=== PATIENT | male | born 1955 | race Caucasian/White ===

== ENCOUNTER → 2017-09-16 11:34 | Outpatient (CLI) | payer OTHER, SELFPAY | PROVIDERS: Family Provider Family Medicine; PCP Family Medicine; Visit Provider Family Medicine | DX: Z53.8 Procedure and treatment not carried out for other reasons (principal) | CPT/HCPCS: 80053; 84443 ==

== ENCOUNTER → 2017-09-17 12:32 | Outpatient (CLI) | payer OTHER, SELFPAY ==
[2017-09-17 13:36] LABS: ALB/GLOB Ratio 1.2 RATIO (0.9-2.4); AST(SGOT) 35 U/L (15-37); Alanine Aminotransfer ALT/SGPT 55 U/L (16-61); Albumin, Serum 4.4 g/dL (3.2-5.0); Alkaline Phosphatase 85 U/L (45-117); Anion Gap 10 (5-15); BUN 19 mg/dL (7-18); BUN/Creat Ratio 24.1 RATIO (10-20); Calcium,Total 9.1 mg/dL (8.5-10.1); Chloride 106 mmol/L (98-107); Creatinine, Serum 0.79 mg/dL (0.70-1.30); EST Glomerular Filtration Rate 105 mL/min (>60); Est Glom Filt Rate - Afr Amer 127 mL/min (>60); Globulin 3.6 g/dL (2.2-4.2); Glucose 165 mg/dL (74-106); Potassium 5.1 mmol/L (3.5-5.1); Sodium Level 137 mmol/L (136-145); Thyroid Stim Hormone (TSH) 0.53 uIU/mL (0.358-3.74)
== END ==
PROVIDERS: Family Provider Family Medicine; PCP Family Medicine; Visit Provider Family Medicine
DX: E11.9 Type 2 diabetes mellitus without complications (principal)
CPT/HCPCS: 36415; 80053; 84443

== ENCOUNTER → 2017-12-05 06:56 | Outpatient (CLI) | payer OTHER, SELFPAY ==
--- NOTE | 2017-12-05 13:02 | STRESSREP ---
Stress Test Report Date: 12/05/2017 Procedure: Exercise tolerance test/imaging study Indications: Chest pain; CAD; PCI Consent: Per the patient Procedure: The patient exercised on a Villa protocol for 4 minutes completing Stage I and 1 minute of Stage II achieving a peak heart rate of 153 bpm (98 % predicted maximal heart rate) with a peak blood pressure 152/70 mmHg and a peak MET capacity of 5 METs. The baseline ECG demonstrated normal sinus rhythm; possible anterior ND of indeterminate age; nonspecific ST and T-wave abnormality. The peak exercise ECG demonstrated continued nonspecific ST and T-wave abnormality. There were occasional PVCs pretest and in recovery. The functional capacity was considered decreased. There was [no complaint of chest discomfort during exercise or recovery]. The examination was discontinued secondary to fatigue and dyspnea. Impression: 1. Technically adequate (percent predicted maximal heart rate greater than 85%) exercise tolerance test 2. Peak exercise ECG with continued nonspecific ST and T-wave abnormality 3. There were occasional PVCs pretest and in recovery. 4. Nuclear images pending Myocardial perfusion imaging study: Technique: The patient was injected with 14.8 mCi of technetium 99m Cardiolite and subsequently rest SPECT Cardiolite nuclear imaging was obtained in the horizontal long, vertical long, and short axis views. The patient exercised on a Villa protocol for 4 minutes completing Stage I and 1 minute of Stage II achieving a peak heart rate of 153 bpm (98 % predicted maximal heart rate) with a peak blood pressure 152/70 mmHg and a peak MET capacity of 5 METs. The patient was injected with 44.3 mCi of technetium 99m Cardiolite and subsequently stress SPECT Cardiolite nuclear imaging was obtained in the horizontal long, vertical long, and short axis views. A gated Cardiolite study at peak stress was obtained. Interpretation: Rest and stress SPECT Cardiolite nuclear imaging status post realignment, normalization, and attenuation correction, demonstrates the appearance of diminished absence of myocardial perfusion/tracer uptake in portions of the distal anterior, distal anteroseptal, distal anterolateral, distal inferior septal, distal inferior, and distal lateral segments, as well as, the apical segments without significant change between rest and stress. There is diminished end systolic thickening and brightening in the aforementioned areas. The gated Cardiolite study demonstrates diminished myocardial thickening and inward wall motion in the aforementioned areas. The reported LVEF is 33 %. Impression: 1. Rest and stress SPECT Cardiolite nuclear imaging demonstrate myocardial perfusion changes compatible with an area of previous myocardial injury/infarction involving portions of the distal anterior, distal anteroseptal, distal anterolateral, distal inferior septal, distal inferior, and distal lateral segments, as well as, the apical segments with no myocardial perfusion changes consider diagnostic for associated stress-induced myocardial ischemia. 2. The gated Cardiolite study reports an LVEF of 33 %. This note was generated with [employer] software. It may contain incorrect words, spelling, and punctuation that were not noted in checking the note before signing.
--- NOTE | 2017-12-05 13:07 | STRESSREP_ITS ---
Stress Test Report Date: 12/05/2017 Procedure: Exercise tolerance test/imaging study Indications: Chest pain; CAD; PCI Consent: Per the patient Procedure: The patient exercised on a Villa protocol for 4 minutes completing Stage I and 1 minute of Stage II achieving a peak heart rate of 153 bpm (98 % predicted maximal heart rate) with a peak blood pressure 152/70 mmHg and a peak MET capacity of 5 METs. The baseline ECG demonstrated normal sinus rhythm; possible anterior MS of indeterminate age; nonspecific ST and T-wave abnormality. The peak exercise ECG demonstrated continued nonspecific ST and T-wave abnormality. There were occasional PVCs pretest and in recovery. The functional capacity was considered decreased. There was [no complaint of chest discomfort during exercise or recovery]. The examination was discontinued secondary to fatigue and dyspnea. Impression: 1. Technically adequate (percent predicted maximal heart rate greater than 85% ) exercise tolerance test 2. Peak exercise ECG with continued nonspecific ST and T-wave abnormality 3. There were occasional PVCs pretest and in recovery. 4. Nuclear images pending Myocardial perfusion imaging study: Technique: The patient was injected with 14.8 mCi of technetium 99m Cardiolite and subsequently rest SPECT Cardiolite nuclear imaging was obtained in the horizontal long, vertical long, and short axis views. The patient exercised on a Villa protocol for 4 minutes completing Stage I and 1 minute of Stage II achieving a peak heart rate of 153 bpm (98 % predicted maximal heart rate) with a peak blood pressure 152/70 mmHg and a peak MET capacity of 5 METs. The patient was injected with 44.3 mCi of technetium 99m Cardiolite and subsequently stress SPECT Cardiolite nuclear imaging was obtained in the horizontal long, vertical long, and short axis views. A gated Cardiolite study at peak stress was obtained. Interpretation: Rest and stress SPECT Cardiolite nuclear imaging status post realignment, normalization, and attenuation correction, demonstrates the appearance of diminished absence of myocardial perfusion/tracer uptake in portions of the distal anterior, distal anteroseptal, distal anterolateral, distal inferior septal, distal inferior, and distal lateral segments, as well as, the apical segments without significant change between rest and stress. There is diminished end systolic thickening and brightening in the aforementioned areas. The gated Cardiolite study demonstrates diminished myocardial thickening and inward wall motion in the aforementioned areas. The reported LVEF is 33 %. Impression: 1. Rest and stress SPECT Cardiolite nuclear imaging demonstrate myocardial perfusion changes compatible with an area of previous myocardial injury/ infarction involving portions of the distal anterior, distal anteroseptal, distal anterolateral, distal inferior septal, distal inferior, and distal lateral segments, as well as, the apical segments with no myocardial perfusion changes consider diagnostic for associated stress-induced myocardial ischemia. 2. The gated Cardiolite study reports an LVEF of 33 %. This note was generated with [employer] software. It may contain incorrect words, spelling, and punctuation that were not noted in checking the note before signing.
== END ==
PROVIDERS: Family Provider Family Medicine; PCP Family Medicine; Visit Provider Internal Medicine Cardiovascular Disease
DX: R07.9 Chest pain, unspecified (principal)
CPT/HCPCS: 78452; 93017; A9500; A4216

== ENCOUNTER → 2018-01-27 11:18 | Outpatient (CLI) | payer OTHER, SELFPAY ==
[2018-01-27 12:28] LABS: ALB/GLOB Ratio 1.2 RATIO (0.9-2.4); AST(SGOT) 36 U/L (15-37); Alanine Aminotransfer ALT/SGPT 48 U/L (16-61); Albumin, Serum 4.3 g/dL (3.2-5.0); Alkaline Phosphatase 83 U/L (45-117); Anion Gap 11 (5-15); BUN 14 mg/dL (7-18); BUN/Creat Ratio 16.7 RATIO (10-20); Calcium,Total 9.1 mg/dL (8.5-10.1); Chloride 105 mmol/L (98-107); Cholesterol 131 mg/dL (200); Creatinine, Serum 0.84 mg/dL (0.70-1.30); EST Glomerular Filtration Rate 98 mL/min (>60); Est Glom Filt Rate - Afr Amer 119 mL/min (>60); Globulin 3.6 g/dL (2.2-4.2); Glucose 122 mg/dL (74-106); High Density Lipoprotein 49 mg/dL; Potassium 4.8 mmol/L (3.5-5.1); Protein, Total 7.9 g/dL (6.4-8.2); Sodium Level 140 mmol/L (136-145); Triglycerides 151 mg/dL; Very Low Density Lipoprotein 30 mg/dL (5-40)
[2018-01-27 12:50] LABS: AST(SGOT) 37 U/L (15-37); Alanine Aminotransfer ALT/SGPT 48 U/L (16-61); Albumin, Serum 4.2 g/dL (3.2-5.0); Alkaline Phosphatase 84 U/L (45-117); Bilirubin, Direct 0.21 mg/dL (0.00-0.30); Globulin 3.8 g/dL (2.2-4.2)
== END ==
PROVIDERS: Physician Assistant Medical; Family Provider Family Medicine; PCP Family Medicine; Visit Provider Internal Medicine Cardiovascular Disease
DX: I25.10 Atherosclerotic heart disease of native coronary artery without angina pectoris (principal); E78.5 Hyperlipidemia, unspecified; R50.9 Fever, unspecified; Z79.899 Other long term (current) drug therapy
CPT/HCPCS: 36415; 80053; 80061; 80076

== ENCOUNTER → 2018-01-30 15:42 | Outpatient (CLI) | payer OTHER, SELFPAY ==
--- NOTE | 2018-01-30 15:51 | RAD_ITS ---
STUDY: X-RAY - ABDOMEN/PELVIS REASON FOR EXAM: Male, 62 years old. Hematuria, history of kidney stones TECHNIQUE: Two AP supine views of the abdomen and pelvis. COMPARISON: None. FINDINGS: Normal visualized lung bases. There is an unremarkable bowel gas pattern. There is no demonstrated free abdominal air. There are numerous calcific densities of the left upper quadrant of the abdomen consistent with calcified splenic granulomas. There is a 2 x 6 mm calcification overlying the upper pole of the right kidney. There is a 7 x 3 mm calcification of the lower right pelvis. Normal visualized osseous structures. RAD/Abdomen Single View IMPRESSION: 1. 2 x 6 mm calcification overlying the upper pole of the left kidney which may represent nephrolithiasis. 2. 7 x 3 mm calcification of the lower right pelvis which may be intraureteral. 3. Calcified splenic granulomas. 4. There is no evidence of ileus or obstruction. 5. CT of the abdomen and pelvis without contrast would be helpful for further evaluation. Electronically Signed: Noé Hahn MD at 16:21 EDT , Service support ,
[2018-01-30 17:49] LABS: Anion Gap 8 (5-15); BUN 18 mg/dL (7-18); Calcium,Total 10.1 mg/dL (8.5-10.1); Chloride 100 mmol/L (98-107); Creatinine, Serum 0.95 mg/dL (0.70-1.30); EST Glomerular Filtration Rate 85 mL/min (>60); Est Glom Filt Rate - Afr Amer 103 mL/min (>60); Glucose 218 mg/dL (74-106); Potassium 5.3 mmol/L (3.5-5.1); Sodium Level 134 mmol/L (136-145)
== END ==
PROVIDERS: Family Provider Family Medicine; PCP Family Medicine; Visit Provider Family Medicine
DX: R31.9 Hematuria, unspecified (principal); R30.0 Dysuria
CPT/HCPCS: 36415; 74018; 80048; 87086

== ENCOUNTER → 2018-01-31 10:45 | Outpatient (CLI) | payer OTHER, SELFPAY ==
--- NOTE | 2018-01-31 11:04 | CT_ITS ---
STUDY: CT ABDOMEN AND PELVIS WITHOUT CONTRAST REASON FOR EXAM: Male, 62 years old. Hematuria. RADIATION DOSAGE (If Supplied By Facility): CTDIvol = ( 18.56 ) mGy, DLP = ( 1029.26 ) mGycm TECHNIQUE: Transaxial images were obtained from the dome of the diaphragm to the symphysis pubis without oral contrast, and without intravenous contrast. Sagittal and coronal images were reconstructed. Individualized dose optimization techniques were used for this CT. COMPARISON: Comparison is made with prior study dated April 23, 2016. FINDINGS: Calcified granuloma in the posterior medial aspect of the left lower lobe. Stable small pulmonary bulla. Coronary artery calcifications. Normal liver. There are multiple small gallstones. There are multiple benign calcified granulomata of the spleen. Normal pancreas. Normal bilateral adrenal glands. There is a 2.5 mm nonobstructive calculus in the midportion of the right kidney. Normal left kidney. Nonspecific bilateral perinephric stranding. Normal visualized stomach. Normal small intestine. There are multiple colonic diverticula consistent with diverticulosis. The patient is status post appendectomy. There is diffuse atherosclerotic calcification of the abdominal aorta and its major visceral branches., without a demonstrated aneurysm. Normal inferior vena cava. There is borderline retroperitoneal lymphadenopathy with enlarged nodes no greater than 10mm in the short axis diameter. Normal urinary bladder. Calcification of the vas deferens. Normal abdominal wall. Normal osseous structures. CT/Abdomen/Pelvis without Cont IMPRESSION: Nonobstructive right intrarenal calculus. No evidence of a obstructive uropathy. Electronically Signed: Jose Cruz Peterson MD at 12:28 EDT Tel [phone], Service support ,
== END ==
PROVIDERS: Family Provider Family Medicine; PCP Family Medicine; Visit Provider Family Medicine
DX: R31.9 Hematuria, unspecified (principal)
CPT/HCPCS: 74176

== ENCOUNTER → 2018-07-31 07:57 | Outpatient (CLI) | payer OTHER, SELFPAY ==
[2018-07-31 10:44] LABS: Anion Gap 7 (5-15); BUN 15 mg/dL (7-18); BUN/Creat Ratio 20.3 RATIO (10-20); Chloride 106 mmol/L (98-107); Cholesterol 129 mg/dL (200); Creatinine, Serum 0.74 mg/dL (0.70-1.30); EST Glomerular Filtration Rate 113 mL/min (>60); Est Glom Filt Rate - Afr Amer 137 mL/min (>60); Glucose 109 mg/dL (74-106); High Density Lipoprotein 50 mg/dL; Sodium Level 141 mmol/L (136-145); Triglycerides 135 mg/dL; Very Low Density Lipoprotein 27 mg/dL (5-40)
== END ==
PROVIDERS: Family Provider Family Medicine; PCP Family Medicine; Referring Provider Family Medicine; Visit Provider Family Medicine
DX: E11.9 Type 2 diabetes mellitus without complications (principal)
CPT/HCPCS: 36415; 80048; 80061

== ENCOUNTER → 2018-11-13 07:47 | Outpatient (CLI) | payer MEDICARE, OTHER, SELFPAY ==
[2018-08-29 09:40] VITALS: BMI 31.1
--- NOTE | 2018-11-13 07:51 | AAAS_ITS ---
Reason For Study: screening for AAA Aorta Measurements Aorta Doppler Measurements Proximal aorta measures1.11 x 1.22cm. in cross- Peak systolic flow velocities within the proximal sectional axis. aorta measure 114.5 cm/sec. Proximal aorta measures1.19cm. in longitudinal Peak systolic flow velocities within the mid aorta axis. measure 106.7 cm/sec. Mid aorta measures1.03 x 1.24cm. in cross- Peak systolic flow velocities within the distal sectional axis. aorta measure 119.7 cm/sec. Mid aorta measures1.04cm. in longitudinal axis. Distal aorta measures1.2 x 1.24cm. in cross- sectional axis. Distal aorta measures1.07cm. in longitudinal axis. Left Iliac Artery Left iliac artery measures .94 x .91 cm. in the cross-sectional axis. Left iliac artery measures .91 cm. in the longitudinal axis. Peak systolic velocity in the left iliac artery measures 67.9 cm/sec. Right Iliac Artery Right iliac artery measures .95 x 1.0 cm. in the cross-sectional axis. Right iliac artery measures .94 cm. in the longitudinal axis. Peak systolic velocity in the right iliac artery measures 93.8 cm/sec. Interpretation Summary The dimensions of the intra-abdominal aorta are normal, without evidence of aneurysmal dilatation. The iliac arteries are also normal in size bilaterally. The intra-abdominal aorta and iliac arteries appear patent, demonstrating normal, pulsatile arterial flow and normal peak systolic velocities. Ordering Physician: Yonathan Escalante Performed By: Johan Thompson RVT
== END ==
PROVIDERS: Family Provider Family Medicine; PCP Family Medicine; Referring Provider Family Medicine; Visit Provider Family Medicine
DX: I10 Essential (primary) hypertension (principal); Z13.6 Encounter for screening for cardiovascular disorders
CPT/HCPCS: 76706

== ENCOUNTER → 2019-02-26 | Outpatient (CLI) | payer MEDICARE, OTHER, SELFPAY ==
[2019-02-25 11:03] VITALS: BMI 30.7
[2019-02-26 11:22] LABS: AST(SGOT) 48 U/L (15-37); Alanine Aminotransfer ALT/SGPT 57 U/L (16-61); Albumin, Serum 4.1 g/dL (3.2-5.0); Alkaline Phosphatase 71 U/L (45-117); Bilirubin, Direct 0.24 mg/dL (0.00-0.30); Globulin 3.4 g/dL (2.2-4.2); Protein, Total 7.5 g/dL (6.4-8.2)
[2019-02-26 11:26] LABS: ALB/GLOB Ratio 1.2 RATIO (0.9-2.4); AST(SGOT) 47 U/L (15-37); Alanine Aminotransfer ALT/SGPT 56 U/L (16-61); Albumin, Serum 4.1 g/dL (3.2-5.0); Alkaline Phosphatase 74 U/L (45-117); Anion Gap 6 (5-15); BUN 19 mg/dL (7-18); BUN/Creat Ratio 25.8 RATIO (10-20); Calcium,Total 9.8 mg/dL (8.5-10.1); Chloride 103 mmol/L (98-107); Cholesterol 141 mg/dL (200); Creatinine, Serum 0.74 mg/dL (0.70-1.30); EST Glomerular Filtration Rate 113 mL/min (>60); Est Glom Filt Rate - Afr Amer 137 mL/min (>60); Globulin 3.3 g/dL (2.2-4.2); Glucose 137 mg/dL (74-106); High Density Lipoprotein 55 mg/dL; PSA,Total - Annual Screen 0.58 ng/mL (0.00-4.00); Potassium 4.1 mmol/L (3.5-5.1); Protein, Total 7.4 g/dL (6.4-8.2); Sodium Level 135 mmol/L (136-145); Thyroid Stim Hormone (TSH) 0.62 uIU/mL (0.358-3.74); Triglycerides 164 mg/dL; Very Low Density Lipoprotein 33 mg/dL (5-40)
== END | disposition home or self-care (01) ==
LOC: LAB 10:02
PROVIDERS: Family Provider Family Medicine; PCP Family Medicine; Referring Provider Internal Medicine Cardiovascular Disease; Visit Provider Internal Medicine Cardiovascular Disease
DX: E78.5 Hyperlipidemia, unspecified (principal); E11.9 Type 2 diabetes mellitus without complications; Z12.5 Encounter for screening for malignant neoplasm of prostate
CPT/HCPCS: 36415; 80053; 80061; 80076; 84153; 84443; G0103

== ENCOUNTER → 2019-08-26 11:28 | Outpatient (CLI) | payer MEDICARE, OTHER, SELFPAY ==
[2019-02-25 11:03] VITALS: BMI 30.7
[2019-08-26 14:59] LABS: ALB/GLOB Ratio 1.3 RATIO (0.9-2.4); AST(SGOT) 40 U/L (15-37); Alanine Aminotransfer ALT/SGPT 60 U/L (16-61); Albumin, Serum 4.4 g/dL (3.2-5.0); Alkaline Phosphatase 76 U/L (45-117); Anion Gap 7 (5-15); BUN 16 mg/dL (7-18); BUN/Creat Ratio 17.3 RATIO (10-20); Calcium,Total 9.8 mg/dL (8.5-10.1); Chloride 104 mmol/L (98-107); Cholesterol 133 mg/dL (200); Creatinine, Serum 0.93 mg/dL (0.70-1.30); EST Glomerular Filtration Rate 87 mL/min (>60); Est Glom Filt Rate - Afr Amer 105 mL/min (>60); Globulin 3.5 g/dL (2.2-4.2); Glucose 165 mg/dL (74-106); High Density Lipoprotein 51 mg/dL; Protein, Total 7.9 g/dL (6.4-8.2); Sodium Level 136 mmol/L (136-145); Triglycerides 136 mg/dL; Very Low Density Lipoprotein 27 mg/dL (5-40)
== END ==
PROVIDERS: Family Provider Family Medicine; PCP Family Medicine; Referring Provider Family Medicine; Visit Provider Family Medicine
DX: E11.9 Type 2 diabetes mellitus without complications (principal)
CPT/HCPCS: 36415; 80053; 80061

== ENCOUNTER → 2020-03-09 | Outpatient (CLI) | payer MEDICARE, OTHER, SELFPAY ==
[2019-09-04 10:23] VITALS: BMI 30.9
[2020-03-09 12:49] LABS: AST(SGOT) 29 U/L (15-37); Alanine Aminotransfer ALT/SGPT 41 U/L (16-61); Albumin, Serum 4.3 g/dL (3.2-5.0); Alkaline Phosphatase 61 U/L (45-117); Bilirubin, Direct 0.25 mg/dL (0.00-0.30); Cholesterol 131 mg/dL (200); Globulin 2.6 g/dL (2.2-4.2); High Density Lipoprotein 52 mg/dL; Protein, Total 6.9 g/dL (6.4-8.2); Triglycerides 149 mg/dL; Very Low Density Lipoprotein 30 mg/dL (5-40)
[2020-03-09 12:53] LABS: ALB/GLOB Ratio 1.3 RATIO (0.9-2.4); AST(SGOT) 31 U/L (15-37); Alanine Aminotransfer ALT/SGPT 41 U/L (16-61); Albumin, Serum 4.2 g/dL (3.2-5.0); Alkaline Phosphatase 60 U/L (45-117); Anion Gap 4 (5-15); BUN 11 mg/dL (7-18); BUN/Creat Ratio 17.5 RATIO (10-20); Calcium,Total 9.1 mg/dL (8.5-10.1); Chloride 106 mmol/L (98-107); Creatinine, Serum 0.63 mg/dL (0.70-1.30); EST Glomerular Filtration Rate 136 mL/min (>60); Est Glom Filt Rate - Afr Amer 165 mL/min (>60); Globulin 3.2 g/dL (2.2-4.2); Glucose 129 mg/dL (74-106); PSA,Total - Annual Screen 0.51 ng/mL (0.00-4.00); Potassium 4.1 mmol/L (3.5-5.1); Protein, Total 7.4 g/dL (6.4-8.2); Sodium Level 139 mmol/L (136-145); Thyroid Stim Hormone (TSH) 0.73 uIU/mL (0.358-3.74)
== END | disposition home or self-care (01) ==
LOC: MTLAB 09:40
PROVIDERS: PCP Family Medicine; Referring Provider Internal Medicine Cardiovascular Disease; Visit Provider Internal Medicine Cardiovascular Disease
DX: E11.9 Type 2 diabetes mellitus without complications (principal); E78.5 Hyperlipidemia, unspecified; I25.118 Atherosclerotic heart disease of native coronary artery with other forms of angina pectoris; Z12.5 Encounter for screening for malignant neoplasm of prostate
CPT/HCPCS: 36415; 80053; 80061; 80076; 84153; 84443; G0103

== ENCOUNTER → 2020-12-16 11:02 | Outpatient (CLI) | payer MEDICARE, OTHER, SELFPAY ==
[2020-03-14 13:51] VITALS: BMI 30.7
[2020-12-16 14:58] LABS: Hematocrit 41.6 % (40-54); Hemoglobin 13.8 g/dL (13.0-16.5); Mean Corp Hgb Conc 33.2 g/dL (32-36); Mean Corpuscular Hgb 31.6 pg (27.0-32.0); Mean Corpuscular Volume 95.2 fL (80-94); Mean Platelet Vol. 10.4 fl (6.2-12.0); Platelet Count 179 K/mm3 (150-450); RBC Distribution Width CV 11.8 % (11.6-14.6); RBC Distribution Width SD 40.8 fl (35.1-43.9); Red Blood Count 4.37 M/mm3 (4.6-6.2); White Blood Count 5.1 K/mm3 (4.4-11.0)
[2020-12-16 15:21] LABS: AST(SGOT) 22 U/L (15-37); Alanine Aminotransfer ALT/SGPT 35 U/L (16-61); Albumin, Serum 4.2 g/dL (3.2-5.0); Alkaline Phosphatase 59 U/L (45-117); Bilirubin, Direct 0.27 mg/dL (0.00-0.30); Cholesterol 121 mg/dL (200); Globulin 2.9 g/dL (2.2-4.2); High Density Lipoprotein 54 mg/dL; Protein, Total 7.1 g/dL (6.4-8.2); Triglycerides 93 mg/dL; Very Low Density Lipoprotein 19 mg/dL (5-40); Vitamin B12 294 pg/mL (211-911)
[2020-12-16 15:35] LABS: ALB/GLOB Ratio 1.4 RATIO (0.9-2.4); AST(SGOT) 19 U/L (15-37); Alanine Aminotransfer ALT/SGPT 34 U/L (16-61); Albumin, Serum 4.2 g/dL (3.2-5.0); Alkaline Phosphatase 57 U/L (45-117); Anion Gap 5 (5-15); BUN 14 mg/dL (7-18); BUN/Creat Ratio 17.8 RATIO (10-20); Calcium,Total 9.2 mg/dL (8.5-10.1); Chloride 101 mmol/L (98-107); Creatinine, Serum 0.79 mg/dL (0.70-1.30); EST Glomerular Filtration Rate 104 mL/min (>60); Est Glom Filt Rate - Afr Amer 126 mL/min (>60); Glucose 145 mg/dL (74-106); Potassium 4.9 mmol/L (3.5-5.1); Protein, Total 7.2 g/dL (6.4-8.2); Sodium Level 134 mmol/L (136-145); Thyroid Stim Hormone (TSH) 0.82 uIU/mL (0.358-3.74)
== END ==
PROVIDERS: PCP Family Medicine; Referring Provider Internal Medicine Cardiovascular Disease; Visit Provider Internal Medicine Cardiovascular Disease
DX: E78.00 Pure hypercholesterolemia, unspecified (principal); E11.9 Type 2 diabetes mellitus without complications; I25.10 Atherosclerotic heart disease of native coronary artery without angina pectoris
CPT/HCPCS: 36415; 80053; 80061; 80076; 82607; 84443; 85027

== ENCOUNTER 2021-06-17 22:43 | Emergency (ER) | payer MEDICARE, OTHER, SELFPAY ==
[2021-06-17 22:43] VITALS: PULSE 99; RESP 16; TEMP 36.4; O2SAT 100; BMI 30.8
--- NOTE | 2021-06-17 23:12 | EKG12_ITS ---
Test Reason : DYSRHYTHMIA Blood Pressure : / mmHG Vent. Rate : 094 BPM Atrial Rate : 094 BPM P-R Int : 210 ms QRS Dur : 116 ms QT Int : 362 ms P-R-T Axes : 030 -42 033 degrees QTc Int : 452 ms Sinus rhythm with 1st degree A-V block Left axis deviation Inferior infarct , age undetermined Anterolateral infarct , age undetermined Abnormal ECG Confirmed by PETE LUIS, SENAIT ([id number]), fan mail editor KERLINE ZELAYA ([id number]) on 06/19/2021 10:35:26 AM Referred By: ABBY Confirmed By:SENAIT FREEMAN MD
--- NOTE | 2021-06-17 23:12 | EX.ED.DYSGE1 ---
HPI History of Present Illness Chief Complaint: Other, Pain/Inj Informant: patient and spouse/S.O. Onset/Context/Timing Onset: Today Context: - (Awoke with symptoms this morning) Timing: Continuous Quality: Sore/pain Location: Left upper posterior neck Current Severity: Mild Maximum Severity: Severe Worsened by: Certain movement, mostly tilting his head to the left Relieved by: Remaining still Associated Symptoms Associated Symptoms: None at this time Narrative Narrative: Patient presents with focal neck discomfort that he woke up with this morning. He states his main concern is that this could be possible heart related because he has a history of stents that were around 10 years ago. He denied of any chest pain, shortness of breath, or any other systemic symptoms, but for the last week or so he has had discomfort in his left upper back and upper left arm that was unexplained according to him, but that is all gone now and feels better. He did not have any interim injuries or heavy lifting or repetitive motions he can think of, but later he does think of the fact that about 1 or 2 weeks ago they started lifting weights likely at a nearby gymnasium. He is right-hand dominant. 3 weeks ago he had his Covid booster shot in his left shoulder, that is feeling better now although it was a little sore. He states he has had pain in his left neck for like this when he has slept on it wrong, but usually after taking ibuprofen it goes away but it did not do that today. 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 Premature ventricular contractions Type 2 diabetes mellitus without complications Home Medications aspirin 81 mg PO BID 04/23/16 [History Last Taken 04/23/16] furosemide 40 mg PO DAILY PRN 04/23/16 [History Last Taken Unknown] [id number] fum-folic ac 1 tab PO DINNER 04/23/16 [History Last Taken 04/23/16] spironolactone 12.5 mg PO DAILY 04/23/16 [History Last Taken 04/23/16] diphenhydramine HCl 25 mg PO QHS PRN PRN 04/26/16 [History Last Taken Unknown] atorvastatin 80 mg tablet 80 mg PO QHS #90 tab 09/30/17 [Rx Last Taken Unknown] magnesium oxide 400 mg (241.3 mg magnesium) tablet 400 mg PO QDAY tab 03/10/18 [History Last Taken Unknown] carvedilol 12.5 mg tablet 12.5 mg PO BID #180 tab 05/26/18 [Rx Last Taken Unknown] nitroglycerin 0.4 mg sublingual tablet 0.4 mg SUBLINGUAL Q5-15M 02/25/19 [History Last Taken Unknown] lisinopril 20 mg tablet 20 mg PO DAILY 09/04/19 [History Last Taken Unknown] isosorbide mononitrate 10 mg tablet 5 mg PO BID #90 tab 08/29/20 [Rx Last Taken Unknown] metformin 500 mg tablet 1,000 mg PO BID tab 12/19/20 [History Last Taken Unknown] Allergy/AdvReac Type Severity Reaction Status Date / Time rosuvastatin [From Crestor] AdvReac Severe didnt feel Verified 06/17/21 22:46 well Family History Mother Diabetes Sister Diabetes Brother Diabetes Hypertension Surgical History H/O right knee surgery History of appendectomy History of tonsillectomy and adenoidectomy Stented coronary artery (~12/14/11) Social History Smoking Status: Former smoker ROS ROS ED Constitutional Constitutional ED: Denies chills or fever(s) Eyes Eyes: Denies change in vision or diplopia ENT ENT ED: Reports as per HPI and neck pain; Denies rhinorrhea or sore throat Cardiovascular Cardiovascular: Denies chest pain or palpitations Respiratory/Chest Respiratory/Chest: Denies cough or dyspnea Gastrointestinal Gastrointestinal: Denies abdominal pain, diarrhea, nausea or vomiting Genitourinary Genitourinary ED: Denies dysuria or hematuria Musculoskeletal Musculoskeletal: Denies back pain or neck pain Integumentary Denies abscess or rash Neurologic Neurologic: Denies headache(s), paresthesias or weakness Psychiatric Psychiatric: Denies anxiety or suicidal thoughts EXAM Physical Exam Const Vital Signs: 06/17/21 22:43 06/17/21 23:36 Temperature 97.6 F L Temperature Source Temporal Pulse Rate 99 92 Respiratory Rate 16 17 Respiratory Effort Normal Non-Labored Respiratory Pattern Normal Pulse Ox 100 95 Oxygen Delivery Method Room Air Room Air Positive well nourished and well developed General Appearance ED: well developed and NAD HEENT Reports moist mucous membranes normocephalic and atraumatic Eyes PERRL and EOMs intact bilaterally Neck full ROM and supple Neck Narrative: Patient has focal neck tenderness in the left paraspinal musculature, behind the mastoid process but not including it, he is able to stretch it out, and is able to tilt his head using the paraspinal musculature and make the pain worse. There is no lymphadenopathy palpable anywhere in the neck or submandibular area. Chest Wall inspection of chest normal and palpation of chest normal Chest Narrative: Nontender. No axillary lymphadenopathy. Resp normal respiratory effort and clear to auscultation bilaterally Cardio regular rate, regular rhythm and no murmurs Rate: Negative for tachycardic GI non-tender and non-distended Auscultation: normoactive bowel sounds Palpation: soft Back/Spine no CVA tenderness General Back: other FROM Extremity normal to inspection and no calf tenderness Extremity Narrative: Normal left shoulder, no erythema or tenderness. General Extremety ED: Negative for edema, pulses abnormal or tenderness General Extremity: Negative for edema or pulses abnormal Neuro oriented x3, CN's II-XII intact bilaterally and no sensory deficits noted Sensorium / Orientation: awake and alert Motor Exam: strength 5/5 throughout Skin no rashes or lesions noted and no wounds MDM MDM MDM Narrative Medical decision making narrative: I think this is musculoskeletal. In order to reassure the patient obtained an EKG and a troponin, his EKG shows chronic abnormalities including's first-degree AV block and left axis deviation and Q waves from previous MIs in inferior and anteroseptal distributions. This is unchanged compared with prior EKG from 2019. His troponin is negative. Patient was reassured, he was given a compounded cream of diclofenac, lidocaine, and baclofen to use for this area topically which I think will be of benefit to him. Advised to follow-up as needed if pain does not improve within the next 3 to 5 days. Lab Data Attestation: I reviewed the patient's lab results. Labs: Laboratory Results - last 24 hr 06/17/21 23:48 Troponin I High Sens 6 EKG Initial EKG: Attestation: I personally reviewed and interpreted this EKG as follows: Interpretation: Sinus Rhythm and AV Block (First-degree block) Comments: Left anterior fascicular block. Old inferior and anteroseptal MIs. Prior EKG tracings: available for review Prior: Unchanged Discharge Plan Triage Chief Complaint: Other, Pain/Inj ED Provider: Reece Duarte Dx/Rx/DC Orders Clinical Impression: Musculoskeletal neck pain, Atherosclerotic heart disease of [place] coronary artery without angina pectoris Instructions: ED Neck Pain Prescriptions: No Action magnesium oxide 400 mg tablet 400 mg PO QDAY RF: 0 nitroglycerin 0.4 mg tablet, sublingual 0.4 mg SUBLINGUAL Q5-15M RF: 0 lisinopril 20 mg tablet 20 mg PO DAILY RF: 0 furosemide 40 MG tablet 40 mg PO DAILY PRN (Reason: Swelling) RF: 0 aspirin 81 MG tablet 81 mg PO BID RF: 0 spironolactone 25 MG tablet 12.5 mg PO DAILY RF: 0 vtxqbzax-gmc-raha fum-folic ac 1 EACH tablet 1 tab PO DINNER RF: 0 metformin 500 mg tablet 1,000 mg PO BID RF: 0 diphenhydramine HCl 25 MG capsule 25 mg PO QHS PRN PRN (Reason: Sleep) RF: 0 atorvastatin 80 MG tablet 80 mg PO QHS Qty: 90 RF: 3 carvedilol 12.5 mg tablet 12.5 mg PO BID Qty: 180 RF: 3 isosorbide mononitrate 10 mg tablet 10 mg tablet 5 mg PO BID Qty: 90 RF: 3 Primary Care Provider: Jacek Escalante Referrals: Jacek Escalante MD [Primary Care Provider] - 1 Week if not improving Activity Restrictions/Additional Instructions: Use small amount of cream to affected area 1-2 times daily as needed for discomfort/pain. Disposition Disposition: Home, Self Care
[2021-06-17] MEDS: Arthritis Pain Compound 60 CLICK TUBE TOPICAL (23:34)
[2021-06-17 23:36] VITALS: PULSE 92; RESP 17; O2SAT 95
[2021-06-18 00:13] LABS: Troponin-I HS 6 pg/mL (3.0-78.0)
[2021-06-18 00:29] VITALS: BP 168/100; PULSE 89; RESP 17; O2SAT 93
== END 2021-06-18 00:31 | disposition home or self-care (01) ==
PROVIDERS: Emergency Provider Emergency Medicine; PCP Family Medicine
DX: M54.2 Cervicalgia (principal); I25.10 Atherosclerotic heart disease of native coronary artery without angina pectoris; I11.0 Hypertensive heart disease with heart failure; I50.22 Chronic systolic (congestive) heart failure; E78.5 Hyperlipidemia, unspecified; E11.9 Type 2 diabetes mellitus without complications; Z79.84 Long term (current) use of oral hypoglycemic drugs; Z79.899 Other long term (current) drug therapy; Z87.891 Personal history of nicotine dependence
CPT/HCPCS: 84484; 93005; 99282

== ENCOUNTER → 2021-06-22 09:10 | Outpatient (CLI) | payer MEDICARE, OTHER, SELFPAY ==
[2021-06-22 11:11] LABS: AST(SGOT) 20 U/L (15-37); Alanine Aminotransfer ALT/SGPT 29 U/L (16-61); Albumin, Serum 3.8 g/dL (3.2-5.0); Alkaline Phosphatase 66 U/L (45-117); Bilirubin, Direct 0.16 mg/dL (0.00-0.30); Cholesterol 115 mg/dL (200); Globulin 3.6 g/dL (2.2-4.2); High Density Lipoprotein 44 mg/dL; Protein, Total 7.4 g/dL (6.4-8.2); Triglycerides 117 mg/dL; Very Low Density Lipoprotein 23 mg/dL (5-40)
== END ==
PROVIDERS: PCP Family Medicine; Referring Provider Internal Medicine Cardiovascular Disease; Visit Provider Internal Medicine Cardiovascular Disease
DX: E78.5 Hyperlipidemia, unspecified (principal); E78.00 Pure hypercholesterolemia, unspecified
CPT/HCPCS: 36415; 80061; 80076

== ENCOUNTER → 2022-04-10 | Outpatient (CLI) | payer MEDICARE, OTHER, SELFPAY ==
[2022-04-10 10:24] LABS: AST(SGOT) 19 U/L (15-37); Alanine Aminotransfer ALT/SGPT 30 U/L (16-61); Alkaline Phosphatase 60 U/L (45-117); Bilirubin, Direct 0.15 mg/dL (0.00-0.30); Cholesterol 121 mg/dL (200); Globulin 2.9 g/dL (2.2-4.2); High Density Lipoprotein 52 mg/dL; Protein, Total 6.9 g/dL (6.4-8.2); Triglycerides 138 mg/dL; Very Low Density Lipoprotein 28 mg/dL (5-40)
[2022-04-10 11:09] LABS: Hepatitis C Antibody Non-Reactive (Nonreactive)
[2022-04-11 08:28] LABS: V-Zoster IgG (Immunity) 2229 index (Immune >165)
== END | disposition home or self-care (01) ==
LOC: MTLAB 07:40
PROVIDERS: Internal Medicine Cardiovascular Disease; PCP Family Medicine; Referring Provider Family Medicine; Visit Provider Family Medicine
DX: E78.5 Hyperlipidemia, unspecified (principal)
CPT/HCPCS: 36415; 80061; 80076; 86787; 86803

== ENCOUNTER → 2022-11-16 | Outpatient (CLI) | payer MEDICARE, OTHER, SELFPAY ==
[2022-11-16 10:24] LABS: Hematocrit 43.7 % (40-54); Hemoglobin 14.7 g/dL (13.0-16.5); Mean Corp Hgb Conc 33.6 g/dL (32-36); Mean Corpuscular Hgb 32.7 pg (27.0-32.0); Mean Corpuscular Volume 97.1 fL (80-94); Mean Platelet Vol. 10.7 fl (6.2-12.0); Platelet Count 187 K/mm3 (150-450); RBC Distribution Width CV 11.9 % (11.6-14.6); RBC Distribution Width SD 42.5 fl (35.1-43.9); White Blood Count 5.6 K/mm3 (4.4-11.0)
[2022-11-16 10:39] LABS: Vitamin B12 382 pg/mL (211-911)
[2022-11-16 10:58] LABS: ALB/GLOB Ratio 1.4 RATIO (0.9-2.4); AST(SGOT) 20 U/L (15-37); Alanine Aminotransfer ALT/SGPT 34 U/L (16-61); Albumin, Serum 4.3 g/dL (3.2-5.0); Alkaline Phosphatase 75 U/L (45-117); Anion Gap 8 (5-15); BUN 13 mg/dL (7-18); BUN/Creat Ratio 16.4 RATIO (10-20); Bilirubin, Direct 0.22 mg/dL (0.00-0.30); Calcium,Total 9.4 mg/dL (8.5-10.1); Chloride 102 mmol/L (98-107); Cholesterol 143 mg/dL (200); EST Glomerular Filtration Rate 103 mL/min (>60); Est Glom Filt Rate - Afr Amer 124 mL/min (>60); Globulin 3.1 g/dL (2.2-4.2); Glucose 154 mg/dL (74-106); High Density Lipoprotein 50 mg/dL; PSA,Total - Annual Screen 0.47 ng/mL (0.00-4.00); Potassium 4.3 mmol/L (3.5-5.1); Protein, Total 7.4 g/dL (6.4-8.2); Sodium Level 138 mmol/L (136-145); Thyroid Stim Hormone (TSH) 1.24 uIU/mL (0.358-3.74); Triglycerides 197 mg/dL; Very Low Density Lipoprotein 39 mg/dL (5-40)
== END | disposition home or self-care (01) ==
LOC: MTLAB 07:46
PROVIDERS: PCP Family Medicine; Referring Provider Family Medicine; Visit Provider Family Medicine
DX: E11.9 Type 2 diabetes mellitus without complications (principal); Z12.5 Encounter for screening for malignant neoplasm of prostate
CPT/HCPCS: 36415; 80053; 80061; 82248; 82607; 84153; 84443; 85027; G0103

== ENCOUNTER → 2023-01-10 | Outpatient (CLI) | payer MEDICARE, OTHER, SELFPAY ==
[2023-01-13 20:07] LABS: Almond <0.10 kU/L (Class 0); Apple <0.10 kU/L (Class 0); Banana <0.10 kU/L (Class 0); Beef <0.10 kU/L (Class 0); Brazil Nut <0.10 kU/L (Class 0); Carrot 0.11 kU/L (Class 0/I); Cashew <0.10 kU/L (Class 0); Chicken <0.10 kU/L (Class 0); Codfish <0.10 kU/L (Class 0); Egg, White <0.10 kU/L (Class 0); Egg, Whole <0.10 kU/L (Class 0); Egg, Yolk <0.10 kU/L (Class 0); Garlic <0.10 kU/L (Class 0); Gluten <0.10 kU/L (Class 0); Hazelnut/Filbert <0.10 kU/L (Class 0); Milk (Cow) <0.10 kU/L (Class 0); Oat <0.10 kU/L (Class 0); Onion <0.10 kU/L (Class 0); Orange <0.10 kU/L (Class 0); Pea <0.10 kU/L (Class 0); Peach <0.10 kU/L (Class 0); Peanut 0.12 kU/L (Class 0/I); Pecan <0.10 kU/L (Class 0); Pork <0.10 kU/L (Class 0); Potato, White <0.10 kU/L (Class 0); Rice <0.10 kU/L (Class 0); Salmon <0.10 kU/L (Class 0); Strawberry <0.10 kU/L (Class 0); Tomato <0.10 kU/L (Class 0); Tuna <0.10 kU/L (Class 0); Walnut, (Food) <0.10 kU/L (Class 0); Wheat <0.10 kU/L (Class 0); Yeast <0.10 kU/L (Class 0)
== END | disposition home or self-care (01) ==
PROVIDERS: PCP Family Medicine; Referring Provider Otolaryngology Otolaryngology/Facial Plastic Surgery; Visit Provider Otolaryngology Otolaryngology/Facial Plastic Surgery
DX: T78.40XA Allergy, unspecified, initial encounter (principal); X58.XXXA Exposure to other specified factors, initial encounter
CPT/HCPCS: 36415; 86003

== ENCOUNTER → 2023-04-24 | Outpatient (CLI) | payer MEDICARE, OTHER, SELFPAY ==
--- NOTE | 2023-04-24 14:00 | ECHOCS_ITS ---
Reason For Study: CHF Procedure This was a 2D Doppler, Color Flow transthoracic echocardiogram. Contrast injection was performed. Exam performed in department. Left Ventricle Moderately dilated left ventricle. Mild concentric left ventricular hypertrophy. The left ventricular ejection fraction is 10 %. Stage 3 diastolic dysfunction. Anterior and apical akinesis. Global hypokinesis. Right Ventricle Normal right ventricle. Atria The left atrium is severely enlarged. The right atrium is mildly enlarged. Mitral Valve Trivial mitral valve insufficiency. Tricuspid Valve Trivial tricuspid valve insufficiency. Right ventricular systolic pressure estimated to be 49 mmHg. Aortic Valve Aortic sclerosis, no stenosis. Pulmonic Valve The pulmonic valve is not well visualized. Great Vessels Normal sized aortic root. Pericardium/Pleural No pericardial effusion. Medication Diluted definity 4ml given slow IV push to enhance endocardial definition. MMode/2D Measurements & Calculations LVIDd: 5.3 cm IVSd: 1.3 cm Ao root diam: 3.4 cm LVIDs: 4.9 cm LVPWd: 1.1 cm RVDd: 5.3 cm FS: 6.8 % LAV(MOD-bp): 100.9 ml LVAd ap4: 47.7 cm2 SV(MOD-sp4): 47.5 ml LAV(MOD-bp) Indexed: 48.3 ml/m2 LVLd ap4: 9.7 cm LAV(MOD-sp2): 110.1 ml EDV(MOD-sp4): 189.0 ml LAV(MOD-sp4): 81.8 ml EDV(sp4-el): 198.3 ml LVAs ap4: 41.2 cm2 LVLs ap4: 9.5 cm ESV(MOD-sp4): 141.6 ml ESV(sp4-el): 151.0 ml EF(MOD-sp4): 25.1 % EF(sp4-el): 23.8 % SV(sp4-el): 47.3 ml LA A4 area: 25.7 cm2 LA dimension(2D): 4.8 cm RA A4 area: 16.3 cm2 TAPSE: 2.3 cm Time Measurements MV dec time: 0.16 sec Doppler Measurements & Calculations MV E max stevie: 97.0 cm/sec Lat Peak E' Stevie: 10.7 cm/sec Med Peak E' Stevie: 5.9 cm/sec MV A max stevie: 37.3 cm/sec E/E' lat: 9.1 E/E' med: 16.5 MV E/A: 2.6 MV dec slope: 499.9 cm/sec2 Ao V2 max: 99.1 cm/sec LV V1 max: 71.4 cm/sec Ao max P.9 mmHg LV V1 max P.0 mmHg Ao V2 mean: 75.3 cm/sec Ao mean P.4 mmHg Ao V2 VTI: 19.5 cm PA V2 max: 67.0 cm/sec TR max stevie: 312.5 cm/sec TR max P.1 mmHg ECHO/Echo Complete W/ Contrast Interpretation Summary Moderately dilated left ventricle. Mild concentric left ventricular hypertrophy. The left ventricular ejection fraction is 10-15 %. Stage 3 diastolic dysfunction. Anterior and apical akinesis. Global hypokinesis. The left atrium is severely enlarged. The right atrium is mildly enlarged. Right ventricular systolic pressure estimated to be 49 mmHg. Aortic sclerosis, no stenosis. Ordering Physician: Rebel More Referring Physician: Yonathan Escalante Performed By: Clau More, RDCS, RVT
== END | disposition home or self-care (01) ==
LOC: CVS 13:59
PROVIDERS: PCP Family Medicine; Referring Provider Nurse Practitioner Family; Visit Provider Nurse Practitioner Family
DX: I25.118 Atherosclerotic heart disease of native coronary artery with other forms of angina pectoris (principal); I25.5 Ischemic cardiomyopathy
CPT/HCPCS: 93306; Q9957; A4216; C8929

== ENCOUNTER → 2023-05-30 | Outpatient (CLI) | payer MEDICARE, OTHER, SELFPAY ==
--- NOTE | 2023-06-03 11:36 | STRESSREP_ITS ---
Stress Test Report Date: 05/30/2023 Procedure: Exercise tolerance test/imaging study Indications: Coronary artery disease Consent: Per the patient Procedure: The patient exercised on a Villa protocol for 4 minutes and 39 seconds achieving a peak heart rate of 151 bpm (100% predicted maximal heart rate) with a peak blood pressure 180/96 mmHg and a peak MET capacity of 7.0 METs. The baseline ECG demonstrated sinus rhythm with nonspecific ST changes. The peak exercise ECG demonstrated no diagnostic changes secondary to baseline abnormalities. Occasional PVCs noted during exercise and in recovery. The functional capacity was considered below average. There was no complaint of chest discomfort during exercise or recovery. The examination was discontinued secondary to target heart rate being achieved. The patient was injected with 14.1 mCi of technetium 99m Cardiolite and subsequently rest SPECT Cardiolite nuclear imaging was obtained in the horizontal long, vertical long, and short axis views. Post-exercise, the patient was injected with 46.0 mCi of technetium 99m Cardiolite and subsequently stress SPECT Cardiolite nuclear imaging was obtained in the horizontal long, vertical long, and short axis views. A gated Cardiolite study at peak stress was obtained. Rest and stress SPECT Cardiolite nuclear imaging status post realignment, normalization, and attenuation correction, demonstrates an apical perfusion defect consistent with prior infarct. The gated Cardiolite study demonstrates apical akinesis. The reported LVEF is 38%. Impression: 1. Technically adequate (percent predicted maximal heart rate greater than 85%) exercise tolerance test 2. Peak exercise ECG nondiagnostic secondary to baseline abnormalities 3. PVCs noted during exercise and in recovery 4. Rest and stress SPECT Cardiolite nuclear imaging demonstrate prior apical infarct with no significant kay-infarct ischemia. 5. The gated Cardiolite study reports an LVEF of 38%. This note was generated with Modern Messageation software. It may contain incorrect words, spelling, and punctuation that were not noted in checking the note before signing.
== END | disposition home or self-care (01) ==
LOC: CVS 06:58
PROVIDERS: PCP Family Medicine; Referring Provider Nurse Practitioner Family; Visit Provider Nurse Practitioner Family
DX: I25.5 Ischemic cardiomyopathy (principal); I25.118 Atherosclerotic heart disease of native coronary artery with other forms of angina pectoris; I10 Essential (primary) hypertension; I25.2 Old myocardial infarction; Z95.5 Presence of coronary angioplasty implant and graft; I49.3 Ventricular premature depolarization
CPT/HCPCS: 78452; 93017; A9500; A4216

== ENCOUNTER → 2023-07-23 | Outpatient (CLI) | payer MEDICARE, OTHER, SELFPAY ==
--- NOTE | 2023-07-23 11:27 | RAD_ITS ---
STUDY: X-RAY - RIGHT KNEE REASON FOR EXAM: Male, 67 years old. pain TECHNIQUE: 4 view(s) of the knee. COMPARISON: 03/21/2015. FINDINGS: Normal visualized distal femur. Normal visualized proximal tibia and fibula. Normal proximal tibiofibular articulation. There is no demonstrated fracture. Normal medial femorotibial compartment. 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 Normal patellofemoral articulation. There is no demonstrated joint effusion. There are atherosclerotic calcifications. RAD/Knee 4 or More Views IMPRESSION: Severe lateral compartment narrowing, much worse than prior exam. No acute abnormalities. Electronically Signed: Stevie Daniels MD at 22:54 EST ,
== END | disposition home or self-care (01) ==
LOC: MTRAD 11:25
PROVIDERS: PCP Family Medicine; Referring Provider Family Medicine; Visit Provider Family Medicine
DX: M25.561 Pain in right knee (principal)
CPT/HCPCS: 73564

== ENCOUNTER 2023-09-17 19:44 | Emergency (ER) | payer MEDICARE, OTHER, SELFPAY ==
[2023-09-17] VITALS (9 sets, daily range): BP systolic 125–158; BP diastolic 71–93; PULSE 86–100; RESP 14–46; TEMP 36–38.3; O2SAT 89–97; BMI 30.3
--- NOTE | 2023-09-17 20:32 | EDS_ITS ---
HPI History of Present Illness Chief Complaint: Shortness of Breath Informant: patient Onset/Context/Timing Onset: Days (3) Context: gradual Timing: Continuous Quality: Positive for Dyspnea on exertion Worsened by: Exertion Relieved by: Oxygen Associated Symptoms cough and fever; Negative for rhinorrhea, post nasal drip, ear pain, sore throat, chills, sweats, clear sputum, white sputum, yellow sputum or green sputum Narrative Narrative: Patient presents with shortness of breath that has been getting progressively worse over the past 3 days. Patient states it came on gradually. Patient states it is constant. Patient states he is having difficulty breathing with exertion. Patient states that he has a pulse oximeter monitor at home and noted that it dropped to 89% tonight. Patient states he did a home COVID test which was negative. Patient admits to a cough but denies any sputum production. Patient admits to a low-grade fever up to 100.9. Patient does not wear oxygen at home. Patient denies any chest pain. Patient states he feels like he has a scratchy throat. 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 Premature ventricular contractions Type 2 diabetes mellitus without complications Home Medications aspirin 81 mg tablet,delayed release 81 mg PO BID 04/23/16 [History Last Taken 04/23/16] furosemide 40 mg tablet 40 mg PO DAILY PRN Swelling 04/23/16 [History Last Taken Unknown] spironolactone 25 mg tablet 12.5 mg PO DAILY 04/23/16 [History Last Taken 04/23/16] diphenhydramine HCl 25 mg capsule 25 mg PO QHS PRN PRN Sleep 04/26/16 [History Last Taken Unknown] atorvastatin 80 mg tablet 80 mg PO QHS #90 tabs 09/30/17 [Rx Last Taken Unknown] magnesium oxide 400 mg (241.3 mg magnesium) tablet 400 mg PO QDAY 03/10/18 [History Last Taken Unknown] carvedilol 12.5 mg tablet 12.5 mg PO BID #180 tabs 05/26/18 [Rx Last Taken Unknown] nitroglycerin 0.4 mg sublingual tablet 0.4 mg sublingual Q5-15M 02/25/19 [History Last Taken Unknown] metformin 500 mg tablet,extended release 24 hr 500 mg PO TID 11/19/22 [History Last Taken Unknown] biblstkubwcm-rkaaimus-xjnd fumarate 7.5 mg-folic acid 400 mcg tablet 1 tab PO DAILY 11/19/22 [History Last Taken Unknown] isosorbide mononitrate 10 mg tablet See Rx Instructions .Route .COMPLEX #90 tabs 08/15/23 [Rx Last Taken Unknown] albuterol sulfate 90 mcg/actuation aerosol inhaler (Ventolin HFA) 2 puff inhalation Q4H PRN PRN Wheezing ##1 09/17/23 [Rx Last Taken Unknown] Allergy/AdvReac Type Severity Reaction Status Date / Time rosuvastatin [From Crestor] AdvReac Severe didnt feel Verified 09/17/23 19:46 well Family History (Reviewed 04/18/23 @ 16:01 by Rebel More MEDICAID BILLING SPECIALIST, MEDICAID BILLING SPECIALIST-C) Mother Diabetes Sister Diabetes Brother Diabetes Hypertension Surgical History H/O right knee surgery History of appendectomy History of tonsillectomy and adenoidectomy Stented coronary artery (~12/14/11) Social History Smoking Status: Former smoker how long ago did patient quit smokin years ago alcohol intake: current alcohol intake frequency: 0-2 drinks per day Alcohol type: wine substance use type: does not use caffeine: Yes Type: coffee Number of servings: 2 ROS ROS ED Constitutional Constitutional ED: Reports fever(s); Denies chills Eyes Eyes: Denies blurry vision or change in vision ENT ENT ED: Denies rhinorrhea or sore throat Cardiovascular Cardiovascular: Denies chest pain or palpitations Respiratory/Chest Respiratory/Chest: Reports cough and dyspnea Gastrointestinal Gastrointestinal: Reports nausea; Denies vomiting Genitourinary Genitourinary ED: Reports dysuria; Denies hematuria Musculoskeletal Musculoskeletal: Denies back pain or neck pain Integumentary Denies abscess or rash Neurologic Neurologic: Denies headache(s) or weakness Allergic/Immunologic Allergic/Immunologic ED: Denies mouth swelling or urticaria EXAM Physical Exam Const Vital Signs: 09/17/23 19:46 09/17/23 20:09 09/17/23 19:47 Temperature 96.9 F L 96.8 F L Temperature Source Temporal Temporal Pulse Rate 96 95 95 Respiratory Rate 14 46 H 44 H Respiratory Effort Respiratory Pattern Blood Pressure 158/93 H 144/88 H 144/88 H Blood Pressure Mean 114 106 106 Pulse Ox 92 93 89 Oxygen Delivery Method Room Air Nasal Cannula Room Air Oxygen Flow Rate (L/min) 2 09/17/23 20:09 09/17/23 20:13 09/17/23 20:55 Temperature Temperature Source Pulse Rate 92 Respiratory Rate 26 H Respiratory Effort Short of Breath Respiratory Pattern Tachypnea Tachypnea Blood Pressure Blood Pressure Mean Pulse Ox 93 Oxygen Delivery Method Nasal Cannula Nasal Cannula Oxygen Flow Rate (L/min) 2 2 09/17/23 21:26 09/17/23 22:01 Temperature 101 F H 101 F H Temperature Source Oral Oral Pulse Rate 93 100 Respiratory Rate 32 H 20 H Respiratory Effort Respiratory Pattern Blood Pressure 133/71 H 133/72 H Blood Pressure Mean 91 92 Pulse Ox 96 97 Oxygen Delivery Method Nasal Cannula Nasal Cannula Oxygen Flow Rate (L/min) 2 2 Positive well nourished and well developed General Appearance ED: well developed and NAD HEENT Reports moist mucous membranes Neck supple and no JVD Resp Auscultation: diminished lung sounds diffuse Cardio regular rate and regular rhythm GI non-tender and non-distended Palpation: soft Neuro oriented x3, CN's II-XII intact bilaterally and no sensory deficits noted Nina Coma Scale: document GCS findings Spontaneous Obeys Commands Oriented 15 Sensorium / Orientation: alert Speech: speech normal Motor Exam: strength 5/5 throughout Psych mental status grossly normal MDM MDM MDM Narrative Medical decision making narrative: Differential diagnosis includes pneumonia, viral infection, bronchitis, congestive heart failure, cardiac dysrhythmia, cardiac ischemia, and urinary tract infection. EKG will be obtained to assess for cardiac dysrhythmia and cardiac ischemia. Chest x-ray will be obtained to assess for pneumonia and pneumothorax. CBC will be obtained to assess for leukocytosis and anemia. Basic metabolic profile will be obtained to assess for electrolyte abnormality and renal function. High-sensitivity troponin will be obtained to assess for cardiac ischemia. Urinalysis will be obtained to assess for urinary tract infection and hematuria. COVID-19, influenza, and RSV PCR will be obtained to assess for viral infection. Lab Data Attestation: I reviewed the patient's lab results. Lab results narrative: CBC was reviewed and was essentially within normal limits. Basic metabolic profile was reviewed. Sodium was slightly low at 126. Glucose was slightly elevated at 291. High-sensitivity troponin was reviewed and was normal at 14. COVID-19 PCR was reviewed and was negative. Influenza PCR was reviewed and was positive for influenza A but negative for influenza B. RSV PCR was reviewed and was negative. Labs: Laboratory Results - last 24 hr 09/17/23 20:05 WBC 7.9 RBC 4.15 L Hgb 13.6 Hct 39.6 L MCV 95.4 H MCH 32.8 H MCHC 34.3 RDW Std Deviation 41.5 RDW Coeff of Concetta 12.0 Plt Count 147 L MPV 10.4 Immature Gran % (Auto) 0.400 Neut % (Auto) 78.6 H Lymph % (Auto) 6.9 L [place]upe % (Auto) 13.5 H Eos % (Auto) 0.1 Baso % (Auto) 0.5 Absolute Neuts (auto) 6.2 Absolute Lymphs (auto) 0.54 L Nucleated RBC % 0 Differential Comment SEE COMMENT Platelet Estimate SLT DEC RBC Morphology N CHROM Anisocytosis 1+ Macrocytosis 1+ Sodium 126 L Potassium 4.2 Chloride 95 L Carbon Dioxide 21.0 Anion Gap 10 BUN 13 Creatinine 0.87 Est GFR (MDRD) Af Amer 111 Est GFR (MDRD) Non-Af 92 BUN/Creatinine Ratio 14.9 Glucose 291 H Calcium 9.0 Troponin I High Sens 14 Radiography Chest X-Ray - ED: 2 View, Read by ED Physician and Read by Radiologist Diagnostic Testing: Clinical Impression(s) from Imaging Studies Chest X-Ray 09/17/23 21:38 IMPRESSION: Findings concerning for early interstitial pulmonary edema, differential diagnosis including interstitial lung disease or pneumonitis. Clinical correlation recommended. Electronically Signed: Shayla Rizzo MD at 21:55 EST , PA and lateral chest x-ray was obtained. There are 2 views. On my independent interpretation, lung bishop show questionable early interstitial edema versus viral pneumonitis. There is normal cardiac silhouette. Bony thorax is normal. There is no acute process noted. Radiologist also interpreted the x-ray and agrees. EKG Initial EKG: Attestation: I personally reviewed and interpreted this EKG as follows: Interpretation: Sinus Rhythm (With first-degree AV block with a rate of 94) and Non-Specific ST Changes Comments: EKG was obtained. On my independent interpretation, it shows a sinus rhythm with a first-degree AV block with a rate of 94. LA interval was prolonged at 222 ms. QRS interval was slightly prolonged at 126 ms. QTc interval was slightly prolonged at 470 ms. There is left axis deviation at -37. There are nonspecific ST-T wave changes noted. This was unchanged compared to previous EKG dated 06/17/2021. Prior EKG tracings: available for review Prior: Unchanged (06/17/2021) Treatment and Re-Evaluation :: Patient was given a DuoNeb aerosol here. Patient was given Tylenol. Patient was advised of his findings. Patient is feeling better on reevaluation. Patient was able to ambulate here in the emergency department and maintain oxygen saturation of 90% or better. Patient was advised that he is out of the window for Tamiflu. Patient was instructed to continue Tylenol at home. Patient was given a prescription for an albuterol inhaler. Patient was instructed to follow-up with his primary care physician in 3 to 5 days. Patient was instructed return if worse in any way. Patient understood and was agreeable with the plan. All questions were answered. Discharge Plan Triage Chief Complaint: Shortness of Breath Other Complaint: Cough ED Provider: Cristopher Dominguez Dx/Rx/DC Orders Clinical Impression: Influenza A, Essential hypertension Instructions: ED Influenza (Adult) Prescriptions: New albuterol sulfate [Ventolin HFA] 90 mcg/actuation HFA aerosol inhaler 2 puff inhalation Q4H PRN PRN (Reason: Wheezing) Qty: 1 0RF No Action magnesium oxide 400 mg tablet 400 mg PO QDAY nitroglycerin 0.4 mg tablet, sublingual 0.4 mg SUBLINGUAL Q5-15M metformin 500 mg tablet extended release 24 hr 500 mg PO TID furosemide 40 MG tablet 40 mg PO DAILY PRN (Reason: Swelling) aspirin 81 MG tablet 81 mg PO BID spironolactone 25 MG tablet 12.5 mg PO DAILY Patient Comments: uhyyepac-rmq-rggi fum-folic ac 7.5 mg iron-400 mcg tablet 1 tab PO DAILY diphenhydramine HCl 25 MG capsule 25 mg PO QHS PRN PRN (Reason: Sleep) atorvastatin 80 MG tablet 80 mg PO QHS Qty: 90 3RF carvedilol 12.5 mg tablet 12.5 mg PO BID Qty: 180 3RF isosorbide mononitrate 10 mg tablet See Rx Instructions .ROUTE .COMPLEX Qty: 90 3RF Dose Instruction: TAKE 1/2 TABLET TWICE A DAYTAKE DOSES 7 HOURS APART Rx Instructions: TAKE 1/2 TABLET TWICE A DAYTAKE DOSES 7 HOURS APART Primary Care Provider: Jacek Escalante Referrals: Jacek Escalante MD [Primary Care Provider] - 3-5 Days
[2023-09-17] MEDS: Ipratropium/Albuterol Sulfate 3 ML AMPUL.NEB INHALATION (20:55)
[2023-09-17 21:08] LABS: Absolute Lymphocyte Count 0.54 X10^3/uL (0.83-4.51); Absolute Neutrophil Count 6.2 X10^3/uL (2.0-7.7); Basophil# 0.04 X10^3/uL; Basophil% 0.5 % (0-1); Eosinophil# 0.01 X10^3/uL; Eosinophils% 0.1 % (0-5); Hematocrit 39.6 % (40-54); Hemoglobin 13.6 g/dL (13.0-16.5); Lymphocyte # 0.54 X10^3/ul (0.83-4.51); Lymphocyte % 6.9 % (19-41); Mean Corp Hgb Conc 34.3 g/dL (32-36); Mean Corpuscular Hgb 32.8 pg (27.0-32.0); Mean Corpuscular Volume 95.4 fL (80-94); Mean Platelet Vol. 10.4 fl (6.2-12.0); Monocyte# 1.06 X10^3/uL; Monocyte% 13.5 % (0-10); NRBC Flagged by Analyzer 0 % (0-5); Neutrophil % 78.6 % (47-70); POSITIVE DIFFERENTIAL YES; Platelet Count 147 K/mm3 (150-450); RBC Distribution Width SD 41.5 fl (35.1-43.9); Red Blood Count 4.15 M/mm3 (4.6-6.2); White Blood Count 7.9 K/mm3 (4.4-11.0)
[2023-09-17 21:15] LABS: Differential Indicated SCAN CRITERIA MET
[2023-09-17 21:21] LABS: Anion Gap 10 (5-15); BUN 13 mg/dL (7-18); BUN/Creat Ratio 14.9 RATIO (10-20); Chloride 95 mmol/L (98-107); Creatinine, Serum 0.87 mg/dL (0.70-1.30); EST Glomerular Filtration Rate 92 mL/min (>60); Est Glom Filt Rate - Afr Amer 111 mL/min (>60); Glucose 291 mg/dL (74-106); Potassium 4.2 mmol/L (3.5-5.1); Sodium Level 126 mmol/L (136-145); Troponin-I HS 14 pg/mL (3.0-78.0)
[2023-09-17 21:31] LABS: Platelet Estimate SLT DEC (ADEQ)
[2023-09-17 21:32] LABS: Anisocytosis 1+; Macrocytosis 1+; Red Cell Morphology N CHROM NORMAL (NORM C&C)
--- NOTE | 2023-09-17 21:38 | RAD_ITS ---
STUDY: X-RAY CHEST REASON FOR EXAM: Male, 68 years old. Dyspnea TECHNIQUE: PA and lateral views of the chest. COMPARISON: None. FINDINGS: The lungs are underexpanded with interstitial opacities and Edilma B-lines concerning for early interstitial pulmonary edema. There is no demonstrated pleural abnormality. There is borderline cardiomegaly. Normal mediastinum and deepa. Normal visualized pulmonary arteries. There is atherosclerotic calcification of the aortic arch with tortuosity. Normal visualized thoracic spine. Normal visualized ribs, clavicles, and shoulders. There is no demonstrated abnormality of the visualized soft tissue structures of the upper abdomen. RAD/Chest PA and Lateral IMPRESSION: Findings concerning for early interstitial pulmonary edema, differential diagnosis including interstitial lung disease or pneumonitis. Clinical correlation recommended. Electronically Signed: Shayla Rizzo MD at 21:55 EST ,
[2023-09-17] MEDS: Acetaminophen 500 MG Tablet 1000 MG PO (21:59)
[2023-09-17 22:20] LABS: Bacteria 0 SEEN /hpf (None Seen); Mucous, Urine 0 SEEN /hpf (<or=2+); Squamous Epithelial Cells - UA 0 SEEN /hpf (0-5)
[2023-09-17 22:21] LABS: Color, Urine Yellow (Yellow); Glucose, Dipstick 1000 mg/dl (Normal); Leukocyte Esterase-Dipstick Negative /ul (Negative); Nitrite-Dipstick Negative (Negative); Occult Blood-Urine 150 /ul (Negative); Protein-Dipstick 500 mg/dl (Negative); Specific Gravity, Urine 1.025 (1.002-1.030); Urine Bilirubin Dipstick Negative (Negative); Urine Clarity Clear (Clear); Urine Urobilinogen Normal (Normal)
[2023-09-17 22:52] LABS: Ketone-Dipstick 150 mg/dl (Negative)
[2023-09-17 22:57] LABS: Red Blood Cells-Urine 0-5 SEEN /hpf (0-5); White Blood Cells 0-5 SEEN /hpf (0-5)
== END 2023-09-17 22:57 | disposition home or self-care (01) ==
LOC: ED 20:49
PROVIDERS: Emergency Provider Emergency Medicine; PCP Family Medicine; Visit Provider Emergency Medicine
DX: J10.1 Influenza due to other identified influenza virus with other respiratory manifestations (principal); I11.0 Hypertensive heart disease with heart failure; I50.22 Chronic systolic (congestive) heart failure; E11.9 Type 2 diabetes mellitus without complications; Z87.891 Personal history of nicotine dependence; I25.10 Atherosclerotic heart disease of native coronary artery without angina pectoris; E78.5 Hyperlipidemia, unspecified; R30.0 Dysuria
CPT/HCPCS: 71046; 80048; 81001; 84484; 85025; 87631; 93005; 94640; 99283; A4216

== ENCOUNTER → 2023-10-21 | Outpatient (CLI) | payer MEDICARE, OTHER, SELFPAY ==
[2023-10-21 12:38] LABS: AST(SGOT) 20 U/L (15-37); Alanine Aminotransfer ALT/SGPT 31 U/L (16-61); Albumin, Serum 4.4 g/dL (3.2-5.0); Alkaline Phosphatase 70 U/L (45-117); Bilirubin, Direct 0.25 mg/dL (0.00-0.30); Cholesterol 153 mg/dL (200); Globulin 3.4 g/dL (2.2-4.2); High Density Lipoprotein 65 mg/dL; Protein, Total 7.8 g/dL (6.4-8.2); Triglycerides 152 mg/dL; Very Low Density Lipoprotein 30 mg/dL (5-40)
== END | disposition home or self-care (01) ==
LOC: LAB 10:30
PROVIDERS: PCP Family Medicine; Referring Provider Internal Medicine Cardiovascular Disease; Visit Provider Internal Medicine Cardiovascular Disease
DX: I25.118 Atherosclerotic heart disease of native coronary artery with other forms of angina pectoris (principal); E78.5 Hyperlipidemia, unspecified
CPT/HCPCS: 36415; 80061; 80076

== ENCOUNTER → 2023-10-29 | Outpatient (CLI) | payer MEDICARE, OTHER, SELFPAY ==
[2023-10-29 16:33] LABS: Anion Gap 9 (5-15); BUN 19 mg/dL (7-18); BUN/Creat Ratio 23.8 RATIO (10-20); Calcium,Total 10.7 mg/dL (8.5-10.1); Chloride 103 mmol/L (98-107); EST Glomerular Filtration Rate 102 mL/min (>60); Est Glom Filt Rate - Afr Amer 123 mL/min (>60); Glucose 167 mg/dL (74-106); Potassium 5.2 mmol/L (3.5-5.1); Sodium Level 139 mmol/L (136-145)
== END | disposition home or self-care (01) ==
LOC: MTLAB 13:44
PROVIDERS: PCP Family Medicine; Referring Provider Family Medicine; Visit Provider Family Medicine
DX: E87.1 Hypo-osmolality and hyponatremia (principal)
CPT/HCPCS: 36415; 80048

== ENCOUNTER → 2023-11-20 | Outpatient (CLI) | payer MEDICARE, OTHER, SELFPAY ==
[2023-11-20 12:28] LABS: Anion Gap 6 (5-15); BUN 16 mg/dL (7-18); BUN/Creat Ratio 20.5 RATIO (10-20); Calcium,Total 9.8 mg/dL (8.5-10.1); Chloride 103 mmol/L (98-107); Creatinine, Serum 0.78 mg/dL (0.70-1.30); EST Glomerular Filtration Rate 105 mL/min (>60); Est Glom Filt Rate - Afr Amer 127 mL/min (>60); Glucose 148 mg/dL (74-106); Potassium 4.7 mmol/L (3.5-5.1); Sodium Level 135 mmol/L (136-145)
== END | disposition home or self-care (01) ==
LOC: MTLAB 10:06
PROVIDERS: PCP Family Medicine; Referring Provider Family Medicine; Visit Provider Family Medicine
DX: E87.1 Hypo-osmolality and hyponatremia (principal)
CPT/HCPCS: 36415; 80048

== ENCOUNTER → 2023-11-22 | Outpatient (CLI) | payer MEDICARE, OTHER, SELFPAY ==
--- NOTE | 2023-11-22 10:02 | ADUUE_ITS ---
Reason For Study: HX Rt Traumatic AVF / Swelling RIGHT Right Subclavian velocity = 94.2/26.7 cm/sec. Right Axillary velocity = 116.1/37.6 cm/sec. Right Brachial velocity = 132.3/46.6 cm/sec. Right Radial velocity = 173.3/98.9 cm/sec. Right Ulnar velocity = 84.2/20.4 cm/sec. . 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 Anastamosis appears to measure approximately 0.14cm in long axis. Cephalic Vein at anastomosis appears to measure approximately 1.4cm x 0.73cm Velocities at Anastomosis = 493.2 / 291.6cm/s Elevated EDV throughout Radial A is noted Pulsatile Cephalic V is noted. Cephalic V is compressible. /US Art Duplex Unilat UP Extrem Interpretation Summary Patent right upper extremity vessels with no stenosis or thrombosis identified. 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 Ordering Physician: Lisha Miranda Referring Physician: Yonathan Escalante MD Performed By: Rm Castro RVT
--- NOTE | 2023-11-22 10:02 | ECHOD_ITS ---
Reason For Study: Palpitations Procedure This was a 2D Doppler, Color Flow transthoracic echocardiogram. Did not use Definity. Previous DEFINITY REACTION per patient. Exam performed in department. Left Ventricle Mild concentric left ventricular hypertrophy. Mildly dilated left ventricle. Severe global left ventricular systolic dysfunction. The left ventricular ejection fraction is 15 %. Stage 3 diastolic dysfunction. Right Ventricle Normal right ventricle. Atria The left atrium is severely enlarged. Normal right atrium. Mitral Valve Mild (1+) mitral valve insufficiency. Tricuspid Valve Mild tricuspid valve insufficiency. Right ventricular systolic pressure estimated to be 67 mmHg. Aortic Valve Aortic sclerosis, no stenosis. Pulmonic Valve The pulmonic valve is not well visualized. Great Vessels Normal sized aortic root. Pericardium/Pleural No pericardial effusion. MMode/2D Measurements & Calculations LVIDd: 5.1 cm IVSd: 1.3 cm Ao root diam: 3.6 cm LVIDs: 4.5 cm LVPWd: 0.87 cm RVDd: 3.9 cm FS: 11.2 % LAV(MOD-bp): 81.8 ml LVAd ap4: 43.9 cm2 LVAd ap2: 43.0 cm2 LAV(MOD-bp) Indexed: 39.2 ml/m2 LVLd ap4: 10.0 cm LVLd ap2: 9.5 cm LAV(MOD-sp2): 79.6 ml EDV(MOD-sp4): 154.1 ml EDV(MOD-sp2): 159.8 ml LAV(MOD-sp4): 81.7 ml EDV(sp4-el): 163.6 ml EDV(sp2-el): 165.7 ml LVAs ap4: 35.3 cm2 LVAs ap2: 35.4 cm2 LVLs ap4: 9.3 cm LVLs ap2: 8.9 cm ESV(MOD-sp4): 107.5 ml ESV(MOD-sp2): 115.9 ml ESV(sp4-el): 113.8 ml ESV(sp2-el): 120.2 ml EF(MOD-sp4): 30.3 % EF(MOD-sp2): 27.5 % EF(sp4-el): 30.4 % SV(MOD-sp4): 46.7 ml SV(MOD-sp2): 43.9 ml SV(sp4-el): 49.8 ml LA dimension(2D): 5.3 cm LA A4 area: 25.4 cm2 RA A4 area: 19.7 cm2 TAPSE: 2.0 cm Doppler Measurements & Calculations MV E max stevie: 97.8 cm/sec Lat Peak E' Stevie: 9.1 cm/sec Med Peak E' Stevie: 6.0 cm/sec MV A max stevie: 28.0 cm/sec E/E' lat: 10.7 E/E' med: 16.4 MV E/A: 3.5 Ao V2 max: 101.4 cm/sec LV V1 max: 71.4 cm/sec PA V2 max: 71.1 cm/sec Ao max P.1 mmHg LV V1 max P.1 mmHg Ao V2 mean: 71.9 cm/sec Ao mean P.4 mmHg Ao V2 VTI: 20.3 cm TR max stevie: 361.0 cm/sec TR max P.1 mmHg ECHO/Echo Complete Interpretation Summary Mild concentric left ventricular hypertrophy. Mildly dilated left ventricle. The left ventricular ejection fraction is 15 %. Stage 3 diastolic dysfunction. The left atrium is severely enlarged. Mild tricuspid valve insufficiency. Right ventricular systolic pressure estimated to be 67 mmHg. Mild (1+) mitral valve insufficiency. Ordering Physician: Lisha Miranda Referring Physician: Yonathan Escalante Performed By: Clau More, IAN, RVT
== END | disposition home or self-care (01) ==
LOC: CVS 09:57
PROVIDERS: PCP Family Medicine; Referring Provider Internal Medicine Cardiovascular Disease; Visit Provider Internal Medicine Cardiovascular Disease
DX: I49.3 Ventricular premature depolarization (principal); I50.22 Chronic systolic (congestive) heart failure; R00.2 Palpitations; I77.0 Arteriovenous fistula, acquired; T82.848A Pain due to vascular prosthetic devices, implants and grafts, initial encounter; I25.118 Atherosclerotic heart disease of native coronary artery with other forms of angina pectoris; I25.5 Ischemic cardiomyopathy
CPT/HCPCS: 93225; 93226; 93306; 93931

== ENCOUNTER 2024-03-04 13:46 | Outpatient (CLI) | payer MEDICARE, OTHER, SELFPAY ==
[2024-03-04 15:16] LABS: Hematocrit 41.1 % (40-54); Hemoglobin 13.8 g/dL (13.0-16.5); Mean Corp Hgb Conc 33.6 g/dL (32-36); Mean Corpuscular Hgb 33.2 pg (27.0-32.0); Mean Corpuscular Volume 98.8 fL (80-94); Mean Platelet Vol. 10.7 fl (6.2-12.0); Platelet Count 148 K/mm3 (150-450); RBC Distribution Width CV 12.3 % (11.6-14.6); RBC Distribution Width SD 43.9 fl (35.1-43.9); Red Blood Count 4.16 M/mm3 (4.6-6.2); White Blood Count 6.1 K/mm3 (4.4-11.0)
[2024-03-04 15:27] LABS: Anion Gap 5 (5-15); BUN 16 mg/dL (7-18); BUN/Creat Ratio 18.8 RATIO (10-20); Calcium,Total 9.4 mg/dL (8.5-10.1); Chloride 105 mmol/L (98-107); Creatinine, Serum 0.85 mg/dL (0.70-1.30); EST Glomerular Filtration Rate 94 mL/min (>60); Est Glom Filt Rate - Afr Amer 114 mL/min (>60); Glucose 203 mg/dL (74-106); Potassium 4.9 mmol/L (3.5-5.1); Sodium Level 138 mmol/L (136-145)
[2024-03-04 15:31] LABS: Hemoglobin A1c 6.5 % (3.8-5.6)
== END 2024-03-04 23:59 | disposition home or self-care (01) ==
LOC: MTLAB 13:47
PROVIDERS: Anesthesiology; PCP Family Medicine; Referring Provider Surgery Trauma Surgery; Visit Provider Surgery Trauma Surgery
DX: Z01.818 Encounter for other preprocedural examination (principal)
CPT/HCPCS: 36415; 80048; 83036; 85027

== ENCOUNTER 2024-03-10 07:49 | Day surgery (SDC) | payer MEDICARE, OTHER, SELFPAY ==
[2024-03-10] MEDS: 0.9% Normal Saline (500mL Bag) 500 ML 15 ML IV (08:30)
[2024-03-10 08:32] VITALS: BP 140/93; PULSE 90; RESP 18; TEMP 36.3; O2SAT 100; BMI 29.2
--- NOTE | 2024-03-10 08:36 | PRE.ANES_ITS ---
ASA Classification* ASA Classification ASA Classification: 4 Assessment & Plan Anesthesia* Anesthesia Assessment Anesthesia Assessment: Discussed sedation and/or anesthesia options, risks, benefits, and alternatives with patient/parents/legal guardian/POA. Questions invited. The patient/parents/legal guardian/POA seems to understand and agrees to proceed with anesthesia plan. Reviewed the physical assessment, medical history, allergy history and patient home medications list prior to surgery/procedure/anesthetic and documented any changes. Performed airway and anesthesia risk assessments. Anesthesia Type Anesthesia Type: MAC (see written pre anesthesia record for full assessment) Anesthesia Focused Assessment* Airway Assessment Mouth opens: >3 cm Mallampati Score: II Focused Labs Anesthesia Preop lab: CBC WBC 6.1 K/mm3 (4.4-11.0) 03/04/24 13:49 RBC 4.16 M/mm3 (4.6-6.2) L 03/04/24 13:49 Hgb 13.8 g/dL (13.0-16.5) 03/04/24 13:49 Hct 41.1 % (40-54) 03/04/24 13:49 Plt Count 148 K/mm3 (150-450) L 03/04/24 13:49 CHEMISTRY Potassium 4.9 mmol/L (3.5-5.1) 03/04/24 13:49 Sodium 138 mmol/L (136-145) 03/04/24 13:49 Magnesium 1.5 mg/dL (1.8-2.4) L 07/16/16 11:28 BUN 16 mg/dL (7-18) 03/04/24 13:49 Creatinine 0.85 mg/dL (0.70-1.30) 03/04/24 13:49 Glucose 203 mg/dL (74-106) H 03/04/24 13:49 POC Glucose 185 mg/dL (70-110) H 04/27/16 15:12 TSH 1.24 uIU/mL (0.358-3.74) 11/16/22 07:52 COAG Pre-Assessment Diagnosis/Proposed Procedure Planned Operative Procedure(s): Ligation right arm introgenic arteriovenous Fistula Anesthesia History 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 When Was Last Pacemaker Check QUESTION #4 FULL TEXT: You/Your Family Experience fever (hyperthermia) with Anesthesia Last Oral Intake Last Oral intake: Last Oral Intake NPO since Meds taken in AM with sips of water? 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 Female No 03/02/24 10:06 HX of Motion Sickness No 03/02/24 10:06 HX of N/V After Surgery No 03/02/24 10:06 Non-Smoker Yes 03/02/24 10:06 Duration of Surgery greater Yes 03/02/24 10:06 than 60 minutes Number of Risk Factors 2 03/02/24 10:06 PONV Score Moderate Risk 03/02/24 10:06 Height & Weight Height & Weight: Anesthesia: Height & Weight Height 5 ft 10 in 10/23/23 14:41 Respiratory Assessment Respiratory Assessment - maintenance and operations supervisor: Respiratory Tract Infection Hx - maintenance and operations supervisor Hx Respiratory Tract Infection No 03/02/24 10:06 STOP Sleep Apnea STOP Sleep Apnea - maintenance and operations supervisor: STOP Sleep Apnea - maintenance and operations supervisor Hx Hypertension Yes: controlled with meds 03/02/24 10:06 Hx Sleep Apnea No 03/02/24 10:06 CPAP BIPAP Do you snore loudly (louder No 03/02/24 10:06 than talking or can be heard Do you often feel tired/ No 03/02/24 10:06 fatigued/ sleepy during daytime? Has anyone observed you stop No 03/02/24 10:06 breathing during sleep? STOP Results Negative 03/02/24 10:06 QUESTION #5 FULL TEXT : Do you snore loudly (louder than talking or can be heard through closed doors)? 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 Specify any problems Hx of Preganancy in last 3 N/A 03/02/24 10:06 Months Nurse Filling Out Transfusion MGRIFFITH 03/02/24 10:06 & Questions: Date: 03/02/24 03/02/24 10:06 Time: 10:08 03/02/24 10:06 Patient unable to answer at this time (ie. confused, unrespo /Reproduction History /Reproductive History - maintenance and operations supervisor: /Reproductive Hx- maintenance and operations supervisor Hx Now Gestational Age (in weeks): EDC: Hx Hx Para Hx Section SAB Active Medications Active Medications: Current Medications Generic Name Dose Route Start Last Admin Trade Name Freq PRN Reason Stop Dose Admin Cefazolin Sodium 2 gm/ Sodium 110 mls @ 150 mls/hr 03/10/24 09:30 Chloride IV 03/10/24 10:13 PREOP ONE Sodium Chloride 500 mls @ 0 mls/hr 03/10/24 08:00 03/10/24 08:30 IV 15 mls/hr .Q0M NITHIN Administration KVO PFSH Medical History Wears glasses Alcohol use Rheumatoid arthritis High cholesterol Dietary restriction Heartburn Former smoker Leg cramps History of CHF (congestive heart failure) History of heart attack History of irregular heartbeat History of stress test History of Holter monitoring History of echocardiogram Cardiology follow-up encounter Kidney stones Essential hypertension Type 2 diabetes mellitus without complications Hypertension Chronic systolic (congestive) heart failure Ischemic cardiomyopathy Hyperlipidemia 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 Premature ventricular contractions Atherosclerotic heart disease of [place] coronary artery with other forms of angina pectoris Home Medications ?Medication ?Instructions ?Recorded ?Last Taken ?Type aspirin 81 mg tablet,delayed 81 mg PO BID 04/23/16 03/10/24 History release furosemide 40 mg tablet 40 mg PO DAILY PRN Swelling 04/23/16 Unknown History spironolactone 25 mg tablet 12.5 mg PO DAILY 04/23/16 04/23/16 History atorvastatin 80 mg tablet 80 mg PO QHS #90 tabs 09/30/17 03/09/24 Rx magnesium oxide 400 mg (241.3 mg 400 mg PO QDAY 03/10/18 03/09/24 History magnesium) tablet czrsnmswtreq-trohtole-tqtz 1 tab PO DAILY 11/19/22 03/10/24 History fumarate 7.5 mg-folic acid 400 mcg tablet isosorbide mononitrate 10 mg tablet 5 mg PO BID 10/23/23 03/10/24 History metformin 500 mg tablet,extended 1,000 mg PO BID 10/23/23 03/10/24 History release 24 hr melatonin 10 mg tablet 15 mg PO HS 01/29/24 03/09/24 History carvedilol 25 mg tablet 25 mg PO BID 02/19/24 03/10/24 History nitroglycerin 0.4 mg sublingual 0.4 mg sublingual Q5-15M PRN chest 02/19/24 Unknown History tablet pain Allergy/AdvReac Type Severity Reaction Status Date / Time lisinopril Allergy Intermediate Angioedema Verified 03/10/24 08:26 rosuvastatin (From Crestor) AdvReac Severe didnt feel Verified 03/10/24 08:26 well Family History Mother Diabetes Sister Diabetes Brother Diabetes Hypertension Surgical History History of lithotripsy History of tonsillectomy and adenoidectomy History of appendectomy H/O right knee surgery Stented coronary artery (~12/14/11) Social History Smoking Status: Former smoker how long ago did patient quit smokin years ago alcohol intake: current alcohol intake frequency: 0-2 drinks per day Alcohol type: wine substance use type: does not use caffeine: Yes Type: coffee Number of servings: 2 Review of Systems (Anesthesia) ROS Narrative System reviewed and no additional complaints, except as documented.
[2024-03-10 08:39] LABS: Bedside Glucose 138 mg/dL (74-106)
--- NOTE | 2024-03-10 10:06 | HP.PCM_ITS ---
History and Physical Allergies lisinopril Allergy (Intermediate, Verified 02/19/24 14:09) Angioedemarosuvastatin (From Crestor) Adverse Reaction (Severe, Verified 02/19/24 14:09) didnt feel well Medications ?Medication ?Instructions ?Recorded ?Confirmed ?Type aspirin 81 mg tablet,delayed 81 mg PO BID 04/23/16 01/29/24 History release furosemide 40 mg tablet 40 mg PO DAILY PRN Swelling 04/23/16 01/29/24 History spironolactone 25 mg tablet 12.5 mg PO DAILY 04/23/16 01/29/24 History atorvastatin 80 mg tablet 80 mg PO QHS #90 tabs 09/30/17 01/29/24 Rx magnesium oxide 400 mg (241.3 mg 400 mg PO QDAY 03/10/18 01/29/24 History magnesium) tablet qtzzrjlejwsv-rweliyox-nkxj 1 tab PO DAILY 11/19/22 01/29/24 History fumarate 7.5 mg-folic acid 400 mcg tablet albuterol sulfate 90 mcg/actuation 2 puff inhalation Q4H PRN PRN 09/17/23 01/29/24 Rx aerosol inhaler (Ventolin HFA) Wheezing ##1 isosorbide mononitrate 10 mg tablet 5 mg PO BID 10/23/23 01/29/24 History metformin 500 mg tablet,extended 500 mg PO BID 10/23/23 01/29/24 History release 24 hr melatonin 10 mg tablet 10 mg PO HS PRN 01/29/24 01/29/24 History carvedilol 25 mg tablet 25 mg PO BID 02/19/24 History nitroglycerin 0.4 mg sublingual 0.4 mg sublingual Q5-15M PRN 02/19/24 01/29/24 History tablet Have you fallen in the past year?: No PFSH Medical History Kidney stones Essential hypertension Type 2 diabetes mellitus without complications Hypertension Chronic systolic (congestive) heart failure Ischemic cardiomyopathy Hyperlipidemia 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 Premature ventricular contractions Atherosclerotic heart disease of [place] coronary artery with other forms of angina pectoris Surgical History History of tonsillectomy and adenoidectomy History of appendectomy H/O right knee surgery Stented coronary artery (~12/14/11) Family History Mother DiabetesSister DiabetesBrother Diabetes Hypertension Social History Smoking Status: Former smoker how long ago did patient quit smokin years ago alcohol intake: current alcohol intake frequency: 0-2 drinks per day Alcohol type: wine substance use type: does not use caffeine: Yes Type: coffee Number of servings: 2 HPI HPI HPI: MIO WALKER, is a 68 M who presents to the office today for evaluation of 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 It was initially discovered shortly after the procedure but he elected not to pursue repair at that time. It has increased in size over recent years. He does have significantly reduced LV function. ROS General General: No weight change, appetite, fatigue, colon cancer, breast cancer or weakness HEENT HEENT: No difficulty swallowing, eye injury, eye surgery, swollen glands or hoarseness Endo Endocrine: Yes diabetes mellitus; No thyroid disease, thyroid cancer, Hair loss, heat intolerance or cold intolerance Skin Skin: No rash or changing moles Musc Musculoskeletal: Yes rheumatoid arthritis; No back problems, arthritis, gout or joint pain Cardio Cardiovascular: Yes heart disease, high blood pressure, heart attack and heart stent; No murmur, pacemaker, atrial fibrillation, palpitations, shortness of breat with exertion or chest pain Psych Psychiatric: No depression, anxiety or hearing voices Resp Respiratory: No shortness of breath, No sleep apnea, No cough, No COPD, No asthma, No emphysema and No wheezing Gastro Gastrointestinal: No abdominal pain, No nausea or vomiting, Yes diarrhea, No constipation, No blood in stool, No acid reflux, No hemorrhoids, No ulcers, No gallbladder problem and No black,tarry stools Conner Hematologic: Yes blood thinners, No blood disorders, No bleeding, No anemia and No blood clots Additional Details: ASA Neuro Neurologic: No system reviewed and no additional complaints, except as documented, No as per HPI, No abnormal gait, No abnormal hearing, No abnormal movements, No abnormal speech, No behavioral changes, No burning sensations, No confusion, No convulsions, No disequilibrium, No dizziness, No localized weakness, No frequent falls, No headache(s), No lack of coordination, No loss of vision, No memory loss, Yes numbness, No other visual disturbances, No radicular pain, No restless legs, No sensory deficit, No syncope, Yes tingling, Yes tremor(s), No weakness and No other Exam Const General: cooperative, healthy appearing, comfortable, no acute distress and well developed Nutritional Appearance: well nourished Orientation: alert, awake and oriented x3 HENMT Head: normocephalic and atraumatic Ears: hearing grossly normal bilaterally Nose: external nose normal Eyes General: appearance normal, both eyes and all related structures EOM: EOM intact bilaterally Neck Neck: normal visual inspection, full ROM, no lymphadenopathy and trachea midline Thyroid: thyroid normal Lymphatic: no lymphadenopathy noted Resp Effort & Inspection: normal respiratory effort, able to speak in complete sentences, symmetric chest movement, no audible wheezes, not labored, no stridor and no use of accessory muscles Cardio Rate: regular rate Rhythm: regular rhythm Pulses: brachial pulses present and radial pulses present Other: +thrill, right cephalic vein Skin General: no rashes or lesions noted and no erythema Wounds: no wounds Neuro Cranial Nerves: CN's II-XI intact bilaterally and EOM intact bilaterally Speech: speech normal Gait: normal gait Motor: strength 5/5 throughout Sensory Exam: no sensory deficits noted Psych Appearance: grossly normal and well kempt Mental Status: mental status grossly normal Mood: congruent mood Speech and Movement: speech and movement normal Thought Content: normal Judgment: judgment good Coding Level of Care Code Off vis,new,level 4 Diagnoses 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
[2024-03-10] MEDS: Cefazolin 2 GM in 0.9% Normal Saline (100mL Bag) 100 ML IV (10:20)
[2024-03-10] MEDS: Lidocaine 1% (20 ml mdv) 20 ML Vial (10:47)
[2024-03-10] MEDS: Heparin Injection (Vial) 5,000 UNIT/ML VIAL 5000 UNIT (10:47)
[2024-03-10] MEDS: Bupivacaine 0.25% 30 ML Vial (10:47)
--- NOTE | 2024-03-10 11:52 | OP.PCM_ITS ---
Problems Associated Problem List Diagnoses (1) Iatrogenic arteriovenous fistula: Report of Operation Date of Procedure: 03/10/24 Pre-Operative Diagnosis: iatrogenic right radio-cephalic fistula Post-Operative Diagnosis: same Surgery/Procedure Performed:: repair right radial artery/ligation of fistula Surgeon: Cristopher Austin Type of Anesthesia: Local and MAC Estimated Blood Loss (mL): 5 Description of Procedure: HPI: The patient is a 68 yo male with history of prior cardiac cath via right radial access in 2011. He has developed an increasing enlarged prominent pulsatile mass at the site slowly over the past decade. A duplex was performed that revealed an AV fistula and significantly aneurysmal outflow vein emptying into the cephalic vein as outflow. He is taken for open repair. Description of procedure: Upon obtaining informed consent and verification of correct patient, procedure, and site he was taken to the operating room where he was position, prepped, and draped in the usual fashion. A time out was performed and moderate sedation administered by anesthesia. Longitudinal incision was made along the lateral edge of the fistula and bovie used to dissect through the subcutaneous tissue. Once the vein was visualized sharp dissection was used to dissect the vessel back to the connection with the radial artery. The proximal and distal radial artery where then dissected circumferentially and right angle used to place vessel loops. The patient was heparinized and allowed circulate for 3 minutes. The radial artery was then occluded with vessel loops and the vein clamped at the junction with the cephalic vein. The vein was divided leaving a small cuff at the arteriotomy. The vein cuff was then oversewn with 6- 0 proline in running fashion. After completing the suture line vessel loops were removed and satisfactory hemostasis noted. There was a palpable pulse proximal to and distal to the repair. The distal vein was then ligated with a silk tie and the aneurysmal segment divided and removed. The incision was closed with 3-0 vicryl, 4-0 monocryl and dermabond. The patient was awakened from anesthesia and taken to the recovery room with anticipated discharge to home.
--- NOTE | 2024-03-10 11:53 | EX.PCM.DISCH ---
Discharge Instructions Diet Discharge Diet: No restrictions Activity May shower in (days): 2 Lifting Restrictions: do not lift > 20 lbs for 14 days Additional Activity Instructions:: do not submerge incision for 14 days Dressing / Incision Call your doctor if your incision/area has: Sudden Increased Bleeding, Increased Pain/ Swelling, Increased Redness and Foul Smelling Discharge Call your doctor if you observe: Fever of 101 or Higher Remove Dressing in: 2 days Cleanse incision/area with: Soap & Water Follow Up Care Test Results: Test results from this visit will be discussed in further detail at your follow-up appointment, if applicable. Discharge Plan Admission Attending Provider: Cristopher Austin Primary Care Provider: Yonathan Escalante Instructions Print Language: [place] Discharge Orders/Prescriptions Prescriptions: New oxycodone 5 mg tablet 5 mg PO Q8H PRN (Reason: pain) 2 Days Qty: 5 0RF Continued magnesium oxide 400 mg tablet 400 mg PO QDAY nitroglycerin 0.4 mg tablet, sublingual 0.4 mg SUBLINGUAL Q5-15M PRN (Reason: chest pain) metformin 500 mg tablet extended release 24 hr 1,000 mg PO BID isosorbide mononitrate 10 mg tablet 5 mg PO BID melatonin 10 mg tablet 15 mg PO HS carvedilol 25 mg tablet 25 mg PO BID Rx Instructions: must administer with a meal/food takes one tab in am and a half tab at dinner furosemide 40 MG tablet 40 mg PO DAILY PRN (Reason: Swelling) aspirin 81 MG tablet 81 mg PO BID spironolactone 25 MG tablet 12.5 mg PO DAILY Patient Comments: ttyqxnio-arv-wrog fum-folic ac 7.5 mg iron-400 mcg tablet 1 tab PO DAILY atorvastatin 80 MG tablet 80 mg PO QHS Qty: 90 3RF Disposition Disposition (needs filled in before D/C Order can be placed): Home, Self Care
[2024-03-10 12:20] VITALS: BP 128/75; BP 140/93; PULSE 68; RESP 16; TEMP 36.8; O2SAT 94
[2024-03-10 12:25] VITALS: BP 126/85; BP 140/93; PULSE 68; RESP 16; O2SAT 94
[2024-03-10 12:30] VITALS: BP 114/79; BP 140/93; PULSE 67; RESP 16; O2SAT 94
[2024-03-10 12:35] VITALS: BP 123/70; BP 140/93; PULSE 66; RESP 16; TEMP 36.2; O2SAT 94
[2024-03-10 12:42] LABS: Bedside Glucose 123 mg/dL (74-106)
[2024-03-10 12:50] VITALS: BP 140/93
--- NOTE | 2024-03-11 09:24 | PCM.POST.ANE ---
Anesthesia: Postop Eval I Current Vital Signs Temperature: 97.5 F Pulse Rate: 69 Blood Pressure: 118/70 Respiratory Rate: 16 Pulse Ox: 93 Oxygen Delivery Method: Room Air Assessment Airway patent: Yes Spontaneous unlabored respirations: Yes Mental status: Awake nausea: No Vomiting: No Anesthesia Complication: No Fluid Hydration Crystalloid volume administer (ml): 600 Total IV fluid infused: 600 Progress Note Anesthesia document: Postop Eval 1 completed: Yes
[2024-03-11 09:25] VITALS: BP 118/70; PULSE 69; RESP 16; TEMP 36.4; O2SAT 93
== END 2024-03-10 13:10 | disposition home or self-care (01) ==
LOC: SDC 07:50 → AC 07:51
PROVIDERS: PCP Family Medicine; Referring Provider Surgery Trauma Surgery; Visit Provider Surgery Trauma Surgery
PROC: (CPT 37607; principal; 2024-03-10 09:15)
DX: I77.0 Arteriovenous fistula, acquired (principal); I11.0 Hypertensive heart disease with heart failure; I50.22 Chronic systolic (congestive) heart failure; E11.9 Type 2 diabetes mellitus without complications; I25.10 Atherosclerotic heart disease of native coronary artery without angina pectoris; E78.00 Pure hypercholesterolemia, unspecified; I25.5 Ischemic cardiomyopathy; Z79.84 Long term (current) use of oral hypoglycemic drugs; Z79.82 Long term (current) use of aspirin; Z79.899 Other long term (current) drug therapy; Z87.891 Personal history of nicotine dependence; Z95.5 Presence of coronary angioplasty implant and graft
CPT/HCPCS: 37607; 00352; 82962; A4648; J7040; J2405

== ENCOUNTER → 2024-05-08 | Outpatient (CLI) | payer MEDICARE, OTHER, SELFPAY ==
[2024-05-08 11:28] LABS: Vitamin B12 331 pg/mL (211-911)
[2024-05-08 11:34] LABS: ALB/GLOB Ratio 1.3 RATIO (0.9-2.4); AST(SGOT) 23 U/L (15-37); Alanine Aminotransfer ALT/SGPT 30 U/L (16-61); Albumin, Serum 4.1 g/dL (3.2-5.0); Alkaline Phosphatase 70 U/L (45-117); Anion Gap 5 (5-15); BUN 12 mg/dL (7-18); Calcium,Total 9.2 mg/dL (8.5-10.1); Chloride 107 mmol/L (98-107); Cholesterol 146 mg/dL (200); EST Glomerular Filtration Rate 118 mL/min (>60); Est Glom Filt Rate - Afr Amer 142 mL/min (>60); Globulin 3.2 g/dL (2.2-4.2); Glucose 109 mg/dL (74-106); High Density Lipoprotein 61 mg/dL; Protein, Total 7.3 g/dL (6.4-8.2); Sodium Level 140 mmol/L (136-145); Triglycerides 204 mg/dL; Very Low Density Lipoprotein 41 mg/dL (5-40)
[2024-05-08 17:36] LABS: PSA,Total - Annual Screen 0.34 ng/mL (0.00-4.00); Thyroid Stim Hormone (TSH) 0.702 uIU/mL (0.358-3.740)
== END | disposition home or self-care (01) ==
LOC: MTLAB 08:02
PROVIDERS: PCP Family Medicine; Referring Provider Internal Medicine Cardiovascular Disease; Visit Provider Internal Medicine Cardiovascular Disease
DX: Z12.5 Encounter for screening for malignant neoplasm of prostate (principal); E11.65 Type 2 diabetes mellitus with hyperglycemia; I25.10 Atherosclerotic heart disease of native coronary artery without angina pectoris; I10 Essential (primary) hypertension; E78.5 Hyperlipidemia, unspecified; Z95.5 Presence of coronary angioplasty implant and graft
CPT/HCPCS: 80053; 80061; 82607; 84153; 84443; G0103

== ENCOUNTER → 2024-05-28 | Outpatient (CLI) | payer MEDICARE, OTHER, SELFPAY | END | disposition home or self-care (01) | PROVIDERS: PCP Family Medicine; Visit Provider Family Medicine | DX: R30.0 Dysuria (principal) | CPT/HCPCS: 87086 ==

== ENCOUNTER → 2024-10-20 | Outpatient (CLI) | payer MEDICARE, OTHER, SELFPAY ==
[2024-10-20 13:10] LABS: AST(SGOT) 21 U/L (<=37); Alanine Aminotransfer ALT/SGPT 17 U/L (<=46); Albumin, Serum 4.5 g/dL (3.4-4.8); Alkaline Phosphatase 54 U/L (40-129); Cholesterol 141 mg/dL (<=200); Globulin 2.6 g/dL (2.2-4.2); High Density Lipoprotein 60 mg/dL; Low Density Lipoprotein Calc. 51 mg/dL; Protein, Total 7.1 g/dL (5.9-8.4); Total Bilirubin 0.58 mg/dL (0.00-1.30); Triglycerides 148 mg/dL; Very Low Density Lipoprotein 30 mg/dL (5-40); cholesterol:hdl ratio screen 2.35
== END | disposition home or self-care (01) ==
LOC: MTLAB 09:21
PROVIDERS: PCP Family Medicine; Referring Provider Nurse Practitioner Family; Visit Provider Nurse Practitioner Family
DX: E78.00 Pure hypercholesterolemia, unspecified (principal)
CPT/HCPCS: 36415; 80061; 80076

== ENCOUNTER → 2025-01-27 | Outpatient (CLI) | payer MEDICARE, OTHER, SELFPAY ==
--- OUTSIDE RECORDS SUMMARY | 2025-01-27 07:25 | XMS RPT_ITS | CCD ---
Author Organization [facility] CliniSyfl Care Team Providers Care Momd Teacher Name Role Phone Dr. Jacek Escalante Primary Care Provider [phone] Dr. Jacek Escalante Referring Provider Roof SEMICONDUCTOR WAFERS ETCHER STRIPPER, SEMICONDUCTOR WAFERS ETCHER STRIPPER-C Rebel Ruggiero Attending Provider Dr. Jacek Escalante Primary Care Provider [phone] Dr. Jacek Escalante Referring Provider Roof SEMICONDUCTOR WAFERS ETCHER STRIPPER, SEMICONDUCTOR WAFERS ETCHER STRIPPER-C Rebel Ruggiero Attending Provider Dr. Lisha Miranda Attending Provider Roof SEMICONDUCTOR WAFERS ETCHER STRIPPER, SEMICONDUCTOR WAFERS ETCHER STRIPPER-C Rebel Ruggiero Referring Provider Roof SEMICONDUCTOR WAFERS ETCHER STRIPPER, SEMICONDUCTOR WAFERS ETCHER STRIPPER-C Rebel Ruggiero Other Provider Dr. Jacek Escalante Primary Care Provider [phone] Roof SEMICONDUCTOR WAFERS ETCHER STRIPPER, SEMICONDUCTOR WAFERS ETCHER STRIPPER-C Rebel Ruggiero Referring Provider Roof SEMICONDUCTOR WAFERS ETCHER STRIPPER, SEMICONDUCTOR WAFERS ETCHER STRIPPER-C Rebel Ruggiero Other Provider Dr. Lisha Miranda Attending Provider Roof SEMICONDUCTOR WAFERS ETCHER STRIPPER, SEMICONDUCTOR WAFERS ETCHER STRIPPER-C Rebel Ruggiero Attending Provider Dr. Jacek Escalante Primary Care Provider [phone] Dr. Jacek Escalante Referring Provider Dr. Lisha Miranda Attending Provider Dr. Jackie Escalante Primary Care Provider Dr. Jackie Escalante Referring Provider Dr. Cristopher Austin Attending Provider Stef SEMICONDUCTOR WAFERS ETCHER STRIPPER, SEMICONDUCTOR WAFERS ETCHER STRIPPER-C Kandy Attending Provider Jackie Escalante MD Primary Care Provider BRICE QUINONEZ Referring Unavailable JACKIE ESCALANTE Primary Care Unavailabl e BRICE QUINONEZ Attending Unavailable Dr. Jacek Escalante Primary Care Provider [phone] Dr. Jacek Escalante Referring Provider Roof SEMICONDUCTOR WAFERS ETCHER STRIPPER, SEMICONDUCTOR WAFERS ETCHER STRIPPER-C Rebel Ruggiero Attending Provider Ruben, Dr. Husain Attending Provider Ava LUIS, Dr. Mcmanus Primary Care Provider Ava LUIS, Dr. Mcmanus Referring Provider [phone] Ruben LUIS, Dr. Husain Attending Provider Roof SEMICONDUCTOR WAFERS ETCHER STRIPPER-C, Rebel Ruggiero Attending Provider Roof SEMICONDUCTOR WAFERS ETCHER STRIPPER-C, Rebel H Referring Provider Ava LUIS, Dr. Mcmanus Primary Care Provider Ava LUIS, Dr. Mcmanus Referring Provider [phone] Ruben LUIS, Dr. Husain Attending Provider Lisha Miranda Attending Unavailable RubenLisha Referring Unavailable Ranney, Christopher Primary Care Unavailable Ranney, Christopher Primary Care Unavailable Ranney, Jackie Attending Unavailable Ranney, Christopher Primary Care Unavailable Roof, Rebel H Attending Unavailable Roof, Rebel H Referring Unavailable Geovanna, Cristopher Attending Unavailable [place], Cristopher Referring Unavailable Ranney, Christopher Primary Care Unavailable Ranney, Christopher Primary Care Unavailable Roof, Rebel H Attending Unavailable Roof, Rebel H Referring Unavailable Geovanna, Cristopher Attending Unavailable Ranney, Christopher Referring Unavailable Sharri Bonilla Attending Unavailable Ranney, Christopher Primary Care Unavailable Ranney, Christopher Referring Unavailable Ruben, Lisha Attending Unavailable Ranney, Christopher Primary Care Unavailable Ranney, Christopher Referring Unavailable Ranney, Christopher Primary Care Unavailable Geovanna, Cristopher Attending Unavailable [place], Cristopher Referring Unavailable Geovanna, Cristopher Consulting Unavailable Ranney, Christopher Primary Care Unavailable Ruben, Lisha Attending Unavailable Ranney, Christopher Referring Unavailable Jackie Escalante Primary Care Unavailable Lisha Miranda Attending Unavailable Jackie Escalante Referring Unavailable Jackie Escalante Primary Care Unavailable Lisha Miranda Referring Unavailable Lisha Miranda Attending Unavailable Jackie Escalante Primary Care Unavailable Cristopher Austin Attending Unavailable Cristopher Austin Referring Unavailable Allergies Allergy Classification Reported Allergen(s) Allergy Type Date of Onset Reaction(s) Facility (20 sources) rosuvastatin; Translations: [ROSUVASTATIN] Drug Allergy 10-21-2013 Intolerance [facility] (7 sources) ezetimibe; Translations: [EZETIMIBE] Drug Allergy 10-21-2013 Intolerance [facility] (9 sources) Lisinopril; Translations: [LISINOPRIL] Drug Allergy 01-23-2024 Angioedema [facility] (1 source) Lisinopril Drug Allergy 01-25-2025 [facility] (1 source) rosuvastatin Drug Allergy 01-25-2025 [facility] Medications Current Medications Medication Drug Class(es) Dates Sig (Normalized) Sig (Original) aspirin 81 mg delayed release oral tablet (19 sources) Platelet Aggregation Inhibitor, Nonsteroidal Anti-inflammatory Drug Start: 04-23-2016 take 1 tablet by mouth twice daily Aspirin 81 MG tablet Active 81 mg PO TWICE A DAY April 23, 2016 12:00am take 81 mg by mouth twice daily ASPIRIN ORAL Take 81 mg by mouth two times a day. Active atorvastatin 40 mg oral tablet (20 sources) HMG-CoA Reductase Inhibitor Start: 07-14-2024 take 1 tablet by mouth once daily Atorvastatin 40 mg tablet Active 40 mg PO daily July 14, 2024 1:00am Start: 04-23-2016 End: 07-14-2024 take 1 tablet by mouth at bedtime Atorvastatin 80 MG tablet Discontinued 80 mg PO AT BEDTIME September 30, 2017 4:42pm July 14, 2024 5:20pm carvedilol 25 mg oral tablet (20 sources) alpha-Adrenergic Yolette, beta-Adrenergic Yolette Start: 11-26-2023 End: 11-05-2024 take 1 tablet by mouth twice daily Carvedilol 25 mg tablet Active 25 mg PO TWICE A DAY November 05, 2024 8:05am Start: 04-23-2016 End: 11-26-2023 take 1 tablet by mouth twice daily Carvedilol 12.5 mg tablet Discontinued 12.5 mg PO TWICE A DAY 180 May 26, 2018 2:15pm November 26, 2023 1:06pm carvedilol (CORE G) 12.5 mg tablet Take 18 mg by mouth two times a day with meals. Active furosemide 40 mg oral tablet (19 sources) Loop Diuretic Start: 04-23-2016 take 1 tablet by mouth once daily as needed Furosemide 40 MG tablet Active 40 mg PO DAILY as needed for Swelling April 23, 2016 12:00am magnesium oxide 400 mg oral tablet (16 sources) Start: 03-10-2018 take 1 tablet by mouth once daily Magnesium Oxide 400 mg tablet Active 400 mg PO daily March 10, 2018 12:00am magnesium oxide 400 mg magnesium cap Take by mouth. Active mecobalamin 1 mg chewable tablet (2 sources) Start: 07-14-2024 take 1 tablet by mouth once daily Mecobalamin (Vitamin B12) 1,000 mcg tablet,chewable Active 1000 ug PO daily July 14, 2024 1:00am melatonin 10 mg oral tablet (5 sources) Start: 01-29-2024 Melatonin 10 m g tablet Active 15 mg PO BEDTIME January 29, 2024 12:00am 24 hr metFORMIN hydrochloride 500 mg extended release oral tablet (20 sources) Biguanide Start: 10-23-2023 Metformin 500 mg tablet extended release 24 hr Active 1000 mg PO TWICE A DAY October 23, 2023 2:44pm Start: 10-23-2023 take 2 tablets by mo [facility] twice daily in the evening metFORMIN ER (GLUCOPHAGE XR) 500 mg 24 hr tablet Take 500 mg by mouth two times a day. 1 tablet in am and 2 tablets in evening 11/01/2023 Active Start: 04-19-2022 End: 11-19-2022 take 1 tablet by mouth every twenty-four hours in the morning, then take 2 tablets by mouth in the evening Metformin 500 mg tablet extended release 24 hr Discontinued 0 PO .COMPLEX April 19, 2022 12:00am November 19, 2022 11:13am Take 500 mg AM, 1000 mg PM orally; Start: 04-19-2022 End: 10-23-2023 take 1 tablet by mouth three times daily Metformin 500 mg tablet extended release 24 hr Discontinued 500 mg PO THREE TIMES A DAY November 19, 2022 11:11am October 23, 2023 2:46pm Start: 04-19-2022 End: 11-19-2022 take 500 mg by mouth in the morning, then take 1000 mg by mouth in the evening Metformin Discontinued 0 PO .COMPLEX April 19, 2022 12:00am November 19, 2022 11:13am Take 500 mg AM, 1000 mg PM orally; Start: 12-19-2020 End: 04-19-2022 take 2 tablets by mouth twice daily Metformin 500 mg tablet Discontinued 1000 mg PO TWICE A DAY December 19, 2020 1:56pm April 19, 2022 10:47am Start: 12-19-2020 End: 04-19-2022 take 1000 mg by mouth twice daily Metformin Discontinued 1000 MG PO TWICE A DAY December 19, 2020 1:56pm April 19, 2022 10:47am Start: 04-23-2016 End: 12-19-2020 take 1 tablet by mouth twice daily Metformin 500 mg tablet Discontinued 500 mg PO TWICE A DAY August 29, 2018 10:42am December 19, 2020 1:57pm Hgkirdlj-Akh-Clpd Fum-Folic Ac (20 sources) Start: 11-19-2022 take 1 tablet by mouth once daily before mealtime Egchqyfb-Csi-Mjzo Fum-Folic Ac Active 1 TABLET PO DAILY November 19, 2022 10:12am Start: 11-19-2022 take 1 tablet by ronny th once daily before mealtime Zcvhjwgt-Uzh-Zote Fum-Folic Ac Active 1 TABLET PO DAILY November 19, 2022 11:12am Start: 04-23-2016 End: 11-19-2022 take 1 tablet by mouth once at dinner Wobtzaeg-Qit-Saat Fum-Folic Ac Discontinued 1 TABLET PO WITH DINNER April 22, 2016 11:00pm November 19, 2022 10:13am Start: 04-23-2016 End: 11-19-2022 take 1 tablet by mouth once at dinner Gfitedfl-Mho-Qveq Fum-Folic Ac Discontinued 1 TABLET PO WITH DINNER April 23, 2016 12:00am November 19, 2022 11:13am Start: 04-23-2016 take 1 tablet by ronny th once at dinner Okpgnbri-Eqe-Dejs Fum-Folic Ac Active 1 TABLET PO WITH DINNER April 23, 2016 12:00am Redcvhyb-Eti-Sfli Fum-Folic Ac 7.5 mg iron-400 mcg tablet (2 sources) Start: 11-19-2022 take 7.5 tablets by mouth once daily before mealtime Ljcdgybp-Qbe-Qfry Fum-Folic Ac 7.5 mg iron-400 mcg tablet Active 1 {tbl} PO DAILY November 19, 2022 11:12am MULTIVITAMIN ORAL (3 sources) MULTIVITAMIN ORA L Take by mouth. Active nitroglycerin 0.4 mg sublingual tablet (20 sources) Nitrate Vasodilator Start: 02-25-2019 End: 02-19-2024 Nitroglycerin 0.4 mg tablet, sublingual Active 0.4 mg SL every 5 to 15 minutes as needed for chest pain February 19, 2024 2:13pm polyethylene glycol 3350 [id number] mg / potassium chloride 2970 mg / sodium bicarbonate 6740 mg / sodium chloride 5860 mg / sodium sulfate 97479 mg powder for oral solution (1 source) Osmotic Laxative Start: 01-31-2024 End: 01-31-2024 peg 3350-Electrolytes (GOLYTELY) 236-22.74-6.74 -5.86 gram suspension Indications: Encounter for colorectal cancer screening using Cologuard test , 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 Refer to printed prep instructions from your provider. 4000 mL 0 01/31/2024 01/31/2024 Active spironolactone 25 mg oral tablet (19 sources) Aldosterone Antagonist Start: 04-23-2016 Spironolactone 25 MG tablet Active 12.5 mg PO DAILY April 23, 2016 12:00am Start: 04-23-2016 take 12.5 mg by mout h once daily Spironolactone Active 12.5 MG PO DAILY April 23, 2016 12:00am Completed/Discontinued Medications Medication Drug Class(es) Dates Sig (Normalized) Sig (Original) acetaminophen 325 mg / HYDROcodone bitartrate 5 mg oral tablet (13 sources) Opioid Agonist Start: 04-27-2016 End: 03-10-2018 Hydrocodone-Acetami nophen 1 TABLET tablet Discontinued 1 - 2 {tbl} PO EVERY 4 HOURS NEEDED as needed for Pain April 27, 2016 12:00am March 10, 2018 1:42pm Start: 04-27-2016 End: 03-10-2018 take 1 tablet by mouth every four hours as needed Hydrocodone-Acetaminophen Discontinued 1 - 2 TABLET PO EVERY 4 HOURS NEEDED April 27, 2016 12:00am March 10, 2018 1:42pm acetaminophen 325 mg / oxyCODONE hydrochloride 5 mg oral tablet (13 sources) Opioid Agonist Start: 04-24-2016 End: 03-10-2018 Oxycodone-Acetaminophen 1 TABLET tablet Discontinued 1 - 2 {tbl} PO EVERY 4 HOURS NEEDED as needed for Pain April 24, 2016 12:00am March 10, 2018 1:42pm Start: 04-24-2016 End: 03-10-2018 take 1 tablet by mouth every four hours as needed Oxycodone-Acetaminophen Discontinued 1 - 2 TABLET PO EVERY 4 HOURS NEEDED April 24, 2016 12:00am March 10, 2018 1:42pm [id number] 200 actuat albuterol 0.09 mg/actuat metered dose inhaler (7 sources) beta2-Adrenergic Agonist Start: 09-17-2023 End: 03-02-2024 Albuterol Sulfate (Ventolin Hfa) 90 mcg/actuation HFA aerosol inhaler Discontinued 2 NMA INHALATION EVERY 4 HOURS NEEDED as needed for Wheezing September 17, 2023 1:00am March 02, 2024 9:55am Start: 09-17-2023 take 1 puff(s) by in halation every four hours as needed Albuterol Sulfate (Ventolin Hfa) 90 mcg/actuation HFA aerosol inhaler Active 2 PUFF INHALATION EVERY 4 HOURS NEEDED September 17, 2023 1:00am ciprofloxacin 250 mg oral tablet (13 sources) Quinolone Antimicrobial Start: 04-27-2016 End: 03-10-2018 take 1 tablet by mouth twice daily Ciprofloxacin Hcl 250 MG tablet Discontinued 250 mg PO TWICE A DAY April 27, 2016 12:00am March 10, 2018 1:42pm diphenhydrAMINE hydrochloride 25 mg oral capsule (13 sources) Histamine-1 Receptor Antagonist Start: 04-26-2016 End: 01-29-2024 take 1 capsule by mouth at bedtime as needed for sleep Diphenhydramine Hcl 25 MG capsule Discontinued 25 mg PO AT BEDTIME NEEDED as needed for Sleep April 26, 2016 12:00am January 29, 2024 9:57am empagliflozin 10 mg oral tablet (2 sources) Sodium-Glucose Cotransporter 2 Inhibitor Start: 05-07-2024 End: 07-14-2024 take 1 tablet by mouth once daily Empagliflozin (Jardiance) 10 mg tablet Discontinued 10 mg PO daily May 07, 2024 12:00am July 14, 2024 2:19pm folic acid 1 mg oral tablet (13 sources) Start: 04-23-2016 End: 03-10-2018 Folic Acid 1 MG tablet Discontinued 1 mg PO SUMOTUWETHFR April 23, 2016 12:00am March 10, 2018 1:40pm hydrALAZINE hydrochloride 50 mg oral tablet (8 sources) Arteriolar Vasodilator Start: 07-14-2024 End: 10-05-2024 take 1 tablet by mouth three times daily Hydralazine 50 mg tablet Discontinued 50 mg PO THREE TIMES A DAY 180 September 22, 2024 6:55pm October 05, 2024 5:27pm Start: 05-07-2024 End: 07-14-2024 take 1 tablet by mouth three times daily Hydralazine 25 mg tablet Discontinued 25 mg PO THREE TIMES A DAY May 07, 2024 12:00am July 14, 2024 5:20pm 24 hr isosorbide mononitrate 30 mg extended release oral tablet (20 sources) Nitrate Vasodilator Start: 06-05-2024 End: 07-14-2024 take 1 tablet by mouth once daily in the morning, then take 1 tablet by mouth every twenty-four hours Isosorbide Mononitrate 30 mg tablet extended release 24 hr Discontinued 30 mg PO EVERY MORNING June 05, 2024 12:00am July 14, 2024 2:20pm Start: 10-23-2023 Isosorbide Mon onitrate 10 mg tablet Active 5 mg PO TWICE A DAY October 23, 2023 2:45pm Start: 07-25-2023 End: 10-23-2023 Isosorbide Mononitrate 10 mg tablet Discontinued 0 .ROUTE .COMPLEX August 15, 2023 8:53am October 23, 2023 2:46pm TAKE 1/2 TABLET TWICE A DAYTAKE DOSES 7 HOURS APART Start: 07-25-2023 End: 10-23-2023 Isosorbide Mononitrate Disco ntinued 0 .ROUTE .COMPLEX August 15, 2023 8:53am October 23, 2023 2:46pm TAKE 1/2 TABLET TWICE A DAYTAKE DOSES 7 HOURS APART Start: 04-03-2018 End: 08-15-2023 take 1 tablet by mouth every seven hours Isosorbide Mononitrate 10 mg tablet Discontinued 5 mg PO TWICE A DAY July 31, 2022 11:13am July 25, 2023 8:59am give doses 7 hrs apart; Start: 04-23-2016 End: 04-03-2018 Isosorbide Mononitrate 20 MG tablet Discontinued 5 mg PO TWICE A DAY April 23, 2016 12:00am April 03, 2018 6:22pm Start: 04-23-2016 End: 04-03-2018 take 5 mg by mouth twice daily Isosorbide Mononitrate Discontinued 5 MG PO TWICE A DAY April 23, 2016 12:00am April 03, 2018 6:22pm lisinopril 20 mg oral tablet (20 sources) Angiotensin Converting Enzyme Inhibitor Start: 09-04-2019 End: 11-19-2022 take 1 tablet by mouth once daily Lisinopril 20 mg tablet Discontinued 20 mg PO DAILY September 04, 2019 1:00am November 19, 2022 11:11am Start: 04-23-2016 End: 09-04-2019 take 1 tablet by mouth at bedtime Lisinopril 10 mg tablet Discontinued 10 mg PO AT BEDTIME April 03, 2018 6:24pm February 25, 2019 11:07am methotrexate 2.5 mg oral tablet (13 sources) Folate Analog Metabolic Inhibitor Start: 04-23-2016 End: 03-10-2018 Methotrexate Sodium 2.5 MG tablet Discontinued 20 mg PO Q7D April 23, 2016 12:00am March 10, 2018 1:40pm Start: 04-23-2016 End: 03-10-2018 take 20 mg by mouth every week Methotrexate Sodium Dis continued 20 MG PO Q7D April 23, 2016 12:00am March 10, 2018 1:40pm Qcxxsqmv-Atv-Fesp Fum-Folic Ac 1 EACH tablet (2 sources) Start: 04-23-2016 End: 11-19-2022 take 1 tablet by mouth once at dinner Thctauzs-Ldn-Pzlm Fum-Folic Ac 1 EACH tablet Discontinued 1 {tbl} PO WITH DINNER April 23, 2016 12:00am November 19, 2022 11:13am naproxen 500 mg oral tablet (20 sources) Nonsteroidal Anti-inflammatory Drug Start: 04-24-2016 End: 03-10-2018 take 1 tablet by mouth twice daily as needed for pain Naproxen 500 MG tablet Discontinued 500 mg PO TWICE A DAY as needed for Pain April 26, 2016 8:25am March 10, 2018 1:42pm oxyCODONE hydrochloride 5 mg oral tablet (2 sources) Opioid Agonist Start: 03-10-2024 End: 05-07-2024 take 1 tablet by mouth every eight hours as needed for pain Oxycodone 5 mg tablet Discontinued 5 mg PO Q8H as needed for pain 5 2 March 10, 2024 May 07, 2024 9:17am tamsulosin hydrochloride 0.4 mg oral capsule (20 sources) alpha-Adrenergic Yolette Start: 04-24-2016 End: 03-10-2018 take 1 capsule by mouth at dinner Tamsulosin 0.4 MG capsule Discontinued 0.4 mg PO WITH DINNER April 26, 2016 8:25am March 10, 2018 1:42pm Problems Active Problems Problem Classification Problem Date Documented Da te Episodic/Chronic Cardiac dysrhythmias (20 sources) Ventricular premature beats; Translations: [Ventricular premature depolarization] 11-25-2017 Chronic Complication of device; implant or graft (6 sources) Pain; Translations: [Pain due to vascular prosthetic devices, implants and grafts, initial encounter] 10-24-2023 Chronic Congestive heart failure; nonhypertensive (17 sources) Chronic systolic heart failure; Translations: [Chronic systolic (congestive) heart failure] 11-25-2017 Chronic Coronary atherosclerosis and other heart disease (20 sources) Old myocardial infarction; Translations: [Old myocardial infarction] Onset: 07-14-2024 11-25-2017 Chronic Comment on above: PTCA and LINDA to firs t OM 12/14/2011 @ [facility] per Dr. Garth Bernard Diabetes mellitus without complication (9 sources) Type 2 diabetes mellitus; Translations: [Type 2 diabetes mellitus without complications] Onset: 07-14-2024 04-14-2024 Chronic Disorders of lipid metabolism (20 sources) Hyperlipidemia; Translations: [Hyperlipidemia, unspecified] Onset: 07-14-2024 03-10-2018 Chronic Essential hypertension (20 sources) Essential hypertension; Translations: [Essential (primary) hypertension] Onset: 07-14-2024 08-26-2018 Chronic Influenza (7 sources) Influenza due to Influenza A virus; Translations: [Influenza due to other identified influenza virus with other respiratory manifestations] 09-17-2023 Episodic Other circulatory disease (8 sources) Arteriovenous fistula; Translations: [Arteriovenous fistula, acquired] 10-23-2023 Chronic Comment on above: Right radial AV fist yomi. Repaired. Other circulatory disease (5 sources) Arteriovenous fistula, acquired; Translations: [Arteriovenous fistula, acquired] Onset: 07-14-2024 10-23-2023 Chronic Other circulatory disease (2 sources) Iatrogenic arteriovenous fistula; Translations: [Arteriovenous fistula, acquired] 04-02-2024 Chronic Comment on above: Status post open rep air on 03/10/2024 Aide-; endo-; and myocarditis; cardiomyopathy (except that caused by tuberculosis or sexually transmitted disease) (1 source) Cardiomyopathy; Translations: [Cardiomyopathy, unspecified] 01-24-2024 Chronic Residual codes; unclassified (2 sources) History of cardiovascular surgery; Translations: [Other specified postprocedural states] 05-07-2024 Episodic Spondylosis; intervertebral disc disorders; other back problems (13 sources) Neck pain; Translations: [Cervicalgia] 06-26-2021 Episodic Unclassified (1 source) Other ventricular tachycardia; Translations: [Other ventricular tachycardia] Onset: 07-14-2024 Past or Other Problems Problem Classification Problem Date Documented Da te Episodic/Chronic Coronary atherosclerosis and other heart disease (13 sources) Stented coronary artery; Translations: [Presence of coronary angioplasty implant and graft] Onset: 12-11-2011 08-26-2018 Episodic Comment on above: PTCA and LINDA to firs t OM 12/14/2011 @ [facility] per Dr. Garth Bernard Genitourinary symptoms and ill-defined conditions (1 source) Dysuria; Translations: [Dysuria] Onset: 06-19-2024 Episodic Other screening for suspected conditions (not mental disorders or infectious disease) (2 sources) Patient encounter status; Translations: [Encounter for screening for malignant neoplasm of colon] Onset: 06-05-2024 01-24-2024 Episodic Results Test Name Value Interpretation Reference Range Facility Cardiology Visit Reporton Cardiology Visit Report [facility] [address] [place], [place] [address] OFFICE VISIT Date of Service: 01/25/25 MR#: [id number] Acct: [id number] Name: MIO HART Rep #: [id number] : 1955 Provider: Dr. Lisha Miranda MD Age/Sex: 69/M Location: [facility] Status: Signed HPI HPI History of Present Illness Details: This patient with history of anterior NE, chronic LV systolic dysfunction secondary to ischemic cardiomyopathy hypertension and dyslipidemia is here for follow-up visit. Overall he is doing well. According to him, he has been walking 1 to 2 miles every day without any problems. No chest pains. No shortness of breath. No orthopnea or PND. No ankle edema. Intake Vital Signs 07/14/24 08:47 01/25/25 08:33 Height 5 ft 10 in 5 ft 10 in Weight: 202 lb 206 lb BMI 29.0 29.5 BP 154/85 H 134/84 H Blood Pressure Location Lt brachial Lt brachial Position Sitting Sitting Respiration 16 18 Pulse 69 74 Pulse Source NIBP NIBP Intake Visit Reasons: 6 M FU Infant Caregiver Required: No Accompanied by: Self Is patient in pain?: No Allergies lisinopril Allergy (Intermediate, Verified 01/25/25 13:16) Angioedema rosuvastatin (From Crestor) Adverse Reaction (Severe, Verified 01/25/25 13:16) didnt feel well Medications ???Medication ???Instructions ???Recorded ???Confirmed ???Type aspirin 81 mg tablet,delayed 81 mg PO BID 04/23/16 01/25/25 His tory release furosemide 40 mg tablet 40 mg PO DAILY PRN Swelling 01/25/25 History spironolactone 25 mg tablet 12.5 mg PO DAILY 04/23/16 01/25/25 History magnesium oxide 400 mg (241.3 mg 400 mg PO QDAY 03/10/18 01/25/25 H istory magnesium) tablet multivitamin-mineral s-iron 1 tab PO DAILY 11/19/22 01/25/25 H istory fumarate 7.5 mg-folic acid 400 mcg tablet isosorbide mononitrate 10 mg tablet 5 mg PO BID 10/23/23 01/25/25 H istory metformin 500 mg tablet,extended 1,000 mg PO BID 10/23/23 01/25/25 History release 24 hr melatonin 10 mg tablet 15 mg PO HS 01/29/24 01/25/25 Hist ory nitroglycerin 0.4 mg sublingual 0.4 mg sublingual Q5-15M PRN chest 02/19/24 01/25/25 History tablet pain atorvastatin 40 mg tablet 40 mg PO QDAY #90 tabs 07/14/24 Rx mecobalamin (vitamin B12) 1,000 1,000 mcg PO QDAY 07/14/24 5 History mcg chewable tablet hydralazine 50 mg tablet 50 mg PO TID #270 tabs 10/05/24 Rx carvedilol 25 mg tablet 25 mg PO BID #180 TABLETS 11/05/24 01/25/25 Rx Ejection fraction %: 15 Have you fallen in the past year?: No PFSH Medical History Alcohol use 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 Cardiology follow-up encounter Chronic systolic (congestive) heart failure Dietary restriction Essential hypertension Former smoker Heartburn High cholesterol History of CHF (congestive heart failure) History of echocardiogram History of heart attack History of Holter monitoring History of irregular heartbeat History of stress test Hyperlipidemia Hypertension Ischemic cardiomyopathy Kidney stones Leg cramps 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 Premature ventricular contractions Rheumatoid arthritis Type 2 diabetes mellitus without complications Wears glasses Surgical History H/O right knee surgery History of appendectomy History of lithotripsy History of tonsillectomy and adenoidectomy Stented coronary artery ( 12/14/11) Family History Mother Diabetes Sister Diabetes Brother Diabetes Hypertension Social History Smoking Status: Former smoker how long ago did patient quit smokin years ago alcohol intake: current alcohol intake frequency: 0-2 drinks per day Alcohol type: wine substance use type: does not use caffeine: Yes Type: coffee Number of servings: 2 ROS Const Const: Negative for fatigue, weakness, headache(s) or weight gain ENT ENT: Negative for headache(s), dizziness, Nosebleed/epistaxis or balance problems Cardio Chest Pain: No Palpitations: No Edema: None Muscle aches with walking: None Resp Respiratory: Negative for SOB with activity, SOB at rest or SOB orthopnea SOB lying down GI GI: Negative nausea, vomiting or heartburn Musc Musc: Negative for muscle aches/ myalgia, muscle weakness, joint pain or balance problems Neuro Neuro: Positive for lightheadedness (seldom, episodic, resolves quickly); Negative for dizziness, near syncope, syncope, headache(s) or weakness Endo Endo: Negative for fatigue Cardiology Exam Const Appearan (more content not included)... Normal [facility] Bilirubin directOrdered By: Rebel More on 10-20-2024 Bilirubin.direct [Mass/Vol] 0.30 mg/dL 0.00-0.30 [facility] Bilirubin, totalOrdered By: Rebel More on 10-20-2024 Bilirubin [Mass/Vol] 0.58 mg/dL 0.00-1.30 [facility] Calculated very low density lipoprotein (VLDL) cholesterol measurementOrdered By: Rebel More on 10-20-2024 Calculated very low density lipoprotein (VLDL) cholesterol measurement 30 mg/dL 5-40 [facility] VLDL Cholesterol 30 mg/dL 5-40 [facility] LDL calc ser/plasOrdered By: Rebel More on 10-20-2024 Cholesterol in LDL [Mass/Vol] 51 mg/dL [facility] Comment on above: Yavucenwmc=805-485 m g/dL & Higher Wjvk=460 mg/dL or greater LDL Cholesterol, Calculated 51 mg/dL [facility] Comment on above: Yodqaongnh=355-735 m g/dL & Higher Loxz=676 mg/dL or greater Laboratory - Chemistry and C hemistry - challengeOrdered By: Rebel More on 10-20-2024 AST [Catalytic activity/Vol] 21 U/L <38 [facility] Lipid Profileon 10-20-2024 CHOL:HDL 2.35 Normal [facility] Comment on above: Performed By: #### L 500.4100, L500.3400 ####[facility] [address] [place], [address] Cholesterol [Mass/Vol] 141 mg/dL Normal <=200 [facility] Comment on above: Result Comment: Chol esterol level, Desirable <200 mg/dL Borderline high cholesterol 200-239 mg/dL High cholesterol >=240 mg/dL Recommendations of the NCEP Adult Treatment Panel for the following risk-cutoff thresholds for the [place] population. Performed By: #### L 500.4100, L500.3400 ####[facility] [address] [place], [address] Cholesterol in HDL [Mass/Vol] 60 mg/dL Normal [facility] Comment on above: Result Comment: [place] onal Cholesterol Education Program (NCEP) guidelines: <40 mg/dL: Low HDL-cholesterol (major risk factor for CHD) >= 60 mg/dL: High HDL-cholesterol (negative risk factor for CHD) HDL-cholesterol is affected by a number of factors, e.g. smoking, exercise, hormones, sex and age. Performed By: #### L 500.4100, L500.3400 ####[facility] [address] [place], [address] Cholesterol in LDL [Mass/Vol] 51 mg/dL Normal [facility] Comment on above: Result Comment: Bord ceqlsr=722-232 mg/dL Higher Vwxm=405 mg/dL or greater Performed By: #### L 500.4100, L500.3400 ####[facility] [address] [place], [address] Cholesterol in VLDL [Mass/Vol] 30 mg/dL Normal 5-40 [facility] Comment on above: Performed By: #### L 500.4100, L500.3400 ####[facility] [address] [place], [address] Triglyceride [Mass/Vol] 148 mg/dL Normal [facility] Comment on above: Result Comment: The drugs N-Acetylcysteine and Metamizole may falsely depress this assay. Normal range: <150 mg/dL Borderline High: 150-199 mg/dL High: 200-499 mg/dL Very High: >500 mg/dL Performed By: #### L 500.4100, L500.3400 ####[facility] [address] [place], [address] Liver Profileon 10-20-2024 Albumin [Mass/Vol] 4.5 g/dL Normal 3.4-4.8 [facility] Comment on above: Performed By: #### L 500.4100, L500.3400 ####[facility] [address] [place], [address] ALK PHOS 54 U/L Normal 40-129 [facility] Comment on above: Performed By: #### L 500.4100, L500.3400 ####[facility] [address] [place], [address] ALT [Catalytic activity/Vol] 17 U/L Normal <=46 [facility] Comment on above: Performed By: #### L 500.4100, L500.3400 ####[facility] [address] [place], [address] AST [Catalytic activity/Vol] 21 U/L Normal <=37 [facility] Comment on above: Performed By: #### L 500.4100, L500.3400 ####[facility] [address] [place], [address] Bilirubin [Mass/Vol] 0.58 mg/dL Normal 0.00-1.30 [facility] Comment on above: Performed By: #### L 500.4100, L500.3400 ####[facility] [address] [place], [address] Bilirubin.direct [Mass/Vol] 0.30 mg/dL Normal 0.00-0.30 [facility] Comment on above: Performed By: #### L 500.4100, L500.3400 ####[facility] [address] [place], [place], [id number] Globulin (S) [Mass/Vol] 2.6 g/dL Normal 2.2-4.2 [facility] Comment on above: Performed By: #### L 500.4100, L500.3400 ####[facility] [address] [place], [address] T PROT 7.1 g/dL Normal 5.9-8.4 [facility] Comment on above: Performed By: #### L 500.4100, L500.3400 ####[facility] [address] [place], [place], [address] Screening total cholesterol/ high density lipoprotein (HDL) cholesterol ratioOrdered By: Rebel More on 10-20-2024 Cholesterol.total/Choles terol in HDL [Mass ratio] 2.35 {ratio} [facility] Serum globulin measurementOr dered By: Rebel More on 10-20-2024 Globulin (S) [Mass/Vol] 2.6 g/dL 2.2-4.2 [facility] Serum or plasma alanine morris otransferase (ALT) measurementOrdered By: Rebel More on 10-20-2024 ALT [Catalytic activity/Vol] 17 U/L <47 [facility] Serum or plasma albumin rinku urement (mass/volume)Ordered By: Rebel More on 10-20-2024 Albumin [Mass/Vol] 4.5 g/dL 3.4-4.8 [facility] Serum or plasma alkaline yuan sphatase measurementOrdered By: Rebel More on 10-20-2024 ALP [Catalytic activity/Vol] 54 U/L 40-129 [facility] Serum or plasma cholesterol in HDL measurement (mass/volume)Ordered By: Rebel More on 10-20-2024 Cholesterol in HDL [Mass/Vol] 60 mg/dL >40 [facility] Comment on above: National Cholesterol Education Program (NCEP) guidelines:<40 mg/dL: Low HDL-cholesterol (major risk factor for CHD)>= 60 mg/dL: High HDL-cholesterol (negative risk factor for CHD)HDL-cholesterol is affected by a number of factors, e.g. smoking, exercise, hormones, sex and age. Serum or plasma cholesterol measurement (mass/volume)Ordered By: Rebel More on 10-20-2024 Cholesterol [Mass/Vol] 141 mg/dL <201 [facility] Comment on above: Cholesterol level, D esirable <200 mg/dLBorderline high cholesterol 200-239 mg/dLHigh cholesterol >=240 mg/dLRecommendations of the NCEP Adult Treatment Panel for the following risk-cutoff thresholds for the [place] population. Total proteinOrdered By: Christiano More on 10-20-2024 Protein [Mass/Vol] 7.1 g/dL 5.9-8.4 [facility] Triglycerides measurementOrd ered By: Rebel More on 10-20-2024 Triglyceride [Mass/Vol] 148 mg/dL <199 [facility] Comment on above: The drugs N-Acetylcy steine and Metamizole may falsely depress this assay. Normal range: <150 mg/dLBorderline High: 150-199 mg/dLHigh: 200-499 mg/dLVery High: >500 mg/dL Cardiology Visit Reporton Cardiology Visit Report [facility] [address] [place] [address] OFFICE VISIT Date of Service: 07/14/24 MR#: [id number] Acct: [id number] Name: MIO HART Rep #: [id number] : 1955 Provider: Dr. Lisha Miranda MD Age/Sex: 68/M [place] [facility] [place] Status: Signed HPI HPI History of Present Illness Details: This gentleman with history of coronary artery disease, ischemic cardiomyopathy, hypertension and dyslipidemia is here for follow-up visit. Denies any complaints. Denies any chest pains or shortness of breath. No orthopnea or PND. No ankle edema. According to him, he walks about 2 to 3 miles a day without any problems. Intake Vital Signs 05/07/24 08:22 07/14/24 08:47 Height 5 ft 10 in 5 ft 10 in Weight: 201 lb 202 lb BMI 28.8 29.0 BP 144/94 H 154/85 H Blood Pressure Location Lt brachial Lt brachial Position Sitting Sitting Respiration 16 16 Pulse 79 69 Pulse Source NIBP NIBP Intake Visit Reasons: 3 M FU Infant Caregiver Required: No Accompanied by: Self Is patient in pain?: Yes Allergies lisinopril Allergy (Intermediate, Verified 07/14/24 13:16) Angioedema rosuvastatin (From Crestor) Adverse Reaction (Severe, Verified 07/14/24 13:16) didnt feel well Medications ???Medication ???Instructions ???Recorded ???Confirmed ???Type aspirin 81 mg tablet,delayed 81 mg PO BID 04/23/16 07/14/24 History release furosemide 40 mg tablet 40 mg PO DAILY PRN Swelling 04/23/16 07/14/24 History spironolactone 25 mg tablet 12.5 mg PO DAILY 04/23/16 07/14/24 History atorvastatin 80 mg tablet 80 mg PO QHS #90 tabs 09/30/17 07/14/24 Rx magnesium oxide 400 mg (241.3 mg 400 mg PO QDAY 03/10/18 07/14/24 History magnesium) tablet multivitamin-mineral s-iron 1 tab PO DAILY 11/19/22 07/14/24 History fumarate 7.5 mg-folic acid 400 mcg tablet isosorbide mononitrate 10 mg tablet 5 mg PO BID 10/23/23 07/14/24 History metformin 500 mg tablet,extended 1,000 mg PO BID 10/23/23 07/14/24 History release 24 hr melatonin 10 mg tablet 15 mg PO HS 01/29/24 07/14/24 History carvedilol 25 mg tablet 25 mg PO BID 02/19/24 07/14/24 History nitroglycerin 0.4 mg sublingual 0.4 mg sublingual Q5-15M PRN chest 02/19/24 07/14/24 History tablet pain hydralazine 25 mg tablet 25 mg PO TID #90 tabs 05/07/24 07/14/24 Rx mecobalamin (vitamin B12) 1,000 1,000 mcg PO QDAY 07/14/24 07/14/24 History mcg chewable tablet Ejection fraction %: 15 Have you fallen in the past year?: No PFSH Medical History Alcohol use 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 Cardiology follow-up encounter Chronic systolic (congestive) heart failure Dietary restriction Essential hypertension Former smoker Heartburn High cholesterol History of CHF (congestive heart failure) History of echocardiogram History of heart attack History of Holter monitoring History of irregular heartbeat History of stress test Hyperlipidemia Hypertension Ischemic cardiomyopathy Kidney stones Leg cramps 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 Premature ventricular contractions Rheumatoid arthritis Type 2 diabetes mellitus without complications Wears glasses Surgical History H/O right knee surgery History of appendectomy History of lithotripsy History of tonsillectomy and adenoidectomy Stented coronary artery ( 12/14/11) Family History Mother Diabetes Sister Diabetes Brother Diabetes Hypertension Social History Smoking Status: Former smoker how long ago did patient quit smokin years ago alcohol intake: current alcohol intake frequency: 0-2 drinks per day Alcohol type: wine substance use type: does not use caffeine: Yes Type: coffee Number of servings: 2 ROS Const Const: Negative for fatigue, weakness, headache(s) or weight gain ENT ENT: Negative for headache(s), dizziness, Nosebleed/epistaxis or balance problems Cardio Chest Pain: No Palpitations: No Edema: None Muscle aches with walking: None Resp Respiratory: Negative for SOB with activity, SOB at rest or SOB orthopnea SOB lying down GI GI: Negative nausea, vomiting or heartburn Musc Musc: Negative for muscle aches/ myalgia, muscle weakness, joint pain or balance problems Neuro Neuro: Negative for dizziness, lightheadedness, near syncope, syncope, headache(s) or weakness Endo Endo: Negative for fatigue Cardiology Exam Const Appearance: comfortable and no acute distress Nutritional Appearance: well nourished Neck Neck: no JVD Carotids: Negative bruit C (more content not included)... Normal [facility] Urine Cultureon 05-29-2024 URC Culture exhibits no growth. Normal [facility] Comment on above: Performed By: #### M 100.2200 ####[facility] [address] [place], [address] Comprehensive Metabolic Prof ilon 05-08-2024 Albumin [Mass/Vol] 4.1 g/dL Normal 3.2-5.0 [facility] Comment on above: Performed By: #### L 500.4100, L500.4050 #### [facility] [address] [place], [address] Albumin/Globulin [Mass ratio] 1.3 {ratio} Normal 0.9-2.4 [facility] Comment on above: Performed By: #### L 500.4100, L500.4050 #### [facility] [address] [place], [address] ALK P 70 U/L Normal 45-117 [facility] Comment on above: Performed By: #### L 500.4100, L500.4050 #### [facility] [address] [place], [address] ALT [Catalytic activity/Vol] 30 U/L Normal 16-61 [facility] Comment on above: Performed By: #### L 500.4100, L500.4050 #### [facility] [address] [place], [address] AST [Catalytic activity/Vol] 23 U/L Normal 15-37 [facility] Comment on above: Performed By: #### L 500.4100, L500.4050 #### [facility] [address] [place], [address] Bilirubin [Mass/Vol] 0.60 mg/dL Normal 0.20-1.00 [facility] Comment on above: Result Comment: For patients on eltrombopag therapy, use of Dimension [place] TBIL is not recommended. Performed By: #### L 500.4100, L500.4050 #### [facility] [address] [place], [address] BUN/CRE 17.0 RATIO Normal 10-20 [facility] Comment on above: Performed By: #### L 500.4100, L500.4050 #### [facility] [address] [place], [address] CA,Total 9.2 mg/dL Normal 8.5-10.1 [facility] Comment on above: Performed By: #### L 500.4100, L500.4050 #### [facility] [address] [place], [address] Chloride [Moles/Vol] 107 mmol/L Normal 98-107 [facility] Comment on above: Performed By: #### L 500.4100, L500.4050 #### [facility] [address] [place], [address] CO2 [Moles/Vol] 29.0 mmol/L Normal 21.0-32.0 [facility] Comment on above: Performed By: #### L 500.4100, L500.4050 #### [facility] [address] [place], [address] Creatinine [Mass/Vol] 0.70 mg/dL Normal 0.70-1.30 [facility] Comment on above: Result Comment: The validity of the calculated GFR GFRAA in patients over 70 years has not been determined. Clinical correlation is essential. Performed By: #### L 500.4100, L500.4050 #### [facility] [address] [place], [address] EST GFR - AA 142 mL/min Normal >60 [facility] Comment on above: Result Comment: Afri can Thai GFR Calc Performed By: #### L 500.4100, L500.4050 #### [facility] [address] [place], [address] GAP 5 Normal 5-15 [facility] Comment on above: Performed By: #### L 500.4100, [id number] #### [facility] [address] [place], [address] GFR/1.73 sq M.predicted among non-blacks MDRD (S/P/Bld) [Vol rate/Area] 118 mL/min/{1.73_m2} Normal >60 [facility] Comment on above: Result Comment: Non- GFR Calc Performed By: #### L 500.4100, L500.4050 #### [facility] [address] [place], [address] Globulin (S) [Mass/Vol] 3.2 g/dL Normal 2.2-4.2 [facility] Comment on above: Performed By: #### L 500.4100, L500.4050 #### [facility] [address] [place], [address] Glucose [Mass/Vol] 109 mg/dL High 74-106 [facility] Comment on above: Result Comment: Fast ing Glucose result from 100 to 125 mg/dL suggests IMPAIRED HOMEOSTASIS per A.D.A. criteria. Performed By: #### L 500.4100, L500.4050 #### [facility] [address] [place], [address] Potassium [Moles/Vol] 4.0 mmol/L Normal 3.5-5.1 [facility] Comment on above: Performed By: #### L 500.4100, L500.4050 #### [facility] [address] [place], [address] Sodium [Moles/Vol] 140 mmol/L Normal 136-145 [facility] Comment on above: Performed By: #### L 500.4100, L500.4050 #### [facility] [address] [place], [address] T PROT 7.3 g/dL Normal 6.4-8.2 [facility] Comment on above: Performed By: #### L 500.4100, L500.4050 #### [facility] [address] [place], [address] Urea nitrogen [Mass/Vol] 12 mg/dL Normal 7-18 [facility] Comment on above: Performed By: #### L 500.4100, L500.4050 #### [facility] [address] [place], [address] Lipid Profileon 05-08-2024 Cholesterol [Mass/Vol] 146 mg/dL Normal 200 [facility] Comment on above: Result Comment: <200 mg/dL Desirable 200-240 mg/dL Borderline >240 mg/dL High Risk Performed By: #### L 500.4100, L500.4050 #### [facility] [address] [place], [address] Cholesterol in HDL [Mass/Vol] 61 mg/dL Normal [facility] Comment on above: Result Comment: The drugs N-Acetylcysteine and Metamizole may falsely depress this assay. Reference Range HDL <40 mg/dL Low HDL Cholesterol HDL >or= 60 mg/dL High HDL Cholesterol Performed By: #### L 500.4100, L500.4050 #### [facility] [address] [place], [address] Cholesterol in LDL [Mass/Vol] 44 mg/dL Normal 0-130 [facility] Comment on above: Performed By: #### L 500.4100, L500.4050 #### [facility] [address] [place], [address] Cholesterol in VLDL [Mass/Vol] 41 mg/dL High 5-40 [facility] Comment on above: Performed By: #### L 500.4100, L500.4050 #### [facility] [address] [place], [address] Triglyceride [Mass/Vol] 204 mg/dL High [facility] Comment on above: Result Comment: The drugs N-Acetylcysteine and Metamizole may falsely depress this assay. Serum Triglycerides Reference Interval Normal <150 mg/dL Borderline high 150 - 199 mg/dL High 200 - 499 mg/dL Very High > or = 500 mg/dL Performed By: #### L 500.4100, L500.4050 #### [facility] [address] [place], [address] PSA,Total - Annual Screenon 05-08-2024 PSA,TOT SCREEN 0.34 ng/mL Normal 0.00-4.00 [facility] Comment on above: Order Comment: Order Date: 04/28/24Order Info: 3016-3 - TSHOrder Info: [id number] - PSA Result Comment: This test was performed using the TPSA assay method for the [employer] chemistry system. Values obtained with different assay methods cannot be used interchangably. When changing PSA assays in the course of monitoring a patient, additional sequential testing should be carried out to confirm baseline values. Performed By: #### L 501.9910, L501.9520, L503.0105 ####[facility] [address] [place], [address] Thyroid Stim Hormone (TSH)on 05-08-2024 TSH 0.702 uIU/mL Normal 0.358-3.740 [facility] Comment on above: Order Comment: Order Date: 04/28/24Order Info: [id number] - TSHOrder Info: [id number] - PSA Performed By: #### L 501.9910, L501.9520, L503.0105 ####[facility] [address] [place], [address] Vitamin B12on 05-08-2024 Cobalamin (Vitamin B12) [Mass/Vol] 331 pg/mL Normal 211-911 [facility] Comment on above: Order Comment: Order Date: 04/28/24Order Info: [id number] - B12 Performed By: #### L 501.9910, L501.9520, L503.0105 ####[facility] [address] [place], [address] Cardiology Visit Reporton Cardiology Visit Report [facility] [address] [place] [address] OFFICE VISIT Date of Service: 05/07/24 MR#: [id number] Acct: [id number] Name: MIO HART Rep #: [id number] : 1955 Provider: Dr. Lisha Miranda MD Age/Sex: 68/M Location[place] [facility] [place] Status: Signed HPI HPI History of Present Illness Details: This gentleman with history of coronary artery disease and ischemic cardiomyopathy is here for follow-up visit. Denies any complaints. No chest pains. No shortness of breath. No orthopnea or PND. No ankle edema. Denies any palpitations. Patient is being contemplated for colonoscopy by GI. Intake Vital Signs 03/10/24 08:32 05/07/24 08:22 Height 5 ft 10 in 5 ft 10 in Weight: 201 lb BMI 28.8 BP 144/94 H Blood Pressure Location Lt brachial Position Sitting Respiration 16 Pulse 79 Pulse Source NIBP Intake Visit Reasons: 6 M FU Infant Caregiver Required: No Accompanied by: Self Is patient in pain?: No Allergies lisinopril Allergy (Intermediate, Verified 05/07/24 09:15) Angioedema rosuvastatin (From Crestor) Adverse Reaction (Severe, Verified 05/07/24 09:15) didnt feel well Medications ???Medication ???Instructions ???Recorded ???Confirmed ???Type aspirin 81 mg tablet,delayed 81 mg PO BID 04/23/16 05/07/24 History release furosemide 40 mg tablet 40 mg PO DAILY PRN Swelling 04/23/16 05/07/24 History spironolactone 25 mg tablet 12.5 mg PO DAILY 04/23/16 05/07/24 History atorvastatin 80 mg tablet 80 mg PO QHS #90 tabs 09/30/17 05/07/24 Rx magnesium oxide 400 mg (241.3 mg 400 mg PO QDAY 03/10/18 05/07/24 History magnesium) tablet multivitamin-mineral s-iron 1 tab PO DAILY 11/19/22 05/07/24 History fumarate 7.5 mg-folic acid 400 mcg tablet isosorbide mononitrate 10 mg tablet 5 mg PO BID 10/23/23 05/07/24 History metformin 500 mg tablet,extended 1,000 mg PO BID 10/23/23 05/07/24 History release 24 hr melatonin 10 mg tablet 15 mg PO HS 01/29/24 05/07/24 History carvedilol 25 mg tablet 25 mg PO BID 02/19/24 05/07/24 History nitroglycerin 0.4 mg sublingual 0.4 mg sublingual Q5-15M PRN chest 02/19/24 05/07/24 History tablet pain Ejection fraction %: 15 Have you fallen in the past year?: No PFSH Medical History Alcohol use 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 Cardiology follow-up encounter Chronic systolic (congestive) heart failure Dietary restriction Essential hypertension Former smoker Heartburn High cholesterol History of CHF (congestive heart failure) History of echocardiogram History of heart attack History of Holter monitoring History of irregular heartbeat History of stress test Hyperlipidemia Hypertension Ischemic cardiomyopathy Kidney stones Leg cramps 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 Premature ventricular contractions Rheumatoid arthritis Type 2 diabetes mellitus without complications Wears glasses Surgical History H/O right knee surgery History of appendectomy History of lithotripsy History of tonsillectomy and adenoidectomy Stented coronary artery ( 12/14/11) Family History Mother Diabetes Sister Diabetes Brother Diabetes Hypertension Social History Smoking Status: Former smoker how long ago did patient quit smokin years ago alcohol intake: current alcohol intake frequency: 0-2 drinks per day Alcohol type: wine substance use type: does not use caffeine: Yes Type: coffee Number of servings: 2 ROS Const Const: Negative for fatigue, weakness or headache(s) ENT ENT: Negative for headache(s), dizziness, Nosebleed/epistaxis or balance problems Cardio Chest Pain: No Palpitations: No Edema: None Muscle aches with walking: None Resp Respiratory: Negative for SOB with activity, SOB at rest or SOB orthopnea SOB lying down GI GI: Negative nausea, vomiting or heartburn Musc Musc: Positive for joint pain (right knee; chronic); Negative for muscle aches/ myalgia, muscle weakness or balance problems Neuro Neuro: Negative for dizziness, lightheadedness, near syncope, syncope, headache(s) or weakness Endo Endo: Negative for fatigue Cardiology Exam Const Appearance: comfortable and no acute distress Nutritional Appearance: well nourished Neck Neck: no JVD Carotids: Negative bruit Chest Auscultation: Bilateral: Clear to Auscultation Cardio Rate: regular rate Rhythm: regular rhythm Heart sounds: S1 normal and S2 normal 2/6 systolic murmur at base. Neuro General: patient alert, patient awake and miguel (more content not included)... Normal [facility] 04-17-2024 [facility] Telephone ([employer]) MIO HART ([id number]) 1955 M Date Time Provider Department 04/17/24 BRICE QUINONEZ During your visit today, we recorded the following information about you: Dipak Isidro 04/17/2024 3:14 PM Signed Email from Dr. High anesthesiologist - patient will be cancelled for his scopes Saturday with [facility] in [place] as he has not been cleared through anesthesia nor cardiology. Patient is to follow back up with cardiology regarding AICD. [facility] on this Patient aware he is needing to see his cardiologists and complete all follow up appointments required by anesthesia and surgeon. No new date as of now until patient has been cleared to proceed. 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 - magnesium oxide 400 mg magnesium cap Take by mouth. - melatonin 10 mg tab Take 15 mg by mouth. - ASPIRIN ORAL Take 81 mg by mouth two times a day. - atorvastatin (LIPITOR) 80 mg tablet Take 80 mg by mouth once daily. - carvedilol (COREG) 12.5 mg tablet Take 18 mg by mouth two times a day with meals. - Isosorbide Mononitrate 10 mg tablet Take 5 mg by mouth two times a day. - furosemide (LASIX) 40 mg tablet Take 40 mg by mouth as needed (swelling). - metFORMIN ER (GLUCOPHAGE XR) 500 mg 24 hr tablet Take 500 mg by mouth two times a day. 1 tablet in am and 2 tablets in evening - nitroglycerin sublingual (NITROQUICK) 0.4 mg SL tablet Dissolve 0.4 mg under the tongue every 5 minutes as needed for chest pain. - spironolactone (ALDACTONE) 25 mg tablet Take 12.5 mg by mouth once daily. Problem List As Of Date 04/17/2024 Noted Resolved Atherosclerotic heart disease of mentasta coronar* CHF (congestive heart failure) (HCC) [I50.9] Essential hypertension [I10] Mixed hyperlipidemia [E78.2] Premature ventricular contractions [I49.3] Type 2 diabetes (HCC) [E11.9] Ischemic cardiomyopathy [I25.5] Encounter Status:Closed by SHAWN BINGHAM on 06/16/24 [facility] [place] 04-14-2024 [place] Telephone ([employer]) MIO HART ([id number]) 1955 M Date Time Provider Department 04/14/24 NICKY PICKENS During your visit today, we recorded the following information about you: Nicky Pickens APRN.PRINCIPLE SOFTWARE ENGINEER 04/14/2024 10:11 AM Signed Can we request most recent A1c from PCP's office? Mandy Lew LPN 04/15/2024 11:12 AM Signed Fax request sent to Dr. Escalante's office requesting most recent A1c be faxed for upcoming surgery 04/20/24. CHRISTOPHER Acevedo Jessica, LPN 04/20/2024 9:01 AM Signed Received A1c results. Sent to [employer] through Onbase [employer]. Mandy Lew LPN Allergies As of Date: 04/14/2024 Noted Allergy Reaction EZETIMIBE 10/21/2013 5 - Intolerance LISINOPRIL 01/23/2024 18 - Angioedema ROSUVASTATIN 10/21/2013 5 - Intolerance Date Reviewed: 04/14/2024 Reviewed by: Nicky Pickens APRN.PRINCIPLE SOFTWARE ENGINEER - Fully Assessed Reason for Visit: Request Outside Medical Records [[id number]] Prescriptions as of 04/20/2024 - MULTIVITAMIN ORAL Take by mouth. - magnesium oxide 400 mg magnesium cap Take by mouth. - melatonin 10 mg tab Take 15 mg by mouth. - ASPIRIN ORAL Take 81 mg by mouth two times a day. - atorvastatin (LIPITOR) 80 mg tablet Take 80 mg by mouth once daily. - carvedilol (COREG) 12.5 mg tablet Take 18 mg by mouth two times a day with meals. - Isosorbide Mononitrate 10 mg tablet Take 5 mg by mouth two times a day. - furosemide (LASIX) 40 mg tablet Take 40 mg by mouth as needed (swelling). - metFORMIN ER (GLUCOPHAGE XR) 500 mg 24 hr tablet Take 500 mg by mouth two times a day. 1 tablet in am and 2 tablets in evening - nitroglycerin sublingual (NITROQUICK) 0.4 mg SL tablet Dissolve 0.4 mg under the tongue every 5 minutes as needed for chest pain. - spironolactone (ALDACTONE) 25 mg tablet Take 12.5 mg by mouth once daily. Problem List As Of Date 04/14/2024 Noted Resolved Atherosclerotic heart disease of mentasta coronar* CHF (congestive heart failure) (HCC) [I50.9] Essential hypertension [I10] Mixed hyperlipidemia [E78.2] Premature ventricular contractions [I49.3] Type 2 diabetes (HCC) [E11.9] Ischemic cardiomyopathy [I25.5] Encounter Status:Closed by MANDY LEW on 04/20/24 Normal [facility] HISTORY PHYSICALon HISTORY PHYSICAL HNO ID: [id number] Author: NICKY PICKENS APRN.PRINCIPLE SOFTWARE ENGINEER Service: ? Author Type: Nurse Practitioner Type: H&P Filed: 04/17/2024 13:48 Note Text: [facility] HISTORY AND PHYSICAL EXAMINATION SERVICE DATE: 04/10/2024 SERVICE TIME: 1:47 PM PRIMARY CARE PHYSICIAN: Jackie Escalante MD Assessment Patient has the following medical conditions which may affect aide-operative course: Ischemic cardiomyopathy Assessment: following [facility], most updated echo scanned into [facility] 11/2023, EF 15%, medical clearance letter faxed to [facility] and last OV if later than the one scanned into [facility] 10/2023, asymptomatic, no defibrillator/pacema ker at this time Premature ventricular contractions Assessment: controlled on rx, recent holter monitor, following cardio Mixed hyperlipidemia Assessment: c/w statin Essential hypertension Assessment: controlled on rx Last 14 BP Last 14 Encounter BP Readings: Date: BP: 04/10/2024 138/90 01/23/2024 132/82 CHF (congestive heart failure) (HCC) Assessment: controlled on rx and as needed 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 Denies CP, palpitations, sob, new or worsening cardiac symptoms. Clearance letter sent to [facility] Type 2 diabetes (HCC) Assessment: controlled on oral agent, most recent requested from PCP [place] Activity Status Index: METS: Climb a flight of stairs or walk up a hill (5.50 METs) DASI Score: 5.5 Patient denies any chest pain or undue shortness of breath with the above physical activity. Clinical Frailty Scale: 3. Well, with treated comorbid disease STOP-Bang Score: Has or is being treated for high blood pressure Patient over 50 years old Male patient Denies snoring loudly Denies feeling tired, fatigued, or sleepy during the daytime Has not been observed to stop breathing or choking/gasping during sleep BMI less than or equal to 35 kg/m2 Does not have a large neck STOP-Bang Score: 3 Malnutrition Screening Tool: Recent weight loss without trying: No Eating poorly due to decreased appetite: No Weight Loss Score: 0 Appetite Score: 0 MST Score: 0 [id number] Score: Age: 65-74 Sex: male CHF history: Yes Hypertension history: Yes Stroke/TIA/thromboem bolism history: No Vascular disease history: Yes Diabetes history: Yes [id number] Score: 5 ARISCAT Score: Age: 51-80 Preoperative SpO2: >=96% Respiratory infection in the last month: No Preoperative anemia: Yes Surgical incision: peripheral Duration of surgery: <2 hrs Emergency procedure: No ARISCAT Score: 14 ANESTHESIA FINDINGS: Intubation History: No history of difficult intubation Significant Anesthesia Considerations: none Airway History: No history of difficult airway I - PHYSICAL EVALUATION AIRWAY Patient intubated: No. Tracheostomy tube not present Mallampati: III. TM distance: >3 FB. Neck ROM: full ROM without neurological symptoms. Mouth opening: adequate. Short neck: no. Thick neck: no Arevalo present: no Lip Bite Test: I Microretrognathia/Mi cronagthia/Recessed Chin: No DENTAL Dental findings: teeth intact. II - ANESTHESIA PLAN Anesthetic Plan: other Beta Yolette Monitoring Plan Post Procedure Analgesic Plan Informed Consent Anesthetic risks, benefits, alternatives, personnel and consent discussed: yes. Patient / Responsible Alliance Party agrees to proceed: yes Prepared for Surgery: optimally prepared for surgery, pending [see comment]. Cardiac optimization letter faxed to cardiology CONSULTS: Patient does not require consults for optimization at this time Planned Anesthetic: other anesthesia choice The Following Tests/Procedures Have Been Initiated: Orders Placed This Encounter MULTIVITAMIN ORAL Sig: Take by mouth. magnesium oxide 400 mg magnesium cap Sig: Take by mouth. melatonin 10 mg tab Sig: Take 15 mg by mouth. REASON FOR VISIT: Mio Hart is a 68 year old male who is scheduled for colonoscopy at the request of Dr. Brice Quinonez for consultation. My final recommendation will be communicated back to the requesting physician by way of shared medical record or letter. Subjective The patient has the following: COVID-19 Immunization Status Overdue - Covid-19 Vaccine () Overdue since 04/12/2024 05/08/2022 Imm Admin: COVID-19 vaccine, age 12+ yr, bivalent (PFIZER-BIONTECH) 05/26/2021 Imm Admin: COVID-19 original vaccine, age 12+ yr, monovalent (PFIZER-BIONTECH - PURPLE TOP) 11/07/2020 Imm Admin: COVID-19 original vaccine, age 12+ yr, monovalent (PFIZER-BIONTECH - PURPLE TOP) Only the first 3 history entries have been loaded, but more history exists. CHIEF COMPLAINT: Pre-op exam HPI: Mio Hart is a 68 year old seen for PAC due to scheduled above procedure due to +colorgard . 01/23/24, D (more content not included)... Normal [facility] Surgery Visit Reporton 04-02 Surgery Visit Report [facility] [address] [place] [address] OFFICE VISIT Date of Service: 04/02/24 MR#: [id number] Acct: [id number] Name: MIO HART Rep #: [id number] : 1955 Provider: THIEN Henry Age/Sex: 68/M [place] [facility] Status: Signed Intake Vital Signs 10/23/23 14:41 03/10/24 08:32 04/02/24 10:55 Height 5 ft 10 in 5 ft 10 in Weight: 203 lb BP 145/92 H Blood Pressure Location Lt brachial Position Sitting Respiration 16 Pulse 78 Pulse Source Monitor Temp 98.2 F Temp Source Temporal Pulse Oximetry (%) 99 Oxygen Delivery Method room air Intake Visit Reasons: 2-3 W POST OP Chief Complaint: Post Op Is patient in pain?: No Allergies lisinopril Allergy (Intermediate, Verified 04/02/24 10:56) Angioedema rosuvastatin (From Crestor) Adverse Reaction (Severe, Verified 04/02/24 10:56) didnt feel well Medications ???Medication ???Instructions ???Recorded ???Confirmed ???Type aspirin 81 mg tablet,delayed 81 mg PO BID 04/23/16 04/02/24 History release furosemide 40 mg tablet 40 mg PO DAILY PRN Swelling 04/23/16 04/02/24 History spironolactone 25 mg tablet 12.5 mg PO DAILY 04/23/16 04/02/24 History atorvastatin 80 mg tablet 80 mg PO QHS #90 tabs 09/30/17 04/02/24 Rx magnesium oxide 400 mg (241.3 mg 400 mg PO QDAY 03/10/18 04/02/24 History magnesium) tablet multivitamin-mineral s-iron 1 tab PO DAILY 11/19/22 04/02/24 History fumarate 7.5 mg-folic acid 400 mcg tablet isosorbide mononitrate 10 mg tablet 5 mg PO BID 10/23/23 04/02/24 History metformin 500 mg tablet,extended 1,000 mg PO BID 10/23/23 04/02/24 History release 24 hr melatonin 10 mg tablet 15 mg PO HS 01/29/24 04/02/24 History carvedilol 25 mg tablet 25 mg PO BID 02/19/24 04/02/24 History nitroglycerin 0.4 mg sublingual 0.4 mg sublingual Q5-15M PRN chest 02/19/24 04/02/24 History tablet pain oxycodone 5 mg tablet 5 mg PO Q8H PRN pain 2 days #5 tabs 03/10/24 04/02/24 Rx Have you fallen in the past year?: No Subjective Details: MIO HART, is a 68 M who presents to the office today for follow-up status post repair right radial artery/ligation of iatrogenic radiocephalic fistula on 03/10/2024. He has done very well since the procedure. The denies any pain at the incision site or into his right hand. He has noticed resolution of the whooshing noise and buzzing that he was previously able to feel in that area. He feels the incision has healed well. Objective Details: A O x 3, no apparent distress Nonlabored respirations, able to speak in complete sentences Regular rate and rhythm Right wrist incision site is well-healed. Palpable right radial pulse. No thrill and no bruit. Right hand is warm and pink with sensory and motor function intact. 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 [facility] Medical History Wears glasses Alcohol use Rheumatoid arthritis High cholesterol Dietary restriction Heartburn Former smoker Leg cramps History of CHF (congestive heart failure) History of heart attack History of irregular heartbeat History of stress test History of Holter monitoring History of echocardiogram Cardiology follow-up encounter Kidney stones Essential hypertension Type 2 diabetes mellitus without complications Hypertension Chronic systolic (congestive) heart failure Ischemic cardiomyopathy Hyperlipidemia 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 Premature ventricular contractions 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 Surgical History History of lithotripsy History of tonsillectomy and adenoidectomy History of appendectomy H/O right knee surgery Stented coronary artery ( 12/14/11) Family History Mother Diabetes Sister Diabetes Brother Diabetes Hypertension Social History Smoking Status: Former smoker how long ago did patient quit smokin years ago alcohol intake: current alcohol intake frequency: 0-2 drinks per day Alcohol type: wine substance use type: does not use caffeine: Yes Type: coffee Number of servings: 2 Assessment and Plan (No Qualifiers) Assessment and Plan (1) Iatrogenic arteriovenous fistula: Status: Chronic Comment: Status post open repair on 03/10/2024 Plan: Patient has had successful repair of his iatrogenic right radiocephalic fistula. The incision site is well-healed. He will return as needed. 04/02/24 1108 Date ___ (more content not included)... Normal [facility] MR/POSTOP.ANEon 03-11-2024 MR/POSTOP.[facility] Medical Records Department [address] [place] [address] Anesthesia Postop Eval I 03/11/24923 MR#: [id number] Acct: [id number] Name: MIO HART Rep #: [id number] : 1955 68 From: Cyrus Macario MD PCP: Dr. Jackie Escalante MD Status:[facility] Y Race: C [place] [facility] [place]esthesia: Postop Eval I Current Vital Signs Temperature: 97.5 F Pulse Rate: 69 Blood Pressure: 118/70 Respiratory Rate: 16 Pulse Ox: 93 Oxygen Delivery Method: Room Air Assessment Airway patent: Yes Spontaneous unlabored respirations: Yes Mental status: Awake nausea: No Vomiting: No Anesthesia Complication: No Fluid Hydration Crystalloid volume administer (ml): 600 Total IV fluid infused: 600 Progress Note Anesthesia document: Postop Eval 1 completed: Yes 03/11/2425 Cyrus Lr Signature: Date CC: Signed Normal [facility] Bedside Glucoseon 03-10-2024 FINGERSTICK GLU 123 mg/dL High [facility]106 [facility] Comment on above: Result Comment: DEONNA GEMENT OF PATIENT CARE PER NURSING PROTOCOL Performed By: #### L [id number] #### [facility] Laboratory [address] [facility] [address] FINGERSTICK GLU 138 mg/dL High [facility]106 [facility] Comment on above: Result Comment: DEONNA GEMENT OF PATIENT CARE PER NURSING PROTOCOL Performed By: #### L [id number] ####[facility] [id number] [facility] [address] Discharge Instructionon 02-11 Discharge Instruction [facility] Medical Records Department [address] [place] [address] Instructions for Home/Discharge Instructions 03/10/24 1153 MR#: [id number] Acct: [id number] Name: MIO HART Rep #: [id number] : 1955 68 From: Cristopher Austin MD PCP: Dr. Jackie Escalante MD [place] [place]charge Instructions Diet Discharge Diet: No restrictions Activity May shower in (days): 2 Lifting Restrictions: do not lift > 20 lbs for 14 days Additional Activity Instructions:: do not submerge incision for 14 days Dressing / Incision Call your doctor if your incision/area has: Sudden Increased Bleeding, Increased Pain/ Swelling, Increased Redness and Foul Smelling Discharge Call your doctor if you observe: Fever of 101 or Higher Remove Dressing in: 2 days Cleanse incision/area with: Soap Water Follow Up Care Test Results: Test results from this visit will be discussed in further detail at your follow-up appointment, if applicable. Discharge Plan Admission Attending Provider: Cristopher Austin Primary Care Provider: Jackie Escalante Instructions Print Language: [place] Islander Discharge Orders/Prescriptions Prescriptions: New oxycodone 5 mg tablet 5 mg PO Q8H PRN (Reason: pain) 2 Days Qty: 5 0RF Continued magnesium oxide 400 mg tablet 400 mg PO QDAY nitroglycerin 0.4 mg tablet, sublingual 0.4 mg SUBLINGUAL Q5-15M PRN (Reason: chest pain) metformin 500 mg tablet extended release 24 hr 1,000 mg PO BID isosorbide mononitrate 10 mg tablet 5 mg PO BID melatonin 10 mg tablet 15 mg PO HS carvedilol 25 mg tablet 25 mg PO BID Rx Instructions: must administer with a meal/food takes one tab in am and a half tab at dinner furosemide 40 MG tablet 40 mg PO DAILY PRN (Reason: Swelling) aspirin 81 MG tablet 81 mg PO BID spironolactone 25 MG tablet 12.5 mg PO DAILY Patient Comments: [id number]-[id number] fum-folic ac 7.5 mg iron-400 mcg tablet 1 tab PO DAILY atorvastatin 80 MG tablet 80 mg PO QHS Qty: 90 3RF Disposition Disposition (needs filled in before D/C Order can be placed): Home, Self Care 03/10/24 1157 Cristopher Austin MD CC: Dr. Jackie Escalante MD Signed Normal [facility] MR/[id number] 03-10-2024 [facility] Medical Records Department [address] [place] [address] Anesthesia Postop Eval II 03/10/24 1251 MR#: [id number] Acct: [id number] Name: MIO HART Rep #: [id number] : 1955 68 From: Cristopher Lloyd MD PCP: Dr. Jackie Escalante MD [place] [place] Race: C Location: [place] [address] Anesthesia Postop Eval I Sum Anesthesia Postop Eval I Summary Anesthesia Postop Eval I Summary: Anesthesia Postop Eval I: Assessment Summary Airway patent Spontaneous unlabored respirations Mental status nausea Vomiting Anesthesia Postop Eval I: Fluid Summary Crystalloid volume administer (ml) Colloids volume administered ( ml) Blood Product volume administered (ml) Total IV fluid infused Anesthesia Postop Eval I: Summary Notes Anesthesia Complication Anesthesia Complication Comment: Post-operative progress note Anesthesia: Postop Eval II Evaluation Mental status: Awake Pain Level: 0 nausea: No Vomiting: No 03/10/24 1251 Date Cristopher Lloyd MD Cosigner Signature: Date CC: Signed Normal [facility] Operative Reporton 4 Operative Report [facility] Medical Records Department [address] [place] [address] Operative Report 03/10/24 1152 MR#: [id number] Acct: [id number] Name: MIO HART Rep #: [id number] : 1955 From: Cristopher Austin MD PCP: Dr. Jackie Escalante MD Status:[facility] Location[place] [facility] Problems Associated Problem List Diagnoses (1) Iatrogenic arteriovenous fistula: Report of Operation Date of Procedure: 03/10/24 Pre-Operative Diagnosis: iatrogenic right radio-cephalic fistula Post-Operative Diagnosis: same Surgery/Procedure Performed:: repair right radial artery/ligation of fistula Surgeon: Cristopher Austin Type of Anesthesia: Local and MAC Estimated Blood Loss (mL): 5 Description of Procedure: HPI: The patient is a 68 yo male with history of prior cardiac cath via right radial access in 2011. He has developed an increasing enlarged prominent pulsatile mass at the site slowly over the past decade. A duplex was performed that revealed an AV fistula and significantly aneurysmal outflow vein emptying into the cephalic vein as outflow. He is taken for open repair. Description of procedure: Upon obtaining informed consent and verification of correct patient, procedure, and site he was taken to the operating room where he was position, prepped, and draped in the usual fashion. A time out was performed and moderate sedation administered by anesthesia. Longitudinal incision was made along the lateral edge of the fistula and bovie used to dissect through the subcutaneous tissue. Once the vein was visualized sharp dissection was used to dissect the vessel back to the connection with the radial artery. The proximal and distal radial artery where then dissected circumferentially and right angle used to place vessel loops. The patient was heparinized and allowed circulate for 3 minutes. The radial artery was then occluded with vessel loops and the vein clamped at the junction with the cephalic vein. The vein was divided leaving a small cuff at the arteriotomy. The vein cuff was then oversewn with 6-0 proline in running fashion. After completing the suture line vessel loops were removed and satisfactory hemostasis noted. There was a palpable pulse proximal to and distal to the repair. The distal vein was then ligated with a silk tie and the aneurysmal segment divided and removed. The incision was closed with 3-0 vicryl, 4- 0 monocryl and dermabond. The patient was awakened from anesthesia and taken to the recovery room with anticipated discharge to home. 03/10/241624 Cosigner Signature (if applicable): CC: Dr. Jackie Escalante MD; Dr. Cristopher Austin MD Signed Normal [facility] Basic Metabolic Profile (BMP )on 03-04-2024 BUN/CRE 18.8 RATIO Normal 10-20 [facility] [facility] Comment on above: Performed By: #### L 500.2500, L100.0500 #### [facility] [address] [place], [address] CA,Total 9.4 mg/dL Normal 8.5-10.1 [facility] Comment on above: Performed By: #### L 500.2500, L100.0500 #### [facility] [address] [place], [address] Chloride [Moles/Vol] 105 mmol/L Normal 98-107 [facility] Comment on above: Performed By: #### L 500.2500, L100.0500 #### [facility] [address] [place], [address] CO2 [Moles/Vol] 28.0 mmol/L Normal 21.0-32.0 [facility] Comment on above: Performed By: #### L 500.2500, L100.0500 #### [facility] [address] [place], [address] Creatinine [Mass/Vol] 0.85 mg/dL Normal 0.70-1.30 [facility] Comment on above: Result Comment: The validity of the calculated GFR GFRAA in patients over 70 years has not been determined. Clinical correlation is essential. Performed By: #### L 500.2500, L100.0500 #### [facility] [address] [place], [address] EST GFR - AA 114 mL/min Normal >60 [facility] Comment on above: Result Comment: Afri can Thai GFR Calc Performed By: #### L 500.2500, L100.0500 #### [facility] [address] [place], [address] GAP 5 Normal 5-15 [facility] Comment on above: Performed By: #### L 500.2500, L100.0500 #### [facility] [address] [place], [address] GFR/1.73 sq M.predicted among non-blacks MDRD (S/P/Bld) [Vol rate/Area] 94 mL/min/{1.73_m2} Normal >60 [facility] Comment on above: Result Comment: Non- GFR Calc Performed By: #### L 500.2500, L100.0500 #### [facility] [address] [place], [address] Glucose [Mass/Vol] 203 mg/dL High 74-106 [facility] Comment on above: Result Comment: Gluc ose result greater than or equal to 200 mg/dL suggests DIABETES MELLITUS per A.D.A. criteria. Performed By: #### L 500.2500, L100.0500 #### [facility] [address] [place], [address] Potassium [Moles/Vol] 4.9 mmol/L Normal 3.5-5.1 [facility] Comment on above: Performed By: #### L 500.2500, L100.0500 #### [facility] [address] [place], [address] Sodium [Moles/Vol] 138 mmol/L Normal 136-145 [facility] Comment on above: Performed By: #### L 500.2500, L100.0500 #### [facility] [address] [place], [address] Urea nitrogen [Mass/Vol] 16 mg/dL Normal 7-18 [facility] Comment on above: Performed By: #### L 500.2500, L100.0500 #### [facility] [address] [place], [address] CBC-Complete Blood Cnt No Di ffon 03-04-2024 Erythrocyte distribution width (RBC) [Ratio] 12.3 % Normal 11.6-14.6 [facility] Comment on above: Performed By: #### L 500.2500, L100.0500 #### [facility] [address] [place], [address] Hematocrit (Bld) [Volume fraction] 41.1 % Normal 40-54 [facility] Comment on above: Performed By: #### L 500.2500, L100.0500 #### [facility] [address] [place], [address] Hemoglobin (Bld) [Mass/Vol] 13.8 g/dL Normal 13.0-16.5 [facility] Comment on above: Performed By: #### L 500.2500, L100.0500 #### [facility] [address] [place], [address] MCH (RBC) [Entitic mass] 33.2 pg High 27.0-32.0 [facility] Comment on above: Performed By: #### L 500.2500, L100.0500 #### [facility] [address] [place], [address] MCHC (RBC) [Mass/Vol] 33.6 g/dL Normal 32-36 [facility] Comment on above: Performed By: #### L 500.2500, L100.0500 #### [facility] [address] [place], [address] MCV (RBC) [Entitic vol] 98.8 fL High 80-94 [facility] Comment on above: Performed By: #### L 500.2500, L100.0500 #### [facility] [address] [place], [address] Platelet mean volume (Bld) [Entitic vol] 10.7 fL Normal 6.2-12.0 [facility] Comment on above: Performed By: #### L 500.2500, L100.0500 #### [facility] [address] [place], [address] Platelets (Bld) [#/Vol] 148 10*3/uL Low 150-450 [facility] Comment on above: Performed By: #### L 500.2500, L100.0500 #### [facility] [address] [place], [address] RBC (Bld) [#/Vol] 4.16 10*6/uL Low 4.6-6.2 [facility] Comment on above: Performed By: #### L 500.2500, L100.0500 #### [facility] [address] [place], [address] RDW SD 43.9 fl Normal 35.1-43.9 [facility] Comment on above: Performed By: #### L 500.2500, L100.0500 #### [facility] [address] [place], [address] WBC (Bld) [#/Vol] 6.1 10*3/uL Normal 4.4-11.0 [facility] Comment on above: Performed By: #### L 500.2500, L100.0500 #### [facility] [address] [place], [address] Hemoglobin A1con 03-04-2024 HbA1c (Bld) [Mass fraction] 6.5 % High 3.8-5.6 [facility] Comment on above: Result Comment: Norm al < 5.7 % Prediabetic 5.7 - 6.4 % Diabetic >or= 6.5 % Please note range changes. Performed By: #### L 501.9985 ####[facility] [address] [place], [address] MR/BMSSabino 02-19-2024 MR/BMS.LUCIANO [facility] [address] [place], [place] [address] OFFICE VISIT Date of Service: 02/19/24 MR#: [id number] Acct: [id number] Name: MIO HART Rep #: [id number] : 1955 Provider: Dr. Cristopher Austin MD Age/Sex: 68/M Location: [facility] Status: Signed Intake Vital Signs 10/23/23 14:41 02/19/24 14:08 Height 5 ft 10 in Weight: 205 lb BP 135/87 H Blood Pressure Location Lt brachial Position Sitting Respiration 16 Pulse 83 Pulse Source Monitor Temp 97.8 F Temp Source Temporal Pulse Oximetry (%) 98 Oxygen Delivery Method room air Intake Visit Reasons: CONSULT-FISTULA Chief Complaint: establish care Is patient in pain?: No Allergies lisinopril Allergy (Intermediate, Verified 02/19/24 14:09) Angioedema rosuvastatin (From Crestor) Adverse Reaction (Severe, Verified 02/19/24 14:09) didnt feel well Medications ???Medication ???Instructions ???Recorded ???Confirmed ???Type aspirin 81 mg tablet,delayed 81 mg PO BID 04/23/16 01/29/24 History release furosemide 40 mg tablet 40 mg PO DAILY PRN Swelling 04/23/16 01/29/24 History spironolactone 25 mg tablet 12.5 mg PO DAILY 04/23/16 01/29/24 History atorvastatin 80 mg tablet 80 mg PO QHS #90 tabs 09/30/17 01/29/24 Rx magnesium oxide 400 mg (241.3 mg 400 mg PO QDAY 03/10/18 01/29/24 History magnesium) tablet multivitamin-mineral s-iron 1 tab PO DAILY 11/19/22 01/29/24 History fumarate 7.5 mg-folic acid 400 mcg tablet albuterol sulfate 90 mcg/actuation 2 puff inhalation Q4H PRN PRN 09/17/23 01/29/24 Rx aerosol inhaler (Ventolin HFA) Wheezing ##1 isosorbide mononitrate 10 mg tablet 5 mg PO BID 10/23/23 01/29/24 History metformin 500 mg tablet,extended 500 mg PO BID 10/23/23 01/29/24 History release 24 hr melatonin 10 mg tablet 10 mg PO HS PRN 01/29/24 01/29/24 History carvedilol 25 mg tablet 25 mg PO BID 02/19/24 History nitroglycerin 0.4 mg sublingual 0.4 mg sublingual Q5-15M PRN 02/19/24 01/29/24 History tablet Have you fallen in the past year?: No PFSH Medical History Kidney stones Essential hypertension Type 2 diabetes mellitus without complications Hypertension Chronic systolic (congestive) heart failure Ischemic cardiomyopathy Hyperlipidemia 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 Premature ventricular contractions 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 Surgical History History of tonsillectomy and adenoidectomy History of appendectomy H/O right knee surgery Stented coronary artery ( 12/14/11) Family History Mother Diabetes Sister Diabetes Brother Diabetes Hypertension Social History Smoking Status: Former smoker how long ago did patient quit smokin years ago alcohol intake: current alcohol intake frequency: 0-2 drinks per day Alcohol type: wine substance use type: does not use caffeine: Yes Type: coffee Number of servings: 2 HPI HPI HPI: MIO HART, is a 68 M who presents to the office today for evaluation of 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 It was initially discovered shortly after the procedure but he elected not to pursue repair at that time. It has increased in size over recent years. He does have significantly reduced LV function. ROS General General: No weight change, appetite, fatigue, colon cancer, breast cancer or weakness HEENT HEENT: No difficulty swallowing, eye injury, eye surgery, swollen glands or hoarseness Endo Endocrine: Yes diabetes mellitus; No thyroid disease, thyroid cancer, Hair loss, heat intolerance or cold intolerance Skin Skin: No rash or changing moles Musc Musculoskeletal: Yes rheumatoid arthritis; No back problems, arthritis, gout or joint pain Cardio Cardiovascular: Yes heart disease, high blood pressure, heart attack and heart stent; No murmur, pacemaker, atrial fibrillation, palpitations, shortness of breat with exertion or chest pain Psych Psychiatric: No depression, anxiety or hearing voices Resp Respiratory: No shortness of breath, No sleep apnea, No cough, No COPD, No asthma, No emphysema and No wheezing Gastro Gastrointestinal: No abdominal pain, No nausea or vomiting, Yes diarrhea, No constipation, No blood in stool, No acid reflux, No hemorrhoids, No ulcers, No gallbladder problem and No black,tarry stools Conner Hematologic: Yes blood thinners, No blood disorders, No bleeding, No anemia and No blood clots Additional Details: ASA Neuro Neurologic: No syst (more content not included)... [facility] Tele[facility] ([employer]) MIO HART ([id number]) 1955 M Date Time Provider Department 02/07/24 BRICE QUINONEZ During your visit today, we recorded the following information about you: Dipak Isidro 02/07/2024 11:27 AM Signed Patient denied sooner date with kian in [place] Scheduled 06/08/2024 asking to be on waitlist Dipak Isidro 03/10/2024 11:05 AM Signed Left voicemail for patient in regards to [facility] Dipak Isidro 03/10/2024 2:22 PM Signed Patient denied sooner date 03/13/2024 Dipak Isidro [employer] Allergies As of Date: 02/07/2024 Noted Allergy Reaction EZETIMIBE 10/21/2013 5 - Intolerance LISINOPRIL 01/23/2024 18 - Angioedema ROSUVASTATIN 10/21/2013 5 - Intolerance Date Reviewed: 01/24/2024 Reviewed by: Brice Quinonez MD - Fully Assessed Reason for Visit: Appointment [[id number]] Prescriptions as of 03/10/2024 - ASPIRIN ORAL Take 81 mg by mouth two times a day. - atorvastatin (LIPITOR) 80 mg tablet Take 80 mg by mouth once daily. - carvedilol (COREG) 12.5 mg tablet Take 18 mg by mouth two times a day with meals. - Isosorbide Mononitrate 10 mg tablet Take 5 mg by mouth two times a day. - furosemide (LASIX) 40 mg tablet Take 40 mg by mouth as needed (swelling). - metFORMIN ER (GLUCOPHAGE XR) 500 mg 24 hr tablet Take 500 mg by mouth two times a day. 1 tablet in am and 2 tablets in evening - nitroglycerin sublingual (NITROQUICK) 0.4 mg SL tablet Dissolve 0.4 mg under the tongue every 5 minutes as needed for chest pain. - spironolactone (ALDACTONE) 25 mg tablet Take 12.5 mg by mouth once daily. Problem List As Of Date: 02/07/2024 (None) Encounter Status:Closed by DIPAK ISIDRO on 03/10/24 [facility] 01-27-2024 [facility]NP[facility] Telephone ([facility]ENS[facility]) MIO HART ([id number]) 1955 M Date Time Provider Department 01/27/24 BRICE QUINONEZ GENS During your visit today, we recorded the following information about you: Loki Sullivan RN 01/27/2024 4:56 PM Signed Medical records requested from [facility]), [facility], and [facility]. Loki Sullivan RN Allergies As of Date: 01/27/2024 Noted Allergy Reaction EZETIMIBE 10/21/2013 5 - Intolerance LISINOPRIL 01/23/2024 18 - Angioedema ROSUVASTATIN 10/21/2013 5 - Intolerance Date Reviewed: 01/24/2024 Reviewed by: Brice Quinonez MD - Fully Assessed Reason for Visit: Request Outside Medical Records [[id number]] Prescriptions as of 01/30/2024 - ASPIRIN ORAL Take 81 mg by mouth two times a day. - atorvastatin (LIPITOR) 80 mg tablet Take 80 mg by mouth once daily. - carvedilol (COREG) 12.5 mg tablet Take 18 mg by mouth two times a day with meals. - Isosorbide Mononitrate 10 mg tablet Take 5 mg by mouth two times a day. - furosemide (LASIX) 40 mg tablet Take 40 mg by mouth as needed (swelling). - metFORMIN ER (GLUCOPHAGE XR) 500 mg 24 hr tablet Take 500 mg by mouth two times a day. 1 tablet in am and 2 tablets in evening - nitroglycerin sublingual (NITROQUICK) 0.4 mg SL tablet Dissolve 0.4 mg under the tongue every 5 minutes as needed for chest pain. - spironolactone (ALDACTONE) 25 mg tablet Take 12.5 mg by mouth once daily. Problem List As Of Date: 01/27/2024 (None) Encounter Status:Closed by LOKI SULLIVAN on 01/30/24 [facility] CNOVon 01-23-2024 CNOV Office Visit (GNSWAD) MIO HART ([id number]) 1955 Date Time Provider Department 01/23/24 11:00 AM BRICE QUINONEZ IRENE During your visit today, we recorded the following information about you: Pulse Blood pressure Weight 74/minute 132/82 93 kg Brice Quinonez MD 01/31/2024 11:17 AM Signed HISTORY AND PHYSICAL Mio Tanner 1955 REFERRING PHYSICIAN: Dr. Escalante CHIEF COMPLAINT: Consult (Positive cologuard report) HPI: The patient is a 68 year old male referred for endoscopy. Mio notes no history of colon complaints. The patient notes no history of upper GI complaints. Mio has not undergone prior endoscopy. He has been receiving screening via Cologuard test. Most recently he was found of a positive Cologuard test. The patient notes a history of coronary artery disease. He had myocardial infarction in December 2011 he had stents placed in his anterior descending artery and a posterior descending artery. Later that year had an episode of flash pulmonary edema. Echocardiogram at that time demonstrated 30 to 35% ejection fraction. The patient presents with a tight record of his cardiac history. He states he had an nuclear stress test on May 30, 2023 which demonstrated an ejection fraction of 38%. However he states he had an echocardiogram in November 22, 2023 which suggested an ejection fraction of 15%. We now have records from the cardiology/[facility] [place] [facility]. From their note his last echocardiogram was April 24, 2023 which demonstrated a moderately dilated left ventricle concentric left ventricle hypertrophy ejection fraction was listed as 10 to 15% there was anterior and apical akinesis and global hypokinesis left atrium was severely enlarged. May 30, 2023 demonstrated a stress test which demonstrated a gated ejection fraction of 38% demonstrated no significant aide-infarct ischemia but the prior apical infarct. The patient is states he walks 1-1/2 miles a day and does not have issues with shortness of breath. The patient is being seen by me today at the request of Dr. Jackie Escalante MD for my opinion and advice regarding positive Cologuard test. I have the copies of his most recent echocardiogram from November 22, 2023 which still demonstrates a cardiac ejection fraction of 15%. His post doctoral researcher is Dr. Lisha Miranda at the [facility]. 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 fistula ([facility]) Acute myocardial infarction of lateral wall ([facility]) NE Atherosclerotic heart disease of mentasta coronary artery with angina pectoris ([facility]) CHF (congestive heart failure) ([facility]) Essential hypertension Ischemic cardiomyopathy Kidney stones Mixed hyperlipidemia Premature ventricular contractions SOB (shortness of breath) Type 2 diabetes ([facility]) PAST SURGICAL HISTORY Procedure Laterality Date APPENDECTOMY KNEE SURGERY HX Right PT [facility] coronary artery stent TONSILLECTOMY AND ADENOIDECTOMY T AND A Current Outpatient Medications Medication Sig ASPIRIN ORAL Take 81 mg by mouth two times a day. atorvastatin (LIPITOR) 80 mg tablet Take 80 mg by mouth once daily. carvedilol (COREG) 12.5 mg tablet Take 18 mg by mouth two times a day with meals. Isosorbide Mononitrate 10 mg tablet Take 5 mg by mouth two times a day. furosemide (LASIX) 40 mg tablet Take 40 mg by mouth as needed (swelling). metFORMIN ER (GLUCOPHAGE XR) 500 mg 24 hr tablet Take 500 mg by mouth two times a day. 1 tablet in am and 2 tablets in evening nitroglycerin sublingual (NITROQUICK) 0.4 mg SL tablet Dissolve 0.4 mg under the tongue every 5 minutes as needed for chest pain. spironolactone (ALDACTONE) 25 mg tablet Take 12.5 mg by mouth once daily. No current facility-administere d medications for this visit. ALLERGIES: Ezetimibe, Lisinopril, and Rosuvastatin PERSONAL HISTORY: Social History Tobacco Use Smoking status: Former Types: Cigarettes Smokeless tobacco: Never FAMILY HISTORY: History reviewed. No pertinent family history. REVIEW OF SYMPTOMS: The review of systems data was entered by the nurse and reviewed by me There are no exam notes on file for this visit. PHYSICAL EXAMINATION: General: The patient is 68 year old male, well nourished, well hydrated in no acute distress. The patient is oriented to time, place, and person. VITALS: Blood pressure 132/82, pulse 74, weight 93 kg (205 lb 0.4 oz). There is no height or weight on file to calculate BMI. HEENT: Normal cephalic, ataumatic, pupils are equally round, sclera are anicteric, mucous membranes are moist, oropharynx is clear. Neck has no masses, asymmetry or lymphadenopathy. Thyroid is unremarkable. Respiratory: Clear to auscultation and percussion. Normal respiratory excursion and pattern. Cardiac: Examination is regular rate and rhythm. Abdominal exam: Soft, nontender, with (more content not included)... Normal [facility] Basophil percentageOrdered B y: Jackie Escalante on 11-20-2023 Chloride [Moles/Vol] 103 mmol/L 98-107 [facility] Glucose [Mass/Vol] 148 mg/dL 74-106 [facility] Comment on above: Fasting Glucose resu lt greater than or equal to 126 mg/dL suggests DIABETES MELLITUS per A.D.A. criteria. Potassium [Moles/Vol] 4.7 mmol/L 3.5-5.1 [facility] Sodium [Moles/Vol] 135 mmol/L 136-145 [facility] Laboratory - Chemistry and C hemistry - challengeOrdered By: Jackie Escalante on 11-20-2023 CO2 [Moles/Vol] 26.0 mmol/L 21.0-32.0 [facility] Urea nitrogen/Creatinine [Mass ratio] 20.5 mg/mg - [facility] No Panel InformationOrdered By: Jackie Escalante on 11-20-2023 Estimated GFR (MDRD) Amer 127 mL/min >60 [facility] Comment on above: GFR Calc Estimated GFR (MDRD) Non-Af Amer 105 mL/min >60 [facility] Comment on above: Non- GFR Calc Serum or plasma calcium rinku urement (mass/volume)Ordered By: Jackie Escalante on 11-20-2023 Calcium [Mass/Vol] 9.8 mg/dL 8.5-10.1 [facility] Serum or plasma creatinine m easurement (mass/volume)Ordered By: Jackie Escalante on 11-20-2023 Creatinine [Mass/Vol] 0.78 mg/dL 0.70-1.30 [facility] Comment on above: The validity of the calculated GFR & GFRAA in patients over 70 years has not been determined. Clinical correlation is essential. Serum or plasma urea nitroge n measurement (mass/volume)Ordered By: Jackie Escalante on 11-20-2023 Urea nitrogen [Mass/Vol] 16 mg/dL 7-18 [facility] Thin prep Papanicolaou smear with manual screeningOrdered By: Jackie Escalante on 11-20-2023 Thin prep Papanicolaou smear with manual screening 6 5-15 [facility] Basophil percentageOrdered B y: Jacek Escalante on 10-29-2023 Chloride [Moles/Vol] 103 mmol/L 98-107 [facility] Glucose [Mass/Vol] 167 mg/dL 74-106 [facility] Comment on above: Fasting Glucose resu lt greater than or equal to 126 mg/dL suggests DIABETES MELLITUS per A.D.A. criteria. Potassium [Moles/Vol] 5.2 mmol/L 3.5-5.1 [facility] Sodium [Moles/Vol] 139 mmol/L 136-145 [facility] - Chemistry and C hemistry - challengeOrdered By: Jacek Escalante on 10-29-2023 CO2 [Moles/Vol] 27.0 mmol/L 21.0-32.0 [facility] Urea nitrogen/Creatinine [Mass ratio] 23.8 mg/mg 10- [facility] No Panel InformationOrdered By: Jacek Escalante on 10-29-2023 Estimated GFR (MDRD) Amer 123 mL/min >60 [facility] Comment on above: GFR Calc Estimated GFR (MDRD) Non-Af Amer 102 mL/min >60 [facility] Comment on above: Non- GFR Calc Serum or plasma calcium rinku urement (mass/volume)Ordered By: Jacek Escalante on 10-29-2023 Calcium [Mass/Vol] 10.7 mg/dL 8.5-10.1 [facility] Serum or plasma creatinine m easurement (mass/volume)Ordered By: Jacek Escalante on 10-29-2023 Creatinine [Mass/Vol] 0.80 mg/dL 0.70-1.30 [facility] Comment on above: The validity of the calculated GFR & GFRAA in patients over 70 years has not been determined. Clinical correlation is essential. Serum or plasma urea nitroge n measurement (mass/volume)Ordered By: Jacek Escalante on 10-29-2023 Urea nitrogen [Mass/Vol] 19 mg/dL 7-18 [facility] Thin prep Papanicolaou smear with manual screeningOrdered By: Jacek Escalante on 10-29-2023 Thin prep Papanicolaou smear with manual screening 9 5-15 [facility] Basophil percentageOrdered B y: Lisha Miranda on 10-21-2023 Bilirubin [Mass/Vol] 0.90 mg/dL 0.20-1.00 [facility] Comment on above: For patients on eltr ombopag therapy, use of Dimension [place] TBIL is not recommended. Cholesterol [Mass/Vol] 153 mg/dL <200 [facility] Comment on above: <200 mg/dL Desirable 200-240 mg/dL Borderline >240 mg/dL High Risk Protein [Mass/Vol] 7.8 g/dL 6.4-8.2 [facility] Triglyceride [Mass/Vol] 152 mg/dL <199 [facility] Comment on above: The drugs N-Acetylcy steine and Metamizole may falsely depress this assay.Serum Triglycerides Reference Interval Normal <150 mg/dL Borderline high 150 - 199 mg/dL High 200 - 499 mg/dL Very High > or = 500 mg/dL Direct bilirubinOrdered By: Lisha Miranda on 10-21-2023 Bilirubin.direct [Mass/Vol] 0.25 mg/dL 0.00-0.30 [facility] - Chemistry and C hemistry - challengeOrdered By: Lisha Miranda on 10-21-2023 ALP [Catalytic activity/Vol] 70 U/L 45-117 [facility] ALT [Catalytic activity/Vol] 31 U/L 16-61 [facility] Cholesterol in HDL [Mass/Vol] 65 mg/dL >40 [facility] [facility] Comment on above: The drugs N-Acetylcy steine and Metamizole may falsely depress this assay. Reference Range HDL <40 mg/dL Low HDL Cholesterol HDL >or= 60 mg/dL High HDL Cholesterol Cholesterol in LDL [Mass/Vol] 58 mg/dL 0-130 [facility] Globulin (S) [Mass/Vol] 3.4 g/dL 2.2-4.2 [facility] No Panel InformationOrdered By: Lisha Miranda on 10-21-2023 VLDL Cholesterol 30 mg/dL 5-40 [facility] Thin prep Papanicolaou smear with manual screeningOrdered By: L[place] Miranda on 10-21-2023 Thin prep Papanicolaou smear with manual screening 4.4 g/dL 3.2-5.0 [facility] Thin prep Papanicolaou smear with manual screening 20 U/L 15-37 [facility] Comment on above: Slight Hemolysis, Re sult may be falsely increased. Absolute lymphocyte countOrd ered By: Cristopher Dominguez on 09-17-2023 Lymphocytes Auto (Unsp spec) [#/Vol] 0.54 10*3/uL 0.83-4.51 [facility] Automated lymphocyte count a s percentage of total leukocytesOrdered By: Cristopher Dominguez on 09-17-2023 Lymphocytes/100 WBC Auto (Unsp spec) 6.9 % 19-41 [facility] Basophil percentageOrdered B y: Cristopher Dominguez on 09-17-2023 Basophil percentage 0-5 SEEN /hpf 0-5 [facility] Basophils/100 WBC (Bld) 0.5 % 0-1 [facility] Chloride [Moles/Vol] 95 mmol/L 98-107 [facility] Eosinophils/100 WBC (Bld) 0.1 % 0-5 [facility] Glucose [Mass/Vol] 291 mg/dL 74-106 [facility] Comment on above: Glucose result great er than or equal to 200 mg/dLsuggests DIABETES MELLITUS per A.D.A. criteria. Hemoglobin (Bld) [Mass/Vol] 13.6 g/dL 13.0-16.5 [facility] Monocytes/100 WBC (Bld) 13.5 % 0-10 [facility] Neutrophils (Bld) [#/Vol] 6.2 10*3/uL 2.0-7.7 [facility] Neutrophils/100 WBC (Bld) 78.6 % 47-70 [facility] Potassium [Moles/Vol] 4.2 mmol/L 3.5-5.1 [facility] Sodium [Moles/Vol] 126 mmol/L 136-145 [facility] WBC (Bld) [#/Vol] 7.9 10*3/uL 4.4-11.0 [facility] Bilirubin Test strip Ql (U)O rdered By: Cristopher Dominguez on 09-17-2023 Bilirubin Ql (U) Negative Negative [facility] Blood manual differential co mment interpretation (narrative result)Ordered By: Cristopher Dominguez on 09-17-2023 Manual differential comment Dillan (Bld) [Interp] SEE COMMENT [facility] Comment on above: LYMPHOPENIA NOTED Blood platelet adequacy dete ction by light microscopyOrdered By: Cristopher Dominguez on 09-17-2023 Platelets LM Ql (Bld) SLT DEC ADEQ [facility] Determination of erythrocyte mean corpuscular volume (MCV)Ordered By: Cristopher Dominguez on 09-17-2023 MCV (RBC) [Entitic vol] 95.4 fL 80-94 [facility] Erythrocyte distribution wid th ratioOrdered By: Cristopher Dominguez on 09-17-2023 Erythrocyte distribution width (RBC) [Ratio] 12.0 % 11.6-14.6 [facility] Erythrocyte distribution wid th standard deviationOrdered By: Cristopher Dominguez on 09-17-2023 Erythrocyte distribution width (RBC) [Entitic vol] 41.5 fL 35.1-43.9 [facility] Hematocrit Auto (Bld) [Volum e fraction]Ordered By: Cristopher Dominguze on 09-17-2023 Hematocrit (Bld) [Volume fraction] 39.6 % 40-54 [facility] Immature granulocytes/100 WB C Auto (Bld)Ordered By: Cristopher Dominguez on 09-17-2023 Immature granulocytes/100 WBC (Bld) 0.400 % 0.0-0.9 [facility] Comment on above: IG% - Immature Granu locytes (promyelocytes, myelocytes and metamyelocytes) > 1% indicates that a LEFT SHIFT is Present. Ketones Test strip Ql (U)Ord ered By: Cristopher Dominguez on 09-17-2023 Ketones Ql (U) 150 mg/dl Negative [facility] Comment on above: CRITICAL VALUE *HCRI TICAL VALUE VERIFIED. CALLED TO [id number] Viry Mancini.RESULTS READ BACK BY SAME . Laboratory - Chemistry and C hemistry - challengeOrdered By: Cristopher Dominguez on 09-17-2023 CO2 [Moles/Vol] 21.0 mmol/L 21.0-32.0 [facility] Urea nitrogen/Creatinine [Mass ratio] 14.9 mg/mg 10-20 [facility] Laboratory - Hematology and Cell countsOrdered By: Cristopher Dominguez on 09-17-2023 Anisocytosis Ql (Bld) 1+ [facility] MCH (RBC) [Entitic mass] 32.8 pg 27.0-32.0 [facility] MCHC (RBC) [Mass/Vol] 34.3 g/dL 32-36 [facility] Nucleated RBC/100 WBC (Bld) [Ratio] 0 % 0-5 [facility] Platelet mean volume (Bld) [Entitic vol] 10.4 fL 6.2-12.0 [facility] Platelets (Bld) [#/Vol] 147 10*3/uL 150-450 [facility] Laboratory - Microbiology an d Antimicrobial susceptibilityOrdered By: Cristopher Dominguez on 09-17-2023 SARS-CoV-2 (COVID-19) RNA ALEKSANDR+probe Ql (Unsp spec) Influenzae A [facility] SARS-CoV-2 (COVID-19) RNA ALEKSANDR+probe Ql (Unsp spec) Influenzae A [facility] Macrocytes detectionOrdered By: Cristopher Dominguez on 09-17-2023 Macrocytes Ql (Bld) 1+ [facility] Mucus LM Ql (Urine sed)Order ed By: Cristopher Dominguez on 09-17-2023 Mucus Ql (Urine sed) 0 SEEN /hpf [facility] Nitrite Test strip Ql (U)Ord ered By: Cristopher Dominguez on 09-17-2023 Nitrite Ql (U) Negative Negative [facility] No Panel InformationOrdered By: Cristopher Dominguez on 09-17-2023 Urine RBC 0-5 SEEN /hpf 0-5 [facility] Estimated GFR (MDRD) Amer 111 mL/min >60 [facility] Comment on above: GFR Calc Estimated GFR (MDRD) Non-Af Amer 92 mL/min >60 [facility] Comment on above: Non- GFR Calc Troponin I High Sensitivity 14 pg/mL 3.0-78.0 [facility] Comment on above: Please Note: New Citlali t Units and Gender Specific Reference Ranges. For more information see Policy Stat Procedure [place] High Sensitivity Troponin (TNIH) and attachments. Protein Test strip Ql (U)Ord ered By: Cristopher Dominguez on 09-17-2023 Protein Ql (U) 500 mg/dl Negative [facility] RBC Auto (Bld) [#/Vol]Ordere d By: Cristopher Dominguez on 09-17-2023 RBC (Bld) [#/Vol] 4.15 10*6/uL 4.6-6.2 [facility] RBC morphologyOrdered By: Andreas Dominguez on 09-17-2023 RBC morphology finding Nom (Bld) N CHROM NORMAL NORM C&C [facility] Serum or plasma calcium rinku urement (mass/volume)Ordered By: Cristopher Dominguez on 09-17-2023 Calcium [Mass/Vol] 9.0 mg/dL 8.5-10.1 [facility] Serum or plasma creatinine m easurement (mass/volume)Ordered By: Cristopher Dominguez on 09-17-2023 Creatinine [Mass/Vol] 0.87 mg/dL 0.70-1.30 [facility] Comment on above: The validity of the calculated GFR & GFRAA in patients over 70 years has not been determined. Clinical correlation is essential. Serum or plasma urea nitroge n measurement (mass/volume)Ordered By: Cristopher Dominguez on 09-17-2023 Urea nitrogen [Mass/Vol] 13 mg/dL 7-18 [facility] Squamous epithelial cells de tection in urine sediment by light microscopyOrdered By: Cristopher Dominguez on 09-17-2023 Epithelial cells.squamous LM Ql (Urine sed) 0 SEEN /hpf 0-5 [facility] Thin prep Papanicolaou smear with manual screeningOrdered By: Cristopher Dominguez on 09-17-2023 Thin prep Papanicolaou smear with manual screening 10 5-15 [facility] Urine blood detectionOrdered By: Cristopher Dominguez on 09-17-2023 RBC Ql (U) 150 /ul Negative [facility] Urine clarityOrdered By: Tayler Dominguez on 09-17-2023 Clarity (U) Clear Clear [facility] Urine color determinationOrd ered By: Cristopher Dominguez on 09-17-2023 Color (U) Yellow Yellow [facility] Urine glucose detectionOrder ed By: Cristopher Dominguez on 09-17-2023 Glucose Ql (U) 1000 mg/dl Normal [facility] Urine leukocyte esterase det ection by dipstickOrdered By: Cristopher Dominguez on 09-17-2023 Leukocyte esterase Test strip Ql (U) Negative Negative [facility] Urine pHOrdered By: Cristopher meyer on 09-17-2023 pH (U) 5.0 [pH] 5.0 - 8.0 [facility] Urine sediment bacteria coun t by microscopy (number/high power field)Ordered By: Cristopher Dominguez on 09-17-2023 Bacteria LM.HPF (Urine sed) [#/Area] 0 /[HPF] None Seen [facility] Urine specific gravity measu rementOrdered By: Cristopher Dominguez on 09-17-2023 Specific gravity (U) [Rel density] 1.025 1.002-1.030 [facility] Urine urobilinogen measureme ntOrdered By: Cristopher Dominguez on 09-17-2023 Urobilinogen Ql (U) Normal mg/dl Normal [facility] Thendara nut IgE serumOrdered By: Dr. Dacosta on 01-10-2023 Thendara Nut IgE Qn (S) <0.10 kU/L Class 0 [facility] Huynh's yeast IgE serumOrde red By: Dr. Dacosta on 01-10-2023 Huynh's yeast IgE Qn (S) <0.10 kU/L Class 0 [facility] No Panel InformationOrdered By: Dr. Dacosta on 01-10-2023 Hazelnut Allergen IgE Antibody <0.10 kU/L Class 0 [facility] No Panel InformationOrdered By: Richard Dacosta on 01-10-2023 Miscellaneous Test See comment [facility] Comment on above: TEST RESULTS LIMITS IgE Pistachio Nut < 0.10 kU/L Class 0 TESTING PERFORMED AT [facility]. ORIGINAL REPORT ON FILE IN LAB CONTAINS ADDITIONAL TEST SITE INFORMATION. Serum Ustilago avenae IgE an tibody assay (units/volume)Ordered By: Dr. Dacosta on 01-10-2023 Oat smut IgE Qn (S) <0.10 kU/L Class 0 [facility] Serum almond IgE antibody as say (units/volume)Ordered By: Dr. Dacosta on 01-10-2023 [place] IgE Qn (S) <0.10 kU/L Class 0 [facility] Serum apple IgE antibody ass ay (units/volume)Ordered By: Dr. Dacosta on 01-10-2023 Apple IgE Qn (S) <0.10 kU/L Class 0 [facility] Serum banana IgE antibody as say (units/volume)Ordered By: Dr. Dacosta on 01-10-2023 Banana IgE Qn (S) <0.10 kU/L Class 0 [facility] Serum beef IgE antibody assa y (units/volume)Ordered By: Dr. Dacosta on 01-10-2023 Beef IgE Qn (S) <0.10 kU/L Class 0 [facility] Serum black walnut IgE antib jesika assay (units/volume)Ordered By: Dr. Dacosta on 01-10-2023 Black [place] IgE Qn (S) <0.10 kU/L Class 0 [facility] Serum carrot IgE antibody as say (units/volume)Ordered By: Dr. Dacosta on 01-10-2023 Carrot IgE Qn (S) 0.11 kU/L Class 0/I [facility] Serum cashew nut IgE antibod y assay (units/volume)Ordered By: Dr. Dacosta on 01-10-2023 Cashew nut IgE Qn (S) <0.10 kU/L Class 0 [facility] Serum chicken IgE antibody a ssay (units/volume)Ordered By: Dr. Dacosta on 01-10-2023 Chicken IgE Qn (S) <0.10 kU/L Class 0 [facility] Serum codfish IgE antibody a ssay (units/volume)Ordered By: Dr. Dacosta on 01-10-2023 Codfish IgE Qn (S) <0.10 kU/L Class 0 [facility] Serum cow milk IgE antibody assay (units/volume)Ordered By: Dr. Dacosta on 01-10-2023 Cow milk IgE Qn (S) <0.10 kU/L Class 0 [facility] Serum egg white IgE antibody assay (units/volume)Ordered By: Dr. Dacosta on 01-10-2023 Egg white IgE Qn (S) <0.10 kU/L Class 0 [facility] Serum egg yolk IgE antibody assay (units/volume)Ordered By: Dr. Dacosta on 01-10-2023 Egg yolk IgE Qn (S) <0.10 kU/L Class 0 [facility] Serum garlic IgE antibody as say (units/volume)Ordered By: Dr. Dacosta on 01-10-2023 Garlic IgE Qn (S) <0.10 kU/L Class 0 [facility] Serum gluten IgE antibody as say (units/volume)Ordered By: Dr. Dacosta on 01-10-2023 Gluten IgE Qn (S) <0.10 kU/L Class 0 [facility] Serum onion IgE antibody ass ay (units/volume)Ordered By: Dr. Dacosta on 01-10-2023 Onion IgE Qn (S) <0.10 kU/L Class 0 [facility] Serum orange IgE antibody as say (units/volume)Ordered By: Dr. Dacosta on 01-10-2023 Cottle IgE Qn (S) <0.10 kU/L Class 0 [facility] Serum pea IgE antibody assay (units/volume)Ordered By: Dr. Dacosta on 01-10-2023 Pea IgE Qn (S) <0.10 kU/L Class 0 [facility] Serum peach IgE antibody ass ay (units/volume)Ordered By: Dr. Dacosta on 01-10-2023 Griggs IgE Qn (S) <0.10 kU/L Class 0 [facility] Comment on above: Performed at: [address] [id number] Director: Rajan Suarez MD, Phone: [phone] Serum peanut IgE antibody as say (units/volume)Ordered By: Dr. Dacosta on 01-10-2023 Peanut IgE Qn (S) 0.12 kU/L Class 0/I [facility] Comment on above: Levels of Specific I gE Class Description of Class ----- < 0.10 0 Negative 0.10 - 0.31 0/I Equivocal/Low 0.32 - 0.55 I Low 0.56 - 1.40 II Moderate 1.41 - 3.90 III High 3.91 - 19.00 IV Very High 19.01 - 100.00 V Very High >100.00 Very High Serum pecan or hickory nut I gE antibody assay (units/volume)Ordered By: Dr. Dacosta on 01-10-2023 Pecan or [place] Nut IgE Qn (S) <0.10 kU/L Class 0 [facility] Serum pork IgE antibody assa y (units/volume)Ordered By: Dr. Dacosta on 01-10-2023 Pork IgE Qn (S) <0.10 kU/L Class 0 [facility] Serum rice IgE antibody assa y (units/volume)Ordered By: Dr. Dacosta on 01-10-2023 Rice IgE Qn (S) <0.10 kU/L Class 0 [facility] Serum salmon IgE antibody as say (units/volume)Ordered By: Dr. Dacosta on 01-10-2023 Jackson IgE Qn (S) <0.10 kU/L Class 0 [facility] Serum strawberry IgE antibod y assay (units/volume)Ordered By: Dr. Dacosta on 01-10-2023 [place] IgE Qn (S) <0.10 kU/L Class 0 [facility] Serum tomato IgE antibody as say (units/volume)Ordered By: Dr. Dacosta on 01-10-2023 Tomato IgE Qn (S) <0.10 kU/L Class 0 [facility] Serum tuna IgE antibody assa y (units/volume)Ordered By: Dr. Dacosta on 01-10-2023 Tuna IgE Qn (S) <0.10 kU/L Class 0 [facility] Serum wheat IgE antibody ass ay (units/volume)Ordered By: Dr. Dacosta on 01-10-2023 Wheat IgE Qn (S) <0.10 kU/L Class 0 [facility] Serum white potato specific IgE antibody assayOrdered By: Dr. Dacosta on 01-10-2023 Potato IgE Qn (S) <0.10 kU/L Class 0 [facility] Thin prep Papanicolaou smear with manual screeningOrdered By: Dr. Dacosta on 01-10-2023 Thin prep Papanicolaou smear with manual screening <0.10 kU/L Class 0 [facility] Basophil percentageOrdered B y: Dr. Escalante on 11-16-2022 Bilirubin [Mass/Vol] 0.70 mg/dL 0.20-1.00 [facility] Comment on above: For patients on eltr ombopag therapy, use of Dimension [place] TBIL is not recommended. Chloride [Moles/Vol] 102 mmol/L 98-107 [facility] Cholesterol [Mass/Vol] 143 mg/dL <200 [facility] Comment on above: <200 mg/dL Desirable 200-240 mg/dL Borderline >240 mg/dL High Risk Glucose [Mass/Vol] 154 mg/dL 74-106 [facility] Comment on above: Fasting Glucose resu lt greater than or equal to 126 mg/dL suggests DIABETES MELLITUS per A.D.A. criteria. Potassium [Moles/Vol] 4.3 mmol/L 3.5-5.1 [facility] Protein [Mass/Vol] 7.4 g/dL 6.4-8.2 [facility] Sodium [Moles/Vol] 138 mmol/L 136-145 [facility] Triglyceride [Mass/Vol] 197 mg/dL <199 [facility] Comment on above: The drugs N-Acetylcy steine and Metamizole may falsely depress this assay.Serum Triglycerides Reference Interval Normal <150 mg/dL Borderline high 150 - 199 mg/dL High 200 - 499 mg/dL Very High > or = 500 mg/dL WBC (Bld) [#/Vol] 5.6 10*3/uL 4.4-11.0 [facility] Blood erythrocytes count (nu mber/volume)Ordered By: Dr. Escalante on 11-16-2022 RBC (Bld) [#/Vol] 4.50 10*6/uL 4.6-6.2 [facility] Blood hemoglobin measurement (mass/volume)Ordered By: Dr. Escalante on 11-16-2022 Hemoglobin (Bld) [Mass/Vol] 14.7 g/dL 13.0-16.5 [facility] Blood platelet mean volumeOr dered By: Dr. Escalante on 11-16-2022 Platelet mean volume (Bld) [Entitic vol] 10.7 fL 6.2-12.0 [facility] Determination of erythrocyte mean corpuscular volume (MCV)Ordered By: Dr. Escalante on 11-16-2022 MCV (RBC) [Entitic vol] 97.1 fL 80-94 [facility] Direct bilirubinOrdered By: Dr. Escalante on 11-16-2022 Bilirubin.direct [Mass/Vol] 0.22 mg/dL 0.00-0.30 [facility] Hematocrit Auto (Bld) [Volum e fraction]Ordered By: Dr. Escalante on 11-16-2022 Hematocrit (Bld) [Volume fraction] 43.7 % 40-54 [facility] Laboratory - Chemistry and C hemistry - challengeOrdered By: Dr. Escalante on 11-16-2022 ALP [Catalytic activity/Vol] 75 U/L 45-117 [facility] ALT [Catalytic activity/Vol] 34 U/L 16-61 [facility] CO2 [Moles/Vol] 28.0 mmol/L 21.0-32.0 [facility] Cobalamin (Vitamin B12) [Mass/Vol] 382 pg/mL 211-911 [facility] Globulin (S) [Mass/Vol] 3.1 g/dL 2.2-4.2 [facility] Urea nitrogen/Creatinine [Mass ratio] 16.4 mg/mg 10-20 [facility] Laboratory - Hematology and Cell countsOrdered By: Dr. Escalante on 11-16-2022 Erythrocyte distribution width (RBC) [Entitic vol] 42.5 fL 35.1-43.9 [facility] Erythrocyte distribution width (RBC) [Ratio] 11.9 % 11.6-14.6 [facility] MCH (RBC) [Entitic mass] 32.7 pg 27.0-32.0 [facility] MCHC Auto (RBC) [Mass/Vol]Or dered By: Dr. Escalante on 11-16-2022 MCHC (RBC) [Mass/Vol] 33.6 g/dL 32-36 [facility] No Panel InformationOrdered By: Dr. Escalante on 11-16-2022 Estimated GFR (MDRD) Amer 124 mL/min >60 [facility] Comment on above: GFR Calc Estimated GFR (MDRD) Non-Af Amer 103 mL/min >60 [facility] Comment on above: Non- GFR Calc Prostate Specific Antigen Screen 0.47 ng/mL 0.00-4.00 [facility] Comment on above: This test was perfor med using the TPSA assay method [facility]. Values obtained with differentassay methods cannot be used interchangably.When changing PSA assays in the course of monitoring apatient, additional sequential testing should be carriedout to confirm baseline values. Thyroid Stimulating Hormone (TSH) 1.24 uIU/mL 0.358-3.74 [facility] Platelets bldOrdered By: Dr. Escalante on 11-16-2022 Platelets (Bld) [#/Vol] 187 10*3/uL 150-450 [facility] Serum or plasma albumin rinku urement (mass/volume)Ordered By: Dr. Escalante on 11-16-2022 Albumin [Mass/Vol] 4.3 g/dL 3.2-5.0 [facility] Serum or plasma albumin/glob ulin mass ratioOrdered By: Dr. Escalante on 11-16-2022 Albumin/Globulin [Mass ratio] 1.4 {ratio} 0.9-2.4 [facility] Serum or plasma calcium rinku urement (mass/volume)Ordered By: Dr. Escalante on 11-16-2022 Calcium [Mass/Vol] 9.4 mg/dL 8.5-10.1 [facility] Serum or plasma cholesterol in HDL measurement (mass/volume)Ordered By: Dr. Escalante on 11-16-2022 Cholesterol in HDL [Mass/Vol] 50 mg/dL >40 [facility] Comment on above: The drugs N-Acetylcy steine and Metamizole may falsely depress this assay. Reference Range HDL <40 mg/dL Low HDL Cholesterol HDL >or= 60 mg/dL High HDL Cholesterol Serum or plasma cholesterol in VLDL measurement (mass/volume)Ordered By: Dr. Escalante on 11-16-2022 Cholesterol in VLDL [Mass/Vol] 39 mg/dL 5-40 [facility] Serum or plasma creatinine m easurement (mass/volume)Ordered By: Dr. Escalante on 11-16-2022 Creatinine [Mass/Vol] 0.80 mg/dL 0.70-1.30 [facility] Comment on above: The validity of the calculated GFR & GFRAA in patients over 70 years has not been determined. Clinical correlation is essential. Serum or plasma low density lipoprotein (LDL) cholesterol measurement (mass/volume)Ordered By: Dr. Escalante on 11-16-2022 Cholesterol in LDL [Mass/Vol] 54 mg/dL 0-130 [facility] Serum or plasma urea nitroge n measurement (mass/volume)Ordered By: Dr. Escalante on 11-16-2022 Urea nitrogen [Mass/Vol] 13 mg/dL 7-18 [facility] Thin prep Papanicolaou smear with manual screeningOrdered By: Dr. Escalante on 11-16-2022 Thin prep Papanicolaou smear with manual screening 20 U/L 15-37 [facility] Thin prep Papanicolaou smear with manual screening 8 5-15 [facility] Basophil percentageon 2021 Bilirubin [Mass/Vol] 0.40 mg/dL 0.20-1.00 [facility] Work Phone: [phone] Comment on above: For patients on eltr ombopag therapy, use of Dimension [place] TBIL is not recommended. Cholesterol [Mass/Vol] 121 mg/dL <200 [facility] Work Phone: [phone] Comment on above: <200 mg/dL Desirable 200-240 mg/dL Borderline >240 mg/dL High Risk Protein [Mass/Vol] 6.9 g/dL 6.4-8.2 [facility] Work Phone: [phone] Triglyceride [Mass/Vol] 138 mg/dL <199 [facility] Work Phone: [phone] Comment on above: The drugs N-Acetylcy steine and Metamizole may falsely depress this assay.Serum Triglycerides Reference Interval Normal <150 mg/dL Borderline high 150 - 199 mg/dL High 200 - 499 mg/dL Very High > or = 500 mg/dL Direct bilirubinon Bilirubin.direct [Mass/Vol] 0.15 mg/dL 0.00-0.30 [facility] Work Phone: [phone] Laboratory - Chemistry and C hemistry - challengeon 04-10-2022 ALP [Catalytic activity/Vol] 60 U/L 45-117 [facility] Work Phone: [phone] ALT [Catalytic activity/Vol] 30 U/L 16-61 [facility] Work Phone: [phone] Globulin (S) [Mass/Vol] 2.9 g/dL 2.2-4.2 [facility] Work Phone: [phone] No Panel Informationon 04-10 Hepatitis C Antibody Non-Reactive Nonreactive [facility] Work Phone: [phone] Comment on above: Non Reactive: < 0.8 Equivocal: >/= 0.8 to < 1.0 Reactive: >/= 1.0The [facility] recommends that a reactive/equivocal HCV antibody result be followed up by the HCV Nucleic Acid Amplificationtest (526186) Serum Varicella zoster virus IgG antibody assay by immunoassay (units/volume)on 04-10-2022 VZV IgG IA Qn (S) 2229 index Immune >165 [facility] Work Phone: Comment on above: Negative <135 Equivo rosaura 135 - 165 Positive >165A positive result generally indicates exposure to thepathogen or administration of specific immunoglobulins,but it is not indication of active infection or stageof disease.Performed at: [employer] [id number] Director: Fabien Thomas PhD, Phone: [phone] Serum or plasma albumin rinku urement (mass/volume)on 04-10-2022 Albumin [Mass/Vol] 4.0 g/dL 3.2-5.0 [facility] Work Phone: Serum or plasma cholesterol in HDL measurement (mass/volume)on 04-10-2022 Cholesterol in HDL [Mass/Vol] 52 mg/dL >40 [facility] Work Phone: Comment on above: The drugs N-Acetylcy steine and Metamizole may falsely depress this assay. Reference Range HDL <40 mg/dL Low HDL Cholesterol HDL >or= 60 mg/dL High HDL Cholesterol Serum or plasma cholesterol in VLDL measurement (mass/volume)on 04-10-2022 Cholesterol in VLDL [Mass/Vol] 28 mg/dL 5-40 [facility] Work Phone: Serum or plasma low density lipoprotein (LDL) cholesterol measurement (mass/volume)on 04-10-2022 Cholesterol in LDL [Mass/Vol] 41 mg/dL 0-130 [facility] Work Phone: Thin prep Papanicolaou smear with manual screeningon 04-10-2022 Thin prep Papanicolaou smear with manual screening 19 U/L 15-37 [facility] Work Phone: Vital Signs Date Time Vital Sign Value Performing Clinician Bessie mederos 01-25-2025 08:33-0400 Body height 177.[address] Jackie Escalante MD Work Phone: [facility] 01-25-2025 08:33-0400 Body mass index (BMI) [Ratio] 29.5 kg/m2 Dr. Jackie Escalante MD Work Phone: 8(928)695-094900 [place] [address] 01-25-2025 08:33-0400 Body weight 93.[address] Jackie Escalante MD Work Phone: 3(843)464-364414 [place] [address] 01-25-2025 08:33-0400 Diastolic blood pressure 84 mm[Hg] Dr. Jackie Escalante MD Work Phone: 9(861)340-924000 [place] [address] 01-25-2025 08:33-0400 Heart rate 74 /min Dr. Jackie Escalante MD Work Phone: 3(933)570-275314 [place] [address] 01-25-2025 08:33-0400 Respiratory rate 18 /min Dr. Jackie Escalante MD Work Phone: 0(425)408-103114 [place] [address] 01-25-2025 08:33-0400 Systolic blood pressure 134 mm[Hg] Dr. Jackie Escalante MD Work Phone: 0(978)670-649014 [place] [address] 07-14-2024 08:47-0500 Body height 177.[address] Jackie Escalante MD Work Phone: 3(373)661-203914 [place] [address] 07-14-2024 08:47-0500 Body mass index (BMI) [Ratio] 29 kg/m2 Dr. Jackie Escalante MD Work Phone: 2(521)480-656714 [place] [address] 07-14-2024 08:47-0500 Body weight 91.[address] Jackie Escalante MD Work Phone: 6(460)890-751700 [place] [address] 07-14-2024 08:47-0500 Diastolic blood pressure 85 mm[Hg] Dr. Jackie Escalante MD Work Phone: 7(273)185-048714 [place] [address] 07-14-2024 08:47-0500 Heart rate 69 /min Dr. Jackie Escalante MD Work Phone: 1(184)972-320200 [place] [address] 07-14-2024 08:47-0500 Respiratory rate 16 /min Dr. Jackie Escalante MD Work Phone: 5(829)828-437300 [place] [address] 07-14-2024 08:47-0500 Systolic blood pressure 154 mm[Hg] Dr. Jackie Escalante MD Work Phone: [facility] 04-10-2024 14:48-0400 Body height 177.8 cm Pacc 1 Work Phone: [facility] 04-10-2024 14:48-0400 Body mass index (BMI) [Ratio] 29.27 kg/m2 Pacc 1 Work Phone: [facility] 04-10-2024 14:48-0400 Body temperature 98.01 [degF] Pacc 1 Work Phone: [facility] 04-10-2024 14:48-0400 Body weight 92.53 kg Pacc 1 Work Phone: [facility] 04-10-2024 14:48-0400 Diastolic blood pressure 90 mm[Hg] Pacc 1 Work Phone: [facility] 04-10-2024 14:48-0400 Heart rate 71 /min Pacc 1 Work Phone: [facility] 04-10-2024 14:48-0400 Respiratory rate 14 /min Pacc 1 Work Phone: [facility] 04-10-2024 14:48-0400 SaO2% (BldA) [Mass fraction] 97 % Pacc 1 Work Phone: [facility] 04-10-2024 14:48-0400 Systolic blood pressure 138 mm[Hg] Pacc 1 Work Phone: [facility] 01-23-2024 11:18-0400 Body weight 93 kg Brice Quinonez MD Work Phone: [facility] 01-23-2024 11:18-0400 Diastolic blood pressure 82 mm[Hg] Brice Quinonez MD Work Phone: [facility] 01-23-2024 11:18-0400 Heart rate 74 /min Brice Quinonez MD Work Phone: [facility] 01-23-2024 11:18-0400 Systolic blood pressure 132 mm[Hg] Brice Quinonez MD Work Phone: [facility] 10-23-2023 14:41-0400 Body height 177.[address] Jacek Escalante Work Phone: [facility] 10-23-2023 14:41-0400 Body mass index (BMI) [Ratio] 29.4 kg/m2 Dr. Jacek Escalante Work Phone: [facility] 10-23-2023 14:41-0400 Body weight 92.[address] Jacek Escalante Work Phone: [facility] 10-23-2023 14:41-0400 Diastolic blood pressure 73 mm[Hg] Dr. Jacek Escalante Work Phone: [facility] 10-23-2023 14:41-0400 Heart rate 83 /min Dr. Jacek Escalante Work Phone: [facility] 10-23-2023 14:41-0400 Respiratory rate 18 /min Dr. Jacek Escalante Work Phone: [facility] 10-23-2023 14:41-0400 Systolic blood pressure 135 mm[Hg] Dr. Jacek Escalante Work Phone: [facility] 09-17-2023 22:47-0500 Body temperature 100.2 [degF] Dr. Jacek Escalante Work Phone: [facility] 09-17-2023 22:47-0500 Diastolic blood pressure 76 mm[Hg] Dr. Jacek Escalante Work Phone: [facility] 09-17-2023 22:47-0500 Heart rate 86 /min Dr. Jacek Escalante Work Phone: [facility] 09-17-2023 22:47-0500 Respiratory rate 17 /min Dr. Jacek Escalante Work Phone: [facility] 02-06-2024 22:47-0500 SaO2% (BldA) [Mass fraction] 95 % Dr. Jacek Escalante Work Phone: 1(826)293-553400 [place] [address] 09-17-2023 22:47-0500 Systolic blood pressure 125 mm[Hg] Dr. Jacek Escalante Work Phone: 8(746)285-147414 [place] [address] 09-17-2023 22:01-0500 Body mass index (BMI) [Ratio] 30.3 kg/m2 Dr. Jacek Escalante Work Phone: 9(207)434-692014 [place] [address] 09-17-2023 22:01-0500 Body weight [address] Jacek Escalante Work Phone: 7(676)673-449414 [place] [address] 09-17-2023 22:01-0500 Inhaled oxygen flow rate 2 L/min Dr. Jacek Escalante Work Phone: 0(747)457-841114 [place] [address] 09-17-2023 19:46-0500 Body height 177.[address] Jacek Escalante Work Phone: 8(209)907-704714 [place] [address] 04-18-2023 15:35-0400 Body height 177.[address] Jacek Escalante Work Phone: 6(806)094-411014 [place] [address] 04-18-2023 15:35-0400 Body mass index (BMI) [Ratio] 29.8 kg/m2 Dr. Jacek Escalante Work Phone: 8(497)286-498214 [place] [address] 04-18-2023 15:35-0400 Body weight 94.[address] Jacek Escalante Work Phone: 4(819)531-585700 [place] [address] 04-18-2023 15:35-0400 Diastolic blood pressure 95 mm[Hg] Dr. Jacek Escalante Work Phone: 5(835)081-017214 [place] [address] 04-18-2023 15:35-0400 Heart rate 82 /min Dr. Jacek Escalante Work Phone: 6(816)160-453814 [place] [address] 04-18-2023 15:35-0400 Respiratory rate 18 /min Dr. Jacek Escalante Work Phone: 7(613)349-391014 [place] [address] 04-18-2023 15:35-0400 SaO2% (BldA) [Mass fraction] 98 % Dr. Jacek Escalante Work Phone: [facility] 04-18-2023 15:35-0400 Systolic blood pressure 134 mm[Hg] Dr. Jacek Escalante Work Phone: [facility] 11-19-2022 11:15-0400 Body height 177.[address] Jacek Escalante Work Phone: [facility] 11-19-2022 11:15-0400 Body mass index (BMI) [Ratio] 29.8 kg/m2 Dr. Jacek Escalante Work Phone: [facility] 11-19-2022 11:15-0400 Body weight 94.[address] Jacek Escalante Work Phone: [facility] 11-19-2022 11:15-0400 Diastolic blood pressure 88 mm[Hg] Dr. Jacek Escalante Work Phone: [facility] 11-19-2022 11:15-0400 Heart rate 75 /min Dr. Jacek Escalante Work Phone: [facility] 11-19-2022 11:15-0400 Respiratory rate 16 /min Dr. Jacek Escalante Work Phone: [facility] 11-19-2022 11:15-0400 Systolic blood pressure 139 mm[Hg] Dr. Jacek Escalante Work Phone: [facility] Encounters Encounter Date Encounter Type Care Provider Facility Start: 04-22-2025 ambulatory Jackie La lity:[facility] Start: 02-15-2025 ambulatory Jackie La lity:[facility] Start: 01-25-2025 End: 01-25-[address] Lisha Miranda MD -[facility] Work Phone: Start: 01-25-2025 End: 01-25-[address] Jackie Escalante MD Work Phone: [facility] Work Phone: Start: 10-20-2024 End: 10-20-[address] Jackie Escalante MD Work Phone: [facility] Work Phone: Start: 10-20-2024 End: 10-20-2024 Patient encounter procedure Rebel More NP-C -[facility] Work Phone: Start: 10-20-2024 End: 10-20-2024 ambulatory Jackie Escalante Facility:[facility] Start: 07-14-2024 End: 07-14-[address] Lisha Miranda MD -[facility] Work Phone: Start: 07-14-2024 End: 07-14-2024 ambulatory Jackie Escalante [facility] Start: 05-28-2024 End: 05-28-2024 ambulatory Jackie Escalante Facility:[facility] Start: 05-07-2024 Encounter for preprocedural cardiovascular examination Lisha Ruben [facility] Start: 05-07-2024 End: 05-08-2024 ambulatory Lisha Miranda Facility:[facility] Start: 04-24-2024 Encounter for other preprocedural examination Cristopher Austin [facility] Start: 04-17-2024 End: 06-16-2024 Telephone encounter Brice Quinonez MD Work Phone: General Surgery Comment on above: Patient Update Start: 04-14-2024 End: 04-20-2024 Telephone encounter Nicky Pickens APRN.CNP Work Phone: Pre Anesthesia Comment on above: Request Outside [facility] Records Start: 04-10-2024 End: 04-10-2024 [facility] Work Phone: Pre An[facility] Start: 04-10-2024 End: 04-10-2024 ambulatory BRICE QUINONEZ Facility:[facility] Start: 04-10-2024 End: 04-10-2024 Anesthesia consultation [place] [address] Work Phone: Pre Anesthesia Comment on above: Pre-operative examin ation (Primary Dx); 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); Congestive heart failure, unspecified HF chronicity, unspecified heart failure type (HCC); Essential hypertension; Mixed hyperlipidemia; Premature ventricular contractions; Type 2 diabetes (HCC); Ischemic cardiomyopathy Start: 04-10-2024 End: 04-10-2024 Preprocedural examination done [place] [address] Work Phone: [facility] Start: 04-02-2024 End: 04-02-2024 ambulatory Sharri Bonilla [place] Start: 03-25-2024 Encounter for other preprocedural examination Cristopher [place] [facility] Start: 03-10-2024 ambulatory Jackie Lindai lity:[facility] Start: 03-10-2024 End: 03-10-2024 ambulatory Cristopher Geovanna Facility:[facility] Start: 03-04-2024 End: 03-04-2024 ambulatory Jackie Escalante Facility:[facility] Start: 02-19-2024 End: 02-19-2024 ambulatory Cristopher Geovanna Facility:[facility] Start: 02-07-2024 Telephone encounter Brice Quinonez MD Work Phone: General Surgery Comment on above: Appointment Start: 01-27-2024 Telephone encounter Brice Quinonez MD Work Phone: General Surgery Comment on above: Request Outside [facility] Records Start: 01-23-2024 End: 01-23-2024 ambulatory BRICE QUINONEZ Facility:[facility] Start: 01-23-2024 End: 01-23-2024 Patient encounter procedure Brice Quinonez MD Work Phone: General Surgery Comment on above: Encounter for colore ctal cancer screening using Cologuard test (Primary Dx); 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 Gaurav Escalante Work Phone: [facility] Work Phone: Start: 11-22-2023 Non-patient / Non-visit Dr. Gaurav Escalante Work Phone: [facility] Start: 11-22-2023 End: 11-22-[address] Jackie Escalante Work Phone: [facility] Work Phone: Start: 11-22-2023 End: 11-22-[address] Jackie Escalante Work Phone: [facility]-Cardiovascul ar Services Work Phone: Start: 11-20-2023 End: 11-20-[address] Jackie Escalante Work Phone: [facility] Work Phone: Start: 11-20-2023 End: 11-20-[address] Jackie Escalante Work Phone: [facility] Work Phone: Start: 10-29-2023 End: 10-29-[address] Jacek Escalante Work Phone: [facility] Work Phone: Start: 10-29-2023 End: 10-29-[address] Jacek Escalante Work Phone: [facility] Work Phone: Start: 10-23-2023 End: 10-23-[address] Jacek Escalante Work Phone: [facility] Work Phone: Start: 10-21-2023 End: 10-21-[address] Jacek Escalante Work Phone: [facility] Work Phone: Start: 10-21-2023 End: 10-21-[address] Jacek Escalante Work Phone: [facility]-Laboratory Work Phone: Start: 09-17-2023 End: 09-17-2023 Emergency department patient visit Dr. Jacek Escalante Work Phone: [facility]-Emergency Department Work Phone: Start: 07-23-2023 End: 07-23-[address] Jacek sEcalante Work Phone: [facility] Work Phone: Start: 07-23-2023 End: 07-23-[address] Jacek Escalante Work Phone: [facility]-Radiology, [place] Work Phone: Start: 06-04-2023 Non-patient / Non-visit Dr. Gaurav Escalante Work Phone: [facility] Work Phone: Start: 06-03-2023 Non-patient / Non-visit Dr. Gaurav Escalante Work Phone: [facility] Start: 05-30-2023 End: 05-30-[address] Jacek Escalante Work Phone: [facility] Work Phone: Start: 05-30-2023 End: 05-30-[address] Jacek Escalante Work Phone: [facility]Cardiovascul [facility] Services Work Phone: Start: 04-29-2023 Non-patient / Non-visit Dr. Gaurav Escalante Work Phone: [facility] Work Phone: Start: 04-25-2023 Non-patient / Non-visit [facility] Work Phone: Start: 04-24-2023 Non-patient / Non-visit Dr. Gaurav Escalante Work Phone: [facility] Start: 04-24-2023 End: 04-24-[address] Jacek Escalante Work Phone: [facility] Work Phone: Start: 04-24-2023 End: 04-24-[address] Jacek Escalante Work Phone: [facility]-Cardiovascul [facility] Services Work Phone: Start: 04-18-2023 End: 04-18-[address] Jacek Escalante Work Phone: [facility] Work Phone: Start: 01-10-2023 End: 01-10-[address] Jacek Escalante Work Phone: [facility] Work Phone: Start: 01-10-2023 End: 01-10-[address] Jacek Escalante Work Phone: [facility]-Laboratory Start: 11-19-2022 End: 11-19-[address] [facility] Start: 11-16-2022 End: 11-16-[address] Jacek Escalante Work Phone: [facility] Work Phone: Start: 11-16-2022 End: 11-16-[address] Jacek Escalante Work Phone: [facility] Start: 04-10-2022 End: 04-10-2022 ambulatory [facility] Work Phone: Start: 04-10-2022 End: 04-10-2022 Patient encounter procedure [facility]Laboratory, [place] Procedures Date Procedure Procedure Detail Performing Clinician Start: 09-17-2023 Plain chest X-ray Dr. Rodrigo Escalante Work Phone: Start: 09-17-2023 SARS-CoV-2, Influenz a & RSV (PCR) Dr. Jacek Escalante Work Phone: Start: 07-23-2023 Radiologic examinati on of knee Dr. Jacek Escalante Work Phone: Start: 05-30-2023 Radionuclide imaging of perfusion of myocardium under exercise stress Dr. Jacek Escalante Work Phone: Plan of Treatment Date Care Activity Detail Author Start: 12-09-2026 Screening for malign ant neoplasm of colon [facility] Start: 06-08-2024 End: 06-08-2024 Patient encounter procedure 06/08/2024 3:00 PM EDT Appointment [facility] [address] [place] [address] Brice Quinonez MD [address] [id number] COLON/EGD [facility] Comment on above: COLON/EGD Start: 04-20-2024 End: 04-20-2024 Patient encounter procedure 04/20/2024 2:30 PM EDT Appointment [facility] [address] [place] [address] Brice Quinonez MD [address] [address] COLON/EGD [facility] Comment on above: COLON/EGD Start: 04-12-2024 Covid-19 Vaccine ( season) Covid-19 Vaccine () [facility] Start: 04-12-2024 Covid-19 Vaccine ( season) Covid-19 Vaccine () [facility] Start: 04-12-2024 Influenza vaccination Influenza Vacc ine (#1) [facility] Start: 10-23-2023 Patient referral [facility] Work Phone: Start: 09-17-2023 [facility] Start: 08-12-2023 Advance Directive Discussion Advance Directive Discussion [facility] Start: 08-12-2023 Behavioral Health Screening Behavioral Health Screening [facility] Start: 04-12-2023 Covid-19 Vaccine ( season) Covid-19 Vaccine ( season) [facility] Start: 01-10-2023 Procedure [facility] Start: 2018 Pneumococcal Vaccine : 65+ (2 of 2 - PPSV23 or PCV20) Pneumococcal Vaccine: 65+ (2 of 2 - PPSV23 or PCV20) [facility] Start: 12-19-2015 Pneumococcal Vaccine : 65+ (2 of 2 - PPSV23 or PCV20) Pneumococcal Vaccine: 65+ (2 of 2 - PPSV23 or PCV20) [facility] Start: 2013 RSV Vaccine (1 - 1-d ose 60+ series) RSV Vaccine (1 - 1-dose 60+ series) [facility] Start: 2013 RSV Vaccine (1 - Ris k 60-74 years 1-dose series) RSV Vaccine (1 - Risk 60-74 years 1-dose series) [facility] Start: 2003 Shingrix Vaccine (1 of 2) Shingrix Vaccine (1 of 2) [facility] Start: 1998 Diabetes Screening Diabetes Screenin g [facility] Start: 1998 Screening for malign ant neoplasm of colon [facility] Start: 1988 Lipid panel Lipid Screening [facility] Start: 1972 Urine microalbumin profile DTaP,Tdap,Td Vaccine (1 - Tdap) [facility] Start: 1971 Annual PCP Team Clinical Dietician derick Disease Visit Annual PCP Team Chronic Disease Visit [facility] Start: 1971 Anxiety Screening Anxiety Screening [facility] Start: 1971 BP Controlled (<130/80) BP Controlle d (<130/80) [facility] Start: 1971 Depression Screening Depression Scre ening [facility] Start: 1971 Hepatitis B surface antibody level LDL Cholesterol [facility] Start: 1971 Hepatitis C screening Hepatitis C Sc edisguillermo [facility] Start: 1963 Diabetic foot examination Diabetic Foot Exam [facility] Start: 1963 Glaucoma screening Dilated Retinal E xam [facility] Start: 1963 Hepatitis B screening Urine Al bumin:Creatinine Ratio [facility] Start: 1958 Hemoglobin A1c measurement HbA1C [facility] Start: 1953 Abdominal aortic aneurysm screening Abdominal Aortic Aneurysm Screening [facility] Ambulatory ECG [facility] End: 01-30-2025 EGD DIAGNOSTIC EGD DIAGNOSTIC Endoscopy Routine Encounter for colorectal cancer screening using Cologuard test 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) Cardiomyopathy, unspecified type (HCC) 1 Occurrences starting 01/31/2024 until 01/30/2025 [facility] Work Phone: Comment on above: 1 Occurrences starti ng 01/31/2024 until 01/30/2025 End: 01-30-2025 Flexible sigmoidoscopy study COLONOSCOPY DIAGNOSTIC Endoscopy Routine Encounter for colorectal cancer screening using Cologuard test 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) Cardiomyopathy, unspecified type (HCC) 1 Occurrences starting 01/31/2024 until 01/30/2025 [facility] Comment on above: 1 Occurrences starti ng 01/31/2024 until 01/30/2025 Patient Education ED Influenza (Adult) [facility] Work Phone: Patient referral [facility] Work Phone: [facility] Immunizations Immunization Date Immunization Notes Care Provider Fa cili 05-10-2023 influenza, injectabl e, quadrivalent, preservative free Brice Quinonez MD Work Phone: [facility] 05-10-2023 influenza virus vacc ine, unspecified formulation Brice Quinonez MD Work Phone: [facility] 06-08-2022 influenza, injectabl e, quadrivalent, contains preservative Brice Quinonez MD Work Phone: [facility] 05-29-2019 influenza, seasonal, injectable Birce Quinonez MD Work Phone: [facility] 05-06-2018 influenza, injectabl e, quadrivalent, contains preservative Brice Quinonez MD Work Phone: [facility] 05-01-2017 influenza, seasonal, injectable Brice Quinonez MD Work Phone: [facility] 04-25-2016 influenza, seasonal, injectable Brice Quinonez MD Work Phone: [facility] 10-24-2015 pneumococcal conjuga te vaccine, 13 valent Brice Quinonez MD Work Phone: [facility] 06-10-2015 influenza, seasonal, injectable Brice Quinonez MD Work Phone: [facility] 05-21-2014 influenza, seasonal, injectable Brice Quinonez MD Work Phone: [facility] 04-20-2013 influenza, seasonal, injectable Brice Quinonez MD Work Phone: [facility] Payers Date Payer Category Payer Self-pay [id number] 2021 Unknown MMO MMO MEDICARE SUPPLEMENT [id number] 2021-Present [phone] [address] [place] [address] Indemnity [id number] 2021 Unknown [id number] 2018 Medicare MEDICARE MEDICAR E A AND B [id number] 2018-Present [phone] [address] [address] [place] [address] Medicare [id number] 2018 Medicare [id number] Unknown [id number] Unknown [id number] Unknown [id number] Unknown [id number] Unknown [id number] Unknown [id number] Unknown [id number] Unknown [id number] Unknown [id number] Unknown [id number] Unknown [id number] Social History Date Type Detail Facility Start: 06-26-2021 End: 04-18-2023 Tobacco smoking status CAIS Unknown if ever smoked [facility] Start: 1955 Sex Assigned At Male W [facility] Start: 01-23-2024 End: 03-02-2024 Tobacco smoking status NHIS Ex-smoker [facility] Start: 08-12-1995 End: 08-12-1969 History of tobacco use Current smoker [facility] Start: 08-12-1995 End: 08-12-1969 History of tobacco use Cigarette Smoker [facility] Start: 01-23-2024 End: 04-10-2024 Tobacco use and exposure Smokeless tobacco non-user [facility] Start: 01-23-2024 End: 01-24-2024 History of Social function [facility] Start: 01-23-2024 End: 01-24-2024 Tobacco use panel [facility] National Score (1-100), lower number is lower risk 50 [facility] Start: 1955 Sex Assigned At Not on file [facility] Start: 01-31-2024 End: 04-14-2024 Alcohol intake Current drinker of alcohol (finding) [facility] Start: 01-30-2024 Alcohol Comment 2 drinks per day [facility] Start: 10-30-2024 Sex Male (finding) [facility] Medical Equipment Procedure Code Equipment Code Equipment Origin al Text Equipment Identifier Dates Ligation of arteriovenous fistula Plant polysaccharide haemostatic agent, bioabsorbable [id number] FDA Start: 03-10-2024 Ligation of arteriovenous fistula Ligation clip, metallic [id number] FDA Start: 03-10-2024 Ligation of arteriovenous fistula Ligation clip, metallic [id number] FDA Start: 03-10-2024 Clinical Notes 01-24-2024 to 01-25-2025 Note Date & Type Note Facility 01-25-2025 Progress note [facility] 01-25-2025 Progress note Note Date/Time January 25, 2025 1:37pm [facility] [address] [place] [address] OFFICE VISIT Date of Service: 01/25/25 MR#: [id number] Acct: [id number] Name: MIO HART Rep #: [id number] : 1955 Provider: Dr. Lokesh Miranda MD Age/Sex: 69/M Location[place] [facility] Status: Signed HPI HPI History of Present Illness Details: This patient with history of anterior NE, chronic LV systolic dysfunction secondary to ischemic cardiomyopathy hypertension and dyslipidemia is here for follow-up visit. Overall he is doing well. According to him, he has been walking 1 to 2 miles every day without any problems. No chest pains. No shortness of breath. No orthopnea or PND. No ankle edema. Intake Vital Signs 07/14/24 08:47 01/25/25 08:33 Height 5 ft 10 in 5 ft 10 in Weight: 202 lb 206 lb BMI 29.0 29.5 BP 154/85 H 134/84 H Blood Pressure Location Lt brachial Lt brachial Position Sitting Sitting Respiration 16 18 Pulse 69 74 Pulse Source NIBP NIBP Intake Visit Reasons: 6 M FU Infant Caregiver Required: No Accompanied by: Self Is patient in pain?: No Allergies lisinopril Allergy (Intermediate, Verified 01/25/25 13:16) Angioedema rosuvastatin (From Crestor) Adverse Reaction (Severe, Verified 01/25/25 13:16) didnt feel well Medications ?Medication ?Instructions ?Recorded ?Confirmed ?Type aspirin 81 mg tablet,delayed 81 mg PO BID 04/23/16 History release furosemide 40 mg tablet 40 mg PO DAILY PRN Swelling 04/23/16 01/25/25 History spironolactone 25 mg tablet 12.5 mg PO DAILY 04/23/16 01/25/25 History magnesium oxide 400 mg (241.3 mg 400 mg PO QDAY 01/25/25 History magnesium) tablet [id number]-kvglkjbj-wwwi 1 tab PO DAILY 11/19/22 History fumarate 7.5 mg-folic acid 400 mcg tablet isosorbide mononitrate 10 mg tablet 5 mg PO BID 01/25/25 History metformin 500 mg tablet,extended 1,000 mg PO BID 10/2201/25/25 History release 24 hr melatonin 10 mg tablet 15 mg PO HS 01/29/24 5 History nitroglycerin 0.4 mg sublingual 0.4 mg sublingual Q5-1 5M PRN chest 02/19/24 01/25/25 History tablet pain atorvastatin 40 mg tablet 40 mg PO QDAY #90 tabs 07/1401/25/25 Rx mecobalamin (vitamin B12) 1,000 1,000 mcg PO QDAY 11/0201/25/25 History mcg chewable tablet hydralazine 50 mg tablet 50 mg PO TID #270 tabs 10/0501/25/25 Rx carvedilol 25 mg tablet 25 mg PO BID #180 TABLETS 01/25/25 Rx Ejection fraction %: 15 Have you fallen in the past year?: No PFSH Medical History Alcohol use 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 Cardiology follow-up encounter Chronic systolic (congestive) heart failure Dietary restriction Essential hypertension Former smoker Heartburn High cholesterol History of CHF (congestive heart failure) History of echocardiogram History of heart attack History of Holter monitoring History of irregular heartbeat History of stress test Hyperlipidemia Hypertension Ischemic cardiomyopathy Kidney stones Leg cramps 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 Premature ventricular contractions Rheumatoid arthritis Type 2 diabetes mellitus without complications Wears glasses Surgical History H/O right knee surgery History of appendectomy History of lithotripsy History of tonsillectomy and adenoidectomy Stented coronary artery (~12/14/11) Family History Mother Diabetes Sister Diabetes Brother Diabetes Hypertension Social History Smoking Status: Former smoker how long ago did patient quit smokin years ago alcohol intake: current alcohol intake frequency: 0-2 drinks per day Alcohol type: wine substance use type: does not use caffeine: Yes Type: coffee Number of servings: 2 ROS Const Const: Negative for fatigue, weakness, headache(s) or weight gain ENT ENT: Negative for headache(s), dizziness, Nosebleed/epistaxis or balance problems Cardio Chest Pain: No Palpitations: No Edema: None Muscle aches with walking: None Resp Respiratory: Negative for SOB with activity, SOB at rest or SOB orthopneaundefinedSOB lying down GI GI: Negative nausea, vomiting or heartburn Musc Musc: Negative for muscle aches/ myalgia, muscle weakness, joint pain or balanceproblems Neuro Neuro: Positive for lightheadedness (seldom, episodic, resolves quickly); Negative for dizziness, near syncope, syncope, headache(s) or weakness Endo Endo: Negative for fatigue Cardiology Exam Const Appearance: comfortable and no acute distress Nutritional Appearance: well nourished Neck Neck: no JVD Carotids: Negative bruit Chest Auscultation: Bilateral: Clear to Auscultation Cardio Rate: regular rate Rhythm: regular rhythm Heart sounds: S1 normal and S2 normal 2/6 systolic murmur at base. Neuro General: patient alert, patient awake and patient oriented x3 Extremities Lower Extremity Edema: None: Bilateral Supplemental Info Supplemental Information Echocardiogram 11/25/2023: Interpretation Summary Mild concentric left ventricular hypertrophy. Mildly dilated left ventricle. The left ventricular ejection fraction is 15 %. Stage 3 diastolic dysfunction. The left atrium is severely enlarged. Mild tricuspid valve insufficiency. Right ventricular systolic pressure estimated to be 67 mmHg. Mild (1+) mitral valve insufficiency. Echocardiogram 04/24/2023: Interpretation Summary Moderately dilated left ventricle. Mild concentric left ventricular hypertrophy. The left ventricular ejection fraction is 10-15 %. Stage 3 diastolic dysfunction. Anterior and apical akinesis. Global hypokinesis. The left atrium is severely enlarged. The right atrium is mildly enlarged. Right ventricular systolic pressure estimated to be 49 mmHg. Aortic sclerosis, no stenosis. 48hr Event Monitor Summary 11/22/2023: Interpretation: There were a total of 160318 beats recorded over the 48 hours. Average heart rate was 79 bpm in Normal Sinus Rhythm. The minimum heart rate was 67 bpm in Normal Sinus Rhythm recorded at 1:04:15 AM, D2. The maximum heart rate was 98 bpm in Normal Sinus Rhythm recorded at 9:07:26 AM,D1. There were a total of 73096 ventricular ectopic beats comprising 12% of the total QRS complexes. 2094 ventricular couplets. 367 ventricular triplets. 554 beats of ventricular bigeminy. 4835 beats of ventricular trigeminy. 40 wide complex ventricular runs totaling 165 beats. The longest run was 5 beats rate 114 BPM recorded at 3:38:06 PM, D1. The fastest run was 4 beats rate 146 BPM recorded at 3:35:33 PM, D2. There were a total of 15 supraventricular ectopic beats. No runs noted. The longest R-R interval was 1.3 seconds recorded at 6:14:25AM D1. There was no atrial fibrillation The patient kept a 48-hour diary. No symptoms recorded. Stress Test 05/30/2023: Impression: 1. Technically adequate (percent predicted maximal heart rate greater than 85%)exercise tolerance test 2. Peak exercise ECG nondiagnostic secondary to baseline abnormalities 3. PVCs noted during exercise and in recovery 4. Rest and stress SPECT Cardiolite nuclear imaging demonstrate prior apical infarct with no significant aide-infarct ischemia. 5. The gated Cardiolite study reports an LVEF of 38%. Cardiac Catheterization [facility] 12/11/2011: Impression: Severe three vessel coronary artery disease. Mild to moderate left main coronary artery disease. Successful angioplasty and successful stenting of the occluded mid LAD. 30% stenosis in the distal left main coronary artery. Proximal to mid LAD ectasia. 85% stenosis in the proximal first obtuse marginal artery. 90% stenosis in the mid circumflex artery. 75% stenosis in the proximal mid second obtuse marginal artery. 80% stenosis in the mid to distal LCx. 80% stenosis in the mid posterior descending artery. Moderate to severe hypokinesis of the anterior, anterolateral and distal inferior wall of the left ventricle. Apical left ventricular akinesis. The left ventricular ejection fraction was 25-30%. Recommendation: Optimal medical therapy of the patient?s disease, including aspirin, beta blockers, xochitl inhibitors, diuretics, nitrates and statin therapy. Aggressive risk factor modification of hyperlipidemia, hypertension, diabetes and obesity. Percutaneous coronary intervention of the left circumflex artery should be considered. Begin an exercise program. Prasugrel (Effient) 10 mg P0 daily. A cardiac catheterization procedure was performed at [facility] on 12/14/2011.? The results are as noted below. Impression: Successful angioplasty and successful stenting of the 85% stenosis in the proximal first obtuse marginal artery. Recommendation: Optimal medical therapy of the patient?s disease. Aggressive risk factor modification. Begin an exercise program. A Holter monitor was performed on 05/05/2012.? The results are as noted below. SINUS RHYTHM WITH BORDERLINE 1ST DEGREE AV BLOCK CO. 22-.24. MINIMUM HR 60 BPM AT 7:44:46 AM, NO ACTIVITY OR SYMPTOM RECORDED. AVERAGE HR 82 8PM MAXIMUM HR 119 8PM AT 10:05:16 PM, NO ACTIVITY OR SYMPTOM RECORDED. ONE ISOLATED PREMATURE ATRIAL COMPLEX. NO RUNS NOTED. OCCASIONAL ISOLATED PREMATURE VENTRICULAR COMPLEXES. RARE VENTRICULAR TRIGEMINY.8 VENTRICULAR COUPLETS. NO RUNS NOTED. ONE SYMPTOM OF ?RAPID HEART? DOCUMENTED IN 24 HOUR HOLTER DIARY WHILE IN BED. MONITOR SHOWED SINUS RHYTHM WITH 1ST DEGREE AV BLOCK CO .24 RATE 92 8PM WITHOUT ECTOPICS OR ST CHANGES. Assessment and Plan Assessment and Plan (1) Coronary artery disease: Status: Chronic Plan: History of anterior NE. Status post percutaneous intervention. Aspirin. Beta-blockers. Statins. Check Lexiscan stress Myoview for evaluation for silent ischemia. (2) Ischemic cardiomyopathy: Status: Chronic Plan: EF 15%. Continue beta-blockers. Furosemide. Aldactone. Hydralazine, nitrates. History of angioedema with using ACEI. Unable to afford SGLT2 inhibitors. Still refusing ICD. Repeat echocardiogram. (3) Hyperlipidemia: Status: Chronic Qualifiers: Hyperlipidemia type: unspecified Qualified Code(s): E78.5 - Hyperlipidemia, unspecified Plan: Atorvastatin. (4) Essential hypertension: Status: Chronic Plan: Carvedilol, furosemide, isosorbide mononitrate, Aldactone. (5) AV (arteriovenous fistula): Status: Resolved Comment: Right radial AV fistula. Repaired. Plan: Status postrepair by vascular surgery. (6) NSVT (nonsustained ventricular tachycardia): Status: Chronic Plan: History of NSVT. Continue beta-blockers. Refuses ICD. (7) Diabetes: Status: Chronic Plan: As per PCP Coding Level of Care Code Off vis,est,level 4 Diagnoses Coronary artery disease I25.10 Ischemic cardiomyopathy I25.5 Hyperlipidemia, unspecified hyperlipidemia type E78.5 Hyperlipidemia type: unspecified Essential hypertension I10 AV (arteriovenous fistula) I77.0 NSVT (nonsustained ventricular tachycardia) I47.29 Diabetes E11.9 Coding Level of Care Code Off vis,est,level 4 Diagnoses Coronary artery disease I25.10 Ischemic cardiomyopathy I25.5 Hyperlipidemia, unspecified hyperlipidemia type E78.5 Hyperlipidemia type: unspecified Essential hypertension I10 AV (arteriovenous fistula) I77.0 NSVT (nonsustained ventricular tachycardia) I47.29 Diabetes E11.9 Clinical Quality Measures Falls Risk Screening/Assistive Devices Have you fallen in the past year?: No Cardiac Ejection fraction %: 15 01/25/25 1337 <Electronically signed by Lisha Miranda MD> Date _ Lisha Miranda MD Cosigner Signature: Date (if applicable) CC: Dr. Jackie Escalante MD ~ [facility] Work Phone: 1(200) 508-253912-03-2024 Evaluation note* Diagnosis Onset Date Resolution Status Admit Date Coronary artery disease chronic D ecember 2023 1:10pm Diabetes chronic July 14, 2024 1:10pm Essential hypertension chronic De cember 2023 1:10pm Hyperlipidemia chronic July 142023 1:10pm Ischemic cardiomyopathy chronic D ec2023 1:10pm NSVT (nonsustained ventricul ar tachycardia) chronic July 14 1:10pm AV (arteriovenous fistula) resolved July 14, 2024 1:10pm [facility] Work Phone: 1(657) 185-828409-09-2024 Telephone encounter Note* Telephone Encounter - Mandy Lew LPN - 04/20/2024 9:00 AM EDT Received A1c results. Sent to [facility] through Onbase scanning. Mandy Lew LPN [facility]09-09-2024 Miscellaneous Notes* Telephone Encounter - Mandy Lew LPN - 04/20/2024 9:00 AM EDT Received A1c results. Sent to [facility] through Onbase scanning. Mandy Lew LPN * Telephone Encounter - Mandy Lew LPN - 04/15/2024 11:11 AM EDT Fax request sent to Dr. Escalante's office requesting most recent A1c be faxed for upcoming surgery 04/20/24. Mandy Lew LPN * Telephone Encounter - Nicky Pickens APRN.CNP - 04/14/2024 10:11 AM EDT Can we request most recent A1c from PCP's office? [facility] Telephone encounter Note * Telephone Encounter - Dipak Isidro - 04/17/2024 3:12 PM EDT Email from Dr. High anesthesiologist - patient will be cancelled for his scopes Saturday with [facility] in [place] as he has not been cleared through anesthesia nor cardiology. Patient is to follow back up with cardiology regarding AICD. [facility] to follow [facility] on this Patient aware he is needing to see his cardiologists and complete all follow up appointments required by anesthesia and surgeon. No new date as of now until patient has been cleared to proceed. Dipak Isidro Machine Grinder [facility]09-06-2024 Miscellaneous Notes* Telephone Encounter - Dipak Isidro - 04/17/2024 3:12 PM EDT Email from Dr. High anesthesiologist - patient will be cancelled for his scopes Saturday with [facility] in [place] as he has not been cleared through anesthesia nor cardiology. Patient is to follow back up with cardiology regarding AICD. [facility] not [facility] to follow [facility] on this Patient aware he is needing to see his cardiologists and complete all follow up appointments required by anesthesia and surgeon. No new date as of now until patient has been cleared to proceed. Dipak Isidro Machine Grinder documented in this [facility]-2024 Telephone encounter Note * Telephone Encounter - Mandy Lew LPN - 04/15/2024 11:11 AM EDT Fax request sent to Dr. Escalante's office requesting most recent A1c be faxed for upcoming surgery 04/20/24. Mandy Lew LPN [facility]09-03-2024 Telephone encounter Note* Telephone Encounter - Nicky Pickens APRN.CNP - 04/14/2024 10:11 AM EDT Can we request most recent A1c from PCP's office? [facility]08-30-2024 Instructions* Patient Instructions* Nicky Pickens APRN.SIN - 04/10/2024 3:17 PM EDT Images from the original note were not included. [facility] PATIENT PREOPERATIVE INSTRUCTIONS Brice Quinonez MD has scheduled you for your procedure at this surgery center: [facility]: [phone] -- [address] [address]. Please read below carefully for your personalized instructions. Dietary Restrictions: - Follow bowel prep instructions: clear liquids need to be stopped 2 hours prior to schedule arrival at facility Medications: Unless instructed differently below, stay on all of your medications until your surgery. If you start any new medications after today's visit, please contact your surgeon. Pre-Surgery Med Instructions Medication Instructions MULTIVITAMIN ORAL Stop 7 days before surgery magnesium oxide 400 mg magnesium cap Stop 7 days before surgery melatonin 10 mg tab Stop 7 days before surgery ASPIRIN ORAL Take the day of surgery with a small sip of water atorvastatin (LIPITOR) 80 mg tablet Take the day of surgery with a small sip of water carvedilol (COREG) 12.5 mg tablet Take the day of surgery with a small sip of water Isosorbide Mononitrate 10 mg tablet Take the day of surgery with a small sip of water furosemide (LASIX) 40 mg tablet Do not take the day of surgery metFORMIN ER (GLUCOPHAGE XR) 500 mg 24 hr tablet Do not take the day of surgery nitroglycerin sublingual (NITROQUICK) 0.4 mg SL tablet IF needed spironolactone (ALDACTONE) 25 mg tablet Do not take the day of surgery If you take any medications for erectile dysfunction-Cialis (Tadalafil), Levitra, Staxyn (Vardenafil) Viagra (Sildenenafil please do not take these for 48 hours before surgery. If you start any new medications after today's visit, please contact the surgeon's office. Blood Thinning Medications: - Stop NSAIDS (Ibuprofen, Advil, Aleve, Motrin, Celebrex, Mobic, etc.) 7 days before surgery, as directed by your surgeon. - Do NOT stop aspirin or other anticoagulants without consulting with your post doctoral researcher or prescribing physician. - Stop Vitamin E, ALL multi-vitamins, herbals and dietary supplements 7 days before surgery. - You may take Tylenol (Acetaminophen) or any of your pain medications that do not contain aspirin or NSAIDS as needed. Important Reminders: - Candy, mints, and tobacco products are NOT permitted the morning of surgery. - Hearing aids, dentures and glasses may be worn the morning of surgery. - NO jewelry, body piercings, makeup, hairpins or contacts are to be worn the day of surgery. If you develop symptoms such as a fever, cold, or flu, or have other changes to your health within TWO DAYS of scheduled surgery or the morning of surgery, please contact the surgery center above. Personal Belongings: -Please have photo ID and insurance cards. -If you do not have a copy of advance directives on file with us, please bring a copy with you on the day of surgery. - Leave ALL valuables and money at home or with family members. For Outpatient Procedures: - YOU MUST HAVE A RESPONSIBLE MULTIMEDIA PROGRAMMER TAKE YOU HOME. A BASEBALL UMPIRE FOR LITTLE LEAGUE OR STOCK PITCHER CANNOT BE MADE A RESPONSIBLE MULTIMEDIA PROGRAMMER. - We recommend that a responsible person stays with you overnight to take care of you. - You cannot stay in a hotel alone after outpatient surgery. You will not be permitted to have yoursurgery, if you do not have someone to take care of you. Arrival Time for Surgery: - The Surgery Center or hospital where you are having surgery will call the afternoon before surgery (or Saturday for Saturday surgery) with a scheduled arrival time. - If you have not heard by 4 pm, please contact the surgery center above. Please be aware that emergency situations arise, which may delay or change your surgical time. If this happens, we will notify you as soon as possible and regret any inconvenience. If you already have an Advance Directive, please fax a copy to [phone] or email to for it to be added to your chart. If you do not have an Advance Directive, you can find the appropriate form and more information at [email or web address]. We recommend that youcomplete the Advance Directive form found on the website and bring it with you the day of your surgery. It can be witnessed and scanned into your chart that day. Nicky Pickens APRN.CNP documented in this encounterK[facility] History and physical note * Nicky Pickens APRN.CNP - 04/10/2024 3:12 PM EDT Images from the original note were not included. [facility] HISTORY AND PHYSICAL EXAMINATION SERVICE DATE: 04/10/2024 SERVICE TIME: 10:11 AM PRIMARY CARE PHYSICIAN: Jackie Escalante MD Assessment Patient has the following medical conditions which may affect aide-operative course: Ischemic cardiomyopathy Assessment: following [facility], most updated echo scanned into [facility] 11/2023, EF 15%, medical clearance letter faxed to [facility] and last OV if later than the one scanned into [facility] 10/2023, asymptomatic, on defibrillator/pacemaker at this time Premature ventricular contractions Assessment: controlled on rx, recent holter monitor, following cardio Mixed hyperlipidemia Assessment: c/w statin Essential hypertension Assessment: controlled on rx Last 14 BP Last 14 Encounter BP Readings: Date: BP: 04/10/2024 138/90 01/23/2024 132/82 CHF (congestive heart failure) (HCC) Assessment: controlled on rx and as needed 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 Denies CP, palpitations, sob, new or worsening cardiac symptoms. Clearance letter sent to [facility] Type 2 diabetes (HCC) Assessment: controlled on oral agent, most recent requested from PCP [place] Activity Status Index: METS: Climb a flight of stairs or walk up a hill (5.50 METs) DASI Score: 5.5 Patient denies any chest pain or undue shortness of breath with the above physical activity. Clinical Frailty Scale: 3. Well, with treated comorbid disease STOP-Bang Score: Has or is being treated for high blood pressure Patient over 50 years old Male patient Denies snoring loudly Denies feeling tired, fatigued, or sleepy during the daytime Has not been observed to stop breathing or choking/gasping during sleep BMI less than or equal to 35 kg/m^2 Does not have a large neck STOP-Bang Score: 3 Malnutrition Screening Tool: Recent weight loss without trying: No Eating poorly due to decreased appetite: No Weight Loss Score: 0 Appetite Score: 0 MST Score: 0 [id number] Score: Age: 65-74 Sex: male CHF history: Yes Hypertension history: Yes Stroke/TIA/thromboembolism history: No Vascular disease history: Yes Diabetes history: Yes [id number] Score: 5 ARISCAT Score: Age: 51-80 Preoperative SpO2: >=96% Respiratory infection in the last month: No Preoperative anemia: Yes Surgical incision: peripheral Duration of surgery: <2 hrs Emergency procedure: No ARISCAT Score: 14 ANESTHESIA FINDINGS: Intubation History: No history of difficult intubation Significant Anesthesia Considerations: none Airway History: No history of difficult airway I - PHYSICAL EVALUATION AIRWAY Patient intubated: No. Tracheostomy tube not present Mallampati: III. TM distance: >3 FB. Neck ROM: full ROM without neurological symptoms. Mouth opening: adequate. Short neck: no. Thick neck: no Arevalo present: no Lip Bite Test: I Microretrognathia/Micronagthia/Recessed Chin: No DENTAL Dental findings: teeth intact. II - ANESTHESIA PLAN Anesthetic Plan: other Beta Yolette Monitoring Plan Post Procedure Analgesic Plan Informed Consent Anesthetic risks, benefits, alternatives, personnel and consent discussed: yes. Patient / Responsible Alliance Party agrees to proceed: yes Prepared for Surgery: optimally prepared for surgery, pending [see comment]. Cardiac optimization letter faxed to cardiology CONSULTS: Patient does not require consults for optimization at this time Planned Anesthetic: other anesthesia choice The Following Tests/Procedures Have Been Initiated: Orders Placed This Encounter MULTIVITAMIN ORAL Sig: Take by mouth. magnesium oxide 400 mg magnesium cap Sig: Take by mouth. melatonin 10 mg tab Sig: Take 15 mg by mouth. REASON FOR VISIT: Mio Hart is a 68 year old male who is scheduled for colonoscopy at the request of Dr. Brice Quinonez [email or web address] for consultation. My final recommendation will be communicated back to the requesting physician by way of shared medical record or letter. Subjective The patient has the following: COVID-19 Immunization Status Overdue - Covid-19 Vaccine () Overdue since 04/12/2024 05/08/2022 Imm Admin: COVID-19 vaccine, age 12+ yr, bivalent (PFIZER-BIONTECH) 05/26/2021 Imm Admin: COVID-19 original vaccine, age 12+ yr, monovalent (PFIZER- BIONTECH - PURPLE TOP) 11/07/2020 Imm Admin: COVID-19 original vaccine, age 12+ yr, monovalent (PFIZER- BIONTECH - PURPLE TOP) Only the first 3 history entries have been loaded, but more history exists. CHIEF COMPLAINT: Pre-op exam HPI: Mio Hart is a 68 year old seen for PAC due to scheduled above procedure due to +colorgard . 01/23/24, Dr. Brice Quinonez HPI: The patient is a 68 year old male referred for endoscopy. Mio notes no history of colon complaints. The patient notes no history of upper GI complaints. Mio has not undergone prior endoscopy. He has been receiving screening via Cologuard test. Mostrecently he was found of a positive Cologuard test. The patient notes a history of coronary artery disease. He had myocardial infarction in December 2011 hehad stents placed in his anterior descending artery and a posterior descending artery. Later that year had an episode of flash pulmonary edema. Echocardiogram at that time demonstrated 30 to 35% ejection fraction. The patient presents with a tight record of his cardiac history. He states he had an nuclear stress test on May 30, 2023 which demonstrated an ejection fraction of 38%. However he states he had an echocardiogram in November 22, 2023 which suggested an ejection fraction of 15%. We now have records from the cardiology/[facility]. From their note his last echocardiogram was April 24, 2023 which demonstrated a moderately dilated left ventricle concentric left ventricle hypertrophy ejection fraction was listed as 10 to 15% there was anterior and apical akinesis and global hypokinesis left atrium was severely enlarged. May 30, 2023 demonstrated a stress test which demonstrated a gated ejection fraction of 38% demonstrated no significant aide-infarct ischemia but the prior apical infarct. The patient is states he walks 1-1/2 miles a day and does not have issues with shortness of breath. The patient is being seen by me today at the request of Dr. Jackie Escalante MD for my opinionand advice regarding positive Cologuard test. I have the copies of his most recent echocardiogram from November 22, 2023 which still demonstrates a cardiac ejection fraction of 15%. His post doctoral researcher is Dr. Lisha Miranda at the [facility]. REVIEW OF SYSTEMS: General: No weight loss, malaise or fevers. Neurological: No history of TIA's, stroke, [employer]IST tumor, impaired sensorium, hemiplegia, paraplegia orquadraplegia. No neurological symptoms or problems. Respiratory: +former smoker 1.5ppd/30 years. No history of current cough or dyspnea, or pneumonia in the past 6 weeks. No history of respiratory/pulmonary symptoms or problems. Cardiovascular: Positive for: anticoagulation therapy (ASA), CAD (following [facility], follows yearly), CHF, hyperlipidemia and hypertension Patient's last office visit The following tests and/or procedures were performed: cardiac stents. Negative for: abdominal aortic aneurysm, AICD/PPM, angina, arrhythmia, atrial fibrillation, chest pain, congenital heart defect, DVT/PE, recent NE, murmur/valvular heart disease, PTCA, PVD, open heart surgery and valve surgery. GI: See HPI. Positive for: GERD (otc rx as needed) Negative for: abdominal pain, dysphagia, hepatitis, irritable bowel syndrome, inflammatory bowel disease, liver disease, nausea, pancreatitis, vomiting and ETOH >2 drinks/day. : Positive for: nephrolithiasis (remote hx). Negative for: BPH, urinary incontinence, renal failure and urinary tract infection. Endocrine: Positive for: diabetes mellitus. Patient's diabetes mellitus is controlled by oral agents. Negative for: hypothyroidism. Hematology: Positive for: bruises/bleeds easily and chronic anti-coagulation/platelet meds. Patient is on anti-coagulation/platelet medication(s): Aspirin. Negative for: anemia and transfusion of at least 4 units within 72 hours prior to surgery. Oncology: No history of CA metastasis, chemo within 30 days, or radiotherapy within 90 days. No history of oncological symptoms or problems. Psych: No history of psychiatric symptoms or problems. Musculoskeletal: Positive for: joint pain (right knee). Skin: Negative for lesions, rash and itching. 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) No date: CHF (congestive heart failure) (HCC) No date: Essential hypertension No date: Ischemic cardiomyopathy No date: Kidney stones No date: Mixed hyperlipidemia No date: Premature ventricular contractions No date: SOB (shortness of breath) No date: Type 2 diabetes (HCC) PAST SURGICAL HISTORY No date: APPENDECTOMY No date: KNEE SURGERY HX; Right No date: PT [facility] Comment: coronary artery stent No date: TONSILLECTOMY & ADENOIDECTOMY Comment: T & A 2023: WRIST SURGERY HX; Right FAMILY HISTORY Problem Relation Age of Onset Diabetes Mother Diabetes Sister Diabetes Brother Hypertension Brother Social History Tobacco Use Smoking status: Former Types: Cigarettes Start date: 1995 Quit date: 1970 Years since quittin.7 Smokeless tobacco: Never Vaping Use Vaping status: Never Used Substance Use Topics Alcohol use: Yes Comment: 2 drinks per day Drug use: Not Currently Prior to Admission medications as of 04/14/24 0820 Medication Sig Last Dose Taking MULTIVITAMIN ORAL Take by mouth. Taking Yes magnesium oxide 400 mg magnesium cap Take by mouth. Taking Yes melatonin 10 mg tab Take 15 mg by mouth. Taking Yes ASPIRIN ORAL Take 81 mg by mouth two times a day. Taking Yes atorvastatin (LIPITOR) 80 mg tablet Take 80 mg by mouth once daily. Taking Yes carvedilol (COREG) 12.5 mg tablet Take 18 mg by mouth two times a day with meals. Taking Yes Isosorbide Mononitrate 10 mg tablet Take 5 mg by mouth two times a day. Taking Yes furosemide (LASIX) 40 mg tablet Take 40 mg by mouth as needed (swelling). Taking Yes metFORMIN ER (GLUCOPHAGE XR) 500 mg 24 hr tablet Take 500 mg by mouth two times a day. 1 tablet in am and 2 tablets in evening Taking Yes nitroglycerin sublingual (NITROQUICK) 0.4 mg SL tablet Dissolve 0.4 mg under the tongue every 5 minutes as needed for chest pain. Taking Yes spironolactone (ALDACTONE) 25 mg tablet Take 12.5 mg by mouth once daily. Taking Yes No medication comments found. ALLERGIES Allergen Reactions Ezetimibe Intolerance Lisinopril Angioedema Rosuvastatin Intolerance Objective PHYSICAL EXAM: General: alert and oriented (x3) and healthy appearance. Pertinent negatives noted - not distressed. Skin: normal color, no rash or lesions. HEENT: EOM intact and pupils equal round. Pertinent negatives noted - no carotid bruit. Cardiovascular: regular rate and rhythm, normal S1 and S2, no rub, murmurs, or gallop. Respiratory: normal breath sounds, no wheezes or crackles. No chest wall deformity or tenderness. Abdomen: soft. Pertinent negatives noted - not tender. Extremities: no deformity, no edema or tenderness, no joint swelling or clubbing. Neurological: normal cognition and motor skills. Gait normal. No weakness or sensory deficit. PAIN ASSESSMENT: VITALS: BP 138/90 Pulse 71 Temp (Src) 98 (Temporal) Resp 14 Ht 5' 10 (1.78m) Wt 204 lb (92.5kg) SpO2 97% BMI 29.27 kg/(m^2). Diagnostic tests reviewed for today's visit: Lab Value Units Date High Low HB No results within date range. HCT No results within date range. WBC No results within date range. PLT No results within date range. NA No results within date range. K No results within date range. GLUC No results within date range. BUN No results within date range. CREAT No results within date range. PTSEC No results within date range. INR No results within date range. APTT No results within date range. ALT No results within date range. AST No results within date range. TBILI No results within date range. TSH No results within date range. Lab Value Units Date High Low HCGQT No results within date range. UHCG No results within date range. HCG, BODY* No results within date range. Lab Value Units Date High Low ABORHD No results within date range. ABSCREEN No results within date range. No results found for: HBA1C No results found for this or any previous visit (from the past 8760 hour(s)). No results found for this or any previous visit (from the past 34045 hour(s)). Instructions Given to Patient: Instructions located in the after visit summary. Patient given verbal and written preop instructions and voices comprehension and compliance. SIGNATURE: Nicky Pickens APRN.CNP PATIENT NAME: Mio Hart DATE: April 10, 2024 TIME: 3:12 PM PAGER/CONTACT #: [id number] History and physical note* Nicky Pickens APRN.CNP - 04/10/2024 3:12 PM EDT Images from the original note were not included. [facility] HISTORY AND PHYSICAL EXAMINATION SERVICE DATE: 04/10/2024 SERVICE TIME: 10:11 AM PRIMARY CARE PHYSICIAN: Jackie Escalante MD Assessment Patient has the following medical conditions which may affect aide-operative course: Ischemic cardiomyopathy Assessment: following [facility], most updated echo scanned into [facility] 11/2023, EF 15%, medical clearance letter faxed to [facility] and last OV if later than the one scanned into [facility] 10/2023, asymptomatic, on defibrillator/pacemaker at this time Premature ventricular contractions Assessment: controlled on rx, recent holter monitor, following cardio Mixed hyperlipidemia Assessment: c/w statin Essential hypertension Assessment: controlled on rx Last 14 BP Last 14 Encounter BP Readings: Date: BP: 04/10/2024 138/90 01/23/2024 132/82 CHF (congestive heart failure) (HCC) Assessment: controlled on rx and as needed 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 Denies CP, palpitations, sob, new or worsening cardiac symptoms. Clearance letter sent to [facility] Type 2 diabetes (HCC) Assessment: controlled on oral agent, most recent requested from [facility] Activity Status Index: METS: Climb a flight of stairs or walk up a hill (5.50 METs) DASI Score: 5.5 Patient denies any chest pain or undue shortness of breath with the above physical activity. Clinical Frailty Scale: 3. Well, with treated comorbid disease STOP-Bang Score: Has or is being treated for high blood pressure Patient over 50 years old Male patient Denies snoring loudly Denies feeling tired, fatigued, or sleepy during the daytime Has not been observed to stop breathing or choking/gasping during sleep BMI less than or equal to 35 kg/m^2 Does not have a large neck STOP-Bang Score: 3 Malnutrition Screening Tool: Recent weight loss without trying: No Eating poorly due to decreased appetite: No Weight Loss Score: 0 Appetite Score: 0 MST Score: 0 [id number] Score: Age: 65-74 Sex: male CHF history: Yes Hypertension history: Yes Stroke/TIA/thromboembolism history: No Vascular disease history: Yes Diabetes history: Yes [id number] Score: 5 ARISCAT Score: Age: 51-80 Preoperative SpO2: >=96% Respiratory infection in the last month: No Preoperative anemia: Yes Surgical incision: peripheral Duration of surgery: <2 hrs Emergency procedure: No ARISCAT Score: 14 ANESTHESIA FINDINGS: Intubation History: No history of difficult intubation Significant Anesthesia Considerations: none Airway History: No history of difficult airway I - PHYSICAL EVALUATION AIRWAY Patient intubated: No. Tracheostomy tube not present Mallampati: III. TM distance: >3 FB. Neck ROM: full ROM without neurological symptoms. Mouth opening: adequate. Short neck: no. Thick neck: no Arevalo present: no Lip Bite Test: I Microretrognathia/Micronagthia/Recessed Chin: No DENTAL Dental findings: teeth intact. II - ANESTHESIA PLAN Anesthetic Plan: other Beta Yolette Monitoring Plan Post Procedure Analgesic Plan Informed Consent Anesthetic risks, benefits, alternatives, personnel and consent discussed: yes. Patient / Responsible Alliance Party agrees to proceed: yes Prepared for Surgery: optimally prepared for surgery, pending [see comment]. Cardiac optimization letter faxed to cardiology CONSULTS: Patient does not require consults for optimization at this time Planned Anesthetic: other anesthesia choice The Following Tests/Procedures Have Been Initiated: Orders Placed This Encounter MULTIVITAMIN ORAL Sig: Take by mouth. magnesium oxide 400 mg magnesium cap Sig: Take by mouth. melatonin 10 mg tab Sig: Take 15 mg by mouth. REASON FOR VISIT: Mio Hart is a 68 year old male who is scheduled for colonoscopy at the request of Dr. Brice Quinonez [email or web address] for consultation. My final recommendation will be communicated back to the requesting physician by way of shared medical record or letter. Subjective The patient has the following: COVID-19 Immunization Status Overdue - Covid-19 Vaccine ( season) Overdue since 04/12/2024 05/08/2022 Imm Admin: COVID-19 vaccine, age 12+ yr, bivalent (PFIZER-BIONTECH) 05/26/2021 Imm Admin: COVID-19 original vaccine, age 12+ yr, monovalent (PFIZER- BIONTECH - PURPLE TOP) 11/07/2020 Imm Admin: COVID-19 original vaccine, age 12+ yr, monovalent (PFIZER- BIONTECH - PURPLE TOP) Only the first 3 history entries have been loaded, but more history exists. CHIEF COMPLAINT: Pre-op exam HPI: Mio Hart is a 68 year old seen for PAC due to scheduled above procedure due to +colorgard . 01/23/24, Dr. Brice Quinonez HPI: The patient is a 68 year old male referred for endoscopy. Mio notes no history of colon complaints. The patient notes no history of upper GI complaints. Mio has not undergone prior endoscopy. He has been receiving screening via Cologuard test. Mostrecently he was found of a positive Cologuard test. The patient notes a history of coronary artery disease. He had myocardial infarction in December 2011 hehad stents placed in his anterior descending artery and a posterior descending artery. Later that year had an episode of flash pulmonary edema. Echocardiogram at that time demonstrated 30 to 35% ejection fraction. The patient presents with a tight record of his cardiac history. He states he had an nuclear stress test on May 30, 2023 which demonstrated an ejection fraction of 38%. However he states he had an echocardiogram in November 22, 2023 which suggested an ejection fraction of 15%. We now have records from the cardiology/[facility]. From their note his last echocardiogram was April 24, 2023 which demonstrated a moderately dilated left ventricle concentric left ventricle hypertrophy ejection fraction was listed as 10 to 15% there was anterior and apical akinesis and global hypokinesis left atrium was severely enlarged. May 30, 2023 demonstrated a stress test which demonstrated a gated ejection fraction of 38% demonstrated no significant aide-infarct ischemia but the prior apical infarct. The patient is states he walks 1-1/2 miles a day and does not have issues with shortness of breath. The patient is being seen by me today at the request of Dr. Jackie Escalante MD for my opinionand advice regarding positive Cologuard test. I have the copies of his most recent echocardiogram from November 22, 2023 which still demonstrates a cardiac ejection fraction of 15%. His post doctoral researcher is Dr. Lisha Miranda at the [facility]. REVIEW OF SYSTEMS: General: No weight loss, malaise or fevers. Neurological: No history of TIA's, stroke, [employer]IST tumor, impaired sensorium, hemiplegia, paraplegia orquadraplegia. No neurological symptoms or problems. Respiratory: +former smoker 1.5ppd/30 years. No history of current cough or dyspnea, or pneumonia in the past 6 weeks. No history of respiratory/pulmonary symptoms or problems. Cardiovascular: Positive for: anticoagulation therapy (ASA), CAD (following [facility], follows yearly), CHF, hyperlipidemia and hypertension Patient's last office visit The following tests and/or procedures were performed: cardiac stents. Negative for: abdominal aortic aneurysm, AICD/PPM, angina, arrhythmia, atrial fibrillation, chest pain, congenital heart defect, DVT/PE, recent NE, murmur/valvular heart disease, PTCA, PVD, open heart surgery and valve surgery. GI: See HPI. Positive for: GERD (otc rx as needed) Negative for: abdominal pain, dysphagia, hepatitis, irritable bowel syndrome, inflammatory bowel disease, liver disease, nausea, pancreatitis, vomiting and ETOH >2 drinks/day. : Positive for: nephrolithiasis (remote hx). Negative for: BPH, urinary incontinence, renal failure and urinary tract infection. Endocrine: Positive for: diabetes mellitus. Patient's diabetes mellitus is controlled by oral agents. Negative for: hypothyroidism. Hematology: Positive for: bruises/bleeds easily and chronic anti-coagulation/platelet meds. Patient is on anti-coagulation/platelet medication(s): Aspirin. Negative for: anemia and transfusion of at least 4 units within 72 hours prior to surgery. Oncology: No history of CA metastasis, chemo within 30 days, or radiotherapy within 90 days. No history of oncological symptoms or problems. Psych: No history of psychiatric symptoms or problems. Musculoskeletal: Positive for: joint pain (right knee). Skin: Negative for lesions, rash and itching. 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) No date: CHF (congestive heart failure) ([facility]) No date: Essential hypertension No date: Ischemic cardiomyopathy No date: Kidney stones No date: Mixed hyperlipidemia No date: Premature ventricular contractions No date: SOB (shortness of breath) No date: Type 2 diabetes ([facility]) PAST SURGICAL HISTORY No date: APPENDECTOMY No date: KNEE SURGERY HX; Right No date: PT ED HEART [facility] VASCULAR Comment: coronary artery stent No date: TONSILLECTOMY & ADENOIDECTOMY <AGE 10 Comment: T & A 2023: WRIST SURGERY HX; Right FAMILY HISTORY Problem Relation Age of Onset Diabetes Mother Diabetes Sister Diabetes Brother Hypertension Brother Social History Tobacco Use Smoking status: Former Types: Cigarettes Start date: 1995 Quit date: 1970 Years since quittin.7 Smokeless tobacco: Never Vaping Use Vaping status: Never Used Substance Use Topics Alcohol use: Yes Comment: 2 drinks per day Drug use: Not Currently Prior to Admission medications as of 04/14/24 0820 Medication Sig Last Dose Taking MULTIVITAMIN ORAL Take by mouth. Taking Yes magnesium oxide 400 mg magnesium cap Take by mouth. Taking Yes melatonin 10 mg tab Take 15 mg by mouth. Taking Yes ASPIRIN ORAL Take 81 mg by mouth two times a day. Taking Yes atorvastatin (LIPITOR) 80 mg tablet Take 80 mg by mouth once daily. Taking Yes carvedilol (COREG) 12.5 mg tablet Take 18 mg by mouth two times a day with meals. Taking Yes Isosorbide Mononitrate 10 mg tablet Take 5 mg by mouth two times a day. Taking Yes furosemide (LASIX) 40 mg tablet Take 40 mg by mouth as needed (swelling). Taking Yes metFORMIN ER (GLUCOPHAGE XR) 500 mg 24 hr tablet Take 500 mg by mouth two times a day. 1 tablet in am and 2 tablets in evening Taking Yes nitroglycerin sublingual (NITROQUICK) 0.4 mg SL tablet Dissolve 0.4 mg under the tongue every 5 minutes as needed for chest pain. Taking Yes spironolactone (ALDACTONE) 25 mg tablet Take 12.5 mg by mouth once daily. Taking Yes No medication comments found. ALLERGIES Allergen Reactions Ezetimibe Intolerance Lisinopril Angioedema Rosuvastatin Intolerance Objective PHYSICAL EXAM: General: alert and oriented (x3) and healthy appearance. Pertinent negatives noted - not distressed. Skin: normal color, no rash or lesions. HEENT: EOM intact and pupils equal round. Pertinent negatives noted - no carotid bruit. Cardiovascular: regular rate and rhythm, normal S1 and S2, no rub, murmurs, or gallop. Respiratory: normal breath sounds, no wheezes or crackles. No chest wall deformity or tenderness. Abdomen: soft. Pertinent negatives noted - not tender. Extremities: no deformity, no edema or tenderness, no joint swelling or clubbing. Neurological: normal cognition and motor skills. Gait normal. No weakness or sensory deficit. PAIN ASSESSMENT: VITALS: BP 138/90 Pulse 71 Temp (Src) 98 (Temporal) Resp 14 Ht 5' 10 (1.78m) Wt 204 lb (92.5kg) SpO2 97% BMI 29.27 kg/(m^2). Diagnostic tests reviewed for today's visit: Lab Value Units Date High Low HB No results within date range. HCT No results within date range. WBC No results within date range. PLT No results within date range. NA No results within date range. K No results within date range. GLUC No results within date range. BUN No results within date range. CREAT No results within date range. PTSEC No results within date range. INR No results within date range. APTT No results within date range. ALT No results within date range. AST No results within date range. TBILI No results within date range. TSH No results within date range. Lab Value Units Date High Low HCGQT No results within date range. UHCG No results within date range. HCG, BODY* No results within date range. Lab Value Units Date High Low ABORHD No results within date range. ABSCREEN No results within date range. No results found for: HBA1C No results found for this or any previous visit (from the past 8760 hour(s)). No results found for this or any previous visit (from the past 55502 hour(s)). Instructions Given to Patient: Instructions located in the after visit summary. Patient given verbal and written preop instructions and voices comprehension and compliance. SIGNATURE: Nicky Pickens APRN.CNP PATIENT NAME: Mio Hart DATE: April 10, 2024 TIME: 3:12 PM [facility]AGER/CONTACT #[facility] encounter Note * Telephone Encounter - Dipak Isidro - 03/10/2024 2:22 PM EDT Patient denied sooner date 03/13/2024 Dipak Isidro [employer] [facility]07-30-2024 Miscellaneous Notes* Telephone Encounter - Dipak Isidro - 03/10/2024 2:22 PM EDT Patient denied sooner date 03/13/2024 Dipak Isidro Machine [employer] * Telephone Encounter - Dipak Isidro - 03/10/2024 11:05 AM EDT Left voicemail for patient in regards to sooner date with Dr. Wayne this Saturday in [place] Dipak Isidro Machine [employer]inder * Telephone Encounter - Dipak Isidro - 02/07/2024 11:26 AM EDT Patient denied sooner date with kian in [place] Scheduled 06/08/2024 asking to be on waitlist [facility] Telephone encounter Note * Telephone Encounter - Dipak Isidro - 03/10/2024 11:05 AM EDT Left voicemail for patient in regards to sooner date with Dr. Wayne this Saturday in [place] Dipak Isidro [employer] [facility]07-30[facility]2024 [facility] Medical Records Department [address] [place] [address] History Physical Exam 03/10/24 1006 MR#: [id number] Acct: [id number] Name: MIO HART Rep #: [id number] : 1955 68 From: Cristopher Austin MD PCP: Dr. Jackie Escalante MD Status:[facility] Location: [place] [address] History and Physical Allergies lisinopril Allergy (Intermediate, Verified 02/19/24 14:09) Angioedemarosuvastatin (From Crestor) Adverse Reaction (Severe, Verified 02/19/24 14:09) didnt feel well Medications ???Medication ???Instructions ???Recorded ???Confirmed ???Type aspirin 81 mg tablet,delayed 81 mg PO BID 04/23/16 01/29/24 History release furosemide 40 mg tablet 40 mg PO DAILY PRN Swelling 04/23/16 01/29/24 History spironolactone 25 mg tablet 12.5 mg PO DAILY 04/23/16 01/29/24 History atorvastatin 80 mg tablet 80 mg PO QHS #90 tabs 09/30/17 01/29/24 Rx magnesium oxide 400 mg (241.3 mg 400 mg PO QDAY 03/10/18 01/29/24 History magnesium) tablet keoztbhtowdg-smpcmlem-qkfn 1 tab PO DAILY 11/19/22 01/29/24 History fumarate 7.5 mg-folic acid 400 mcg tablet albuterol sulfate 90 mcg/actuation 2 puff inhalation Q4H PRN PRN 09/17/23 01/29/24 Rx aerosol inhaler (Ventolin HFA) Wheezing ##1 isosorbide mononitrate 10 mg tablet 5 mg PO BID 10/23/23 01/29/24 History metformin 500 mg tablet,extended 500 mg PO BID 10/23/23 01/29/24 History release 24 hr melatonin 10 mg tablet 10 mg PO HS PRN 01/29/24 01/29/24 History carvedilol 25 mg tablet 25 mg PO BID 02/19/24 History nitroglycerin 0.4 mg sublingual 0.4 mg sublingual Q5-15M PRN 02/19/24 01/29/24 History tablet Have you fallen in the past year?: No PFSH Medical History Kidney stones Essential hypertension Type 2 diabetes mellitus without complications Hypertension Chronic systolic (congestive) heart failure Ischemic cardiomyopathy Hyperlipidemia 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 Premature ventricular contractions 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 Surgical History History of tonsillectomy and adenoidectomy History of appendectomy H/O right knee surgery Stented coronary artery ( 12/14/11) Family History Mother DiabetesSister DiabetesBrother Diabetes Hypertension Social History Smoking Status: Former smoker how long ago did patient quit smokin years ago alcohol intake: current alcohol intake frequency: 0-2 drinks per day Alcohol type: wine substance use type: does not use caffeine: Yes Type: coffee Number of servings: 2 HPI HPI HPI: MIO HART, is a 68 M who presents to the office today for evaluation of 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 It was initially discovered shortly after the procedure but he elected not to pursue repair at that time. It has increased in size over recent years. He does have significantly reduced LV function. ROS General General: No weight change, appetite, fatigue, colon cancer, breast cancer or weakness HEENT HEENT: No difficulty swallowing, eye injury, eye surgery, swollen glands or hoarseness Endo Endocrine: Yes diabetes mellitus; No thyroid disease, thyroid cancer, Hair loss, heat intolerance or cold intolerance Skin Skin: No rash or changing moles Musc Musculoskeletal: Yes rheumatoid arthritis; No back problems, arthritis, gout or joint pain Cardio Cardiovascular: Yes heart disease, high blood pressure, heart attack and heart stent; No murmur, pacemaker, atrial fibrillation, palpitations, shortness of breat with exertion or chest pain Psych Psychiatric: No depression, anxiety or hearing voices Resp Respiratory: No shortness of breath, No sleep apnea, No cough, No COPD, No asthma, No emphysema and No wheezing Gastro Gastrointestinal: No abdominal pain, No nausea or vomiting, Yes diarrhea, No constipation, No blood in stool, No acid reflux, No hemorrhoids, No ulcers, No gallbladder problem and No black,tarry stools Conner Hematologic: Yes blood thinners, No blood disorders, No bleeding, No anemia and No blood clots Additional Details: ASA Neuro Neurologic: No system reviewed and no additional complaints, except as documented, No as per HPI, No abnormal gait, No abnormal hearing, No abnormal movements, No abnormal speech, No behavioral changes, No burning sensations, No confusion, No convulsions, No disequilibrium, No dizziness, No localized weakness, No frequent falls, No headache(s), No lack of coordination, No loss of vision, No memory loss, Yes numbness, No other visual disturbances, No radicul (more content not included)...[facility]06-28-2024 Telephone encounter Note* Telephone Encounter - Dipak Isidro - 02/07/2024 11:26 AM EDT Patient denied sooner date with kian in [place] Scheduled 06/08/2024 asking to be on waitlist [facility] Note* Addendum Note - Brice Quinonez MD - 01/31/2024 11:19 AM EDTAddended by: BRICE QUINONEZ on: 01/31/2024 11:19 AM Modules accepted: Orders [facility]06-21-2024 Miscellaneous Notes* Addendum Note - Brice Quinonez MD - 01/31/2024 11:19 AM EDTAddended by: BRICE QUINONEZ on: 01/31/2024 11:19 AM Modules accepted: Orders documented in this encounterK[facility]06-21-2024 Instructions* Patient Instructions* Brice Quinonez MD - 01/31/2024 11:18 AM EDT Images from the original note were not included. Bowel Preparation Instructions for: Golytely, Nulytely, Trilyte or Colyte (polyethylene glycol 3350and electrolytes) IF YOU DO NOT FOLLOW THESE DIRECTIONS, YOUR COLONOSCOPY WILL BE CANCELLED. [place]avaleta Instructions: Your bowel must be empty so that your doctor can clearly view your colon. Follow all of the instructions in this handout EXACTLY as they are written. Do NOT eat any solid food the ENTIRE day before your colonoscopy. Drink only clear liquids. Buy your bowel preparation at least 5 days before your colonoscopy. TRANSPORTATION on the Day of Your Exam A responsible person MUST be present with you at Check In prior to your colonoscopy and REMAIN in the endoscopy area until you are discharged. You are NOT ALLOWED to drive, take a taxi or bus, or leave the Endoscopy Center ALONE. If you do not have a responsible hi lo driver (family member or friend) with you to take you home, your exam cannot be done with sedation and will be cancelled. Please bring a list of all of your current medications, including any Over-the Counter medications with you. Medications If you take insulin, diabetic medications or blood thinners such as Coumadin (warfarin), Plavix (clopidogrel), Ticlid (ticlopidine hydrochloride), Agrylin (anagrelide), Xarelto (Rivaroxaban), Pradaxa(Dabigatran), Eliquis (Apixaban), and Effient (Prasugrel). You MUST call the doctors who orders those medicines for instructions on altering the dosage before your colonoscopy. All other medications should be taken the day of the exam with a sip of water including ASPIRIN. Five (5) Days Before Your Colonoscopy Do NOT take medicines that stop diarrhea - such as Imodium, Kaopectate, or Pepto Bismol. Do NOT take fiber supplements - such as Metamucil, Citrucel, or Perdiem. Do NOT take products that contain iron - such as multi-vitamins (the label lists what is in the products). Do NOT take Vitamin E. Buy the prescription bowel preparation solution at your local pharmacy or drugstore pharmacy. 07/2019 Bowel Preparation Instructions for: Golytely, Nulytely, Trilyte or Colyte (polyethylene glycol 3350and electrolytes) Three (3) Days Before Your Colonoscopy Do NOT eat high-fiber foods - such as popcorn, beans, seeds (flax, sunflower, quinoa), multigrain bread, nuts, salad/vegetables, or fresh and dried fruit. One (1) Day Before Your Colonoscopy Only drink clear liquids the ENTIRE DAY before your colonoscopy. Do NOT eat any solid foods. Drink at least 8 ounces of clear liquids every hour after waking up. The clear liquids you can drink include: Clear Liquid (NO RED LIQUIDS) DO NOT DRINK Gatorade, Pedialyte or Powerade Clear broth or bouillon Coffee or tea (no milk or non-dairy creamer) Carbonated and non-carbonated soft drinks Javid-Aid or other fruit flavored drinks Strained fruit juices (no pulp) Jell-O, popsicles, hard candy Water Alcohol Milk or non-dairy creamers Noodles or vegetables in soup Juice with pulp Liquid you cannot see through Do not use tobacco/vaping products The bowel preparation solution will be consumed in two parts. Mix the solution the evening before your colonoscopy and refrigerate before drinking. You may add the flavor pack that came with the bowel preparation. Do NOT add ice, sugar or any other flavorings to the solution. Part 1 At 6:00 PM - Evening before your colonoscopy Drink an 8-oz glass of bowel preparation every 10 minutes until clear You may continue to drink clear liquids until midnight. 2 07/2019 documented in this encounterK[facility]06-[facility] Telephone encounter Note * Telephone Encounter - Loki Sullivan RN - 01/27/2024 4:53 PM EDT Medical records requested from [facility]), [facility], and [facility]. Loki Sullivan RN [facility]06-17-2024 Miscellaneous Notes* Telephone Encounter - Loki Sullivan RN - 01/27/2024 4:53 PM EDT Medical records requested from [facility]), [facility], and [facility]. Loki Sullivan RN documented in this encounterK[facility]06-14-2024 NoteHNO ID: [id number] Author: BRICE QUINONEZ MD Service: ? Author Type: Physician Type: Progress Notes Filed: 01/31/2024 11:17 Note Text: HISTORY AND PHYSICAL Mio Hart 1955 REFERRING PHYSICIAN: Dr. Escalante CHIEF COMPLAINT: Consult (Positive cologuard report) HPI: The patient is a 68 year old male referred for endoscopy. Mio notes no history of colon complaints. The patient notes no history of upper GI complaints. Mio has not undergone prior endoscopy. He has been receiving screening via Cologuard test. Most recently he was found of a positive Cologuard test. The patient notes a history of coronary artery disease. He had myocardial infarction in December 2011 he had stents placed in his anterior descending artery and a posterior descending artery. Later that year had an episode of flash pulmonary edema. Echocardiogram at that time demonstrated 30 to 35% ejection fraction. The patient presents with a tight record of his cardiac history. He states he had an nuclear stress test on May 30, 2023 which demonstrated an ejection fraction of 38%. However he states he had an echocardiogram in November 22, 2023 which suggested an ejection fraction of 15%. We now have records from the cardiology/[facility]. From their note his last echocardiogram was April 24, 2023 which demonstrated a moderately dilated left ventricle concentric left ventricle hypertrophy ejection fraction was listed as 10 to 15% there was anterior and apical akinesis and global hypokinesis left atrium was severely enlarged. May 30, 2023 demonstrated a stress test which demonstrated a gated ejection fraction of 38% demonstrated no significant aide-infarct ischemia but the prior apical infarct. The patient is states he walks 1-1/2 miles a day and does not have issues with shortness of breath. The patient is being seen by me today at the request of Dr. Jackie Escalante MD for my opinion and advice regarding positive Cologuard test. I have the copies of his most recent echocardiogram from November 22, 2023 which still demonstrates a cardiac ejection fraction of 15%. His post doctoral researcher is Dr. Lisha Miranda at the [facility]. 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 atorvastatin (LIPITOR) 80 mg tablet Take 80 mg by mouth once daily. carvedilol (COREG) 12.5 mg tablet Take 18 mg by mouth two times a day with meals. Isosorbide Mononitrate 10 mg tablet Take 5 mg by mouth two times a day. furosemide (LASIX) 40 mg tablet Take 40 mg by mouth as needed (swelling). metFORMIN ER (GLUCOPHAGE XR) 500 mg 24 hr tablet Take 500 mg by mouth two times a day. 1 tablet in am and 2 tablets in evening nitroglycerin sublingual (NITROQUICK) 0.4 mg SL tablet Dissolve 0.4 mg under the tongue every 5 minutes as needed for chest pain. spironolactone (ALDACTONE) 25 mg tablet Take 12.5 mg by mouth once daily. No current facility-administered medications for this visit. ALLERGIES: Ezetimibe, Lisinopril, and Rosuvastatin PERSONAL HISTORY: Social History Tobacco Use Smoking status: Former Types: Cigarettes Smokeless tobacco: Never FAMILY HISTORY: History reviewed. No pertinent family history. REVIEW OF SYMPTOMS: The review of systems data was entered by the nurse and reviewed by me There are no exam notes on file for this visit. PHYSICAL EXAMINATION: General: The patient is 68 year old male, well nourished, well hydrated in no acute distress. The patient is oriented to time, place, and person. VITALS: Blood pressure 132/82, pulse 74, weight 93 kg (205 lb 0.4 oz). There is no height or weight on file to calculate BMI. HEENT: Normal cephalic, ataumatic, pupils are equally round, sclera are anicteric, mucous membranes are moist, oropharynx is clear. Neck has no masses, asymmetry or lymphadenopathy. Thyroid is unremarkable. Respiratory: Clear to auscultation and percussion. Normal respiratory excursion and pattern. Cardiac: Examination is regular rate and rhythm. Abdominal exam: Soft, nontender, with no palpable masses. No hepatosplenomegaly. No palpable hernias. Rectal exam: exam deferred Extremities: no clubbing, cyanosis or edema. No adenopathy. Other: LABORATORY VALUES: As Noted RADIOLOGIC STUDIES: As Noted Assessment IMPRESSION: (more content not included)...[facility]06-14-2024 History of Present illness Narrative* Brice Quinonez MD - 01/24/2024 4:57 AM EDT HISTORY AND PHYSICAL Moi Hart 1955 REFERRING PHYSICIAN: Dr. Escalante CHIEF COMPLAINT: Consult (Positive cologuard report) HPI: The patient is a 68 year old male referred for endoscopy. Mio notes no history of colon complaints. The patient notes no history of upper GI complaints. Mio has not undergone prior endoscopy. He has been receiving screening via Cologuard test. Mostrecently he was found of a positive Cologuard test. The patient notes a history of coronary artery disease. He had myocardial infarction in December 2011 hehad stents placed in his anterior descending artery and a posterior descending artery. Later that year had an episode of flash pulmonary edema. Echocardiogram at that time demonstrated 30 to 35% ejection fraction. The patient presents with a tight record of his cardiac history. He states he had an nuclear stress test on May 30, 2023 which demonstrated an ejection fraction of 38%. However he states he had an echocardiogram in November 22, 2023 which suggested an ejection fraction of 15%. We now have records from the cardiology/[facility]. From their note his last echocardiogram was April 24, 2023 which demonstrated a moderately dilated left ventricle concentric left ventricle hypertrophy ejection fraction was listed as 10 to 15% there was anterior and apical akinesis and global hypokinesis left atrium was severely enlarged. May 30, 2023 demonstrated a stress test which demonstrated a gated ejection fraction of 38% demonstrated no significant aide-infarct ischemia but the prior apical infarct. The patient is states he walks 1-1/2 miles a day and does not have issues with shortness of breath. The patient is being seen by me today at the request of Dr. Jackie Escalante MD for my opinionand advice regarding positive Cologuard test. I have the copies of his most recent echocardiogram from November 22, 2023 which still demonstrates a cardiac ejection fraction of 15%. His post doctoral researcher is Dr. Lisha Miranda at the [facility]. 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 atorvastatin (LIPITOR) 80 mg tablet Take 80 mg by mouth once daily. carvedilol (COREG) 12.5 mg tablet Take 18 mg by mouth two times a day with meals. Isosorbide Mononitrate 10 mg tablet Take 5 mg by mouth two times a day. furosemide (LASIX) 40 mg tablet Take 40 mg by mouth as needed (swelling). metFORMIN ER (GLUCOPHAGE XR) 500 mg 24 hr tablet Take 500 mg by mouth two times a day. 1 tablet in am and 2 tablets in evening nitroglycerin sublingual (NITROQUICK) 0.4 mg SL tablet Dissolve 0.4 mg under the tongue every 5 minutes as needed for chest pain. spironolactone (ALDACTONE) 25 mg tablet Take 12.5 mg by mouth once daily. No current facility-administered medications for this visit. ALLERGIES: Ezetimibe, Lisinopril, and Rosuvastatin PERSONAL HISTORY: Social History Tobacco Use Smoking status: Former Types: Cigarettes Smokeless tobacco: Never FAMILY HISTORY: History reviewed. No pertinent family history. REVIEW OF SYMPTOMS: The review of systems data was entered by the nurse and reviewed by me There are no exam notes on file for this visit. PHYSICAL EXAMINATION: General: The patient is 68 year old male, well nourished, well hydrated in no acute distress. The patient is oriented to time, place, and person. VITALS: Blood pressure 132/82, pulse 74, weight 93 kg (205 lb 0.4 oz). There is no height or weighton file to calculate BMI. HEENT: Normal cephalic, ataumatic, pupils are equally round, sclera are anicteric, mucous membranesare moist, oropharynx is clear. Neck has no masses, asymmetry or lymphadenopathy. Thyroid is unremarkable. Respiratory: Clear to auscultation and percussion. Normal respiratory excursion and pattern. Cardiac: Examination is regular rate and rhythm. Abdominal exam: Soft, nontender, with no palpable masses. No hepatosplenomegaly. No palpable hernias. Rectal exam: exam deferred Extremities: no clubbing, cyanosis or edema. No adenopathy. Other: LABORATORY VALUES: As Noted RADIOLOGIC STUDIES: As Noted Assessment IMPRESSION: Positive Cologuard test, cardiomyopathy PLAN: I plan to perform upper and lower endoscopy. We discussed the risks and benefits of the planned endoscopy. I have informed the patient that complications can occur including failure to completethe endoscopy and perforation. The patient had the opportunity to ask questions concerning the planned endoscopy. My staff has also explained the procedure to the patient in understandable terms and has given the patient printed material concerning the procedure. The patient freely consents to surgery. I plan to use golytely bowel preparation for endoscopy I plan for monitored anesthetic care. I will forward this note to Dr. Erika High for her opinion given the difference in cardiac output between echocardiogram and stress test. 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 Jackie Escalante MD indicating the above finding for this patient. Return to Clinic: The patient is instructed to follow-up with me after study has been performed. Brice Quinonez MD documented in this encounterK[facility] CampusEvaluation noteNo assessment information availableWKettering Health Dayton Work Phone: Evaluation note* Diagnosis Onset Date Resolution Status [id number] chronic Essential hypertension chron ic Hyperlipidemia chronic Ischemic cardiomyopathy [facility] Work Phone: Evaluation note* Diagnosis Onset Date Resolution Status AV (arteriovenous fistula) c hronic Coronary artery disease surface boss derick Essential hypertension chron ic Hyperlipidemia chronic Ischemic cardiomyopathy 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) Congestive heart failure, unspecified HF chronicity, unspecified heart failure type (HCC) Essential hypertension Unspecified essential hypertension Mixed hyperlipidemia Premature ventricular contractions Other premature beats Type 2 diabetes (HCC) Ischemic cardiomyopathy Other specified forms of chronic ischemic heart disease * Assessment & Plan Note - Nicky Pickens APRN.CNP - 04/14/2024 9:08 AM EDT Associated Problem(s): Type 2 diabetes (HCC) Assessment: controlled on oral agent, most recent requested from PCP * Assessment & Plan Note - Nicky Pickens APRN.CNP - 04/14/2024 8:50 AM EDT Associated Problem(s): Atherosclerotic heart disease of mentasta coronary artery with angina pectoris(HCC) Assessment: s/p stents, c/w daily ASA, BB, and statin. Denies CP, palpitations, sob, new or worsening cardiac symptoms. Clearance letter sent to [facility] * Assessment & Plan Note - Nicky Pickens APRN.CNP - 04/14/2024 8:49 AM EDT Associated Problem(s): CHF (congestive heart failure) (HCC) Assessment: controlled on rx and as needed * Assessment & Plan Note - Nicky Pickens APRN.CNP - 04/14/2024 8:49 AM EDT Associated Problem(s): Essential hypertension Assessment: controlled on rx Last 14 BP Last 14 Encounter BP Readings: Date: BP: 04/10/2024 138/90 01/23/2024 132/82 * Assessment & Plan Note - Nicky Pickens APRN.CNP - 04/14/2024 8:49 AM EDT Associated Problem(s): Mixed hyperlipidemia Assessment: c/w statin * Assessment & Plan Note - Nicky Pickens APRN.CNP - 04/14/2024 8:49 AM EDT Associated Problem(s): Premature ventricular contractions Assessment: controlled on rx, recent holter monitor, following cardio * Assessment & Plan Note - Nicky Pickens APRN.CNP - 04/14/2024 8:48 AM EDT Associated Problem(s): Ischemic cardiomyopathy Assessment: following WHG, most updated echo scanned into [facility] 11/2023, EF 15%, medical clearance letter faxed to [facility] and last OV if later than the one scanned into [facility] 10/2023, asymptomatic, on defibrillator/pacemaker at this time documented in this encounter [facility]* Diagnosis Onset Date Resolution Status Admit Date Coronary artery disease chronic J une 2024 1:09pm Diabetes chronic January 25 1:09pm Essential hypertension chronic Ju ne 2024 1:09pm Hyperlipidemia chronic January 25, 2025 1:09pm Ischemic cardiomyopathy chronic J une 2024 1:09pm NSVT (nonsustained ventricul ar tachycardia) chronic January 25, 2025 1:09pm AV (arteriovenous fistula) resolved January 25, 2025 1:09pm [facility] Work Phone: Hospital Discharge instructionsAmbulatory Orders* Vascular Location: None Selected [facility] Work Phone: Reason for referral (narrative)* Outpatient Procedure (Routine) - Pending Review Specialty Diagnoses / Procedures Referred By Rodrick ramos Referred To Contact [facility] Diagnoses Encounter for colorectal cancer screening using Cologuard test 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) Cardiomyopathy, unspecified type (HCC) Procedures COLONOSCOPY DIAGNOSTIC COLONOSCOPY FLX DX W/COLLJ SPEC WHEN PFRMBrice Good MD [address] [place] [address] [facility] Disease [id number] [place] [address] Referral ID Status Reason Start Date Expiration Date Visits Requested Visits Authorized [id number] Pending Review Auto-Generat ed Referral 01/31/2024 01/30/2025 1 1 * Outpatient Procedure (Routine) - Pending Review Specialty Diagnoses / Procedures Referred By Rodrick ramos Referred To Contact [facility] Diagnoses Encounter for colorectal cancer screening using Cologuard test 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) Cardiomyopathy, unspecified type (HCC) Procedures EGD DIAGNOSTIC ESOPHAGOGASTRODUODENOSC OPY TRANSORAL DIAGNOSTIC Brice Quinonez MD [address] [address] [facility] Disease [address] [address] Referral ID Status Reason Start Date Expiration Date Visits Requested Visits Authorized [id number] Pending Review Auto-Generat ed Referral 01/31/2024 01/30/2025 1 1 [facility] for referral (narrative)No reason for referral [facility] Work Phone: Chief Complaint and Reason for Visit Chief Complaint E ORDER Chief Complaint EORDERS- RANNEY & MO ODISPAW 6 m fu Reason for Visit [id number] Essential hypertension Hyperlipidemia Ischemic cardiomyopathy Chief Complaint EORDERS- RANNEY & MO ODISPAW 6 m fu Allergy, unspecified, initial encounter Reason for Visit [id number] Essential hypertension Hyperlipidemia Ischemic cardiomyopathy Chief Complaint Allergy, unspecified , initial encounter 1 Y FU PREV PFM CHF Amb Documentation Amb Documentation Reason for Visit [id number] Essential hypertension Hyperlipidemia Ischemic cardiomyopathy Chief Complaint 1 Y FU PREV PFM CHF Amb Documentation Amb Documentation ISCHEMIC CARDIOMYOPATHY ISCHEMIC CARDIOMYOPATHY Amb Documentation Reason for Visit [id number] Essential hypertension Hyperlipidemia Ischemic cardiomyopathy Chief Complaint ISCHEMIC CARDIOMYOPA THY ISCHEMIC CARDIOMYOPATHY Amb Documentation RIGHT KNEE PAIN SHORTNESS OF BREATH Chief Complaint RIGHT KNEE PAIN SHORTNESS OF BREATH 6 M FU Reason for Visit AV (arteriovenous fi stula) Coronary artery disease Essential hypertension Hyperlipidemia Ischemic cardiomyopathy Chief Complaint RIGHT KNEE PAIN SHORTNESS OF BREATH 6 M FU EORDER Reason for Visit AV (arteriovenous fi stula) Coronary artery disease Essential hypertension Hyperlipidemia Ischemic cardiomyopathy Chief Complaint SHORTNESS OF BREATH 6 M FU EORDER Atherosclerotic heart disease of mentasta coronary a Amb Documentation Reason for Visit AV (arteriovenous fi stula) Coronary artery disease Essential hypertension Hyperlipidemia Ischemic cardiomyopathy Chief Complaint 1 Y FU PREV PFM CHF Amb Documentation Amb Documentation ISCHEMIC CARDIOMYOPATHY ISCHEMIC CARDIOMYOPATHY Amb Documentation RIGHT KNEE PAIN Reason for Visit [id number] Essential hypertension Hyperlipidemia Ischemic cardiomyopathy Chief Complaint Admit Date 3 M FU July 14, 2024 1 :10pm EORDER October 20, 2024 9:2 0am Reason for Visit Admit Date Coronary artery disease July 14 1:10pm Diabetes July 14, 2024 1 :10pm Essential hypertension July 14 1:10pm Hyperlipidemia July 14, 2024 1 :10pm Ischemic cardiomyopathy July 14 1:10pm NSVT (nonsustained ventricular tachycard ia) July 14, 2024 1:10pm AV (arteriovenous fistula) July 14, 2024 1:10pm Chief Complaint Admit Date EORDER October 20, 2024 9:2 0am 6 M FU January 25, 2025 1:09 pm Reason for Visit Admit Date Coronary artery disease January 25, 2025 1:09pm Diabetes January 25, 2025 1:09 pm Essential hypertension January 25, 2025 1 :09pm Hyperlipidemia January 25, 2025 1:09 pm Ischemic cardiomyopathy January 25, 2025 1:09pm NSVT (nonsustained ventricular tachycard ia) January 25, 2025 1:09pm AV (arteriovenous fistula) January 25 1:09pm Family History No Family History Records Found Relationship Condition Age at Onset Recorded Date/T [place] mother Diabetes mellitus Unknown sister Diabetes mellitus Unknown brother Diabetes mellitus Unknown Hypertension Unknown Advance Directives No Advanced Directives Records Found Advance Directive Response Recorded Date/ Time Advance Directives Yes April 10:02am Living Will Yes June 17 11:36pm Power of Tugboat Operator No June 17, 2021 11:36pm Advance Directive Response Recorded Date/ Time Name of Medical Power of Tugboat Operator September 17, 2023 8:09pm Advance Directives Yes April 9:02am Living Will Yes September 17 8:09pm Power of Tugboat Operator Yes September 17, 2023 8:09pm Advance Directive Response Recorded Date/ Time Name of Medical Power of Tugboat Operator September 17, 2023 9:09pm Advance Directives Yes April 10:02am Living Will Yes September 17 9:09pm Power of Tugboat Operator Yes September 17, 2023 9:09pm Advance Directive Response Recorded Date/ Time Advance Directives Yes April 9:02am Living Will Yes June 17 10:36pm Power of Tugboat Operator No June 17, 2021 10:36pm Advance Directive Response Recorded Date/ Time Advance Directives Yes April 10:02am Summary Purpose Additional Source Comments Goals (unrecognized section and content) Goals may be documented in a n alternate sectionGoals may be documented in an alternate sectionGoals may be documented in an alternate sectionGoals may be documented in an alternate sectionGoals may be documented in an alternate sectionGoals may be documented in an alternate sectionGoals may be documented in an alternate sectionGoals may be documented in an alternate sectionGoals may be documented in an alternate sectionGoals may be documented in an alternate sectionGoals may be documented in an alternate sectionGoals may be documented in an alternate sectionGoals may be documented in an alternate section Care Teams (unrecognized sec tion and content) Team Status: Active Member Role Status Dates Dr. Jacek Escalante MD Family Provider Active Dr. Jacek Escalante MD Primary Care Provider Activ e Team Status: Inactive Member Role Status Dates Dr. Jacek Escalante MD Primary Care Provider, Refe rring Provider Active Rebel H Argenis SEMICONDUCTOR WAFERS ETCHER STRIPPER, SEMICONDUCTOR WAFERS ETCHER STRIPPER-C Attending Provider Active Team Status: Inactive Member Role Status Dates Dr. Jacek Escalante MD Primary Care Provider, Attending Provider, Referring Provider Active Dr. Sandeep Quiroz MD Other Provider Active Team Status: Inactive Member Role Status Dates Dr. Jacek Escalante MD Primary Care Provider Activ e Dr. Richard Dacosta MD Attending Provider, Referring P rovider Active Team Status: Active Member Role Status Dates Dr. Jacek Escalante MD Primary Care Provider Activ e Dr. Lisha Miranda MD Attending Provider Active Team Status: Active Member Role Status Dates Dr. Jacek Escalante MD Primary Care Provider Activ e Rebel H Roof SEMICONDUCTOR WAFERS ETCHER STRIPPER, SEMICONDUCTOR WAFERS ETCHER STRIPPER-C Attending Provider Active Team Status: Inactive Member Role Status Dates Dr. Jacek Escalante MD Primary Care Provider Activ e Rebel H Roof SEMICONDUCTOR WAFERS ETCHER STRIPPER, SEMICONDUCTOR WAFERS ETCHER STRIPPER-C Attending Provider, Referring Pro vider Active Team Status: Active Member Role Status Dates Dr. Jacek Escalante MD Primary Care Provider Activ e Rebel H Argenis SEMICONDUCTOR WAFERS ETCHER STRIPPER, SEMICONDUCTOR WAFERS ETCHER STRIPPER-C Referring Provider, Other Provide r Active Dr. Lisha Miranda MD Attending Provider Active Team Status: Inactive Member Role Status Dates Dr. Jacek Escalante MD Primary Care Provider, Attending Provider, Referring Provider Active Team Status: Inactive Member Role Status Dates Dr. Jacek Escalante MD Primary Care Provider Activ e Dr. Cristopher Dominguez DO Emergency Provider Active Team Status: Inactive Member Role Status Dates Dr. Jacek Escalante MD Primary Care Provider, Refe rring Provider Active Dr. Lisha Miranda MD Attending Provider Active Team Status: Inactive Member Role Status Dates Dr. Jacek Escalante MD Primary Care Provider Activ e Dr. Cristopher Dominguez DO Attending Provider, Emergency P rovider Active Team Status: Inactive Member Role Status Dates Dr. Jacek Escalante MD Primary Care Provider Activ e Dr. Lisha Miranda MD Attending Provider, Referring Pr ovider Active Team Status: Active Member Role Status Dates Dr. Jackie Escalante MD Family Provider Active Dr. Jackie Escalante MD Primary Care Provider Acti ve Team Status: Inactive Member Role Status Dates Dr. Jackie Escalante MD Primary Care Provider, Ref erring Provider Active Dr. Lisha Miranda MD Attending Provider Active Team Status: Active Member Role Status Dates Dr. Jackie Escalante MD Primary Care Provider Acti ve Dr. Lisha Miranda MD Attending Provider Active Team Status: Active Member Role Status Dates Dr. Jackie Escalante MD Primary Care Provider Acti ve Dr. Cristopher Austin MD Attending Provider Active Team Status: Active Member Role Status Dates Dr. Jackie Escalante MD Primary Care Provider Acti ve Kandy Finch SEMICONDUCTOR WAFERS ETCHER STRIPPER, SEMICONDUCTOR WAFERS ETCHER STRIPPER-C Attending Provider Active Team Status: Inactive Member Role Status Dates Dr. Jackie Escalante MD Primary Care Provider Acti ve Dr. Cristopher Dominguez DO Attending Provider, Emergency P rovider Active Team Status: Inactive Member Role Status Dates Dr. Jackie Escalante MD Primary Care Provider, Attending Provider, Referring Provider Active Team Status: Inactive Member Role Status Dates Dr. Jackie Escalante MD Primary Care Provider Acti ve Dr. Lisha Miranda MD Attending Provider, Referring Pr ovider Active Team Status: Active Member Role Status Dates Dr. Jackie Escalante MD Primary Care Provider Acti ve Dr. Lisha Miranda MD Attending Provider, Referring Pr ovider Active Momd Teacher Relationship Specialty Start Date End Date Jackie Escalante MD [address] [place], [place] [address] PCP - General Family Medicine 01/24/24 Momd Teacher Relationship Specialty Start Date End Date Jackie Escalante MD [address] [place], [place] [id number] PCP - General Family Medicine 01/24/24 Momd Teacher Relationship Specialty Start Date End Date Jackie Escalante MD [address] [place], [place] [id number] PCP - General Family Medicine 01/24/24 Momd Teacher Relationship Specialty Start Date End Date Jackie Escalante MD [address] [place] [address] PCP - General Family Medicine 01/24/24 Momd Teacher Relationship Specialty Start Date End Date Jackie Escalante MD [address] [facility] [address] [place] [address] PCP - General Family Medicine 01/24/24 Team Status: Inactive Member Role Status Dates Dr. Jackie Escaalnte MD Primary Care Provider Acti ve Start: July 14, 2024 End: July 14, 2024 Dr. Jackie Escalante MD Referring Provider Active Start: July 14, 2024 End: July 14, 2024 Dr. Lisha Miranda MD Attending Provider Active Start: July 14, 2024 End: July 14, 2024 Team Status: Inactive Member Role Status Dates Dr. Jackie Escalante MD Primary Care Provider Acti ve Start: October 20, 2024 End: October 20, 2024 Rebel More SEMICONDUCTOR WAFERS ETCHER STRIPPER, SEMICONDUCTOR WAFERS ETCHER STRIPPER-C Attending Provider Active S tart: October 20, 2024 End: October 20, 2024 Rebel More NP, SEMICONDUCTOR WAFERS ETCHER STRIPPER-C Referring Provider Active S tart: October 20, 2024 End: October 20, 2024 Team Status: Active Member Role Status Dates Dr. Jackie Escalante MD Primary Care Provider Acti ve Team Status: Inactive Member Role Status Dates Dr. Jackie Escalante MD Primary Care Provider Acti ve Start: January 25, 2025 End: January 25, 2025 Dr. Jackie Escalante MD Referring Provider Active Start: January 25, 2025 End: January 25, 2025 Dr. Lisha Miranda MD Attending Provider Active Start: January 25, 2025 End: January 25, 2025 Source Comments (unrecognize d section and content) In the event this informatio n is protected by the Federal Confidentiality of Alcohol and Drug Abuse Patient Records regulations: The Federal rules restrict any use of the information to criminally investigate or prosecute any alcohol or drug abuse patient.[facility] the event this information is protected by the Federal Confidentiality of Alcohol and Drug Abuse Patient Records regulations: The Federal rules restrict any use of the information to criminally investigate or prosecute any alcohol or drug abuse patient.[facility] Campus[facility] the event this information is protected by the Federal Confidentiality of Alcohol and Drug Abuse Patient Records regulations: The Federal rules restrict any use of the information to criminally investigate or prosecute any alcohol or drug abuse patient.[facility] Campus[facility] the event this information is protected by the Federal Confidentiality of Alcohol and Drug Abuse Patient Records regulations: The Federal rules restrict any use of the information to criminally investigate or prosecute any alcohol or drug abuse patient.[facility] Campus[facility] the event this information is protected by the Federal Confidentiality of Alcohol and Drug Abuse Patient Records regulations: The Federal rules restrict any use of the information to criminally investigate or prosecute any alcohol or drug abuse patient.[facility] Campus[facility] the event this information is protected by the Federal Confidentiality of Alcohol and Drug Abuse Patient Records regulations: The Federal rules restrict any use of the information to criminally investigate or prosecute any alcohol or drug abuse patient.[facility] Reason for Visit (unrecogniz ed section and content) Reason Comments Request Outside Medical Records Reason Comments Consult Positive cologuard r eport Reason Comments Appointment Reason Comments Consult Reason Comments Patient Update (unrecognized sect ion and content) No Status Records FoundNo Status Records Found INFORMATION SOURCE (unrecogn ized section and content) DATE CREATED AUTHOR 06/18/2024 [facility] DATE CREATED AUTHOR AUTHOR'S KENDALL HSAH 01/26/2025 [facility] FOR RECORDS PERTAINING TO PATIENTS WHO ARE OR HAVE BEEN ENROLLED IN A CHEMICAL DEPENDENCY/SUBSTANCEABUSE PROGRAM, SOME INFORMATION MAY BE OMITTED. This clinical summary was aggregated from multiple sources. Caution should be exercised in using it in the provision of clinical care. This summary normalizes information from multiple sources, and as a consequence, information in this document may materially change the coding, format and clinical context of patient data. In addition, data may be omitted in some cases. CLINICAL DECISIONS SHOULD BE BASED ON THE PRIMARY CLINICAL RECORDS. [employer] [facility]. provides no warranty or guarantee of the accuracy or completeness of information in this document.
[2025-01-27 08:37] LABS: AST(SGOT) 22 U/L (<=37); Alanine Aminotransfer ALT/SGPT 17 U/L (<=46); Albumin, Serum 4.7 g/dL (3.4-4.8); Alkaline Phosphatase 55 U/L (40-129); Anion Gap 13 (5-15); BUN 13 mg/dL (4-19); BUN/Creat Ratio 19.4 RATIO (10-20); Calcium,Total 9.9 mg/dL (7.6-11.0); Carbon Dioxide 22.1 mmol/L (21.0-32.0); Chloride 105 mmol/L (98-108); Creatinine, Serum 0.67 mg/dL (0.70-1.20); EST Glomerular Filtration Rate 100 (>60); Globulin 2.4 g/dL (2.2-4.2); Glucose 105 mg/dL (70-99); Protein, Total 7.1 g/dL (5.9-8.4); Sodium Level 141 mmol/L (133-145); Total Bilirubin 0.52 mg/dL (0.00-1.30)
[2025-01-27 09:15] LABS: Cholesterol 146 mg/dL (<=200); High Density Lipoprotein 49 mg/dL; Low Density Lipoprotein Calc. 56 mg/dL; Triglycerides 205 mg/dL; Very Low Density Lipoprotein 41 mg/dL (5-40); cholesterol:hdl ratio screen 2.97
== END | disposition home or self-care (01) ==
LOC: LAB 07:12
PROVIDERS: PCP Family Medicine; Referring Provider Internal Medicine Cardiovascular Disease; Visit Provider Internal Medicine Cardiovascular Disease
DX: I25.10 Atherosclerotic heart disease of native coronary artery without angina pectoris (principal); I10 Essential (primary) hypertension
CPT/HCPCS: 36415; 80053; 80061

== ENCOUNTER → 2025-02-15 | Outpatient (CLI) | payer MEDICARE, OTHER, SELFPAY | END | disposition home or self-care (01) | LOC: CVS 06:16 | PROVIDERS: PCP Family Medicine; Referring Provider Internal Medicine Cardiovascular Disease; Visit Provider Internal Medicine Cardiovascular Disease | DX: I25.10 Atherosclerotic heart disease of native coronary artery without angina pectoris (principal) | CPT/HCPCS: 78452; 93017; A9500; A4216; J2785 ==

== ENCOUNTER → 2025-05-28 | Outpatient (CLI) | payer MEDICARE, OTHER, SELFPAY ==
--- OUTSIDE RECORDS SUMMARY | 2025-05-28 13:03 | XMS RPT_ITS | CCD ---
Author Organization [facility] CliniSyut Care Team Providers Care Online Producer Name Role Phone Dr. Jacek Escalante Primary Care Provider [phone] Dr. Jacek Escalante Referring Provider Roof HANDLE MAKER, HANDLE MAKER-C Rebel Ruggiero Attending Provider Dr. Jacek Escalante Primary Care Provider [phone] Dr. Jacek Escalante Referring Provider Roof HANDLE MAKER, HANDLE MAKER-C Rebel Ruggiero Attending Provider Dr. Lisha Miranda Attending Provider Roof HANDLE MAKER, HANDLE MAKER-C Rebel Ruggiero Referring Provider Roof HANDLE MAKER, HANDLE MAKER-C Rebel Ruggiero Other Provider Dr. Jacek Escalante Primary Care Provider [phone] Roof HANDLE MAKER, HANDLE MAKER-C Rebel Ruggiero Referring Provider Roof HANDLE MAKER, HANDLE MAKER-C Rebel Ruggiero Other Provider Dr. Lisha Miranda Attending Provider Roof HANDLE MAKER, HANDLE MAKER-C Rebel Ruggiero Attending Provider Dr. Jacek Escalante Primary Care Provider [phone] Dr. Jacek Escalante Referring Provider Dr. Lisha Miranda Attending Provider Dr. Jackie Escalante Primary Care Provider Dr. Jackie Escalante Referring Provider Dr. Cristopher Austin Attending Provider Stef HANDLE MAKER, HANDLE MAKER-C Kandy Attending Provider Jackie Escalante MD Primary Care Provider BRICE QUINONEZ Referring Unavailable JACKIE ESCALANTE Primary Care Unavailabl e BRICE QUINONEZ Attending Unavailable Dr. Jacek Escalante Primary Care Provider Dr. Jacek Escalante Referring Provider Roof HANDLE MAKER, HANDLE MAKER-C Rebel Ruggiero Attending Provider Ruben, Dr. Husain Attending Provider Ava LUIS, Dr. Mcmanus Primary Care Provider Ava LUIS, Dr. Mcmanus Referring Provider Ruben LUIS, Dr. Husain Attending Provider Argenis HANDLE MAKER-C, Rebel Ruggiero Attending Provider Roof HANDLE MAKER-C, Rebel Ruggiero Referring Provider Ava LUIS, Dr. Mcmanus Primary Care Provider Ava LUIS, Dr. Mcmanus Referring Provider Ruben LUIS, Dr. Husain Attending Provider Ruben LUIS, Dr. Husain Referring Provider Ava LUIS, Dr. Mcmanus Primary Care Provider Ruben LUIS, Dr. Husain Other Provider Finch HANDLE MAKER-C, Kandy Attending Provider Ruben, Lisha Attending Unavailable Ruben, Lisha Referring [facility]available [facility] Unavailable Roof HANDLE MAKER, Rebel H Attending Unavailable Roof HANDLE MAKER, Rebel H Referring Unavailable [facility] Unavailable Jackie Escalante Attending Unavailable [facility] Unavailable Ruben, Lisha Attending Unavailable Ruben, Lisha Referring Unavailable Ruben, Lisha Referring Unavailable Ruben, Lisha Attending [facility]available Roof HANDLE MAKER, Rebel H Attending Unavailable Roof HANDLE MAKER, Rebel H Referring Unavailable Ava Allison Primary Care Unavailable Ruben, Lisha Attending [facility] Referring Unavailable [facility] Primary Care Unavailable RubenLisha baez Attending Unavailable [facility] Primary Care Unavailable [facility] Referring Unavailable Kandy Finch NP Attending Unavailable [facility] Primary Care Unavailable Ruben, Lisha Referring Unavailable RubenLisha baez Consulting Unavailable RubenLisha baez Attending Unavailable [facility] Primary Care Unavailable Sharri Bonilla Attending Unavailable [facility] Primary Care Unavailable [facility] Referring Unavailable RubenLisha baez Attending Unavailable [facility] Referring Unavailable [facility] Primary Care Unavailable Allergies Allergy Classification Reported Allergen(s) Allergy Type Date of Onset Reaction(s) Facility (20 sources) rosuvastatin; Translations: [ROSUVASTATIN] Drug Allergy 10-21-2013 Intolerance [facility] (7 sources) ezetimibe; Translations: [EZETIMIBE] Drug Allergy 10-21-2013 Intolerance [facility] (11 sources) Lisinopril; Translations: [LISINOPRIL] Drug Allergy 01-23-2024 Angioedema [facility] (1 source) Lisinopril Drug Allergy 01-25-2025 [facility] Repository (1 source) rosuvastatin Drug Allergy 01-25-2025 [facility] Repository Medications Current Medications Medication Drug Class(es) Dates Sig (Normalized) Sig (Original) aspirin 81 mg delayed release oral tablet (20 sources) Platelet Aggregation Inhibitor, Nonsteroidal Anti-inflammatory Drug [...] mg tablet Active 40 mg PO daily 90 July 14, 2024 1:00am Start: 04-23-2016 End: 07-14-2024 take 1 tablet by mouth at bedtime Atorvastatin 80 MG tablet Discontinued 80 mg PO AT BEDTIME 90 3 September 30, 2017 4:42pm July 14, 2024 5:20pm furosemide 40 mg oral tablet (20 sources) Loop Diuretic Start: 04-23-2016 take 1 tablet by mouth once daily as needed Furosemide 40 MG tablet Active 40 mg PO DAILY as needed for Swelling April 23, 2016 12:00am magnesium oxide 400 mg oral tablet (18 sources) Start: 03-10-2018 take 1 tablet by mouth once daily Magnesium Oxide 400 mg tablet Active 400 mg PO daily March 10, 2018 12:00am magnesium oxide 400 mg magnesium cap Take by mouth. Active mecobalamin 1 mg chewable tablet (4 sources) Start: 07-14-2024 take 1 tablet by mouth once daily Mecobalamin (Vitamin B12) 1,000 mcg tablet,chewable Active 1000 ug PO daily July 14, 2024 1:00am melatonin 10 mg oral tablet (7 sources) Start: 01-29-2024 Melatonin 10 m g tablet Active 15 mg PO BEDTIME January 29, 2024 12:00am 24 hr metFORMIN hydrochloride 500 mg extended release oral tablet (20 sources) Biguanide Start: 10-23-2023 Metformin 500 mg tablet extended release 24 hr Active 1000 mg PO TWICE A DAY October 23, 2023 2:44pm Start: 10-23-2023 take 2 tablets by mo [facility] twice daily in the evening [...] 29, 2018 10:42am December 19, 2020 1:57pm Fwgstwxq-Rnp-Cboc Fum-Folic Ac (20 sources) Start: 11-19-2022 take 1 tablet by mouth once daily before mealtime Ztnqjqtd-Hrz-Xjuz Fum-Folic Ac Active 1 TABLET PO DAILY November 19, 2022 10:12am Start: 11-19-2022 take 1 tablet by ronny th once daily before mealtime Mnycnlgp-Fej-Toso Fum-Folic Ac Active 1 TABLET PO DAILY November 19, 2022 11:12am Start: 04-23-2016 End: 11-19-2022 take 1 tablet by mouth once at dinner Sbbplbip-Xsw-Otlc Fum-Folic Ac Discontinued 1 TABLET PO WITH DINNER April 22, 2016 11:00pm November 19, 2022 10:13am Start: 04-23-2016 End: 11-19-2022 take 1 tablet by mouth once at dinner Nbtsbmbj-Nps-Przd Fum-Folic Ac Discontinued 1 TABLET PO WITH DINNER April 23, 2016 12:00am November 19, 2022 11:13am Start: 04-23-2016 take 1 tablet by ronny th once at dinner Tjpgdwsg-Hzp-Omiw Fum-Folic Ac Active 1 TABLET PO WITH DINNER April 23, 2016 12:00am Zhurwixx-Eku-Gbja Fum-Folic Ac 7.5 mg iron-400 mcg tablet (4 sources) Start: 11-19-2022 take 7.5 tablets by mouth once daily before mealtime Qijffjiv-Fye-Kzzx Fum-Folic Ac 7.5 mg iron-400 mcg tablet [...] February 19, 2024 2:13pm polyethylene glycol 3350 [id number] mg / potassium chloride 2970 mg / sodium bicarbonate 6740 mg / sodium chloride 5860 mg / sodium sulfate 97791 mg powder for oral solution (1 source) Osmotic Laxative Start: 01-31-2024 End: 01-31-2024 peg 3350-Electrolytes (GOLYTELY) 236-22.74-6.74 -5.86 gram suspension Indications: Encounter for colorectal cancer screening using Cologuard test , 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) , Cardiomyopathy, unspecified type (HCC) Take 4,000 mL by mouth one time only for 1 dose. Refer to printed prep instructions from your provider. 4000 mL 0 01/31/2024 01/31/2024 Active spironolactone 25 mg oral tablet (20 sources) Aldosterone Antagonist Start: 04-23-2016 Spironolactone 25 MG tablet Active 12.5 mg PO DAILY April 23, 2016 12:00am Start: 04-23-2016 take 12.5 mg by mout h once daily Spironolactone Active 12.5 MG PO DAILY April 23, 2016 12:00am Completed/Discontinued Medications Medication Drug Class(es) Dates Sig (Normalized) Sig (Original) acetaminophen 325 mg / HYDROcodone bitartrate 5 mg oral tablet (15 sources) Opioid Agonist Start: 04-27-2016 End: 03-10-2018 [...] / oxyCODONE hydrochloride 5 mg oral tablet (15 sources) Opioid Agonist Start: 04-24-2016 End: 03-10-2018 [...] 24, 2016 12:00am March 10, 2018 1:42pm [id number] 200 actuat albuterol 0.09 mg/actuat metered dose inhaler (9 sources) beta2-Adrenergic Agonist Start: 09-17-2023 End: 03-02-2024 Albuterol Sulfate (Ventolin Hfa) 90 mcg/actuation HFA aerosol inhaler Discontinued 2 NMA INHALATION EVERY 4 HOURS NEEDED as needed for Wheezing 1 0 September 17, 2023 1:00am March 02, 2024 9:55am Start: 09-17-2023 take 1 puff(s) by in halation every four hours as needed Albuterol Sulfate (Ventolin Hfa) 90 mcg/actuation HFA aerosol inhaler Active 2 PUFF INHALATION EVERY 4 HOURS NEEDED September 17, 2023 1:00am carvedilol 25 mg oral tablet (20 sources) alpha-Adrenergic Yolette, beta-Adrenergic Yolette Start: 11-26-2023 End: 11-05-2024 take 1 tablet by mouth twice daily at mealtime, then take 0.5 tablet by mouth in the morning Carvedilol 25 mg tablet Discontinued 25 mg PO TWICE A DAY February 19, 2024 2:10pm November 05, 2024 8:06am must administer with a meal/food takes one tab in am and a half tab at dinner Start: 04-23-2016 End: 11-26-2023 take 1 tablet by mouth twice daily Carvedilol 12.5 mg tablet Discontinued 12.5 mg PO TWICE A DAY 180 May 26, 2018 2:15pm November 26, 2023 1:06pm carvedilol (CORE G) 12.5 mg tablet Take 18 mg by mouth two times a day with meals. Active ciprofloxacin 250 mg oral tablet (15 sources) Quinolone Antimicrobial Start: 04-27-2016 End: 03-10-2018 take 1 tablet by mouth twice daily Ciprofloxacin Hcl 250 MG tablet Discontinued 250 mg PO TWICE A DAY 20 0 April 27, 2016 12:00am March 10, 2018 1:42pm diphenhydrAMINE hydrochloride 25 mg oral capsule (15 sources) Histamine-1 Receptor Antagonist Start: 04-26-2016 End: 01-29-2024 take 1 capsule by mouth at bedtime as needed for sleep Diphenhydramine Hcl 25 MG capsule Discontinued 25 mg PO AT BEDTIME NEEDED as needed for Sleep April 26, 2016 12:00am January 29, 2024 9:57am empagliflozin 10 mg oral tablet (4 sources) Sodium-Glucose Cotransporter 2 Inhibitor Start: 05-07-2024 End: 07-14-2024 take 1 tablet by mouth once daily Empagliflozin (Jardiance) 10 mg tablet Discontinued 10 mg PO daily 90 May 07, 2024 12:00am July 14, 2024 2:19pm folic acid 1 mg oral tablet (15 sources) Start: 04-23-2016 End: 03-10-2018 Folic Acid 1 MG tablet Discontinued 1 mg PO SUMOTUWETHFR April 23, 2016 12:00am March 10, 2018 1:40pm hydrALAZINE hydrochloride 50 mg oral tablet (16 sources) Arteriolar Vasodilator Start: 07-14-2024 End: 10-05-2024 take 1 tablet by mouth three times daily Hydralazine 50 mg tablet Discontinued 50 mg PO THREE TIMES A DAY 180 6 September 22, 2024 6:55pm October 05, 2024 5:27pm Start: 05-07-2024 End: 07-14-2024 take 1 tablet by mouth three times daily Hydralazine 25 mg tablet Discontinued 25 mg PO THREE TIMES A DAY 90 May 07, 2024 12:00am July 14, 2024 5:20pm 24 hr isosorbide mononitrate 30 mg extended release oral tablet (20 sources) Nitrate Vasodilator Start: 06-05-2024 End: 07-14-2024 take 1 tablet by mouth once daily in the morning, then take 1 tablet by mouth every twenty-four hours Isosorbide Mononitrate 30 mg tablet extended release 24 hr Discontinued 30 mg PO EVERY MORNING 90 June 05, 2024 12:00am July 14, 2024 2:20pm Start: 10-23-2023 Isosorbide Mon onitrate 10 mg tablet Active 5 mg PO TWICE A DAY October 23, 2023 2:45pm Start: 07-25-2023 End: 10-23-2023 Isosorbide Mononitrate 10 mg tablet Discontinued 0 .ROUTE .COMPLEX 90 August 15, 2023 8:53am October 23, 2023 2:46pm TAKE 1/2 TABLET TWICE A DAYTAKE DOSES 7 HOURS APART Start: 07-25-2023 End: 10-23-2023 Isosorbide Mononitrate Disco ntinued 0 .ROUTE .COMPLEX 90 August 15, 2023 8:53am October 23, 2023 2:46pm TAKE 1/2 TABLET TWICE A DAYTAKE DOSES 7 HOURS APART Start: 04-03-2018 End: 08-15-2023 take 1 tablet by mouth every seven hours Isosorbide Mononitrate 10 mg tablet Discontinued 5 mg PO TWICE A DAY 90 July 31, 2022 11:13am July 25, 2023 [...] tablet Discontinued 10 mg PO AT BEDTIME 90 3 April 03, 2018 6:24pm February 25, 2019 11:07am methotrexate 2.5 mg oral tablet (15 sources) Folate Analog Metabolic Inhibitor Start: 04-23-2016 End: 03-10-2018 Methotrexate Sodium 2.5 MG tablet Discontinued 20 mg PO Q7D April 23, 2016 12:00am March 10, 2018 1:40pm Start: 04-23-2016 End: 03-10-2018 take 20 mg by mouth every week Methotrexate Sodium Dis continued 20 MG PO Q7D April 23, 2016 12:00am March 10, 2018 1:40pm Mtanebfo-Suy-Cnpq Fum-Folic Ac 1 EACH tablet (4 sources) Start: 04-23-2016 End: 11-19-2022 take 1 tablet by mouth once at dinner Wvpdavbn-Pvx-Ivnh Fum-Folic Ac 1 EACH tablet Discontinued 1 [...] 1:42pm oxyCODONE hydrochloride 5 mg oral tablet (4 sources) Opioid Agonist Start: 03-10-2024 End: 05-07-2024 take 1 tablet by mouth every eight hours as needed for pain Oxycodone 5 mg tablet Discontinued 5 mg PO Q8H as needed for pain 5 2 0 March 10, 2024 May 07, 2024 9:17am Iatrogenic arteriovenous fistula Arteriovenous fistula, acquired tamsulosin hydrochloride 0.4 mg oral capsule (20 [...] Chronic Complication of device; implant or graft (8 sources) Pain; Translations: [Pain due to vascular prosthetic devices, implants and grafts, initial encounter] 10-24-2023 Chronic Congestive heart failure; nonhypertensive (19 sources) Chronic systolic heart failure; Translations: [Chronic systolic (congestive) heart failure] 11-25-2017 Chronic Coronary atherosclerosis and other heart disease (20 sources) Old myocardial infarction; Translations: [Old myocardial infarction] Onset: 07-14-2024 11-25-2017 Chronic Comment on above: PTCA and LINDA to jag ramos OM 12/14/2011 @ [facility] per Dr. Garth Bernard Diabetes mellitus without complication (13 sources) Type 2 diabetes mellitus; Translations: [Type 2 diabetes mellitus without complications] Onset: 07-14-2024 04-14-2024 Chronic Disorders of lipid metabolism (20 sources) Hyperlipidemia; Translations: [Hyperlipidemia, unspecified] Onset: 07-14-2024 03-10-2018 Chronic Essential hypertension (20 sources) Essential hypertension; Translations: [Essential (primary) hypertension] Onset: 07-14-2024 08-26-2018 Chronic Influenza (9 sources) Influenza due to Influenza A virus; Translations: [Influenza due to other identified influenza virus with other respiratory manifestations] 09-17-2023 Episodic Other circulatory disease (12 sources) Arteriovenous fistula; Translations: [Arteriovenous fistula, acquired] 10-23-2023 Chronic Comment on above: Right radial AV fist yomi. Repaired. Other circulatory disease (5 sources) Arteriovenous fistula, acquired; Translations: [Arteriovenous fistula, acquired] Onset: 07-14-2024 10-23-2023 Chronic Other circulatory disease (4 sources) Iatrogenic arteriovenous fistula; Translations: [Arteriovenous fistula, acquired] 04-02-2024 Chronic Comment on above: Status post open rep air on 03/10/2024 Aide-; endo-; and myocarditis; cardiomyopathy (except that caused by tuberculosis or sexually transmitted disease) (1 source) Cardiomyopathy; Translations: [Cardiomyopathy, unspecified] 01-24-2024 Chronic Residual codes; unclassified (4 sources) History of cardiovascular surgery; Translations: [Other specified postprocedural states] 05-07-2024 Episodic Spondylosis; intervertebral disc disorders; other back problems (15 sources) Neck pain; Translations: [Cervicalgia] 06-26-2021 Episodic Unclassified (1 source) Other ventricular tachycardia; Translations: [Other ventricular tachycardia] Onset: 07-14-2024 Past or Other Problems Problem Classification Problem Date Documented Da te Episodic/Chronic Coronary atherosclerosis and other heart disease (15 sources) Stented coronary artery; Translations: [Presence of coronary angioplasty implant and graft] Onset: 12-11-2011 08-26-2018 Episodic Comment on above: PTCA and LINDA to jag ramos OM 12/14/2011 @ [facility] per Dr. Garth Bernard Genitourinary symptoms and ill-defined conditions (1 source) Dysuria; Translations: [Dysuria] Onset: 06-19-2024 Episodic Other screening for suspected conditions (not mental disorders or infectious disease) (2 sources) Patient encounter status; Translations: [Encounter for screening for malignant neoplasm of colon] Onset: 06-05-2024 01-24-2024 Episodic Results Test Name Value Interpretation Reference Range Facility Cardiovascular stress test r eportOrdered By: Lisha Miranda on 02-16-2025 Study report [facility] [address] [place] [address] MR#: [id number] Acct: [id number] Name: MIO HART Rep #: [id number] : 1955 69 From: Lisha Miranda MD Primary Care: Dr. Jackie Escalante MD Status: REG CLI Referring Dr: Lisha Miranda MD Sex: M C Stress Test Report Date: 02/15/2025 Procedure: Exercise tolerance test/imaging study Indications: Coronary artery disease Consent: Per the patient Procedure: The patient exercised on a Villa protocol for 3 minutes and 31 seconds achievinga peak heart rate of 148 bpm (99% predicted maximal heart rate) with a peak blood pressure 182/94 mmHg and a peak MET capacity of 5.8 METs. The baseline ECG demonstrated sinus rhythm with IVCD. The peak exercise ECG didnot show any ischemic changes. Occasional PACs noted with exercise. The functional capacity was considered average for age. There was no complaint of chest discomfort during exercise or recovery. The examination was discontinued secondary to target heart rate being achieved. The patient was injected with 13.4 mCi of technetium 99m Cardiolite and subsequently rest SPECT Cardiolite nuclear imaging was obtained in the horizontal long, vertical long, and short axis views. Post-exercise, the patientwas injected with 40.2 mCi of technetium 99m Cardiolite and subsequently stress SPECT Cardiolite nuclear imaging was obtained in the horizontal long, vertical long, and short axis views. A gated Cardiolite study at peak stress was obtained. Rest and stress SPECT Cardiolite nuclear imaging status post realignment, normalization, and attenuation correction, demonstrates large apical and inferior apical fixed defect. Generalized hypokinesis. The gated Cardiolite study demonstrates generalized hypokinesis. LV appears dilated. The reported LVEF is 27%. Impression: 1. Technically adequate (percent predicted maximal heart rate greater than 85%)exercise tolerance test 2. Peak exercise ECG nondiagnostic secondary to baseline abnormality 3. Occasional PACs noted with exercise 4. Rest and stress SPECT Cardiolite nuclear imaging demonstrate large inferoapical and apical fixed defect consistent with prior transmural infarct nosignificant aide-infarct ischemia. 5. The gated Cardiolite study reports an LVEF of 27%. This note was generated with Crowdparkation software. It may contain incorrectwords, spelling, and punctuation that were not noted in checking the note beforesigning. 02/16/25839 Date _ Lisha Miranda MD CC: Dr. Lisha Miranda MD; Dr. Jackie Escalante MD ~ Date Dictated: 02/16/25836 Date Transcribed: 02/16/25836 Digital Content Marketing Manager: DAVID Nicholson [facility] Work Phone: Stress Reporton 02-16-2025 Stress Report [facility] [address] [place] [address] MR#: [id number] Acct: [id number] Name: MIO HART Rep #: [id number] : 1955 69 From: Lisha Miranda MD Primary Care: Dr. Jackie Escalante MD Status: REG CLI Referring Dr: Lisha Miranda MD Sex: M C Stress Test Report Date: 02/15/2025 Procedure: Exercise tolerance test/imaging study Indications: Coronary artery disease Consent: Per the patient Procedure: The patient exercised on a Villa protocol for 3 minutes and 31 seconds achieving a peak heart rate of 148 bpm (99% predicted maximal heart rate) with a peak blood pressure 182/94 mmHg and a peak MET capacity of 5.8 METs. The baseline ECG demonstrated sinus rhythm with IVCD. The peak exercise ECG did not show any ischemic changes. Occasional PACs noted with exercise. The functional capacity was considered average for age. There was no complaint of chest discomfort during exercise or recovery. The examination was discontinued secondary to target heart rate being achieved. The patient was injected with 13.4 mCi of technetium 99m Cardiolite and subsequently rest SPECT Cardiolite nuclear imaging was obtained in the horizontal long, vertical long, and short axis views. Post-exercise, the patient was injected with 40.2 mCi of technetium 99m Cardiolite and subsequently stress SPECT Cardiolite nuclear imaging was obtained in the horizontal long, vertical long, and short axis views. A gated Cardiolite study at peak stress was obtained. Rest and stress SPECT Cardiolite nuclear imaging status post realignment, normalization, and attenuation correction, demonstrates large apical and inferior apical fixed defect. Generalized hypokinesis. The gated Cardiolite study demonstrates generalized hypokinesis. LV appears dilated. The reported LVEF is 27%. Impression: 1. Technically adequate (percent predicted maximal heart rate greater than 85%) exercise tolerance test 2. Peak exercise ECG nondiagnostic secondary to baseline abnormality 3. Occasional PACs noted with exercise 4. Rest and stress SPECT Cardiolite nuclear imaging demonstrate large inferoapical and apical fixed defect consistent with prior transmural infarct no significant aide-infarct ischemia. 5. The gated Cardiolite study reports an LVEF of 27%. This note was generated with Crowdparkation software. It may contain incorrect words, spelling, and punctuation that were not noted in checking the note before signing. 02/16/25839 Date Lisha Miranda MD CC: Dr. Lisha Miranda MD; Dr. Jackie Escalante MD Date Dictated: 02/16/25836 Date Transcribed: 02/16/25836 Digital Content Marketing Manager: DAVID Signed Normal [facility] Anion gap in Serum or Plasma Ordered By: Lisha Miranda on 01-27-2025 Anion gap [Moles/Vol] 13 mmol/L 5-15 [facility] BUN/creatinine ratioOrdered By: Lisha Miranda on 01-27-2025 Urea nitrogen/Creatinine [Mass ratio] 19.4 mg/mg 10-20 [facility] Bilirubin, totalOrdered By: Lisha Miranda on 01-27-2025 Bilirubin [Mass/Vol] 0.52 mg/dL 0.00-1.30 [facility] Calculated very low density lipoprotein (VLDL) cholesterol measurementOrdered By: Lisha Miranda on 01-27-2025 Calculated very low density lipoprotein (VLDL) cholesterol measurement 41 mg/dL High 5-40 [facility] Carbon dioxide, total [Moles /volume] in Central venous bloodOrdered By: Lisha Miranda on 01-27-2025 CO2 [Moles/Vol] 22.1 mmol/L 21.0-32.0 [facility] Chloride assayOrdered By: David Miranda on 01-27-2025 Chloride [Moles/Vol] 105 mmol/L 98-108 [facility] Comprehensive Metabolic Prof ilon 01-27-2025 Albumin [Mass/Vol] 4.7 g/dL Normal 3.4-4.8 [facility] Comment on above: Performed By: #### L 500.4050, L500.4100 ####[facility] [id number] [place], [address] Albumin/Globulin [Mass ratio] 2.0 {ratio} Normal 0.9-2.4 [facility] Comment on above: Performed By: #### L 500.4050, L500.4100 ####[facility] [id number] [place], [address] ALK PHOS 55 U/L Normal 40-129 [facility] Comment on above: Performed By: #### L 500.4050, L500.4100 ####[facility] [id number] [place], [address] ALT [Catalytic activity/Vol] 17 U/L Normal <=46 [facility] Comment on above: Performed By: #### L 500.4050, L500.4100 ####[facility] [id number] [place], [address] AST [Catalytic activity/Vol] 22 U/L Normal <=37 [facility] Comment on above: Performed By: #### L 500.4050, L500.4100 ####[facility] [id number] [place], [address] Bilirubin [Mass/Vol] 0.52 mg/dL Normal 0.00-1.30 [facility] Comment on above: Performed By: #### L 500.4050, L500.4100 ####[facility] [address] [place], [address] BUN/CRE 19.4 RATIO Normal 10-20 [facility] Comment on above: Performed By: #### L 500.4050, L500.4100 ####[facility] [address] [place], [address] Calcium [Mass/Vol] 9.9 mg/dL Normal 7.6-11.0 [facility] Comment on above: Performed By: #### L 500.4050, L500.4100 ####[facility] [address] [place], [address] Chloride [Moles/Vol] 105 mmol/L Normal 98-108 [facility] Comment on above: Performed By: #### L 500.4050, L500.4100 ####[facility] [address] [place], [address] CO2 [Moles/Vol] 22.1 mmol/L Normal 21.0-32.0 [facility] Comment on above: Performed By: #### L 500.4050, L500.4100 ####[facility] [address] [place], [address] Creatinine [Mass/Vol] 0.67 mg/dL Low 0.70-1.20 [facility] Comment on above: Performed By: #### L 500.4050, L500.4100 ####[facility] [address] [place], [address] GAP 13 Normal 5-15 [facility] Comment on above: Performed By: #### L 500.4050, L500.4100 ####[facility] [address] [place], [address] GFR/1.73 sq M.predicted among non-blacks MDRD (S/P/Bld) [Vol rate/Area] 100 mL/min/{1.73_m2} Normal >60 [facility] Comment on above: Result Comment: mL/m in/1.73m2 CKD-EPI Creatinine Equation (2020) Performed By: #### L 500.4050, L500.4100 ####[facility] [address] [place], [address] Globulin (S) [Mass/Vol] 2.4 g/dL Normal 2.2-4.2 [facility] Comment on above: Performed By: #### L 500.4050, L500.4100 ####[facility] [address] [place], [address] Glucose [Mass/Vol] 105 mg/dL High 70-99 [facility] Comment on above: Performed By: #### L 500.4050, L500.4100 ####[facility] [address] [place], [address] Potassium [Moles/Vol] 4.0 mmol/L Normal 3.3-5.1 [facility] Comment on above: Performed By: #### L 500.4050, L500.4100 ####[facility] [address] [place], [address] Sodium [Moles/Vol] 141 mmol/L Normal 133-145 [facility] Comment on above: Performed By: #### L 500.4050, L500.4100 ####[facility] [address] [place], [address] T PROT 7.1 g/dL Normal 5.9-8.4 [facility] Comment on above: Performed By: #### L 500.4050, L500.4100 ####[facility] [address] [place], [address] Urea nitrogen [Mass/Vol] 13 mg/dL Normal 4-19 [facility] Comment on above: Performed By: #### L 500.4050, L500.4100 ####[facility] [address] [place], [address] Glomerular filtration rate ( GFR) estimation/1.73 sq m using serum, plasma, or whole bOrdered By: Lisha Miranda on 01-27-2025 GFR/1.73 sq M.predicted among non-blacks MDRD (S/P/Bld) [Vol rate/Area] 100 mL/min/{1.73_m2} >60 [facility] Comment on above: mL/min/1.73m2 CKD-EP I Creatinine Equation (2020) LDL calc ser/plasOrdered By: Lisha Miranda on 01-27-2025 Cholesterol in LDL [Mass/Vol] 56 mg/dL [facility] Comment on above: Wadbqzsfeg=186-860 m g/dL & Higher Xyvw=718 mg/dL or greater Laboratory - Chemistry and C hemistry - challengeOrdered By: Lisha Miranda on 01-27-2025 AST [Catalytic activity/Vol] 22 U/L <38 [facility] Lipid Profileon 01-27-2025 CHOL:HDL 2.97 Normal [facility] Comment on above: Performed By: #### L 500.4050, L500.4100 ####[facility] [address], [address] Cholesterol [Mass/Vol] 146 mg/dL Normal <=200 [facility] Comment on above: Result Comment: Chol esterol level, Desirable <200 mg/dL Borderline high cholesterol 200-239 mg/dL High cholesterol >=240 mg/dL Recommendations of the NCEP Adult Treatment Panel for the following risk-cutoff thresholds for the [place] population. Performed By: #### L 500.4050, L500.4100 ####[facility] [address] [place], [address] Cholesterol in HDL [Mass/Vol] 49 mg/dL Normal [facility] Comment on above: Result Comment: Pearl onal Cholesterol Education Program (NCEP) guidelines: <40 mg/dL: Low HDL-cholesterol (major risk factor for CHD) >= 60 mg/dL: High HDL-cholesterol (negative risk factor for CHD) HDL-cholesterol is affected by a number of factors, e.g. smoking, exercise, hormones, sex and age. Performed By: #### L 500.4050, L500.4100 ####[facility] [address] [place], [address] Cholesterol in LDL [Mass/Vol] 56 mg/dL Normal [facility] Comment on above: Result Comment: Bord ryqiky=550-082 mg/dL Higher Cklx=769 mg/dL or greater Performed By: #### L 500.4050, L500.4100 ####[facility] [address] [place], [address] Cholesterol in VLDL [Mass/Vol] 41 mg/dL High 5-40 [facility] Comment on above: Performed By: #### L 500.4050, L500.4100 ####[facility] [address] [place], [address] Triglyceride [Mass/Vol] 205 mg/dL High [facility] Comment on above: Result Comment: The drugs N-Acetylcysteine and Metamizole may falsely depress this assay. Normal range: <150 mg/dL Borderline High: 150-199 mg/dL High: 200-499 mg/dL Very High: >500 mg/dL Performed By: #### L 500.4050, L500.4100 ####[facility] [address] [place], [address] Potassium measurement (mass/ volume)Ordered By: Lisha Miranda on 01-27-2025 Potassium (Unsp spec) [Mass/Vol] 4.0 mmol/L 3.3-5.1 [facility] Screening total cholesterol/ high density lipoprotein (HDL) cholesterol ratioOrdered By: Lisha Miranda on 01-27-2025 Cholesterol.total/Choles terol in HDL [Mass ratio] 2.97 {ratio} [facility] Serum creatinine measurement (mass/volume)Ordered By: Lisha Miranda on 01-27-2025 Creatinine [Mass/Vol] 0.67 mg/dL Low 0.70-1.20 [facility] Serum globulin measurementOr dered By: Lisha Miranda on 01-27-2025 Globulin (S) [Mass/Vol] 2.4 g/dL 2.2-4.2 [facility] Serum glucose measurement (m ass/volume)Ordered By: Lisha Miranda on 01-27-2025 Glucose [Mass/Vol] 105 mg/dL High 70-99 [facility] Serum or plasma alanine morris otransferase (ALT) measurementOrdered By: Lisha Miranda on 01-27-2025 ALT [Catalytic activity/Vol] 17 U/L <47 [facility] Serum or plasma albumin rinku urement (mass/volume)Ordered By: Lisha Miranda on 01-27-2025 Albumin [Mass/Vol] 4.7 g/dL 3.4-4.8 [facility] Serum or plasma albumin/glob ulin mass ratioOrdered By: Lisha Miranda on 01-27-2025 Albumin/Globulin [Mass ratio] 2.0 {ratio} 0.9-2.4 [facility] Serum or plasma alkaline yuan sphatase measurementOrdered By: Lisha Miranda 01-27-2025 ALP [Catalytic activity/Vol] 55 U/L 40-129 [facility] Serum or plasma calcium rinku urement (mass/volume)Ordered By: Lisha Miranda on 01-27-2025 Calcium [Mass/Vol] 9.9 mg/dL 7.6-11.0 [facility] Serum or plasma cholesterol in HDL measurement (mass/volume)Ordered By: Lisha Miranda on 01-27-2025 Cholesterol in HDL [Mass/Vol] 49 mg/dL >40 [facility] Comment on above: National Cholesterol Education Program (NCEP) guidelines:<40 mg/dL: Low HDL-cholesterol (major risk factor for CHD)>= 60 mg/dL: High HDL-cholesterol (negative risk factor for CHD)HDL-cholesterol is affected by a number of factors, e.g. smoking, exercise, hormones, sex and age. Serum or plasma cholesterol measurement (mass/volume)Ordered By: Lisha Miranda on 01-27-2025 Cholesterol [Mass/Vol] 146 mg/dL <201 [facility] Comment on above: Cholesterol level, D esirable <200 mg/dLBorderline high cholesterol 200-239 mg/dLHigh cholesterol >=240 mg/dLRecommendations of the NCEP Adult Treatment Panel for the following risk-cutoff thresholds for the [place] population. Serum or plasma urea nitroge n measurement (mass/volume)Ordered By: Lisha Miranda on 01-27-2025 Urea nitrogen [Mass/Vol] 13 mg/dL 4-19 [facility] Sodium levelOrdered By: Lokesh Miranda on 01-27-2025 Sodium [Moles/Vol] 141 mmol/L 133-145 [facility] Total proteinOrdered By: Luz Miranda on 01-27-2025 Protein [Mass/Vol] 7.1 g/dL 5.9-8.4 [facility] Triglycerides measurementOrd ered By: Lisha Miranda on 01-27-2025 Triglyceride [Mass/Vol] 205 mg/dL High <199 [facility] Comment on above: The drugs N-Acetylcy steine and Metamizole may falsely depress this assay. Normal range: <150 mg/dLBorderline High: 150-199 mg/dLHigh: 200-499 mg/dLVery High: >500 mg/dL Cardiology Visit Reporton Cardiology Visit Report [facility] [address] [place] [address] OFFICE VISIT Date of Service: 01/25/25 MR#: [id number] Acct: [id number] Name: MIO HART Rep #: [id number] : 1955 Provider: Dr. 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 Normal [facility] Bilirubin directOrdered By: Rebel More on 10-20-2024 Bilirubin.direct [Mass/Vol] 0.30 mg/dL 0.00-0.30 [facility] Bilirubin, totalOrdered By: Rebel More on 10-20-2024 Bilirubin [Mass/Vol] 0.58 mg/dL 0.00-1.30 [facility] Calculated very low density lipoprotein (VLDL) cholesterol measurementOrdered By: Rebel More on 10-20-2024 Calculated very low density lipoprotein (VLDL) cholesterol measurement 30 mg/dL -40 [facility] VLDL Cholesterol 30 mg/dL -40 [facility] LDL calc ser/plasOrdered By: Rebel More on 10-20-2024 Cholesterol in LDL [Mass/Vol] 51 mg/dL [facility] Comment on above: Ttttjgxefm=780-436 m g/dL & Higher Mfhf=793 mg/dL or greater LDL Cholesterol, Calculated 51 mg/dL [facility] Comment on above: Gcqtbjlmav=218-475 m g/dL & Higher Ddhr=257 mg/dL or greater Laboratory - Chemistry and C hemistry - challengeOrdered By: Rebel More on 10-20-2024 AST [Catalytic activity/Vol] 21 U/L <38 [facility] Lipid Profileon 10-20-2024 CHOL:HDL 2.35 Normal [facility] Comment on above: Performed By: #### L 500.2155, L500.6073 #### [facility] [address] [place], [place], [address] Cholesterol [Mass/Vol] 141 mg/dL Normal <=200 [facility] Comment on above: Result Comment: Chol esterol level, Desirable <200 mg/dL Borderline high cholesterol 200-239 mg/dL High cholesterol >=240 mg/dL Recommendations of the NCEP Adult Treatment Panel for the following risk-cutoff thresholds for the [place] population. Performed By: #### L 500.4100, L500.3400 #### [facility] [address] [place], [address] Cholesterol in HDL [Mass/Vol] 60 mg/dL Normal [facility] Comment on above: Result Comment: Pearl onal Cholesterol Education Program (NCEP) guidelines: <40 mg/dL: Low HDL-cholesterol (major risk factor for CHD) >= 60 mg/dL: High HDL-cholesterol (negative risk factor for CHD) HDL-cholesterol is affected by a number of factors, e.g. smoking, exercise, hormones, sex and age. Performed By: #### L 500.4100, L500.3400 #### [facility] [address] [place], [address] Cholesterol in LDL [Mass/Vol] 51 mg/dL Normal [facility] Comment on above: Result Comment: Bord xzzadk=659-660 mg/dL Higher Iyvn=754 mg/dL or greater Performed By: #### L 500.4100, L500.3400 #### [facility] [address] [place], [address] Cholesterol in VLDL [Mass/Vol] 30 mg/dL Normal 5-40 [facility] Comment on above: Performed By: #### L 500.4100, L500.3400 #### [facility] [address] [place], [address] Triglyceride [Mass/Vol] 148 mg/dL Normal [facility] Comment on above: Result Comment: The drugs N-Acetylcysteine and Metamizole may falsely depress this assay. Normal range: <150 mg/dL Borderline High: 150-199 mg/dL High: 200-499 mg/dL Very High: >500 mg/dL Performed By: #### L 500.4100, L500.3400 #### [facility] [address] [place], [address] Liver Profileon 10-20-2024 Albumin [Mass/Vol] 4.5 g/dL Normal 3.4-4.8 [facility] Comment on above: Performed By: #### L 500.4100, L500.3400 #### [facility] [address] [place], [address] ALK PHOS 54 U/L Normal 40-129 [facility] Comment on above: Performed By: #### L 500.4100, L500.3400 #### [facility] [address] [place], [address] ALT [Catalytic activity/Vol] 17 U/L Normal <=46 [facility] Comment on above: Performed By: #### L 500.4100, L500.3400 #### [facility] [address] [place], [address] AST [Catalytic activity/Vol] 21 U/L Normal <=37 [facility] Comment on above: Performed By: #### L 500.4100, L500.3400 #### [facility] [address] [place], [address] Bilirubin [Mass/Vol] 0.58 mg/dL Normal 0.00-1.30 [facility] Comment on above: Performed By: #### L 500.4100, L500.3400 #### [facility] [address] [place], [address] Bilirubin.direct [Mass/Vol] 0.30 mg/dL Normal 0.00-0.30 [facility] Comment on above: Performed By: #### L 500.4100, L500.3400 #### [facility] [address] [place], [address] Globulin (S) [Mass/Vol] 2.6 g/dL Normal 2.2-4.2 [facility] Comment on above: Performed By: #### L 500.4100, L500.3400 #### [facility] [address] [place], [address] T PROT 7.1 g/dL Normal 5.9-8.4 [facility] Comment on above: Performed By: #### L 500.4100, L500.3400 #### [facility] [address] [place], [place], [address] Screening total cholesterol/ high density lipoprotein (HDL) cholesterol ratioOrdered By: Rebel More on 10-20-2024 Cholesterol.total/Choles terol in HDL [Mass ratio] 2.35 {ratio} [facility] Serum globulin measurementOr dered By: Rebel More on 10-20-2024 Globulin (S) [Mass/Vol] 2.6 g/dL 2.2-4.2 [facility] Serum or plasma alanine morris otransferase (ALT) measurementOrdered By: Rebel More on 10-20-2024 ALT [Catalytic activity/Vol] 17 U/L <47 [facility] Serum or plasma albumin rinku urement (mass/volume)Ordered By: Rebel More on 10-20-2024 Albumin [Mass/Vol] 4.5 g/dL 3.4-4.8 [facility] Serum or plasma alkaline yuan sphatase measurementOrdered By: Rebel More on 10-20-2024 ALP [Catalytic activity/Vol] 54 U/L 40-129 [facility] Serum or plasma cholesterol in HDL measurement (mass/volume)Ordered By: Rebel More on 10-20-2024 Cholesterol in HDL [Mass/Vol] 60 mg/dL >40 [facility] Comment on above: National Cholesterol Education Program (NCEP) guidelines:<40 mg/dL: Low HDL-cholesterol (major risk factor for CHD)>= 60 mg/dL: High HDL-cholesterol (negative risk factor for CHD)HDL-cholesterol is affected by a number of factors, e.g. smoking, exercise, hormones, sex and age. Serum or plasma cholesterol measurement (mass/volume)Ordered By: Rebel More on 10-20-2024 Cholesterol [Mass/Vol] 141 mg/dL <201 [facility] Comment on above: Cholesterol level, D esirable <200 mg/dLBorderline high cholesterol 200-239 mg/dLHigh cholesterol >=240 mg/dLRecommendations of the NCEP Adult Treatment Panel for the following risk-cutoff thresholds for the [place] population. Total proteinOrdered By: Christiano More on 10-20-2024 Protein [Mass/Vol] 7.1 g/dL 5.9-8.4 [facility] Triglycerides measurementOrd ered By: Rebel Argenis on 10-20-2024 Triglyceride [Mass/Vol] 148 mg/dL <199 [facility] Comment on above: The drugs N-Acetylcy steine and Metamizole may falsely depress this assay. Normal range: <150 mg/dLBorderline High: 150-199 mg/dLHigh: 200-499 mg/dLVery High: >500 mg/dL Cardiology Visit Reporton Cardiology Visit Report [facility] [place] [id number] [facility] [address] [place] [address] OFFICE VISIT Date of Service: 07/14/24 MR#: [id number] Acct: [id number] Name: MIO HART Rep #: [id number] : 1955 Provider: Dr. 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 Normal [facility] Urine Cultureon 05-29-2024 URC Culture exhibits no growth. Normal [facility] Comment on above: Performed By: #### M 100.2200 #### [facility] [address] [place], [address] Comprehensive Metabolic Prof ilon 05-08-2024 Albumin [Mass/Vol] 4.1 g/dL Normal 3.2-5.0 [facility] Comment on above: Performed By: #### L 500.4050, L500.4100 #### [facility] [address] [place], [address] Albumin/Globulin [Mass ratio] 1.3 {ratio} Normal 0.9-2.4 [facility] Comment on above: Performed By: #### L 500.4050, L500.4100 #### [facility] [address] [place], [address] ALK P 70 U/L Normal 45-117 [facility] Comment on above: Performed By: #### L 500.4050, L500.4100 #### [facility] [address] [place], [address] ALT [Catalytic activity/Vol] 30 U/L Normal 16-61 [facility] Comment on above: Performed By: #### L 500.4050, L500.4100 #### [facility] [address] [place], [address] AST [Catalytic activity/Vol] 23 U/L Normal 15-37 [facility] Comment on above: Performed By: #### L 500.4050, L500.4100 #### [facility] [address] [place], [address] Bilirubin [Mass/Vol] 0.60 mg/dL Normal 0.20-1.00 [facility] Comment on above: Result Comment: For patients on eltrombopag therapy, use of Dimension [place] TBIL is not recommended. Performed By: #### L 500.4050, L500.4100 #### [facility] [address] [place], [address] BUN/CRE 17.0 RATIO Normal 10-20 [facility] Comment on above: Performed By: #### L 500.4050, L500.4100 #### [facility] [address] [place], [address] CA,Total 9.2 mg/dL Normal 8.5-10.1 [facility] Comment on above: Performed By: #### L 500.4050, L500.4100 #### [facility] [address] [place], [address] Chloride [Moles/Vol] 107 mmol/L Normal 98-107 [facility] Comment on above: Performed By: #### L 500.4050, L500.4100 #### [facility] [address] [place], [address] CO2 [Moles/Vol] 29.0 mmol/L Normal 21.0-32.0 [facility] Comment on above: Performed By: #### L 500.4050, L500.4100 #### [facility] [address] [place], [address] Creatinine [Mass/Vol] 0.70 mg/dL Normal 0.70-1.30 [facility] Comment on above: Result Comment: The validity of the calculated GFR GFRAA in patients over 70 years has not been determined. Clinical correlation is essential. Performed By: #### L 500.4050, L500.4100 #### [facility] [address] [place], [address] EST GFR - AA 142 mL/min Normal >60 [facility] Comment on above: Result Comment: Afri can Lebanese GFR Calc Performed By: #### L 500.4050, L500.4100 #### [facility] [address] [place], [address] GAP 5 Normal 5-15 [facility] Comment on above: Performed By: #### L 500.4050, L500.4100 #### [facility] [address] [place], [address] GFR/1.73 sq M.predicted among non-blacks MDRD (S/P/Bld) [Vol rate/Area] 118 mL/min/{1.73_m2} Normal >60 [facility] Comment on above: Result Comment: Non- GFR Calc Performed By: #### L 500.4050, L500.4100 #### [facility] [address] [place], [address] Globulin (S) [Mass/Vol] 3.2 g/dL Normal 2.2-4.2 [facility] Comment on above: Performed By: #### L 500.4050, L500.4100 #### [facility] [address] [place], [address] Glucose [Mass/Vol] 109 mg/dL High 74-106 [facility] Comment on above: Result Comment: Fast ing Glucose result from 100 to 125 mg/dL suggests IMPAIRED HOMEOSTASIS per A.D.A. criteria. Performed By: #### L 500.4050, L500.4100 #### [facility] [address] [place], [address] Potassium [Moles/Vol] 4.0 mmol/L Normal 3.5-5.1 [facility] Comment on above: Performed By: #### L 500.4050, L500.4100 #### [facility] [address] [place], [address] Sodium [Moles/Vol] 140 mmol/L Normal 136-145 [facility] Comment on above: Performed By: #### L 500.4050, L500.4100 #### [facility] [address] [place], [address] T PROT 7.3 g/dL Normal 6.4-8.2 [facility] Comment on above: Performed By: #### L 500.4050, L500.4100 #### [facility] [address] [place], [address] Urea nitrogen [Mass/Vol] 12 mg/dL Normal 7-18 [facility] Comment on above: Performed By: #### L 500.4050, L500.4100 #### [facility] [address] [place], [address] Lipid Profileon 05-08-2024 Cholesterol [Mass/Vol] 146 mg/dL Normal 200 [facility] Comment on above: Result Comment: <200 mg/dL Desirable 200-240 mg/dL Borderline >240 mg/dL High Risk Performed By: #### L 500.4050, L500.4100 ####[facility] [address] [place], [address] Cholesterol in HDL [Mass/Vol] 61 mg/dL Normal [facility] Comment on above: Result Comment: The drugs N-Acetylcysteine and Metamizole may falsely depress this assay. Reference Range HDL <40 mg/dL Low HDL Cholesterol HDL >or= 60 mg/dL High HDL Cholesterol Performed By: #### L 500.4050, L500.4100 ####[facility] [address] [place], [address] Cholesterol in LDL [Mass/Vol] 44 mg/dL Normal 0-130 [facility] Comment on above: Performed By: #### L 500.4050, L500.4100 ####[facility] [address] [place], [address] Cholesterol in VLDL [Mass/Vol] 41 mg/dL High 5-40 [facility] Comment on above: Performed By: #### L 500.4050, L500.4100 ####[facility] [id number] [place], [address] Triglyceride [Mass/Vol] 204 mg/dL High [facility] Comment on above: Result Comment: The drugs N-Acetylcysteine and Metamizole may falsely depress this assay. Serum Triglycerides Reference Interval Normal <150 mg/dL Borderline high 150 - 199 mg/dL High 200 - 499 mg/dL Very High > or = 500 mg/dL Performed By: #### L 500.4050, L500.4100 ####[facility] [address] [place], [address] PSA,Total - Annual Screenon 05-08-2024 PSA,TOT SCREEN 0.34 ng/mL Normal 0.00-4.00 [facility] Comment on above: Order Comment: Order Date: 04/28/24 Order Info: 3016-3 - TSH Order Info: 2857-1 - PSA Result Comment: This test was performed using the TPSA assay method for the [employer] chemistry system. Values obtained with different assay methods cannot be used interchangably. When changing PSA assays in the course of monitoring a patient, additional sequential testing should be carried out to confirm baseline values. Performed By: #### L 501.9520, L503.0105, L501.9910 #### [facility] [address] [place], [address] Thyroid Stim Hormone (TSH)on 05-08-2024 TSH 0.702 uIU/mL Normal 0.358-3.740 [facility] Comment on above: Order Comment: Order Date: 04/28/24 Order Info: 3016-3 - TSH Order Info: 2857-1 - PSA Performed By: #### L 501.9520, L503.0105, L501.9910 #### [facility] [address] [place], [address] Vitamin B12on 05-08-2024 Cobalamin (Vitamin B12) [Mass/Vol] 331 pg/mL Normal 211-911 [facility] Comment on above: Order Comment: Order Date: 04/28/24 Order Info: [id number] - B12 Performed By: #### L 501.9520, L503.0105, L501.9910 #### [facility] [address] [place], [address] Cardiology Visit Reporton Cardiology Visit Report [facility] [address] [place], [place] [address] OFFICE VISIT Date of Service: 05/07/24 MR#: [id number] Acct: [id number] Name: MIO HART Rep #: [id number] : 1955 Provider: Dr. 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 Normal [facility] 04-17-2024 [facility] Telephone (EnjoiS) MIO HART ([id number]) 1955 M Date Time Provider Department 04/17/24 BRICE QUINONEZInboxBea During your visit today, we recorded the following information about you: Dipak Isidro 04/17/2024 3:14 PM Signed Email from Dr. High anesthesiologist - patient will be cancelled for his scopes Saturday with [facility] in [place] as he has not been cleared through anesthesia nor cardiology. Patient is to follow back up with cardiology regarding AICD. Patient has not seen [facility] to follow up on this Patient aware he is needing to see his cardiologists and complete all follow up appointments required by anesthesia and surgeon. No new date as of now until patient has been cleared to proceed. 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* CHF (congestive heart failure) (HCC) [I50.9] Essential hypertension [I10] Mixed hyperlipidemia [E78.2] Premature ventricular contractions [I49.3] Type 2 diabetes (HCC) [E11.9] Ischemic cardiomyopathy [I25.5] Encounter Status:[facility] ([facility]ILAS) MIO HART ([id number]) 1955 M Date Time Provider Department 04/14/24 NICKY PICKENS During your visit today, we recorded the following information about you: Nicky Pickens APRN.ACTUARIAL DIRECTOR 04/14/2024 10:11 AM Signed Can we request most recent A1c from PCP's office? Mandy Lew LPN 04/15/2024 11:12 AM Signed Fax request sent to Dr. Escalante's office requesting most recent A1c be faxed for upcoming surgery 04/20/24. CHRISTOPHER Acevedo Jessica, LPN 04/20/2024 9:01 AM Signed Received A1c results. Sent to [facility] through Onbase scanning. Mandy Lew LPN Allergies As of Date: 04/14/2024 Noted Allergy Reaction EZETIMIBE 10/21/2013 5 - Intolerance LISINOPRIL 01/23/2024 18 - Angioedema ROSUVASTATIN 10/21/2013 5 - Intolerance Date Reviewed: 04/14/2024 Reviewed by: Nicky Pickens APRN.ACTUARIAL DIRECTOR - Fully Assessed Reason for Visit: Request [...] 04/14/2024 Noted Resolved Atherosclerotic heart disease of [place] coronar* CHF (congestive heart failure) (HCC) [I50.9] Essential hypertension [I10] Mixed hyperlipidemia [E78.2] Premature ventricular contractions [I49.3] Type 2 diabetes (HCC) [E11.9] Ischemic cardiomyopathy [I25.5] Encounter Status:Closed by MANDY LEW on 04/20/24 Normal [facility] HISTORY PHYSICALon 4 HISTORY PHYSICAL HNO ID: [id number] Author: NICKY PICKENS APRN.CNP Service: ? Author Type: Nurse Practitioner Type: H&P Filed: 04/17/2024 13:48 Note Text: [facility] HISTORY AND PHYSICAL EXAMINATION SERVICE DATE: 04/10/2024 SERVICE TIME: 1:47 PM PRIMARY CARE PHYSICIAN: Jackie Escalante MD Assessment Patient has the following medical conditions which may affect aide-operative course: Ischemic cardiomyopathy Assessment: following [facility], most updated echo scanned into [facility] 11/2023, EF 15%, medical clearance letter faxed to [facility] and last OV if later than the one scanned into [facility] 10/2023, asymptomatic, no defibrillator/pacema ker at this time Premature ventricular contractions Assessment: controlled on rx, recent holter monitor, following cardio Mixed hyperlipidemia Assessment: c/w statin Essential hypertension Assessment: controlled on rx Last 14 BP Last 14 Encounter BP Readings: Date: BP: 04/10/2024 138/90 01/23/2024 132/82 CHF (congestive heart failure) ([facility]) Assessment: controlled on rx and as needed 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 Denies CP, palpitations, sob, new or worsening cardiac symptoms. Clearance letter sent to [facility] Type 2 diabetes (HCC) Assessment: controlled [...] 0 Appetite Score: 0 MST Score: 0 [id number] Score: Age: 65-74 Sex: male CHF history: Yes Hypertension history: Yes Stroke/TIA/thromboem bolism history: No Vascular disease history: Yes Diabetes history: Yes [id number] Score: 5 ARISCAT Score: Age: 51-80 Preoperative [...] Admin: COVID-19 vaccine, age 12+ yr, bivalent ([employer]) 05/26/2021 Imm Admin: COVID-19 original vaccine, age 12+ yr, monovalent ([employer] [facility]) 11/07/2020 Imm Admin: COVID-19 original vaccine, age 12+ yr, monovalent ([employer]) Only the first 3 history entries have been loaded, but more history exists. CHIEF COMPLAINT: Pre-op exam HPI: Mio Hart is a 68 year old seen for PAC due to scheduled above procedure due to +colorgard . 01/23/24, D (more content not included)... Normal [facility] Surgery Visit Reporton 04-02 Surgery Visit Report [facility] 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 [facility] 02-07-2024 [facility] Telephone (SAL[place]) MIO HART ([id number]) 1955 M Date Time Provider Department 02/07/24 BRICE QUINONEZ During your visit today, we recorded the following information about you: Dipak Isidro 02/07/2024 11:27 AM Signed Patient denied sooner date with [facility] in [place] Scheduled 06/08/2024 asking to be on waitlist Dipak Iisdro 03/10/2024 11:05 AM Signed Left voicemail for patient in regards to sooner date with Dr. Wayne this Saturday in [place] Dipak Isidro Blind Escort Dipak Isidro 03/10/2024 2:22 PM Signed Patient denied sooner date 03/13/2024 Dipak Isidro Blind Escort Allergies As of Date: 02/07/2024 Noted Allergy [...] Encounter Status:Closed by DIPAK ISIDRO on 03/10/24 Normal [facility] Mignon 01-27-2024 [facility] Telephone (EnjoiS) MIO HART ([id number]) 1955 M Date Time Provider Department 01/27/24 BRICE QUINONEZBea During your visit today, we recorded the following information about you: Loki Sullivan RN 01/27/2024 4:56 PM Signed Medical records requested from [facility], and Dr[facility]. Loki Sullivan RN Allergies As of Date: 01/27/2024 Noted Allergy Reaction EZETIMIBE 10/21/2013 5 - Intolerance LISINOPRIL 01/23/2024 18 - Angioedema ROSUVASTATIN 10/21/2013 5 - Intolerance Date Reviewed: 01/24/2024 Reviewed by: Brice Quinonez MD - Fully Assessed Reason for Visit: Request Outside Medical Records [[id number]] Prescriptions as of 01/30/2024 - ASPIRIN ORAL [...] Encounter Status:Closed by LOKI SULLIVAN on 01/30/24 [facility] 01-23-2024 CNOV Office Visit (GNSWAD) MIO HART ([id number]) 1955 M Date Time Provider Department 01/23/24 11:00 AM BRICE QUINONEZ During your visit today, we recorded the following information about you: Pulse Blood pressure Weight 74/minute 132/82 93 kg Brice Quinonez MD 01/31/2024 11:17 AM Signed HISTORY AND PHYSICAL Mio Hart 1955 REFERRING [...] 15%. We now have records from the cardiology/[facility]. From their note his last [...] a cardiac ejection fraction of 15%. His inventory management specialist is Dr. Lisha Miranda at the [facility]. 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 Normal [facility] Basophil percentageOrdered B y: Jackie Escalante on 11-20-2023 Chloride [Moles/Vol] 103 mmol/L 98-107 [facility] Glucose [Mass/Vol] 148 mg/dL 74-106 [facility] Comment on above: Fasting Glucose resu lt greater than or equal to 126 mg/dL suggests DIABETES MELLITUS per A.D.A. criteria. Potassium [Moles/Vol] 4.7 mmol/L 3.5-5.1 [facility] Sodium [Moles/Vol] 135 mmol/L 136-145 [facility] Laboratory - Chemistry and C hemistry - challengeOrdered By: Jackie Escalante on 11-20-2023 CO2 [Moles/Vol] 26.0 mmol/L 21.0-32.0 [facility] Urea nitrogen/Creatinine [Mass ratio] 20.5 mg/mg 10-20 [facility] No Panel InformationOrdered By: Jackie Escalante on 11-20-2023 Estimated GFR (MDRD) Amer 127 mL/min >60 [facility] Comment on above: GFR Calc Estimated GFR (MDRD) Non-Af Amer 105 mL/min >60 [facility] Comment on above: Non- GFR Calc Serum or plasma calcium rinku urement (mass/volume)Ordered By: Jackie Escalante on 11-20-2023 Calcium [Mass/Vol] 9.8 mg/dL 8.5-10.1 [facility] Serum or plasma creatinine m easurement (mass/volume)Ordered By: Jackie Escalante on 11-20-2023 Creatinine [Mass/Vol] 0.78 mg/dL 0.70-1.30 [facility] Comment on above: The validity of the calculated GFR & GFRAA in patients over 70 years has not been determined. Clinical correlation is essential. Serum or plasma urea nitroge n measurement (mass/volume)Ordered By: Jackie Escalante on 11-20-2023 Urea nitrogen [Mass/Vol] 16 mg/dL 7-18 [facility] Thin prep Papanicolaou smear with manual screeningOrdered By: Jackie Escalante on 11-20-2023 Thin prep Papanicolaou smear with manual screening 6 5-15 [facility] Basophil percentageOrdered B y: Jacek Escalante on 10-29-2023 Chloride [Moles/Vol] 103 mmol/L 98-107 [facility] Glucose [Mass/Vol] 167 mg/dL 74-106 [facility] Comment on above: Fasting Glucose resu lt greater than or equal to 126 mg/dL suggests DIABETES MELLITUS per A.D.A. criteria. Potassium [Moles/Vol] 5.2 mmol/L 3.5-5.1 [facility] Sodium [Moles/Vol] 139 mmol/L 136-145 [facility] Laboratory - Chemistry and C hemistry - challengeOrdered By: Jacek Escalante on 10-29-2023 CO2 [Moles/Vol] 27.0 mmol/L 21.0-32.0 [facility] Urea nitrogen/Creatinine [Mass ratio] 23.8 mg/mg 05-31 [facility] No Panel InformationOrdered By: Jacek Escalante on 10-29-2023 Estimated GFR (MDRD) Amer 123 mL/min >60 [facility] Comment on above: GFR Calc Estimated GFR (MDRD) Non-Af Amer 102 mL/min >60 [facility] Comment on above: Non- GFR Calc Serum or plasma calcium rinku urement (mass/volume)Ordered By: Jacek Escalante on 10-29-2023 Calcium [Mass/Vol] 10.7 mg/dL 8.5-10.1 [facility] Serum or plasma creatinine m easurement (mass/volume)Ordered By: Jacek Escalante on 10-29-2023 Creatinine [Mass/Vol] 0.80 mg/dL 0.70-1.30 [facility] Comment on above: The validity of the calculated GFR & GFRAA in patients over 70 years has not been determined. Clinical correlation is essential. Serum or plasma urea nitroge n measurement (mass/volume)Ordered By: Jacek Escalante on 10-29-2023 Urea nitrogen [Mass/Vol] 19 mg/dL 02-26 [facility] Thin prep Papanicolaou smear with manual screeningOrdered By: Jacek Escalante on 10-29-2023 Thin prep Papanicolaou smear with manual screening 9 5-15 [facility] Basophil percentageOrdered B y: Lisha Miranda on 10-21-2023 Bilirubin [Mass/Vol] 0.90 mg/dL 0.20-1.00 [facility] Comment on above: For patients on eltr ombopag therapy, use of Dimension [place] TBIL is not recommended. Cholesterol [Mass/Vol] 153 mg/dL <200 [facility] Comment on above: <200 mg/dL Desirable 200-240 mg/dL Borderline >240 mg/dL High Risk Protein [Mass/Vol] 7.8 g/dL 6.4-8.2 [facility] Triglyceride [Mass/Vol] 152 mg/dL <199 [facility] Comment on above: The drugs N-Acetylcy steine and Metamizole may falsely depress this assay.Serum Triglycerides Reference Interval Normal <150 mg/dL Borderline high 150 - 199 mg/dL High 200 - 499 mg/dL Very High > or = 500 mg/dL Direct bilirubinOrdered By: Lisha Miranda on 10-21-2023 Bilirubin.direct [Mass/Vol] 0.25 mg/dL 0.00-0.30 [facility] Laboratory - Chemistry and C hemistry - challengeOrdered By: Lisha Miranda on 10-21-2023 ALP [Catalytic activity/Vol] 70 U/L 45-117 [facility] ALT [Catalytic activity/Vol] 31 U/L 16-61 [facility] Cholesterol in HDL [Mass/Vol] 65 mg/dL >40 [facility] Comment on above: The drugs N-Acetylcy steine and Metamizole may falsely depress this assay. Reference Range HDL <40 mg/dL Low HDL Cholesterol HDL >or= 60 mg/dL High HDL Cholesterol Cholesterol in LDL [Mass/Vol] 58 mg/dL 0-130 [facility] Globulin (S) [Mass/Vol] 3.4 g/dL 2.2-4.2 [facility] No Panel InformationOrdered By: Lisha Miranda on 10-21-2023 VLDL Cholesterol 30 mg/dL 5-40 [facility] Thin prep Papanicolaou smear with manual screeningOrdered By: Lisha Miranda on 10-21-2023 Thin prep Papanicolaou smear with manual screening 4.4 g/dL 3.2-5.0 [facility] Thin prep Papanicolaou smear with manual screening 20 U/L 15-37 [facility] Comment on above: Slight Hemolysis, Re sult may be falsely increased. Absolute lymphocyte countOrd ered By: Cristopher Dominguez on 09-17-2023 Lymphocytes Auto (Unsp spec) [#/Vol] 0.54 10*3/uL 0.83-4.51 [facility] Automated lymphocyte count a s percentage of total leukocytesOrdered By: Cristopher Dominguez on 09-17-2023 Lymphocytes/100 WBC Auto (Unsp spec) 6.9 % 19-41 [facility] Basophil percentageOrdered B y: Cristopher Dominguez on 09-17-2023 Basophil percentage 0-5 SEEN /hpf 0-5 [facility] Basophils/100 WBC (Bld) 0.5 % 0-1 [facility] Chloride [Moles/Vol] 95 mmol/L 98-107 [facility] Eosinophils/100 WBC (Bld) 0.1 % 0-5 [facility] Glucose [Mass/Vol] 291 mg/dL 74-106 [facility] Comment on above: Glucose result great er than or equal to 200 mg/dLsuggests DIABETES MELLITUS per A.D.A. criteria. Hemoglobin (Bld) [Mass/Vol] 13.6 g/dL 13.0-16.5 [facility] Monocytes/100 WBC (Bld) 13.5 % 0-10 [facility] Neutrophils (Bld) [#/Vol] 6.2 10*3/uL 2.0-7.7 [facility] Neutrophils/100 WBC (Bld) 78.6 % 47-70 [facility] Potassium [Moles/Vol] 4.2 mmol/L 3.5-5.1 [facility] Sodium [Moles/Vol] 126 mmol/L 136-145 [facility] WBC (Bld) [#/Vol] 7.9 10*3/uL 4.4-11.0 [facility] Bilirubin Test strip Ql (U)O rdered By: Cristopher Dominguez on 09-17-2023 Bilirubin Ql (U) Negative Negative [facility] Blood manual differential co mment interpretation (narrative result)Ordered By: Cristopher Dominguez on 09-17-2023 Manual differential comment Dillan (Bld) [Interp] SEE COMMENT [facility] Comment on above: LYMPHOPENIA NOTED Blood platelet adequacy dete ction by light microscopyOrdered By: Cristopher Dominguez on 09-17-2023 Platelets LM Ql (Bld) SLT DEC ADEQ [facility] Determination of erythrocyte mean corpuscular volume (MCV)Ordered By: Cristopher Dominguez on 09-17-2023 MCV (RBC) [Entitic vol] 95.4 fL 80-94 [facility] Erythrocyte distribution wid th ratioOrdered By: Cristopher Dominguez on 09-17-2023 Erythrocyte distribution width (RBC) [Ratio] 12.0 % 11.6-14.6 [facility] Erythrocyte distribution wid th standard deviationOrdered By: Cristopher Dominguez on 09-17-2023 Erythrocyte distribution width (RBC) [Entitic vol] 41.5 fL 35.1-43.9 [facility] Hematocrit Auto (Bld) [Volum e fraction]Ordered By: Cristopher Dominguez on 09-17-2023 Hematocrit (Bld) [Volume fraction] 39.6 % 40-54 [facility] Immature granulocytes/100 WB C Auto (Bld)Ordered By: Cristopher Dominguez on 09-17-2023 Immature granulocytes/100 WBC (Bld) 0.400 % 0.0-0.9 [facility] Comment on above: IG% - Immature Granu locytes (promyelocytes, myelocytes and metamyelocytes) > 1% indicates that a LEFT SHIFT is Present. Ketones Test strip Ql (U)Ord ered By: Cristopher Dominguez on 09-17-2023 Ketones Ql (U) 150 mg/dl Negative [facility] Comment on above: CRITICAL VALUE *HCRI TICAL VALUE VERIFIED. CALLED TO [id number] Viry Mancini.RESULTS READ BACK BY SAME . Laboratory - Chemistry and C hemistry - challengeOrdered By: Cristopher Dominguez on 09-17-2023 CO2 [Moles/Vol] 21.0 mmol/L 21.0-32.0 [facility] Urea nitrogen/Creatinine [Mass ratio] 14.9 mg/mg 10-20 [facility] Laboratory - Hematology and Cell countsOrdered By: Cristopher Dominguez on 09-17-2023 Anisocytosis Ql (Bld) 1+ [facility] MCH (RBC) [Entitic mass] 32.8 pg 27.0-32.0 [facility] MCHC (RBC) [Mass/Vol] 34.3 g/dL 32-36 [facility] Nucleated RBC/100 WBC (Bld) [Ratio] 0 % 0-5 [facility] Platelet mean volume (Bld) [Entitic vol] 10.4 fL 6.2-12.0 [facility] Platelets (Bld) [#/Vol] 147 10*3/uL 150-450 [facility] Laboratory - Microbiology an d Antimicrobial susceptibilityOrdered By: Cristopher Dominguez on 09-17-2023 SARS-CoV-2 (COVID-19) RNA ALEKSANDR+probe Ql (Unsp spec) Influenzae A [facility] SARS-CoV-2 (COVID-19) RNA ALEKSANDR+probe Ql (Unsp spec) Influenzae A [facility] Macrocytes detectionOrdered By: Cristopher Dominguez on 09-17-2023 Macrocytes Ql (Bld) 1+ [facility] Mucus LM Ql (Urine sed)Order ed By: Cristopher Dominguez on 09-17-2023 Mucus Ql (Urine sed) 0 SEEN /hpf [facility] Nitrite Test strip Ql (U)Ord ered By: Cristopher Dominguez on 09-17-2023 Nitrite Ql (U) Negative Negative [facility] No Panel InformationOrdered By: Cristopher Dominguez on 09-17-2023 Urine RBC 0-5 SEEN /hpf 0-5 [facility] Estimated GFR (MDRD) Amer 111 mL/min >60 [facility] Comment on above: GFR Calc Estimated GFR (MDRD) Non-Af Amer 92 mL/min >60 [facility] Comment on above: Non- GFR Calc Troponin I High Sensitivity 14 pg/mL 3.0-78.0 [facility] Comment on above: Please Note: New [place] t Units and Gender Specific Reference Ranges. For more information see Policy Stat Procedure [place] High Sensitivity Troponin (TNIH) and attachments. Protein Test strip Ql (U)Ord ered By: Cristopher Dominguez on 09-17-2023 Protein Ql (U) 500 mg/dl Negative [facility] RBC Auto (Bld) [#/Vol]Ordere d By: Cristopher Dominguez on 09-17-2023 RBC (Bld) [#/Vol] 4.15 10*6/uL 4.6-6.2 [facility] RBC morphologyOrdered By: Andreas Dominguez on 09-17-2023 RBC morphology finding Nom (Bld) N CHROM NORMAL NORM C&C [facility] Serum or plasma calcium rinku urement (mass/volume)Ordered By: Cristopher Dominguez on 09-17-2023 Calcium [Mass/Vol] 9.0 mg/dL 8.5-10.1 [facility] Serum or plasma creatinine m easurement (mass/volume)Ordered By: Cristopher Dominguez on 09-17-2023 Creatinine [Mass/Vol] 0.87 mg/dL 0.70-1.30 [facility] Comment on above: The validity of the calculated GFR & GFRAA in patients over 70 years has not been determined. Clinical correlation is essential. Serum or plasma urea nitroge n measurement (mass/volume)Ordered By: Cristopher Dominguez on 09-17-2023 Urea nitrogen [Mass/Vol] 13 mg/dL 7-18 [facility] Squamous epithelial cells de tection in urine sediment by light microscopyOrdered By: Cristopher Dominguez on 09-17-2023 Epithelial cells.squamous LM Ql (Urine sed) 0 SEEN /hpf 0-5 [facility] Thin prep Papanicolaou smear with manual screeningOrdered By: Cristopher Dominguez on 09-17-2023 Thin prep Papanicolaou smear with manual screening 10 5-15 [facility] Urine blood detectionOrdered By: Cristopher Dominguez on 09-17-2023 RBC Ql (U) 150 /ul Negative [facility] Urine clarityOrdered By: Tayler Dominguez on 09-17-2023 Clarity (U) Clear Clear [facility] Urine color determinationOrd ered By: Cristopher Dominguez on 09-17-2023 Color (U) Yellow Yellow [facility] Urine glucose detectionOrder ed By: Cristopher Dominguez on 09-17-2023 Glucose Ql (U) 1000 mg/dl Normal [facility] [facility] leukocyte esterase det ection by dipstickOrdered By: Cristopher Dominguez on 09-17-2023 Leukocyte esterase Test strip Ql (U) Negative Negative [facility] Urine pHOrdered By: Cristopher meyer on 09-17-2023 pH (U) 5.0 [pH] 5.0 - 8.0 [facility] Urine sediment bacteria coun t by microscopy (number/high power field)Ordered By: Cristopher Dominguez on 09-17-2023 Bacteria LM.HPF (Urine sed) [#/Area] 0 /[HPF] None Seen [facility] Urine specific gravity measu rementOrdered By: Cristopher Dominguez on 09-17-2023 Specific gravity (U) [Rel density] 1.025 1.002-1.030 [facility] Urine urobilinogen measureme ntOrdered By: Cristopher Dominguez on 09-17-2023 Urobilinogen Ql (U) Normal mg/dl Normal [facility] [place] nut IgE serumOrdered By: Dr. Dacosta on 01-10-2023 [place] Nut IgE Qn (S) <0.10 kU/L Class 0 [facility] Huynh's yeast IgE serumOrde red By: Dr. Dacosta on 01-10-2023 Huynh's yeast IgE Qn (S) <0.10 kU/L Class 0 [facility] No Panel InformationOrdered By: Dr. Dacosta on 01-10-2023 Hazelnut Allergen IgE Antibody <0.10 kU/L Class 0 [facility] No Panel InformationOrdered By: Richard Dacosta on 01-10-2023 Miscellaneous Test See comment [facility] Comment on above: TEST RESULTS LIMITS IgE Pistachio Nut < 0.10 kU/L Class 0 TESTING PERFORMED AT [facility]. ORIGINAL REPORT ON FILE IN LAB CONTAINS ADDITIONAL TEST SITE INFORMATION. Serum Ustilago avenae IgE an tibody assay (units/volume)Ordered By: Dr. Dacosta on 01-10-2023 Oat smut IgE Qn (S) <0.10 kU/L Class 0 [facility] Serum almond IgE antibody as say (units/volume)Ordered By: Dr. Dacosta on 01-10-2023 [place] IgE Qn (S) <0.10 kU/L Class 0 [facility] Serum apple IgE antibody ass ay (units/volume)Ordered By: Dr. Dacosta on 01-10-2023 Apple IgE Qn (S) <0.10 kU/L Class 0 [facility] Serum banana IgE antibody as say (units/volume)Ordered By: Dr. Dacosta on 01-10-2023 Banana IgE Qn (S) <0.10 kU/L Class 0 [facility] Serum beef IgE antibody assa y (units/volume)Ordered By: Dr. Dacosta on 01-10-2023 Beef IgE Qn (S) <0.10 kU/L Class 0 [facility] Serum black walnut IgE antib jesika assay (units/volume)Ordered By: Dr. Dacosta on 01-10-2023 Black [place] IgE Qn (S) <0.10 kU/L Class 0 [facility] Serum carrot IgE antibody as say (units/volume)Ordered By: Dr. Dacosta on 01-10-2023 Carrot IgE Qn (S) 0.11 kU/L Class 0/I [facility] Serum cashew nut IgE antibod y assay (units/volume)Ordered By: Dr. Dacosta on 01-10-2023 Cashew nut IgE Qn (S) <0.10 kU/L Class 0 [facility] Serum chicken IgE antibody a ssay (units/volume)Ordered By: Dr. Dacosta on 01-10-2023 Chicken IgE Qn (S) <0.10 kU/L Class 0 [facility] r Serum codfish IgE antibody a ssay (units/volume)Ordered By: Dr. Dacosta on 01-10-2023 Codfish IgE Qn (S) <0.10 kU/L Class 0 [facility] Serum cow milk IgE antibody assay (units/volume)Ordered By: Dr. Dacosta on 01-10-2023 Cow milk IgE Qn (S) <0.10 kU/L Class 0 [facility] Serum egg white IgE antibody assay (units/volume)Ordered By: Dr. Dacosta on 01-10-2023 Egg white IgE Qn (S) <0.10 kU/L Class [address] Serum egg yolk IgE antibody assay (units/volume)Ordered By: Dr. Dacosta on 01-10-2023 Egg yolk IgE Qn (S) <0.10 kU/L Class 0 [facility] Serum garlic IgE antibody as say (units/volume)Ordered By: Dr. Dacosta on 01-10-2023 Garlic IgE Qn (S) <0.10 kU/L Class 0 [facility] Serum gluten IgE antibody as say (units/volume)Ordered By: Dr. Dacosta on 01-10-2023 Gluten IgE Qn (S) <0.10 kU/L Class 0 [facility] Serum onion IgE antibody ass ay (units/volume)Ordered By: Dr. Dacosta on 01-10-2023 Onion IgE Qn (S) <0.10 kU/L Class 0 [facility] Serum orange IgE antibody as say (units/volume)Ordered By: Dr. Dacosta on 01-10-2023 Rich IgE Qn (S) <0.10 kU/L Class 0 [facility] Serum pea IgE antibody assay (units/volume)Ordered By: Dr. Dacosta on 01-10-2023 Pea IgE Qn (S) <0.10 kU/L Class 0 [facility] Serum peach IgE antibody ass ay (units/volume)Ordered By: Dr. Dacosta on 01-10-2023 [place] IgE Qn (S) <0.10 kU/L Class 0 [facility] Comment on above: Performed at: [address] [id number] Director: Rajan Suarez MD, Phone: [phone] Serum peanut IgE antibody as say (units/volume)Ordered By: Dr. Dacosta on 01-10-2023 Peanut IgE Qn (S) 0.12 kU/L Class 0/I [facility] Comment on above: Levels of Specific I [...] By: Dr. Dacosta on 01-10-2023 Pecan or [place] Nut IgE Qn (S) <0.10 kU/L Class 0 [facility] Serum pork IgE antibody assa y (units/volume)Ordered By: Dr. Dacosta on 01-10-2023 Pork IgE Qn (S) <0.10 kU/L Class 0 [facility] Serum rice IgE antibody assa y (units/volume)Ordered By: Dr. Dacosta on 01-10-2023 Rice IgE Qn (S) <0.10 kU/L Class 0 [facility] Serum salmon IgE antibody as say (units/volume)Ordered By: Dr. Dacosta on 01-10-2023 [place] IgE Qn (S) <0.10 kU/L Class 0 [facility] Serum strawberry IgE antibod y assay (units/volume)Ordered By: Dr. Dacosta on 01-10-2023 [place] IgE Qn (S) <0.10 kU/L Class 0 [facility] Serum tomato IgE antibody as say (units/volume)Ordered By: Dr. Dacosta on 01-10-2023 Tomato IgE Qn (S) <0.10 kU/L Class 0 [facility] Serum tuna IgE antibody assa y (units/volume)Ordered By: Dr. Dacosta on 01-10-2023 Tuna IgE Qn (S) <0.10 kU/L Class 0 [facility] Serum wheat IgE antibody ass ay (units/volume)Ordered By: Dr. Dacosta on 01-10-2023 Wheat IgE Qn (S) <0.10 kU/L Class 0 [facility] Serum white potato specific IgE antibody assayOrdered By: Dr. Dacosta on 01-10-2023 Potato IgE Qn (S) <0.10 kU/L Class 0 [facility] Thin prep Papanicolaou smear with manual screeningOrdered By: Dr. Dacosta on 01-10-2023 Thin prep Papanicolaou smear with manual screening <0.10 kU/L Class 0 [facility] Basophil percentageOrdered B y: Dr. Escalante on 11-16-2022 Bilirubin [Mass/Vol] 0.70 mg/dL 0.20-1.00 [facility] Comment on above: For patients on eltr ombopag therapy, use of Dimension [place] TBIL is not recommended. Chloride [Moles/Vol] 102 mmol/L 98-107 [facility] Cholesterol [Mass/Vol] 143 mg/dL <200 [facility] Comment on above: <200 mg/dL Desirable 200-240 mg/dL Borderline >240 mg/dL High Risk Glucose [Mass/Vol] 154 mg/dL 74-106 [facility] Comment on above: Fasting Glucose resu lt greater than or equal to 126 mg/dL suggests DIABETES MELLITUS per A.D.A. criteria. Potassium [Moles/Vol] 4.3 mmol/L 3.5-5.1 [facility] Protein [Mass/Vol] 7.4 g/dL 6.4-8.2 [facility] Sodium [Moles/Vol] 138 mmol/L 136-145 [facility] Triglyceride [Mass/Vol] 197 mg/dL <199 [facility] Comment on above: The drugs N-Acetylcy steine and Metamizole may falsely depress this assay.Serum Triglycerides Reference Interval Normal <150 mg/dL Borderline high 150 - 199 mg/dL High 200 - 499 mg/dL Very High > or = 500 mg/dL WBC (Bld) [#/Vol] 5.6 10*3/uL 4.4-11.0 [facility] Blood erythrocytes count (nu mber/volume)Ordered By: Dr. Escalante on 11-16-2022 RBC (Bld) [#/Vol] 4.50 10*6/uL 4.6-6.2 [facility] Blood hemoglobin measurement (mass/volume)Ordered By: Dr. Escalante on 11-16-2022 Hemoglobin (Bld) [Mass/Vol] 14.7 g/dL 13.0-16.5 [facility] Blood platelet mean volumeOr dered By: Dr. Escalante on 11-16-2022 Platelet mean volume (Bld) [Entitic vol] 10.7 fL 6.2-12.0 [facility] Determination of erythrocyte mean corpuscular volume (MCV)Ordered By: Dr. Escalante on 11-16-2022 MCV (RBC) [Entitic vol] 97.1 fL 80-94 [facility] Direct bilirubinOrdered By: Dr. Escalante on 11-16-2022 Bilirubin.direct [Mass/Vol] 0.22 mg/dL 0.00-0.30 [facility] Hematocrit Auto (Bld) [Volum e fraction]Ordered By: Dr. Escalante on 11-16-2022 Hematocrit (Bld) [Volume fraction] 43.7 % 40-54 [facility] Laboratory - Chemistry and C hemistry - challengeOrdered By: Dr. Escalante on 11-16-2022 ALP [Catalytic activity/Vol] 75 U/L 45-117 [facility] ALT [Catalytic activity/Vol] 34 U/L 16-61 [facility] CO2 [Moles/Vol] 28.0 mmol/L 21.0-32.0 [facility] Cobalamin (Vitamin B12) [Mass/Vol] 382 pg/mL 211-911 [facility] Globulin (S) [Mass/Vol] 3.1 g/dL 2.2-4.2 [facility] Urea nitrogen/Creatinine [Mass ratio] 16.4 mg/mg 10-20 [facility] Laboratory - Hematology and Cell countsOrdered By: Dr. Escalante on 11-16-2022 Erythrocyte distribution width (RBC) [Entitic vol] 42.5 fL 35.1-43.9 [facility] Erythrocyte distribution width (RBC) [Ratio] 11.9 % 11.6-14.6 [facility] MCH (RBC) [Entitic mass] 32.7 pg 27.0-32.0 [facility] MCHC Auto (RBC) [Mass/Vol]Or dered By: Dr. Escalante on 11-16-2022 MCHC (RBC) [Mass/Vol] 33.6 g/dL 32-36 [facility] No Panel InformationOrdered By: Dr. Escalante on 11-16-2022 Estimated GFR (MDRD) Amer 124 mL/min >60 [facility] Comment on above: GFR Calc Estimated GFR (MDRD) Non-Af Amer 103 mL/min >60 [facility] Comment on above: Non- GFR Calc Prostate Specific Antigen Screen 0.47 ng/mL 0.00-4.00 [facility] Comment on above: This test was perfor med using the TPSA assay method for [employer] chemistry system. Values obtained with differentassay methods cannot be used interchangably.When changing PSA assays in the course of monitoring apatient, additional sequential testing should be carriedout to confirm baseline values. Thyroid Stimulating Hormone (TSH) 1.24 uIU/mL 0.358-3.74 [facility] Platelets bldOrdered By: Dr. Escalante on 11-16-2022 Platelets (Bld) [#/Vol] 187 10*3/uL 150-450 [facility] Serum or plasma albumin rinku urement (mass/volume)Ordered By: Dr. Escalante on 11-16-2022 Albumin [Mass/Vol] 4.3 g/dL 3.2-5.0 [facility] Serum or plasma albumin/glob ulin mass ratioOrdered By: Dr. Escalante on 11-16-2022 Albumin/Globulin [Mass ratio] 1.4 {ratio} 0.9-2.4 [facility] Serum or plasma calcium rinku urement (mass/volume)Ordered By: Dr. Escalante on 11-16-2022 Calcium [Mass/Vol] 9.4 mg/dL 8.5-10.1 [facility] Serum or plasma cholesterol in HDL measurement (mass/volume)Ordered By: Dr. Escalante on 11-16-2022 Cholesterol in HDL [Mass/Vol] 50 mg/dL >40 [facility] Comment on above: The drugs N-Acetylcy steine and Metamizole may falsely depress this assay. Reference Range HDL <40 mg/dL Low HDL Cholesterol HDL >or= 60 mg/dL High HDL Cholesterol Serum or plasma cholesterol in VLDL measurement (mass/volume)Ordered By: Dr. Escalante on 11-16-2022 Cholesterol in VLDL [Mass/Vol] 39 mg/dL 5-40 [facility] Serum or plasma creatinine m easurement (mass/volume)Ordered By: Dr. Escalante on 11-16-2022 Creatinine [Mass/Vol] 0.80 mg/dL 0.70-1.30 [facility] Comment on above: The validity of the calculated GFR & GFRAA in patients over 70 years has not been determined. Clinical correlation is essential. Serum or plasma low density lipoprotein (LDL) cholesterol measurement (mass/volume)Ordered By: Dr. Escalante on 11-16-2022 Cholesterol in LDL [Mass/Vol] 54 mg/dL 0-130 [facility] Serum or plasma urea nitroge n measurement (mass/volume)Ordered By: Dr. Escalante on 11-16-2022 Urea nitrogen [Mass/Vol] 13 mg/dL 7-18 [facility] Thin prep Papanicolaou smear with manual screeningOrdered By: Dr. Escalante on 11-16-2022 Thin prep Papanicolaou smear with manual screening 20 U/L 15-37 [facility] Thin prep Papanicolaou smear with manual screening 8 5-15 [facility] Basophil percentageon 2021 Bilirubin [Mass/Vol] 0.40 mg/dL 0.20-1.00 [facility] Work Phone: Comment on above: For patients on eltr ombopag therapy, use of Dimension [place] TBIL is not recommended. Cholesterol [Mass/Vol] 121 mg/dL <200 [facility] Work Phone: Comment on above: <200 mg/dL Desirable 200-240 mg/dL Borderline >240 mg/dL High Risk Protein [Mass/Vol] 6.9 g/dL 6.4-8.2 [facility] Work Phone: Triglyceride [Mass/Vol] 138 mg/dL <199 [facility] Work Phone: Comment on above: The drugs N-Acetylcy steine and Metamizole may falsely depress this assay.Serum Triglycerides Reference Interval Normal <150 mg/dL Borderline high 150 - 199 mg/dL High 200 - 499 mg/dL Very High > or = 500 mg/dL Direct bilirubinon Bilirubin.direct [Mass/Vol] 0.15 mg/dL 0.00-0.30 [facility] Work Phone: Laboratory - Chemistry and C hemistry - challengeon 04-10-2022 ALP [Catalytic activity/Vol] 60 U/L 45-117 [facility] Work Phone: ALT [Catalytic activity/Vol] 30 U/L 16-61 [facility] Work Phone: Globulin (S) [Mass/Vol] 2.9 g/dL 2.2-4.2 [facility] Work Phone: No Panel Informationon 04-10 Hepatitis C Antibody Non-Reactive Nonreactive [facility] Work Phone: Comment on above: Non Reactive: < 0.8 Equivocal: >/= 0.8 to < 1.0 Reactive: >/= 1.0The CDC recommends that a reactive/equivocal HCV antibody result be followed up by the HCV Nucleic Acid Amplificationtest (716371) Serum Varicella zoster virus IgG antibody assay by immunoassay (units/volume)on 04-10-2022 VZV IgG IA Qn (S) 2222 index Immune >165 [facility] Work Phone: Comment on above: Negative <135 Equivo rosaura 135 - 165 Positive >165A positive result generally indicates exposure to thepathogen or administration of specific immunoglobulins,but it is not indication of active infection or stageof disease.Performed at: [facility] [id number] Director: Fabien Thomas PhD, Phone: [phone] Serum or plasma albumin rinku urement (mass/volume)on 04-10-2022 Albumin [Mass/Vol] 4.0 g/dL 3.2-5.0 [facility] Work Phone: Serum or plasma cholesterol in HDL measurement (mass/volume)on 04-10-2022 Cholesterol in HDL [Mass/Vol] 52 mg/dL >40 [facility] Work Phone: Comment on above: The drugs N-Acetylcy steine and Metamizole may falsely depress this assay. Reference Range HDL <40 mg/dL Low HDL Cholesterol HDL >or= 60 mg/dL High HDL Cholesterol Serum or plasma cholesterol in VLDL measurement (mass/volume)on 04-10-2022 Cholesterol in VLDL [Mass/Vol] 28 mg/dL 5-40 [facility] Work Phone: Serum or plasma low density lipoprotein (LDL) cholesterol measurement (mass/volume)on 04-10-2022 Cholesterol in LDL [Mass/Vol] 41 mg/dL 0-130 [facility] Work Phone: Thin prep Papanicolaou smear with manual screeningon 04-10-2022 Thin prep Papanicolaou smear with manual screening 19 U/L 15-37 [facility] Work Phone: Vital Signs Date Time Vital Sign Value Performing Clinician Alexeii gatito 01-25-2025 08:33-0400 Body height 177.[address] Jackie Escalante MD Work Phone: [facility] 01-25-2025 08:33-0400 Body mass index (BMI) [Ratio] 29.5 kg/m2 Dr. Jackie Escalante MD Work Phone: [facility] 01-25-2025 08:33-0400 Body weight 93.[address] Jackie Escalante MD Work Phone: [facility] 01-25-2025 08:33-0400 Diastolic blood pressure 84 mm[Hg] Dr. Jackie Escalante MD Work Phone: [facility] 01-25-2025 08:33-0400 Heart rate 74 /min Dr. Jackie Escalante MD Work Phone: [facility] 01-25-2025 08:33-0400 Respiratory rate 18 /min Dr. Jackie Escalante MD Work Phone: [facility] 01-25-2025 08:33-0400 Systolic blood pressure 134 mm[Hg] Dr. Jackie Escalante MD Work Phone: [facility] 07-14-2024 08:47-0500 Body height 177.[address] Jackie Escalante MD Work Phone: [facility] 07-14-2024 08:47-0500 Body mass index (BMI) [Ratio] 29 kg/m2 Dr. Jackie Escalante MD Work Phone: [facility] 07-14-2024 08:47-0500 Body weight 91.[address] Jackie Escalante MD Work Phone: [facility] 07-14-2024 08:47-0500 Diastolic blood pressure 85 mm[Hg] Dr. Jackie Escalante MD Work Phone: [facility] 07-14-2024 08:47-0500 Heart rate 69 /min Dr. Jackie Escalante MD Work Phone: [facility] 07-14-2024 08:47-0500 Respiratory rate 16 /min Dr. Jackie Escalante MD Work Phone: [facility] 07-14-2024 08:47-0500 Systolic blood pressure 154 mm[Hg] Dr. Jackie Escalante MD Work Phone: [facility] 04-10-2024 14:48-0400 Body height 177.8 cm Pacc 1 Work Phone: [facility] 04-10-2024 14:48-0400 Body mass index (BMI) [Ratio] 29.27 kg/m2 Pacc 1 Work Phone: [facility] 04-10-2024 14:48-0400 Body temperature 98.01 [degF] Pacc 1 Work Phone: [facility] 04-10-2024 14:48-0400 Body weight 92.53 kg Pacc 1 Work Phone: [facility] 04-10-2024 14:48-0400 Diastolic blood pressure 90 mm[Hg] Pacc 1 Work Phone: [facility] 04-10-2024 14:48-0400 Heart rate 71 /min Pacc 1 Work Phone: [facility] 04-10-2024 14:48-0400 Respiratory rate 14 /min Pacc 1 Work Phone: [facility] 04-10-2024 14:48-0400 SaO2% (BldA) [Mass fraction] 97 % Pacc 1 Work Phone: [facility] 04-10-2024 14:48-0400 Systolic blood pressure 138 mm[Hg] Pacc 1 Work Phone: [facility] 01-23-2024 11:18-0400 Body weight 93 kg Brice Quinonez MD Work Phone: [facility] 01-23-2024 11:18-0400 Diastolic blood pressure 82 mm[Hg] Brice Quinonez MD Work Phone: [facility] 01-23-2024 11:18-0400 Heart rate 74 /min Brice Quinonez MD Work Phone: [facility] 01-23-2024 11:18-0400 Systolic blood pressure 132 mm[Hg] Brice Quinonez MD Work Phone: [facility] 10-23-2023 14:41-0400 Body height 177.[address] Jacek Escalante Work Phone: [facility] 10-23-2023 14:41-0400 Body mass index (BMI) [Ratio] 29.4 kg/m2 Dr. Jacek Escalante Work Phone: [facility] 10-23-2023 14:41-0400 Body weight 92.[address] Jacek Escalante Work Phone: [facility] 10-23-2023 14:41-0400 Diastolic blood pressure 73 mm[Hg] Dr. Jacek Escalante Work Phone: [facility] 10-23-2023 14:41-0400 Heart rate 83 /min Dr. Jacek Escalante Work Phone: [facility] 10-23-2023 14:41-0400 Respiratory rate 18 /min Dr. Jacek Escalante Work Phone: [facility] 10-23-2023 14:41-0400 Systolic blood pressure 135 mm[Hg] Dr. Jacek Escalante Work Phone: [facility] 09-17-2023 22:47-0500 Body temperature 100.2 [degF] Dr. Jacek Escalante Work Phone: [facility] 09-17-2023 22:47-0500 Diastolic blood pressure 76 mm[Hg] Dr. Jacek Escalante Work Phone: [facility] 09-17-2023 22:47-0500 Heart rate 86 /min Dr. Jacek Escalante Work Phone: [facility] 09-17-2023 22:47-0500 Respiratory rate 17 /min Dr. Jacek Escalante Work Phone: [facility] 09-17-2023 22:47-0500 SaO2% (BldA) [Mass fraction] 95 % Dr. Jacek Escalante Work Phone: [facility] 09-17-2023 22:47-0500 Systolic blood pressure 125 mm[Hg] Dr. Jacek Escalante Work Phone: [facility] 09-17-2023 22:01-0500 Body mass index (BMI) [Ratio] 30.3 kg/m2 Dr. Jacek Escalante Work Phone: [facility] 09-17-2023 22:01-0500 Body weight [address] Jacek Escalante Work Phone: [facility] 09-17-2023 22:01-0500 Inhaled oxygen flow rate 2 L/min Dr. Jacek Escalante Work Phone: [facility] 09-17-2023 19:46-0500 Body height 177.[address] Jacek Escalante Work Phone: [facility] 04-18-2023 15:35-0400 Body height 177.[address] Jacek Escalante Work Phone: [facility] 04-18-2023 15:35-0400 Body mass index (BMI) [Ratio] 29.8 kg/m2 Dr. Jacek Escalante Work Phone: [facility] 04-18-2023 15:35-0400 Body weight 94.[address] Jacek Escalante Work Phone: [phone] [place] [address] 04-18-2023 15:35-0400 Diastolic blood pressure 95 mm[Hg] Dr. Jacek Escalante Work Phone: [phone] [place] [address] 04-18-2023 15:35-0400 Heart rate 82 /min Dr. Jacek Escalante Work Phone: [facility] 04-18-2023 15:35-0400 Respiratory rate 18 /min Dr. Jacek Escalante Work Phone: [facility] 04-18-2023 15:35-0400 SaO2% (BldA) [Mass fraction] 98 % Dr. Jacek Escalante Work Phone: [facility] 04-18-2023 15:35-0400 Systolic blood pressure 134 mm[Hg] Dr. Jacek Escalante Work Phone: [facility] 11-19-2022 11:15-0400 Body height 177.[address] Jacek Escalante Work Phone: [facility] 11-19-2022 11:15-0400 Body mass index (BMI) [Ratio] 29.8 kg/m2 Dr. Jacek Escalante Work Phone: [facility] 11-19-2022 11:15-0400 Body weight 94.[address] Jacek Escalante Work Phone: [facility] 11-19-2022 11:15-0400 Diastolic blood pressure 88 mm[Hg] Dr. Jacek Escalante Work Phone: [facility] 11-19-2022 11:15-0400 Heart rate 75 /min Dr. Jacek Escalante Work Phone: [facility] 11-19-2022 11:15-0400 Respiratory rate 16 /min Dr. Jacek Escalante Work Phone: [facility] 11-19-2022 11:15-0400 Systolic blood pressure 139 mm[Hg] Dr. Jacek Escalante Work Phone: [facility] Encounters Encounter Date Encounter Type Care Provider Facility Start: 02-16-2025 Non-patient / Non-visit Kandy wynne NP-C -[facility] Work Phone: Start: 02-16-2025 ambulatory Kandy Finch NP Facili ty:[facility] Start: 02-16-2025 ambulatory Lisha Miranda Facility:[facility] Start: 02-16-2025 Non-patient / Non-visit Dr. Lisha calhoun MD -[facility] Start: 02-15-2025 End: 02-15-[address] Jackie Escalante MD Work Phone: -[facility] Start: 02-15-2025 End: 02-15-[address] Lisha Miranda MD -[facility] Work Phone: Start: 02-15-2025 End: 02-15-2025 ambulatory Lisha Miranda Facility:[facility] Start: 01-27-2025 End: 01-27-[address] Jackie Escalante MD Work Phone: [facility] Work Phone: Start: 01-27-2025 End: 01-27-[address] Lisha Miranda MD -Laboratory Work Phone: Start: 01-27-2025 End: 01-27-2025 ambulatory Lisha Ruben Facility:[facility] Start: 01-25-2025 End: 01-25-[address] Lisha Miranda MD -[facility] Work Phone: Start: 01-25-2025 End: 01-25-[address] Jackie Escalante MD Work Phone: [facility] Work Phone: Start: 10-20-2024 End: 10-20-[address] Jackie Escalante MD Work Phone: [facility] Work Phone: Start: 10-20-2024 End: 10-20-2024 Patient encounter procedure Rebel More NP-C -Laboratory, [place] Work Phone: Start: 10-20-2024 End: 10-20-2024 ambulatory Rebel More NP Facility:[facility] Start: 07-14-2024 End: 07-14-[address] Lisha Miranda MD -[facility] Work Phone: Start: 07-14-2024 End: 07-14-2024 ambulatory Lisha Ruben [place] Start: 05-28-2024 End: 05-28-2024 ambulatory [facility] Facility:[facility] Start: 05-07-2024 Encounter for preprocedural cardiovascular examination Lisha [facility] Start: 05-07-2024 End: 05-08-2024 ambulatory [facility] Facility:[facility] Start: 04-17-2024 End: 06-16-2024 Telephone encounter Brice Quinonez MD Work Phone: General Surgery Comment on above: Patient Update Start: 04-14-2024 End: 04-20-2024 Telephone encounter Nicky Pickens APRN.ACTUARIAL DIRECTOR Work Phone: Pre Anesthesia Comment on above: Request Outside [facility] rosaura Records Start: 04-10-2024 End: 04-10-2024 Admission to establishment Pacc Lee 1 Work Phone: Pre Anesthesia Start: 04-10-2024 End: 04-10-2024 ambulatory BRICE QUINONEZ Facility:[facility] Start: 04-10-2024 End: 04-10-2024 Anesthesia consultation Pac Lee 1 Work Phone: Pre Anesthesia Comment on above: Pre-operative examin ation (Primary Dx); 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); Congestive heart failure, unspecified HF chronicity, unspecified heart failure type (HCC); Essential hypertension; Mixed hyperlipidemia; Premature ventricular contractions; Type 2 diabetes (HCC); Ischemic cardiomyopathy Start: 04-10-2024 End: 04-10-2024 Preprocedural examination done Pac Lee 1 Work Phone: [facility] Start: 04-02-2024 End: 04-02-2024 ambulatory Sharri Bonilla Facility[place] Start: 02-07-2024 Telephone encounter Brice Quinonez MD Work Phone: General Surgery Comment on above: Appointment Start: 01-27-2024 Telephone encounter Brice Quinonez MD Work Phone: General Surgery Comment on above: Request Outside [facility] Records Start: 01-23-2024 End: 01-23-2024 ambulatory BRICE QUINONEZ Facility:[facility] Start: 01-23-2024 End: 01-23-2024 Patient encounter procedure Brice Quinonez MD Work Phone: General Surgery Comment on above: Encounter for colore ctal cancer screening using Cologuard test (Primary Dx); 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); Cardiomyopathy, unspecified type (HCC) Start: 11-26-2023 Non-patient / Non-visit Dr. Gaurav Escalante Work Phone: [facility] Work Phone: Start: 11-22-2023 Non-patient / Non-visit Dr. Gaurav Escalante Work Phone: [facility] Start: 11-22-2023 End: 11-22-[address] Jackie Escalante Work Phone: [facility] Work Phone: Start: 11-22-2023 End: 11-22-[address] Jackie Escalante Work Phone: [facility] Work Phone: Start: 11-20-2023 End: 11-20-[address] Jackie Escalante Work Phone: [facility] Work Phone: Start: 11-20-2023 End: 11-20-[address] Jackie Escalante Work Phone: [facility] Work Phone: Start: 10-29-2023 End: 10-29-[address] Jacek Escalante Work Phone: [facility] Work Phone: Start: 10-29-2023 End: 10-29-[address] Jacek Escalante Work Phone: [facility] Work Phone: Start: 10-23-2023 End: 10-23-[address] Jacek Escalante Work Phone: [facility] Work Phone: Start: 10-21-2023 End: 10-21-[address] Jacek Escalante Work Phone: [facility] Work Phone: Start: 10-21-2023 End: 10-21-[address] [facility] Work [facility]: Start: 09-17-2023 End: 09-17-2023 Emergency department patient visit Dr. Jacek Escalante Work Phone: [facility]Emergency Department Work Phone: Start: 07-23-2023 End: 07-23-[address] Jacek Escalante Work Phone: [facility] Work Phone: Start: 07-23-2023 End: 07-23-[address] Jacek Escalante Work Phone: [facility]Radiology, [place] Work Phone: Start: 06-04-2023 Non-patient / Non-visit Dr. Gaurav Escalante Work Phone: [facility] Work Phone: Start: 06-03-2023 Non-patient / Non-visit Dr. Gaurav Escalante Work Phone: [facility] Start: 05-30-2023 End: 05-30-[address] Jacek Escalante Work Phone: [facility] Work Phone: Start: 05-30-2023 End: 05-30-[address] Jacek Escalante Work Phone: [facility] Work Phone: Start: 04-29-2023 Non-patient / Non-visit Dr. Gaurav Escalante Work Phone: [facility] Work Phone: Start: 04-25-2023 Non-patient / Non-visit Dr. Gaurav Escalante Work Phone: [facility] Work Phone: Start: 04-24-2023 Non-patient / Non-visit Dr. Gaurav Escalante Work Phone: [facility] Start: 04-24-2023 End: 04-24-[address] Jacek Escalante Work Phone: [facility] Work Phone: Start: 04-24-2023 End: 04-24-[address] Jacek Escalante Work Phone: [facility]Cardi[facility] Work Phone: Start: 04-18-2023 End: 04-18-[address] Jacek Escalante Work Phone: [facility] Work Phone: Start: 01-10-2023 End: 01-10-[address] Jacek Escalante Work Phone: [facility] Work Phone: Start: 01-10-2023 End: 01-10-[address] Jacek Escalante Work Phone: [facility] Start: 11-19-2022 End: 11-19-[address] Jacek Escalante Work Phone: [facility] Start: 11-16-2022 End: 11-16-[address] Jacek Escalante Work Phone: [facility] Work Phone: Start: 11-16-2022 End: 11-16-[address] Jcaek Escalante Work Phone: [facility] Start: 04-10-2022 End: 04-10-2022 ambulatory [facility] Work Phone: Start: 04-10-2022 End: 04-10-2022 Patient encounter procedure [facility] Procedures Date Procedure Procedure Detail Performing Clinician Start: 02-15-2025 Radionuclide imaging of perfusion of myocardium under exercise stress Dr. Jackie Escalante MD Work Phone: Start: 09-17-2023 Plain chest X-ray Dr. Rodrigo [...] Screening for malign ant neoplasm of colon [facility] Start: 04-22-2025 ambulatory Ambulatory Facility:[facility] Start: 06-08-2024 End: 06-08-2024 Patient encounter procedure 06/08/2024 3:00 PM EDT Appointment [facility] [address] [place] [address] Brice Quinonez MD [address] [place] [address] COLON/EGD [facility] Comment on above: COLON/EGD Start: 04-20-2024 End: 04-20-2024 Patient encounter procedure 04/20/2024 2:30 PM EDT Appointment [facility] [address] [place] [address] Brice Quinonez MD [address] [address] COLON/EGD [facility] Comment on above: COLON/EGD Start: 04-12-2024 Covid-19 Vaccine () Covid-19 Vaccine () [facility] Start: 04-12-2024 Covid-19 Vaccine () Covid-19 Vaccine ( season) [facility] Start: 04-12-2024 Influenza vaccination Influenza Vacc ine (#1) [facility] Start: 10-23-2023 Patient referral [facility] Work Phone: Start: 09-17-2023 [facility] Start: 08-12-2023 Advance Directive Discussion Advance Directive Discussion [facility] Start: 08-12-2023 Behavioral Health Screening Behavioral Health Screening [facility] Start: 04-12-2023 Covid-19 Vaccine ( season) Covid-19 Vaccine ( season) [facility] Start: 01-10-2023 Procedure [facility] Start: 2018 Pneumococcal Vaccine : 65+ (2 of 2 - PPSV23 or PCV20) Pneumococcal Vaccine: 65+ (2 of 2 - PPSV23 or PCV20) [facility] Start: 12-19-2015 Pneumococcal Vaccine : 65+ (2 of 2 - PPSV23 or PCV20) Pneumococcal Vaccine: 65+ (2 of 2 - PPSV23 or PCV20) [facility] Start: 2013 RSV Vaccine (1 - 1-d ose 60+ series) RSV Vaccine (1 - 1-dose 60+ series) [facility] Start: 2013 RSV Vaccine (1 - Ris k 60-74 years 1-dose series) RSV Vaccine (1 - Risk 60-74 years 1-dose series) [facility] Start: 2003 Shingrix Vaccine (1 of 2) Shingrix Vaccine (1 of 2) [facility] Start: 1998 Diabetes Screening Diabetes Screenin g [facility] Start: 1998 Screening for malign ant neoplasm of colon [facility] Start: 1988 Lipid panel Lipid Screening [facility] Start: 1972 Urine microalbumin profile DTaP,Tdap,Td Vaccine (1 - Tdap) [facility] Start: 1971 Annual 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 Disease Visit Annual PCP Team Chronic Disease Visit [facility] Start: 1971 Anxiety Screening Anxiety Screening [facility] Start: 1971 BP Controlled (<130/80) BP Controlle d (<130/80) [facility] Start: 1971 Depression Screening Depression Scre ening [facility] Start: 1971 Hepatitis B surface antibody level LDL Cholesterol [facility] Start: 1971 Hepatitis C screening Hepatitis C Sc eric [facility] Start: 1963 Diabetic foot examination Diabetic Foot Exam [facility] Start: 1963 Glaucoma screening Dilated Retinal E xam [facility] Start: 1963 Hepatitis B screening Urine Al bumin:Creatinine Ratio [facility] Start: 1958 Hemoglobin A1c measurement HbA1C [facility] Start: 1953 Abdominal aortic aneurysm screening Abdominal Aortic Aneurysm Screening [facility] Ambulatory ECG [facility] End: 01-30-2025 EGD DIAGNOSTIC EGD DIAGNOSTIC Endoscopy Routine Encounter for colorectal cancer screening using Cologuard test 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) Cardiomyopathy, unspecified type (HCC) 1 Occurrences starting 01/31/2024 until 01/30/2025 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) Cardiomyopathy, unspecified type (HCC) 1 Occurrences starting 01/31/2024 until 01/30/2025 [facility] Comment on above: 1 Occurrences starti ng 01/31/2024 until 01/30/2025 NM Heart Views W str ess and W radionuclide IV [facility] Patient Education ED Influenza (Adult) [facility] Work Phone: Patient referral [facility] Work Phone: [facility] Immunizations Immunization Date Immunization Notes Care Provider Fa rosendo 05-10-2023 influenza, injectabl e, quadrivalent, preservative free Brice Quinonez MD Work Phone: [facility] 05-10-2023 influenza virus vacc ine, unspecified formulation Brice Quinonez MD Work Phone: [facility] 06-08-2022 influenza, injectabl e, quadrivalent, contains preservative Brice Quinonez MD Work Phone: [facility] 05-29-2019 influenza, seasonal, injectable Brice Quinonez MD Work Phone: [facility] 05-06-2018 influenza, injectabl e, quadrivalent, contains preservative Brice Quinonez MD Work Phone: [facility] 05-01-2017 influenza, seasonal, injectable Brice Quinonez MD Work Phone: [facility] 04-25-2016 influenza, seasonal, injectable Brice Quinonez MD Work Phone: [facility] 10-24-2015 pneumococcal conjuga te vaccine, 13 valent Brice Quinonez MD Work Phone: [facility] 06-10-2015 influenza, seasonal, injectable Brice Quinonez MD Work Phone: [facility] 05-21-2014 influenza, seasonal, injectable Brice Quinonez MD Work Phone: [facility] 04-20-2013 influenza, seasonal, injectable Brice Quinonez MD Work Phone: [facility] Payers Date Payer Category Payer Self-pay [id number] 2021 Unknown MMO MMO MEDICARE SUPPLEMENT [id number] 2021-Present [phone] [address] [place] [address] Indemnity [id number] 2021 Unknown [id number] 2018 Medicare MEDICARE MEDICAR E A AND B [id number] 2018-Present [phone] [address] [address] [place] [address] Medicare [id number] 2018 Medicare [id number] Unknown [id number] Unknown [id number] Unknown [id number] Unknown [id number] Unknown [id number] Unknown [id number] Unknown [id number] Unknown [id number] Unknown [id number] Unknown [id number] Unknown [id number] Unknown [id number] Unknown [id number] Social History Date Type Detail Facility Start: 06-26-2021 End: 04-18-2023 Tobacco smoking status WIIS Unknown if ever smoked [facility] Start: 1955 Sex Assigned At Male [facility] Start: 01-23-2024 End: 03-02-2024 Tobacco smoking status NHIS Ex-smoker [facility] Start: 08-12-1995 End: 08-12-1969 History of tobacco use Current smoker [facility] Start: 08-12-1995 End: 08-12-1969 History of tobacco use Cigarette Smoker [facility] Start: 01-23-2024 End: 04-10-2024 Tobacco use and exposure Smokeless tobacco non-user [facility] Start: 01-23-2024 End: 01-24-2024 History of Social function [facility] Start: 01-23-2024 End: 01-24-2024 Tobacco use panel [facility] National Score (1-100), lower number is lower risk 50 [facility] Start: 1955 Sex Assigned At Not on file C [facility] Start: 01-31-2024 End: 04-14-2024 Alcohol intake Current drinker of alcohol (finding) [facility] Start: 01-30-2024 Alcohol Comment 2 drinks per day [facility] Start: 10-30-2024 Sex Male (finding) [facility] Medical Equipment Procedure Code Equipment Code Equipment Origin al Text Equipment Identifier Dates Ligation of arteriovenous fistula Plant polysaccharide haemostatic agent, bioabsorbable [id number] FDA Start: 03-10-2024 Ligation of arteriovenous fistula Ligation clip, metallic [id number] FDA Start: 03-10-2024 Ligation of arteriovenous fistula Ligation clip, metallic ()[id number] [facility] Start: 03-10-2024 Clinical Notes 01-24-2024 to 01-25-2025 Note Date & Type Note Facility 01-25-2025 Evaluation note Diagnosis Onset Date Resolution Coronary artery disease chronic J une 2024 1:09pm Diabetes chronic January 25 1:09pm Essential hypertension chronic Ju ne 2024 1:09pm Hyperlipidemia chronic January 25, 2025 1:09pm Ischemic cardiomyopathy chronic J une 2024 1:09pm NSVT (nonsustained ventricular tachycardia) chronic January 252024 1:09pm AV (arteriovenous fistula) resolved January 25, 2025 1:09pm [facility] Work Phone: 1(501) 119-620706-16-2025 [facility] [address] [place] [address] OFFICE VISIT Date of Service: 01/25/25 MR#: [id number] Acct: [id number] Name: MIO HART Rep #: [id number] : 1955 Provider: Dr. 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 Average heart rate was 79 bpm in Normal Sinus Rhythm. The minimum heart rate was 67 bpm in Normal Sinus Rhythm recorded at 1:04:15 AM, D2. The maximum heart rate was 98 bpm in Normal Sinus Rhythm recorded at 9:07:26 AM,D1. [place] a [place] [address] ventricular ectopic beats comprising 12% of the [...] reports an LVEF of 38%. Cardiac Catheterization [facility] 12/11/2011: Impression: Severe three vessel coronary [...] patient?s disease, including aspirin, beta blockers, xochitl inhibitors,diuretics, nitrates and statin therapy. Aggressive risk factor modification of hyperlipidemia, hypertension, diabetes and obesity. Percutaneous coronary intervention of the left circumflex artery should be considered. Begin an exercise program. Prasugrel (Effient) 10 mg P0 daily. A cardiac catheterization procedure was performed at [facility] on 12/14/2011.? Theresults are as noted below. Impression: Successful angioplasty and successful stenting of the 85% stenosis in the proximal first obtuse marginal artery. Recommendation: Optimal medical therapy of the patient?s disease. Aggressive risk factor modification. Begin an exercise program. A Holter monitor was performed on 05/05/2012.? The results are as noted below. SINUS RHYTHM WITH BORDERLINE 1ST DEGREE AV BLOCK AZ. 22-.24. MINIMUM HR 60 BPM AT 7:44:46 [...] SINUS RHYTHM WITH 1ST DEGREE AV BLOCK AZ .24 RATE 92 8PM WITHOUT ECTOPICS OR ST CHANGES. Assessment and Plan Assessment and Plan (1) Coronary artery disease: Status: Chronic Plan: History of anterior CT. Status post percutaneous intervention. Aspirin. Beta- blockers. Statins. Check Lexiscan stress Myoview for evaluation [...] Cardiac Ejection fraction %: 15 01/25/25 1337 MD> Date _ Lisha Miranda MD Cosigner Signature: Date (if applicable) CC: Dr. Jackie Escalante MD ~ [facility]06-16-2025 Progress note Author Lisha Miranda [facility] Note Date/Time January 25, 2025 1:37 pm [facility] [address] [place], [place] [address] OFFICE VISIT Date of Service: 01/25/25 MR#: [id number] Acct: [id number] Name: MIO HART Rep #: [id number] : 1955 Provider: Dr. 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 Average heart rate was 79 bpm in Normal Sinus Rhythm. The minimum heart rate was 67 bpm in Normal Sinus Rhythm recorded at 1:04:15 AM, D2. The maximum heart rate was 98 bpm in Normal Sinus Rhythm recorded at 9:07:26 AM,D1. [place] a [place] [address] ventricular ectopic beats comprising 12% of the [...] reports an LVEF of 38%. Cardiac Catheterization [facility] 12/11/2011: Impression: Severe three vessel coronary [...] A cardiac catheterization procedure was performed at [facility] on 12/14/2011.? The results are as noted below. Impression: Successful angioplasty and successful stenting of the 85% stenosis in the proximal first obtuse marginal artery. Recommendation: Optimal medical therapy of the patient?s disease. Aggressive risk factor modification. Begin an exercise program. A Holter monitor was performed on 05/05/2012.? The results are as noted below. SINUS RHYTHM WITH BORDERLINE 1ST DEGREE AV BLOCK AZ. 22-.24. MINIMUM HR 60 BPM AT 7:44:46 [...] SINUS RHYTHM WITH 1ST DEGREE AV BLOCK AZ .24 RATE 92 8PM WITHOUT ECTOPICS OR ST CHANGES. Assessment and Plan Assessment and Plan (1) Coronary artery disease: Status: Chronic Plan: History of anterior CT. Status post percutaneous intervention. Aspirin. Beta-blockers. Statins. [...] applicable) CC: Dr. Jackie Escalante MD ~ [facility] [employer] [facility] Work Phone: 1(593) 878-166912-03-2024 Evaluation note* Diagnosis Onset Date Resolution Status Admit Date Coronary artery disease chronic D ec2023 1:10pm Diabetes chronic July 14, 2024 1:10pm Essential hypertension chronic De cember 2023 1:10pm Hyperlipidemia chronic July 142023 1:10pm Ischemic cardiomyopathy chronic D ecember 2023 1:10pm NSVT (nonsustained ventricul ar tachycardia) chronic July 14 1:10pm AV (arteriovenous fistula) resolved July 14, 2024 1:10pm [facility] Work Phone: 1(663) 921-437309-09-2024 Telephone encounter Note* Telephone Encounter - Mandy Lew LPN - 04/20/2024 9:00 AM EDT Received A1c results. Sent to [facility] through Onbase scanning. Mandy Lew LPN [facility]09-09-2024 Miscellaneous Notes* Telephone Encounter - Mandy Lew LPN - 04/20/2024 9:00 AM EDT Received A1c results. Sent to [facility] through Onbase scanning. Mandy Lew LPN * Telephone Encounter - Mandy Lew LPN - 04/15/2024 11:11 AM EDT Fax request sent to Dr. Escalante's office requesting most recent A1c be faxed for upcoming surgery 04/20/24. Mandy Lew LPN * Telephone Encounter - Nicky Pickens APRN.CNP - 04/14/2024 10:11 AM EDT Can we request most recent A1c from PCP's office? [facility] Telephone encounter Note * Telephone Encounter - Dipak Isidro - 04/17/2024 3:12 PM EDT Email from Dr. High anesthesiologist - patient will be cancelled for his scopes Saturday with [facility] in [place] as he has not been cleared through [...] has been cleared to proceed. Dipak Isidro Blind Escort [facility]09-06-2024 Miscellaneous Notes* Telephone Encounter - Dipak Isidro - 04/17/2024 3:12 PM EDT Email from Dr. High anesthesiologist - patient will be cancelled for his scopes Saturday with [facility] in [place] as he has not been cleared through [...] has been cleared to proceed. Dipak Isidro Blind Escort documented in this encounterUniversity [facility] Telephone encounter Note * Telephone Encounter - Mandy Lew LPN - 04/15/2024 11:11 AM EDT Fax request sent to Dr. Escalante's office requesting most recent A1c be faxed for upcoming surgery 04/20/24. Mandy Lew LPN [facility]09-03-[facility]24 Telephone encounter Note* Telephone Encounter - Nicky Pickens APRN.ACTUARIAL DIRECTOR - 04/14/2024 10:11 AM EDT Can we request most recent A1c from PCP's office? [facility]08-30-[facility]24 Instructions* Patient Instructions* Nicky Pickens APRN.CNP - 04/10/2024 3:17 PM EDT Images from the original note were not included. [facility] PATIENT PREOPERATIVE INSTRUCTIONS Brice Quinonez MD has scheduled you for your procedure at this surgery center: [facility]: [phone] -- [address] [facility] [address]. Please read below carefully for your personalized [...] or other anticoagulants without consulting with your inventory management specialist or prescribing physician. - Stop Vitamin E, [...] Procedures: - YOU MUST HAVE A RESPONSIBLE MODELING DIRECTOR TAKE YOU HOME. A SUPERVISOR SPINNING OR BUILDING COMPONENTS DESIGNER CANNOT BE MADE A RESPONSIBLE MODELING DIRECTOR. - We recommend that a responsible person [...] Advance Directive, please fax a copy to [phone] or email to for it to be [...] into your chart that day. Nicky Pickens APRN.SIN documented in this encounterUniversity Hospitals [facility]08-30-2024 History and physical note * Nicky Pickens APRN.CNP - 04/10/2024 3:12 PM EDT Images from the original note were not included. [facility] HISTORY AND PHYSICAL EXAMINATION SERVICE DATE: 04/10/2024 SERVICE TIME: 10:11 AM PRIMARY CARE PHYSICIAN: Jackie Escalante MD Assessment Patient has the following medical conditions which may affect aide-operative course: Ischemic cardiomyopathy Assessment: following [facility], most updated echo scanned into [facility] 11/2023, EF 15%, medical clearance letter faxed to [facility] and last OV if later than the one scanned into [facility] 10/2023, asymptomatic, on defibrillator/pacemaker at this time Premature ventricular contractions Assessment: controlled on rx, recent holter monitor, following cardio Mixed hyperlipidemia Assessment: c/w statin Essential hypertension Assessment: controlled on rx Last 14 BP Last 14 Encounter BP Readings: Date: BP: 04/10/2024 138/90 01/23/2024 132/82 CHF (congestive heart failure) (HCC) Assessment: controlled on rx and as needed 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 Denies CP, palpitations, sob, new or worsening cardiac symptoms. Clearance letter sent to [facility] Type 2 diabetes (HCC) Assessment: controlled [...] 0 Appetite Score: 0 MST Score: 0 [id number] Score: Age: 65-74 Sex: male CHF history: Yes Hypertension history: Yes Stroke/TIA/thromboembolism history: No Vascular disease history: Yes Diabetes history: Yes [id number] Score: 5 ARISCAT Score: Age: 51-80 Preoperative [...] 15%. We now have records from the cardiology/[facility]. From their note his last [...] a cardiac ejection fraction of 15%. His inventory management specialist is Dr. Lisha Miranda at the [facility]. REVIEW OF SYSTEMS: General: No weight loss, malaise or fevers. 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 Instructions Given to Patient: Instructions located in the after visit summary. Patient given verbal and written preop instructions and voices comprehension and compliance. SIGNATURE: Nicky Pickens APRN.CNP PATIENT NAME: Mio Hart DATE: April 10, 2024 TIME: 3:12 PM PAGER/CONTACT #: [facility] History and physical note* Nicky Pickens APRN.CNP - 04/10/2024 3:12 PM EDT Images from the original note were not included. [facility] HISTORY AND PHYSICAL EXAMINATION SERVICE DATE: 04/10/2024 SERVICE TIME: 10:11 AM PRIMARY CARE PHYSICIAN: Jackie Escalante MD Assessment Patient has the following medical conditions which may affect aide-operative course: Ischemic cardiomyopathy Assessment: following [facility], most updated echo scanned into [facility] 11/2023, EF 15%, medical clearance letter faxed to [facility] and last OV if later than the one scanned into [facility] 10/2023, asymptomatic, on defibrillator/pacemaker at this time Premature ventricular contractions Assessment: controlled on rx, recent holter monitor, following cardio Mixed hyperlipidemia Assessment: c/w statin Essential hypertension Assessment: controlled on rx Last 14 BP Last 14 Encounter BP Readings: Date: BP: 04/10/2024 138/90 01/23/2024 132/82 CHF (congestive heart failure) (HCC) Assessment: controlled on rx and as needed 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 Denies CP, palpitations, sob, new or worsening cardiac symptoms. Clearance letter sent to [facility] Type 2 diabetes (HCC) Assessment: controlled [...] 0 Appetite Score: 0 MST Score: 0 [id number] Score: Age: 65-74 Sex: male CHF history: Yes Hypertension history: Yes Stroke/TIA/thromboembolism history: No Vascular disease history: Yes Diabetes history: Yes [id number] Score: 5 ARISCAT Score: Age: 51-80 Preoperative [...] 15%. We now have records from the cardiology/[facility]. From their note his last [...] a cardiac ejection fraction of 15%. His inventory management specialist is Dr. Lisha Miranda at the [facility]. REVIEW OF SYSTEMS: General: No weight loss, malaise or fevers. 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 No [...] chest pain, congenital heart defect, DVT/PE, recent CT, murmur/valvular heart disease, PTCA, PVD, open heart [...] myocardial infarction of lateral wall (HCC) Comment: CT No date: Atherosclerotic heart disease of [place] coronary artery with angina pectoris (HCC) No [...] or any previous visit (from the past 87976 hour(s)). Instructions Given to Patient: Instructions located in the after visit summary. Patient given verbal and written preop instructions and voices comprehension and compliance. SIGNATURE: Nicky Pickens APRN.CNP PATIENT NAME: Mio Hart DATE: April 10, 2024 TIME: 3:12 PM PAGER/CONTACT #: documented in this encounterUniversity Hospitals [facility]07-30-2024 Telephone encounter Note * Telephone Encounter - Dipak Isidro - 03/10/2024 2:22 PM EDT Patient denied sooner date 03/13/2024 Dipak Isidro Blind Escort [facility]07-30-2024 Miscellaneous Notes* Telephone Encounter - Dipak Isidro - 03/10/2024 2:22 PM EDT Patient denied sooner date 03/13/2024 Dipak Isidro Blind Escort * Telephone Encounter - Dipak Isidro - 03/10/2024 11:05 AM EDT Left voicemail for patient in regards to sooner date with Dr. Wayne this Saturday in [place] Dipak Isidro Blind Escort * Telephone Encounter - Dipak Isidro - 02/07/2024 11:26 AM EDT Patient denied sooner date with kian in [place] Scheduled 06/08/2024 asking to be on waitlist documented in this encounterUniversity Hospitals [facility]07-30-2024 Telephone encounter Note * Telephone Encounter - Dipak Isidro - 03/10/2024 11:05 AM EDT Left voicemail for patient in regards to sooner date with Dr. Wayne this Saturday in [place] Dipak Sanna Blind Escort [facility]06-28-2024 Telephone encounter Note* Telephone Encounter - Dipak Isidro - 02/07/2024 11:26 AM EDT Patient denied sooner date with kian in [place] Scheduled 06/08/2024 asking to be on waitlist [facility]-21-2024 Note* Addendum Note - Brice Quinonez MD - 01/31/2024 11:19 AM EDTAddended by: BRICE QUINONEZ on: 01/31/2024 11:19 AM Modules accepted: Orders [facility]06-21-2024 Miscellaneous Notes* Addendum Note - Brice Quinonez MD - 01/31/2024 11:19 AM EDTAddended by: BRICE QUINONEZ on: 01/31/2024 11:19 AM Modules accepted: Orders documented in this encounterUniversity Hospitals A[facility] Center06-21-2024 Instructions* Patient Instructions* Brice Quinonez MD - [...] If you do not have a responsible tractor sweeper driver (family member or friend) with you [...] preparation [facility] at your local [facility]. 07/2019 Bowel Preparation Instructions for: Golytely, [...] until midnight. 2 07/2019 documented in this encounterUniversity Hospitals [facility]06-17-2024 Telephone encounter Note * Telephone Encounter - Loki Sullivan RN - 01/27/2024 4:53 PM EDT Medical records requested from [facility]), [facility], and [facility]. Loki Sullivan RN [facility]06-17-2024 Miscellaneous Notes* Telephone Encounter - Loki Sullivan RN - 01/27/2024 4:53 PM EDT Medical records requested from [facility]), [facility], and [facility]. Loki Sullivan RN documented in this encounterUniversity Hospitals Ahu[facility] Center06-14-2024 NoteHNO ID: [id number] Author: BRICE QUINONEZ MD Service: ? Author [...] 15%. We now have records from the cardiology/[facility]. From their note his last [...] a cardiac ejection fraction of 15%. His inventory management specialist is Dr. Lisha Miranda at the [facility]. 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 fistula ([facility]) Acute myocardial infarction of lateral wall ([facility]) CT Atherosclerotic heart disease of [place] coronary artery with angina pectoris ([facility]) CHF (congestive heart failure) ([facility]) Essential hypertension Ischemic cardiomyopathy Kidney stones Mixed hyperlipidemia Premature ventricular contractions SOB (shortness of breath) Type 2 diabetes ([facility]) PAST SURGICAL HISTORY Procedure Laterality Date APPENDECTOMY [...] As Noted Assessment IMPRESSION: (more content not included)...[facility]06-14-2024 History of Present illness Narrative* Brice Quinonez MD - 01/24/2024 4:57 AM EDT HISTORY AND PHYSICAL Mio Hart 1955 REFERRING [...] 15%. We now have records from the cardiology/[facility]. From their note his last [...] a cardiac ejection fraction of 15%. His inventory management specialist is Dr. Lisha Miranda at the [facility]. 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 fistula ([facility]) Acute myocardial infarction of lateral wall ([facility]) CT Atherosclerotic heart disease of [place] coronary artery with angina pectoris ([facility]) CHF (congestive heart failure) ([facility]) Essential hypertension Ischemic cardiomyopathy Kidney stones Mixed hyperlipidemia Premature ventricular contractions SOB (shortness of breath) Type 2 diabetes ([facility]) PAST SURGICAL HISTORY Procedure Laterality Date APPENDECTOMY [...] Cologuard test (primaryencounter diagnosis) (I25.119) 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) (I42.9) Cardiomyopathy, unspecified type (HCC) A letter was sent to Dr. Jackie Escalante MD indicating the above finding for this patient. Return to Clinic: The patient is instructed to follow-up with me after study has been performed. 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 Essential hypertension chron ic Hyperlipidemia chronic Ischemic cardiomyopathy [facility] Work Phone: Evaluation note* Diagnosis Encounter for colorectal cancer screening using Cologuard test- Primary 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) Cardiomyopathy, unspecified type (HCC) documented in this encounter [facility] note* Diagnosis Pre-operative examination- Primary Preoperative examination, unspecified 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) Congestive heart [...] EDT Associated Problem(s): Atherosclerotic heart disease of [place] coronary artery with angina pectoris(HCC) Assessment: s/p stents, c/w daily ASA, BB, and statin. Denies CP, palpitations, sob, new or worsening cardiac symptoms. Clearance letter sent to [facility] * Assessment & Plan Note - Nicky Pickens APRN.CNP - 04/14/2024 8:49 AM EDT Associated Problem(s): CHF (congestive heart failure) ([facility]) Assessment: controlled on rx and as needed [...] following [facility], most updated echo scanned into [facility] 11/2023, EF 15%, medical clearance letter faxed to [facility] and last OV if later than the one scanned into [facility] 10/2023, asymptomatic, on defibrillator/pacemaker at this time documented in this encounter [facility] CenterEvaluation [facility]* Diagnosis Onset Date Resolution Status Admit Date Coronary artery disease chronic J une 2024 1:09pm Diabetes chronic January 25 1:09pm Essential hypertension chronic Ju ne 2024 1:09pm Hyperlipidemia chronic January 25, 2025 1:09pm Ischemic cardiomyopathy chronic J une 2024 1:09pm NSVT (nonsustained ventricul ar tachycardia) chronic January 25, 2025 1:09pm AV (arteriovenous fistula) resolved January 25, 2025 1:09pm [facility] Work Phone: Hospital Discharge instructionsAmbulatory Orders* Vascular Location: None Selected [facility] Work Phone: Reason for referral (narrative)* Outpatient Procedure (Routine) - Pending Review Specialty Diagnoses / Procedures Referred By Rodrick ramos Referred To Contact [facility] Diagnoses Encounter for colorectal cancer screening using Cologuard test 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) Cardiomyopathy, unspecified type (HCC) Procedures COLONOSCOPY DIAGNOSTIC COLONOSCOPY FLX DX W/COLLJ SPEC WHEN PFBrice Rosenberg MD [address] [address] [facility] [address] [place] [address] Referral ID Status Reason Start Date Expiration Date Visits Requested Visits Authorized [id number] Pending Review Auto-Generat ed Referral 01/31/2024 01/30/2025 1 1 * Outpatient Procedure (Routine) - Pending Review Specialty Diagnoses / Procedures Referred By Rodrick ramos Referred To Contact [facility] Diagnoses Encounter for colorectal cancer screening using Cologuard test 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) Cardiomyopathy, unspecified type (HCC) Procedures EGD DIAGNOSTIC ESOPHAGOGASTRODUODENOSC OPY TRANSORAL DIAGNOSTIC Brice Quinonez MD [address] [address] [facility] [address] [place] [address] Referral ID Status Reason Start Date Expiration Date Visits Requested Visits Authorized [id number] Pending Review Auto-Generat ed Referral 01/31/2024 01/30/2025 1 1 [facility] CenterReason for referral (narrative)No reason for referral information availableWParkview Health Work Phone: Chief Complaint and Reason for Visit Chief Complaint Admit Date EORDER October 20, 2024 9:2 0am 6 M FU January 25, 2025 1:09 pm E ORDERS January 27, 2025 7:10 am Reason for Visit Admit Date Coronary artery disease January 25, 2025 1:09pm Diabetes January 25, 2025 1:09 pm Essential hypertension January 25, 2025 1 :09pm Hyperlipidemia January 25, 2025 1:09 pm Ischemic cardiomyopathy January 25, 2025 1:09pm NSVT (nonsustained ventricular tachycard ia) January 25, 2025 1:09pm AV (arteriovenous fistula) January 25 1:09pm Chief Complaint E ORDER Chief Complaint EORDERS- RANNEY & MO ODISPAW 6 m fu Reason for Visit [id number] Essential hypertension Hyperlipidemia Ischemic cardiomyopathy Chief Complaint EORDERS- RANNEY & MO ODISPAW 6 m fu Allergy, unspecified, initial encounter Reason for Visit [id number] Essential hypertension Hyperlipidemia Ischemic cardiomyopathy Chief Complaint Allergy, unspecified , initial encounter 1 Y FU PREV PFM CHF Amb Documentation Amb Documentation Reason for Visit [id number] Essential hypertension Hyperlipidemia Ischemic cardiomyopathy Chief Complaint 1 Y FU PREV PFM CHF Amb Documentation Amb Documentation ISCHEMIC CARDIOMYOPATHY ISCHEMIC CARDIOMYOPATHY Amb Documentation Reason for Visit [id number] Essential hypertension Hyperlipidemia Ischemic cardiomyopathy Chief Complaint [...] M FU EORDER Atherosclerotic heart disease of [place] coronary a Amb Documentation Reason for Visit AV (arteriovenous fi stula) Coronary artery disease Essential hypertension Hyperlipidemia Ischemic cardiomyopathy Chief Complaint 1 Y FU PREV PFM CHF Amb Documentation Amb Documentation ISCHEMIC CARDIOMYOPATHY ISCHEMIC CARDIOMYOPATHY Amb Documentation RIGHT KNEE PAIN Reason for Visit [id number] Essential hypertension Hyperlipidemia Ischemic cardiomyopathy Chief Complaint [...] M FU January 25, 2025 1:09 pm Chief Complaint Admit Date 6 M FU January 25, 2025 1:09 pm E ORDERS January 27, 2025 7:10 am CAD February 15, 2025 6:15a m Coronary artery disease February 16, 2025 8 :37am Amb Documentation February 16, 2025 11:26 am Family History No Family History Records Found Relationship Condition Age at Onset Recorded Date/T [place] mother Diabetes mellitus Unknown sister Diabetes mellitus Unknown brother Diabetes mellitus Unknown Hypertension Unknown Advance Directives No Advanced Directives Records Found Advance Directive Response Recorded Date/ Time Advance Directives Yes April 10:02am Living Will Yes June 17 11:36pm Power of Meal Cooker No June 17, 2021 11:36pm Advance Directive Response Recorded Date/ Time Name of Medical Power of Meal Cooker September 17, 2023 8:09pm Advance Directives Yes April 9:02am Living Will Yes September 17 8:09pm Power of Meal Cooker Yes September 17, 2023 8:09pm Advance Directive Response Recorded Date/ Time Name of Medical Power of Meal Cooker September 17, 2023 9:09pm Advance Directives Yes April 10:02am Living Will Yes September 17 9:09pm Power of Meal Cooker Yes September 17, 2023 9:09pm Advance Directive Response Recorded Date/ Time Advance Directives Yes April 9:02am Living Will Yes June 17 10:36pm Power of Meal Cooker No June 17, 2021 10:36pm Advance Directive [...] Jacek Escalante MD Primary Care Provider, Refe ing Provider Active Rebel More HANDLE MAKER, HANDLE MAKER-C Attending Provider Active Team Status: Inactive Member Role Status Dates Dr. Jacek Escalante MD Primary Care Provider, Attending Provider, Referring Provider Active Dr. Sandeep Quiroz MD Other Provider Active Team Status: Inactive Member Role Status Dates Dr. Jacek Escalante MD Primary Care Provider Activ e Dr. Richard Dacosta MD Attending Provider, Referring Rafi joy Active Team Status: Active Member Role Status Dates Dr. Jacek Escalante MD Primary Care Provider Activ e Dr. Lisha Miranda MD Attending Provider Active Team Status: Active Member Role Status Dates Dr. Jacek Escalante MD Primary Care Provider Activ e Rebel More HANDLE MAKER, HANDLE MAKER-C Attending Provider Active Team Status: Inactive Member Role Status Dates Dr. Jacek Escalante MD Primary Care Provider Activ e Rebel More HANDLE MAKER, HANDLE MAKER-C Attending Provider, Referring Pro vider Active Team Status: Active Member Role Status Dates Dr. Jacek Escalante MD Primary Care Provider Activ e Rebel More HANDLE MAKER, HANDLE MAKER-C Referring Provider, Other Provide r Active Dr. [...] Primary Care Provider Acti ve Kandy Finch HANDLE MAKER, HANDLE MAKER-C Attending Provider Active Team Status: Inactive Member Role Status Dates Dr. Jackie Escalante MD Primary Care Provider Acti ve Dr. Cristopher Dominguez DO Attending Provider, Emergency P renitader Active Team Status: Inactive Member Role Status [...] MD Attending Provider, Referring Pr ovider Active Online Producer Relationship Specialty Start Date End Date Jackie Escalante MD [address] [place] [address] PCP - General Family Medicine 01/24/24 Online Producer Relationship Specialty Start Date End Date Jackie Escalante MD [address] [place] [address] PCP - General Family Medicine 01/24/24 Online Producer Relationship Specialty Start Date End Date Jackie Escalante MD [address] [place] [address] PCP - General Family Medicine 01/24/24 Online Producer Relationship Specialty Start Date End Date Jackie Escalante MD [address] [place] [address] PCP - General Family Medicine 01/24/24 Online Producer Relationship Specialty Start Date End Date Jackie Escalante MD [address] [place] [address] PCP - General Family Medicine 01/24/24 Team [...] 2024 End: October 20, 2024 Rebel More HANDLE MAKER, HANDLE MAKER-C Attending Provider Active S tart: October 20, 2024 End: October 20, 2024 Rebel More HANDLE MAKER, HANDLE MAKER-C Referring Provider Active S tart: October 20, [...] January 25, 2025 End: January 25, 2025 Team Status: Inactive Member Role Status Dates Dr. Jackie Escalante MD Primary Care Provider Acti ve Start: January 27, 2025 End: January 27, 2025 Dr. Lisha Miranda MD Attending Provider Active Start: January 27, 2025 End: January 27, 2025 Dr. Lisha Miranda MD Referring Provider Active Start: January 27, 2025 End: January 27, 2025 Team Status: Active Member Role/Relationship Status Dates Dr. Jackie Escalante MD Primary Care Provider Acti ve Team Status: Inactive Member Role/Relationship Status Dates Dr. Jackie Escalante MD Primary Care Provider Acti ve Start: January 25, 2025 End: January 25, 2025 Dr. Jackie Escalante MD Referring Provider Active Start: January 25, 2025 End: January 25, 2025 Dr. Lisha Miranda MD Attending Provider Active Start: January 25, 2025 End: January 25, 2025 Team Status: Inactive Member Role/Relationship Status Dates Dr. Jackie Escalante MD Primary Care Provider Acti ve Start: January 27, 2025 End: January 27, 2025 Dr. Lisha Miranda MD Attending Provider Active Start: January 27, 2025 End: January 27, 2025 Dr. Lisha Miranda MD Referring Provider Active Start: January 27, 2025 End: January 27, 2025 Team Status: Inactive Member Role/Relationship Status Dates Dr. Jackie Escalante MD Primary Care Provider Acti ve Start: February 15, 2025 End: February 15, 2025 Dr. Lisha Miranda MD Attending Provider Active Start: February 15, 2025 End: February 15, 2025 Dr. Lisha Miranda MD Referring Provider Active Start: February 15, 2025 End: February 15, 2025 Team Status: Active Member Role/Relationship Status Dates Dr. Jackie Escalante MD Primary Care Provider Acti ve Start: February 16, 2025 Dr. Lisha Miranda MD Attending Provider Active Start: February 16, 2025 Dr. Lisha Miranda MD Referring Provider Active Start: February 16, 2025 Dr. Lisha Miranda MD Other Provider Active Star t: February 16, 2025 Team Status: Active Member Role/Relationship Status Dates Dr. Jackie Escalante MD Primary Care Provider Acti ve Start: February 16, 2025 Kandy Finch NP, [employer] Attending Provider Active Start: February 16, 2025 Source Comments (unrecognize d section and content) In the event this informatio n is protected by the Federal Confidentiality of Alcohol and Drug Abuse Patient Records regulations: The Federal rules restrict any use of the information to criminally investigate or prosecute any alcohol or drug abuse patient.[facility] the event this information is protected by the Federal Confidentiality of Alcohol and Drug Abuse Patient Records regulations: The Federal rules restrict any use of the information to criminally investigate or prosecute any alcohol or drug abuse patient.[facility] the event this information is protected by the Federal Confidentiality of Alcohol and Drug Abuse Patient Records regulations: The Federal rules restrict any use of the information to criminally investigate or prosecute any alcohol or drug abuse patient.[facility] the event this information is protected by the Federal Confidentiality of Alcohol and Drug Abuse Patient Records regulations: The Federal rules restrict any use of the information to criminally investigate or prosecute any alcohol or drug abuse patient.[facility] Center[facility] the event this information is protected by the Federal Confidentiality of Alcohol and Drug Abuse Patient Records regulations: The Federal rules restrict any use of the information to criminally investigate or prosecute any alcohol or drug abuse patient.[facility] Center[facility] the event this information is protected by the Federal Confidentiality of Alcohol and Drug Abuse Patient Records regulations: The Federal rules restrict any use of the information to criminally investigate or prosecute any alcohol or drug abuse patient.[facility] Reason for Visit (unrecogniz ed section and content) Reason Comments Request Outside Medical Records Reason Comments Consult Positive cologuard r eport Reason Comments Appointment Reason Comments Consult Reason Comments Patient Update (unrecognized sect ion and content) No Status Records FoundNo Status Records Found INFORMATION SOURCE (unrecogn ized section and content) DATE CREATED AUTHOR 06/18/2024 [facility] DATE CREATED AUTHOR AUTHOR'S KENDALL ATDORY 03/13/2025 [facility] FOR RECORDS PERTAINING TO PATIENTS WHO ARE [...] BE BASED ON THE PRIMARY CLINICAL RECORDS. [employer] provides no warranty or guarantee of the accuracy or completeness of information in this document.
--- OUTSIDE RECORDS SUMMARY | 2025-05-28 13:03 | XMS RPT_ITS | CCD ---
Author Organization [facility] Care Team Providers Care Anesthesiology Teacher Name Role Phone Dr. Jacek Escalante Primary Care Provider [phone] Dr. Jacek Escalante Referring Provider Roof ART LIBRARIAN, ART LIBRARIAN-C Rebel Ruggiero Attending Provider Dr. Jacek Escalante Primary Care Provider [phone] Dr. Jacek Escalante Referring Provider Roof ART LIBRARIAN, ART LIBRARIAN-C Rebel Ruggiero Attending Provider Dr. Lisha Miranda Attending Provider Roof ART LIBRARIAN, ART LIBRARIAN-C Rebel Ruggiero Referring Provider Roof ART LIBRARIAN, ART LIBRARIAN-C Rebel Ruggiero Other Provider Dr. Jacek Escalante Primary Care Provider [phone] Roof ART LIBRARIAN, ART LIBRARIAN-C Rebel Ruggiero Referring Provider Roof ART LIBRARIAN, ART LIBRARIAN-C Rebel Ruggiero Other Provider Dr. Lisha Miranda Attending Provider Roof ART LIBRARIAN, ART LIBRARIAN-C Rebel Ruggiero Attending Provider Dr. Jacek Escalante Primary Care Provider [phone] Dr. Jacek Escalante Referring Provider Dr. Lisha Miranda Attending Provider Dr. Jackie Escalante Primary Care Provider [phone] Dr. Jackie Escalante Referring Provider Dr. Cristopher Austin Attending Provider Stef ART LIBRARIAN, ART LIBRARIAN-C Kandy Attending Provider Jackie Escalante MD Primary Care Provider BRICE QUINONEZ Referring Unavailable JACKIE ESCALANTE Primary Care Unavailabl e BRICE QUINONEZ Attending Unavailable Dr. Jacek Escalante Primary Care Provider Dr. Jacek Escalante Referring Provider Roof ART LIBRARIAN, ART LIBRARIAN-C Rebel Ruggiero Attending Provider Ruben, Dr. Husain Attending Provider Ava LUIS, Dr. Mcmanus Primary Care Provider Ava LUIS, Dr. Mcmanus Referring Provider Ruben LUIS, Dr. Husain Attending Provider Argenis ART LIBRARIAN-C, Rebel Ruggiero Attending Provider Roof ART LIBRARIAN-C, Rebel Ruggiero Referring Provider Ava LUIS, Dr. Mcmanus Primary Care Provider Ava LUIS, Dr. Mcmanus Referring Provider Ruben LUIS, Dr. Husain Attending Provider Ruben LUIS, Dr. Husain Referring Provider Ava LUIS, Dr. Mcmanus Primary Care Provider Ruben LUIS, Dr. Husain Other Provider Finch ART LIBRARIAN-C, Kandy Attending Provider Ruben, Lisha Attending Unavailable Ruben, Lisha Referring [facility]available [facility] Unavailable Roof ART LIBRARIAN, Rebel H Attending Unavailable Roof ART LIBRARIAN, Rebel H Referring Unavailable [facility] Unavailable Jackie Escalante Attending Unavailable [facility] Unavailable Ruben, Lisha Attending Unavailable Ruben, Lisha Referring Unavailable Ruben, Lisha Referring Unavailable Ruben, Lisha Attending [facility]available Roof ART LIBRARIAN, Rebel H Attending Unavailable Roof ART LIBRARIAN, Rebel H Referring Unavailable Ava [facility] Primary Care Unavailable Ruben, Lisha Attending Unavailable Channing Homejulianne Referring Unavailable [facility] Primary Care Unavailable RubenLisha baez Attending Unavailable [facility] Primary Care Unavailable [facility] Referring Unavailable Kandy Finch NP Attending Unavailable [facility] Primary Care Unavailable Ruben, Lisha Referring Unavailable RubenLisha baez Consulting Unavailable RubenLisha baez Attending Unavailable [facility] Primary Care Unavailable Sharri Bonilla Attending Unavailable [facility] Primary Care Unavailable [facility] Referring Unavailable RubenLisha baez Attending Unavailable [facility] Referring Unavailable [facility] Primary Care Unavailable Allergies Allergy Classification Reported Allergen(s) Allergy Type Date of Onset Reaction(s) Facility (20 sources) rosuvastatin; Translations: [ROSUVASTATIN] Drug Allergy 10-21-2013 Intolerance [facility] (7 sources) ezetimibe; Translations: [EZETIMIBE] Drug Allergy 10-21-2013 Intolerance [facility] (11 sources) Lisinopril; Translations: [LISINOPRIL] Drug Allergy 01-23-2024 Angioedema [facility] (1 source) Lisinopril Drug Allergy 01-25-2025 [facility] Repository (1 source) rosuvastatin Drug Allergy 01-25-2025 [facility] Repository Medications Current Medications Medication Drug Class(es) [...] Start: 10-23-2023 take 2 tablets by [facility] twice daily in the evening metFORMIN ER [...] 29, 2018 10:42am December 19, 2020 1:57pm Abtcrqmf-Jvs-Dmok Fum-Folic Ac (20 sources) Start: 11-19-2022 take 1 tablet by mouth once daily before mealtime Ihhvnojp-Wrc-Xbku Fum-Folic Ac Active 1 TABLET PO DAILY November 19, 2022 10:12am Start: 11-19-2022 take 1 tablet by ronny th once daily before mealtime Bqiswulp-Gae-Auwl Fum-Folic Ac Active 1 TABLET PO DAILY November 19, 2022 11:12am Start: 04-23-2016 End: 11-19-2022 take 1 tablet by mouth once at dinner Hzqiizax-Cby-Qion Fum-Folic Ac Discontinued 1 TABLET PO WITH DINNER April 22, 2016 11:00pm November 19, 2022 10:13am Start: 04-23-2016 End: 11-19-2022 take 1 tablet by mouth once at dinner Zijmwfoi-Bsd-Zvqt Fum-Folic Ac Discontinued 1 TABLET PO WITH DINNER April 23, 2016 12:00am November 19, 2022 11:13am Start: 04-23-2016 take 1 tablet by ronny th once at dinner Wdkrbtsf-Kxy-Sexj Fum-Folic Ac Active 1 TABLET PO WITH DINNER April 23, 2016 12:00am Gmcecvyk-Zum-Bele Fum-Folic Ac 7.5 mg iron-400 mcg tablet (4 sources) Start: 11-19-2022 take 7.5 tablets by mouth once daily before mealtime Wkcgoxze-Jzj-Wzvp Fum-Folic Ac 7.5 mg iron-400 mcg tablet [...] February 19, 2024 2:13pm polyethylene glycol 3350 160137 mg / potassium chloride 2970 mg / sodium bicarbonate 6740 mg / sodium chloride 5860 mg / sodium sulfate 15774 mg powder for oral solution (1 source) Osmotic Laxative Start: 01-31-2024 End: 01-31-2024 peg 3350-Electrolytes (GOLYTELY) 236-22.74-6.74 -5.86 gram suspension Indications: Encounter for colorectal cancer screening using Cologuard test , 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) , Cardiomyopathy, [...] 24, 2016 12:00am March 10, 2018 1:42pm [id number] 200 actuat albuterol 0.09 mg/actuat metered dose [...] 23, 2016 12:00am March 10, 2018 1:40pm Ppjnukzz-Dug-Pndb Fum-Folic Ac 1 EACH tablet (4 sources) Start: 04-23-2016 End: 11-19-2022 take 1 tablet by mouth once at dinner Vqfaergs-Yvd-Scyy Fum-Folic Ac 1 EACH tablet Discontinued 1 [...] LINDA to jag ramos OM 12/14/2011 @ [facility] per Dr. Garth Bernard Diabetes mellitus [...] LINDA to jag ramos OM 12/14/2011 @ [facility] per Dr. Garth Bernard Genitourinary symptoms [...] By: Lisha Miranda on 02-16-2025 Study report [facility] [address] [place] [address] MR#: [id number] Acct: [id number] Name: MIO HART Rep #: [id number] [...] of 27%. This note was generated with Roadhopation software. It may contain incorrectwords, spelling, and punctuation that were not noted in checking the note beforesigning. 02/16/25839 Date _ Lisha Miranda MD CC: Dr. Lisha Miranda MD; Dr. Jackie Escalante MD ~ Date Dictated: 02/16/25836 Date Transcribed: 02/16/25836 Spring Former Hand: DAVID Nicholson [facility] Work Phone: Stress Reporton 02-16-2025 Stress Report [facility] [address] [place] [address] MR#: [id number] Acct: [id number] Name: MIO HART Rep #: [id number] : 1955 69 From: Lisha Miranda MD [...] of 27%. This note was generated with Roadhopation software. It may contain incorrect words, spelling, and punctuation that were not noted in checking the note before signing. 02/16/25839 Date Lisha Miranda MD CC: Dr. Lisha Miranda MD; Dr. Jackie Escalante MD Date Dictated: 02/16/25836 Date Transcribed: 02/16/25836 Spring Former Hand: DAVID Signed Normal [facility] Anion gap in Serum or Plasma Ordered By: Lisha Miranda on 01-27-2025 Anion gap [Moles/Vol] 13 mmol/L 5-15 [facility] BUN/creatinine ratioOrdered By: Lisha Miranda on 01-27-2025 Urea nitrogen/Creatinine [Mass ratio] 19.4 mg/mg 10-20 [facility] Bilirubin, totalOrdered By: Lisha Miranda on 01-27-2025 Bilirubin [Mass/Vol] 0.52 mg/dL 0.00-1.30 [facility] Calculated very low density lipoprotein (VLDL) cholesterol measurementOrdered By: Lisha Miranda on 01-27-2025 Calculated very low density lipoprotein (VLDL) cholesterol measurement 41 mg/dL High 5-40 [facility] Carbon dioxide, total [Moles /volume] in Central venous bloodOrdered By: Lisha Miranda on 01-27-2025 CO2 [Moles/Vol] 22.1 mmol/L 21.0-32.0 [facility] Chloride assayOrdered By: David Miranda on 01-27-2025 Chloride [Moles/Vol] 105 mmol/L 98-108 [facility] Comprehensive Metabolic Prof ilon 01-27-2025 Albumin [Mass/Vol] 4.7 g/dL Normal 3.4-4.8 [facility] Comment on above: Performed By: #### L 500.4050, L500.4100 ####[facility] [address] [place], [address] Albumin/Globulin [Mass ratio] 2.0 {ratio} Normal 0.9-2.4 [facility] Comment on above: Performed By: #### L 500.4050, L500.4100 ####[facility] [address] [place], [address] ALK PHOS 55 U/L Normal 40-129 [facility] Comment on above: Performed By: #### L 500.4050, L500.4100 ####[facility] [address] [place], [address] ALT [Catalytic activity/Vol] 17 U/L Normal <=46 [facility] Comment on above: Performed By: #### L 500.4050, L500.4100 ####[facility] [address] [place], [address] AST [Catalytic activity/Vol] 22 U/L Normal <=37 [facility] Comment on above: Performed By: #### L 500.4050, L500.4100 ####[facility] [address] [place], [address] Bilirubin [Mass/Vol] 0.52 mg/dL Normal 0.00-1.30 [facility] Comment on above: Performed By: #### L 500.4050, L500.4100 ####[facility] [address] [place], [address] BUN/CRE 19.4 RATIO Normal 10-20 [facility] Comment on above: Performed By: #### L 500.4050, L500.4100 ####[facility] [address] [place], [address] Calcium [Mass/Vol] 9.9 mg/dL Normal 7.6-11.0 [facility] Comment on above: Performed By: #### L 500.4050, L500.4100 ####[facility] [address] [place], [address] Chloride [Moles/Vol] 105 mmol/L Normal 98-108 [facility] Comment on above: Performed By: #### L 500.4050, L500.4100 ####[facility] [address] [place], [address] CO2 [Moles/Vol] 22.1 mmol/L Normal 21.0-32.0 [facility] Comment on above: Performed By: #### L 500.4050, L500.4100 ####[facility] [address] [place], [address] Creatinine [Mass/Vol] 0.67 mg/dL Low 0.70-1.20 [facility] Comment on above: Performed By: #### L 500.4050, L500.4100 ####[facility] [address] [place], [address] GAP 13 Normal 5-15 [facility] Comment on above: Performed By: #### L 500.4050, L500.4100 ####[facility] [address] [place], [address] GFR/1.73 sq M.predicted among non-blacks MDRD (S/P/Bld) [Vol rate/Area] 100 mL/min/{1.73_m2} Normal >60 [facility] Comment on above: Result Comment: mL/m in/1.73m2 CKD-EPI Creatinine Equation (2020) Performed By: #### L 500.4050, L500.4100 ####[facility] [address] [place], [address] Globulin (S) [Mass/Vol] 2.4 g/dL Normal 2.2-4.2 [facility] Comment on above: Performed By: #### L 500.4050, L500.4100 ####[facility] [address] [place], [address] Glucose [Mass/Vol] 105 mg/dL High 70-99 [facility] Comment on above: Performed By: #### L 500.4050, L500.4100 ####[facility] [address] [place], [address] Potassium [Moles/Vol] 4.0 mmol/L Normal 3.3-5.1 [facility] Comment on above: Performed By: #### L 500.4050, L500.4100 ####[facility] [address] [place], [address] Sodium [Moles/Vol] 141 mmol/L Normal 133-145 [facility] Comment on above: Performed By: #### L 500.4050, L500.4100 ####[facility] [address] [place], [address] T PROT 7.1 g/dL Normal 5.9-8.4 [facility] Comment on above: Performed By: #### L 500.4050, L500.4100 ####[facility] [address] [place], [address] Urea nitrogen [Mass/Vol] 13 mg/dL Normal 4-19 [facility] Comment on above: Performed By: #### L 500.4050, L500.4100 ####[facility] [address] [place], [address] Glomerular filtration rate ( GFR) estimation/1.73 sq m using serum, plasma, or whole bOrdered By: Lisha Miranda on 01-27-2025 GFR/1.73 sq M.predicted among non-blacks MDRD (S/P/Bld) [Vol rate/Area] 100 mL/min/{1.73_m2} >60 [facility] Comment on above: mL/min/1.73m2 CKD-EP I Creatinine Equation (2020) LDL calc ser/plasOrdered By: Lisha Miranda on 01-27-2025 Cholesterol in LDL [Mass/Vol] 56 mg/dL [facility] Comment on above: Oojwoawphm=150-054 m g/dL & Higher Elaq=621 mg/dL or greater Laboratory - Chemistry and C hemistry - challengeOrdered By: Lisha Miranda on 01-27-2025 AST [Catalytic activity/Vol] 22 U/L <38 [facility] Lipid Profileon 01-27-2025 CHOL:HDL 2.97 Normal [facility] Comment on above: Performed By: #### L 500.4050, L500.4100 ####[facility] [address] [place], [address] Cholesterol [Mass/Vol] 146 mg/dL Normal <=200 [facility] Comment on above: Result Comment: Chol esterol level, Desirable <200 mg/dL Borderline high cholesterol 200-239 mg/dL High cholesterol >=240 mg/dL Recommendations of the NCEP Adult Treatment Panel for the following risk-cutoff thresholds for the [place] population. Performed By: #### L 500.4050, L500.4100 ####[facility] [address] [place], [address] Cholesterol in HDL [Mass/Vol] 49 mg/dL Normal [facility] Comment on above: Result Comment: Pearl onal Cholesterol Education Program (NCEP) guidelines: <40 mg/dL: Low HDL-cholesterol (major risk factor for CHD) >= 60 mg/dL: High HDL-cholesterol (negative risk factor for CHD) HDL-cholesterol is affected by a number of factors, e.g. smoking, exercise, hormones, sex and age. Performed By: #### L 500.4050, L500.4100 ####[facility] [address] [place], [address] Cholesterol in LDL [Mass/Vol] 56 mg/dL Normal [facility] Comment on above: Result Comment: Bord matwds=756-510 mg/dL Higher Poze=734 mg/dL or greater Performed By: #### L 500.4050, L500.4100 ####[facility] [address] [place], [address] Cholesterol in VLDL [Mass/Vol] 41 mg/dL High 5-40 [facility] Comment on above: Performed By: #### L 500.4050, L500.4100 ####[facility] [address] [place], [address] Triglyceride [Mass/Vol] 205 mg/dL High [facility] Comment on above: Result Comment: The drugs N-Acetylcysteine and Metamizole may falsely depress this assay. Normal range: <150 mg/dL Borderline High: 150-199 mg/dL High: 200-499 mg/dL Very High: >500 mg/dL Performed By: #### L 500.4050, L500.4100 ####[facility] [address] [place], [address] Potassium measurement (mass/ volume)Ordered By: Lisha Miranda on 01-27-2025 Potassium (Unsp spec) [Mass/Vol] 4.0 mmol/L 3.3-5.1 [facility] Screening total cholesterol/ high density lipoprotein (HDL) cholesterol ratioOrdered By: Lisha Miranda on 01-27-2025 Cholesterol.total/Choles terol in HDL [Mass ratio] 2.97 {ratio} [facility] Serum creatinine measurement (mass/volume)Ordered By: Lisha Miranda on 01-27-2025 Creatinine [Mass/Vol] 0.67 mg/dL Low 0.70-1.20 [facility] Serum globulin measurementOr dered By: Lisha Miranda on 01-27-2025 Globulin (S) [Mass/Vol] 2.4 g/dL 2.2-4.2 [facility] Serum glucose measurement (m ass/volume)Ordered By: Lisha Miranda on 01-27-2025 Glucose [Mass/Vol] 105 mg/dL High 70-99 [facility] Serum or plasma alanine morris otransferase (ALT) measurementOrdered By: Lisha Miranda on 01-27-2025 ALT [Catalytic activity/Vol] 17 U/L <47 [facility] Serum or plasma albumin rinku urement (mass/volume)Ordered By: Lisha Miranda on 01-27-2025 Albumin [Mass/Vol] 4.7 g/dL 3.4-4.8 [facility] Serum or plasma albumin/glob ulin mass ratioOrdered By: Lisha Miranda on 01-27-2025 Albumin/Globulin [Mass ratio] 2.0 {ratio} 0.9-2.4 [facility] Serum or plasma alkaline yuan sphatase measurementOrdered By: Lisha Miranda 01-27-2025 ALP [Catalytic activity/Vol] 55 U/L 40-129 [facility] Serum or plasma calcium rinku urement (mass/volume)Ordered By: Lisha Miranda on 01-27-2025 Calcium [Mass/Vol] 9.9 mg/dL 7.6-11.0 [facility] Serum or plasma cholesterol in HDL measurement (mass/volume)Ordered By: Lisha Miranda on 01-27-2025 Cholesterol in HDL [Mass/Vol] 49 mg/dL >40 [facility] Comment on above: National Cholesterol Education Program (NCEP) guidelines:<40 mg/dL: Low HDL-cholesterol (major risk factor for CHD)>= 60 mg/dL: High HDL-cholesterol (negative risk factor for CHD)HDL-cholesterol is affected by a number of factors, e.g. smoking, exercise, hormones, sex and age. Serum or plasma cholesterol measurement (mass/volume)Ordered By: Lisha Miranda on 01-27-2025 Cholesterol [Mass/Vol] 146 mg/dL <201 [facility] Comment on above: Cholesterol level, D esirable <200 mg/dLBorderline high cholesterol 200-239 mg/dLHigh cholesterol >=240 mg/dLRecommendations of the NCEP Adult Treatment Panel for the following risk-cutoff thresholds for the [place] population. Serum or plasma urea nitroge n measurement (mass/volume)Ordered By: Lisha Miranda on 01-27-2025 Urea nitrogen [Mass/Vol] 13 mg/dL 4-19 [facility] Sodium levelOrdered By: Lokesh Miranda on 01-27-2025 Sodium [Moles/Vol] 141 mmol/L 133-145 [facility] Total proteinOrdered By: Luz Miranda on 01-27-2025 Protein [Mass/Vol] 7.1 g/dL 5.9-8.4 [facility] Triglycerides measurementOrd ered By: Lisha Miranda on 01-27-2025 Triglyceride [Mass/Vol] 205 mg/dL High <199 [facility] Comment on above: The drugs N-Acetylcy steine and Metamizole may falsely depress this assay. Normal range: <150 mg/dLBorderline High: 150-199 mg/dLHigh: 200-499 mg/dLVery High: >500 mg/dL Cardiology Visit Reporton Cardiology Visit Report [facility] [address] [place] [address] OFFICE VISIT Date of Service: 01/25/25 MR#: [id number] Acct: [id number] Name: MIO HART Rep #: [id number] : 1955 Provider: Dr. Lisha Miranda MD Age/Sex: 69/M Location: [facility] [place] Status: Signed HPI HPI History of Present Illness Details: This patient with history of anterior NV, chronic LV systolic dysfunction secondary to ischemic [...] NIBP Intake Visit Reasons: 6 M [employer]U [employer] Required: No Accompanied by: Self Is patient [...] History Alcohol use Atherosclerotic heart disease of [place] coronary artery with other forms of angina [...] Const Appearan (more content not included)... Normal [facility] Bilirubin directOrdered By: Rebel More on 10-20-2024 Bilirubin.direct [Mass/Vol] 0.30 mg/dL 0.00-0.30 [facility] Bilirubin, totalOrdered By: Rebel More on 10-20-2024 Bilirubin [Mass/Vol] 0.58 mg/dL 0.00-1.30 [facility] Calculated very low density lipoprotein (VLDL) cholesterol measurementOrdered By: Rebel More on 10-20-2024 Calculated very low density lipoprotein (VLDL) cholesterol measurement 30 mg/dL -40 [facility] VLDL Cholesterol 30 mg/dL -40 [facility] LDL calc ser/plasOrdered By: Rebel More on 10-20-2024 Cholesterol in LDL [Mass/Vol] 51 mg/dL [facility] Comment on above: Wbjsgzxzos=008-564 m g/dL & Higher Xnqm=526 mg/dL or greater LDL Cholesterol, Calculated 51 mg/dL [facility] Comment on above: Xeqvdunrsh=790-578 m g/dL & Higher Fjsc=152 mg/dL or greater Laboratory - Chemistry and C hemistry - challengeOrdered By: Rebel More on 10-20-2024 AST [Catalytic activity/Vol] 21 U/L <38 [facility] Lipid Profileon 10-20-2024 CHOL:HDL 2.35 Normal [facility] Comment on above: Performed By: #### L 500.6788, L500.7149 #### [facility] [address] [place], [place], [address] Cholesterol [Mass/Vol] 141 mg/dL Normal <=200 [facility] Comment on above: Result Comment: Chol esterol level, Desirable <200 mg/dL Borderline high cholesterol 200-239 mg/dL High cholesterol >=240 mg/dL Recommendations of the NCEP Adult Treatment Panel for the following risk-cutoff thresholds for the [place] population. Performed By: #### L 500.4100, L500.3400 #### [facility] [address] [place], [address] Cholesterol in HDL [Mass/Vol] 60 mg/dL Normal [facility] Comment on above: Result Comment: Pearl onal Cholesterol Education Program (NCEP) guidelines: <40 mg/dL: Low HDL-cholesterol (major risk factor for CHD) >= 60 mg/dL: High HDL-cholesterol (negative risk factor for CHD) HDL-cholesterol is affected by a number of factors, e.g. smoking, exercise, hormones, sex and age. Performed By: #### L 500.4100, L500.3400 #### [facility] [address] [place], [address] Cholesterol in LDL [Mass/Vol] 51 mg/dL Normal [facility] Comment on above: Result Comment: Bord guslav=728-250 mg/dL Higher Quhb=841 mg/dL or greater Performed By: #### L 500.4100, L500.3400 #### [facility] [address] [place], [address] Cholesterol in VLDL [Mass/Vol] 30 mg/dL Normal 5-40 [facility] Comment on above: Performed By: #### L 500.4100, L500.3400 #### [facility] [address] [place], [address] Triglyceride [Mass/Vol] 148 mg/dL Normal [facility] Comment on above: Result Comment: The drugs N-Acetylcysteine and Metamizole may falsely depress this assay. Normal range: <150 mg/dL Borderline High: 150-199 mg/dL High: 200-499 mg/dL Very High: >500 mg/dL Performed By: #### L 500.4100, L500.3400 #### [facility] [address] [place], [address] Liver Profileon 10-20-2024 Albumin [Mass/Vol] 4.5 g/dL Normal 3.4-4.8 [facility] Comment on above: Performed By: #### L 500.4100, L500.3400 #### [facility] Laboratory [address] [place], [address] ALK PHOS 54 U/L Normal 40-129 [facility] Comment on above: Performed By: #### L 500.4100, L500.3400 #### [facility] Laboratory [address] [place], [address] ALT [Catalytic activity/Vol] 17 U/L Normal <=46 [facility] Comment on above: Performed By: #### L 500.4100, L500.3400 #### [facility] Laboratory [address] [place], [address] AST [Catalytic activity/Vol] 21 U/L Normal <=37 [facility] Comment on above: Performed By: #### L 500.4100, L500.3400 #### [facility] Laboratory [address] [place], [address] Bilirubin [Mass/Vol] 0.58 mg/dL Normal 0.00-1.30 [facility] Comment on above: Performed By: #### L 500.4100, L500.3400 #### [facility] Laboratory [address] [place], [address] Bilirubin.direct [Mass/Vol] 0.30 mg/dL Normal 0.00-0.30 [facility] Comment on above: Performed By: #### L 500.4100, L500.3400 #### [facility] Laboratory [address] [place], [address] Globulin (S) [Mass/Vol] 2.6 g/dL Normal 2.2-4.2 [facility] Comment on above: Performed By: #### L 500.4100, L500.3400 #### [facility] Laboratory [address] [place], [address] T PROT 7.1 g/dL Normal 5.9-8.4 [facility] Comment on above: Performed By: #### L 500.4100, L500.3400 #### [facility] Laboratory [address] [place], [place], [address] Screening total cholesterol/ high density lipoprotein (HDL) cholesterol ratioOrdered By: Rebel More on 10-20-2024 Cholesterol.total/Choles terol in HDL [Mass ratio] 2.35 {ratio} [facility] Serum globulin measurementOr dered By: Rebel More on 10-20-2024 Globulin (S) [Mass/Vol] 2.6 g/dL 2.2-4.2 [facility] Serum or plasma alanine morris otransferase (ALT) measurementOrdered By: Rebel More on 10-20-2024 ALT [Catalytic activity/Vol] 17 U/L <47 [facility] Serum or plasma albumin rinku urement (mass/volume)Ordered By: Rebel More on 10-20-2024 Albumin [Mass/Vol] 4.5 g/dL 3.4-4.8 [facility] Serum or plasma alkaline yuan sphatase measurementOrdered By: Rebel More on 10-20-2024 ALP [Catalytic activity/Vol] 54 U/L 40-129 [facility] Serum or plasma cholesterol in HDL measurement (mass/volume)Ordered By: Rebel More on 10-20-2024 Cholesterol in HDL [Mass/Vol] 60 mg/dL >40 [facility] Comment on above: National Cholesterol Education Program (NCEP) guidelines:<40 mg/dL: Low HDL-cholesterol (major risk factor for CHD)>= 60 mg/dL: High HDL-cholesterol (negative risk factor for CHD)HDL-cholesterol is affected by a number of factors, e.g. smoking, exercise, hormones, sex and age. Serum or plasma cholesterol measurement (mass/volume)Ordered By: Rebel More on 10-20-2024 Cholesterol [Mass/Vol] 141 mg/dL <201 [facility] Comment on above: Cholesterol level, D esirable <200 mg/dLBorderline high cholesterol 200-239 mg/dLHigh cholesterol >=240 mg/dLRecommendations of the NCEP Adult Treatment Panel for the following risk-cutoff thresholds for the [place] population. Total proteinOrdered By: Christiano More on 10-20-2024 Protein [Mass/Vol] 7.1 g/dL 5.9-8.4 [facility] Triglycerides measurementOrd ered By: Rebel Argenis on 10-20-2024 Triglyceride [Mass/Vol] 148 mg/dL <199 [facility] Comment on above: The drugs N-Acetylcy steine and Metamizole may falsely depress this assay. Normal range: <150 mg/dLBorderline High: 150-199 mg/dLHigh: 200-499 mg/dLVery High: >500 mg/dL Cardiology Visit Reporton Cardiology Visit Report [facility] [place] [id number] [facility]. [address] [place] [address] OFFICE VISIT Date of Service: 07/14/24 MR#: [id number] Acct: [id number] Name: MIO HART Rep #: [id number] : 1955 Provider: Dr. 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 Normal [facility] Urine Cultureon 05-29-2024 URC Culture exhibits no growth. Normal [facility] Comment on above: Performed By: #### M 100.2200 #### [facility] Laboratory [address] [place], [address] Comprehensive Metabolic Prof ilon 05-08-2024 Albumin [Mass/Vol] 4.1 g/dL Normal 3.2-5.0 [facility] Comment on above: Performed By: #### L 500.4050, L500.4100 #### [facility] Laboratory [address] [place], [address] Albumin/Globulin [Mass ratio] 1.3 {ratio} Normal 0.9-2.4 [facility] Comment on above: Performed By: #### L 500.4050, L500.4100 #### [facility] Laboratory [address] [place], [address] ALK P 70 U/L Normal 45-117 [facility] Comment on above: Performed By: #### L 500.4050, L500.4100 #### [facility] Laboratory [address] [place], [address] ALT [Catalytic activity/Vol] 30 U/L Normal 16-61 [facility] Comment on above: Performed By: #### L 500.4050, L500.4100 #### [facility] Laboratory [address] [place], [address] AST [Catalytic activity/Vol] 23 U/L Normal 15-37 [facility] Comment on above: Performed By: #### L 500.4050, L500.4100 #### [facility] Laboratory [address] [place], [address] Bilirubin [Mass/Vol] 0.60 mg/dL Normal 0.20-1.00 [facility] Comment on above: Result Comment: For patients on eltrombopag therapy, use of Dimension [place] TBIL is not recommended. Performed By: #### L 500.4050, L500.4100 #### [facility] Laboratory [address] [place], [address] BUN/CRE 17.0 RATIO Normal 10-20 [facility] Comment on above: Performed By: #### L 500.4050, L500.4100 #### [facility] Laboratory [address] [place], [address] CA,Total 9.2 mg/dL Normal 8.5-10.1 [facility] Comment on above: Performed By: #### L 500.4050, L500.4100 #### [facility] Laboratory [address] [place], [address] Chloride [Moles/Vol] 107 mmol/L Normal 98-107 [facility] Comment on above: Performed By: #### L 500.4050, L500.4100 #### [facility] Laboratory [address] [place], [address] CO2 [Moles/Vol] 29.0 mmol/L Normal 21.0-32.0 [facility] Comment on above: Performed By: #### L 500.4050, L500.4100 #### [facility] Laboratory [address] [place], [address] Creatinine [Mass/Vol] 0.70 mg/dL Normal 0.70-1.30 [facility] Comment on above: Result Comment: The validity of the calculated GFR GFRAA in patients over 70 years has not been determined. Clinical correlation is essential. Performed By: #### L 500.4050, L500.4100 #### [facility] Laboratory [address] [place], [address] EST GFR - AA 142 mL/min Normal >60 [facility] Comment on above: Result Comment: Afri can Guatem[place] GFR Calc Performed By: #### L 500.4050, L500.4100 #### [facility] Laboratory [address] [place], [address] GAP 5 Normal 5-15 [facility] Comment on above: Performed By: #### L 500.4050, L500.4100 #### [facility] Laboratory [address] [place], [address] GFR/1.73 sq M.predicted among non-blacks MDRD (S/P/Bld) [Vol rate/Area] 118 mL/min/{1.73_m2} Normal >60 [facility] Comment on above: Result Comment: Non- GFR Calc Performed By: #### L 500.4050, L500.4100 #### [facility] Laboratory [address] [place], [address] Globulin (S) [Mass/Vol] 3.2 g/dL Normal 2.2-4.2 [facility] Comment on above: Performed By: #### L 500.4050, L500.4100 #### [facility] Laboratory [address] [place], [address] Glucose [Mass/Vol] 109 mg/dL High 74-106 [facility] Comment on above: Result Comment: Fast ing Glucose result from 100 to 125 mg/dL suggests IMPAIRED HOMEOSTASIS per A.D.A. criteria. Performed By: #### L 500.4050, L500.4100 #### [facility] Laboratory [address] [place], [address] Potassium [Moles/Vol] 4.0 mmol/L Normal 3.5-5.1 [facility] Comment on above: Performed By: #### L 500.4050, L500.4100 #### [facility] Laboratory [address] [place], [address] Sodium [Moles/Vol] 140 mmol/L Normal 136-145 [facility] Comment on above: Performed By: #### L 500.4050, L500.4100 #### [facility] Laboratory [address] [place], [address] T PROT 7.3 g/dL Normal 6.4-8.2 [facility] Comment on above: Performed By: #### L 500.4050, L500.4100 #### [facility] Laboratory [address] [place], [address] Urea nitrogen [Mass/Vol] 12 mg/dL Normal 7-18 [facility] Comment on above: Performed By: #### L 500.4050, L500.4100 #### [facility] Laboratory [address] [place], [address] Lipid Profileon 05-08-2024 Cholesterol [Mass/Vol] 146 mg/dL Normal 200 [facility] Comment on above: Result Comment: <200 mg/dL Desirable 200-240 mg/dL Borderline >240 mg/dL High Risk Performed By: #### L 500.4050, L500.4100 ####[facility] [address] [place], [address] Cholesterol in HDL [Mass/Vol] 61 mg/dL Normal [facility] Comment on above: Result Comment: The drugs N-Acetylcysteine and Metamizole may falsely depress this assay. Reference Range HDL <40 mg/dL Low HDL Cholesterol HDL >or= 60 mg/dL High HDL Cholesterol Performed By: #### L 500.4050, L500.4100 ####[facility] [address] [place], [address] Cholesterol in LDL [Mass/Vol] 44 mg/dL Normal 0-130 [facility] Comment on above: Performed By: #### L 500.4050, L500.4100 ####[facility] [address] [place], [address] Cholesterol in VLDL [Mass/Vol] 41 mg/dL High 5-40 [facility] Comment on above: Performed By: #### L 500.4050, L500.4100 ####[facility] [address] [place], [address] Triglyceride [Mass/Vol] 204 mg/dL High [facility] Comment on above: Result Comment: The drugs N-Acetylcysteine and Metamizole may falsely depress this assay. Serum Triglycerides Reference Interval Normal <150 mg/dL Borderline high 150 - 199 mg/dL High 200 - 499 mg/dL Very High > or = 500 mg/dL Performed By: #### L 500.4050, L500.4100 ####[facility] [address] [place], [address] PSA,Total - Annual Screenon 05-08-2024 PSA,TOT SCREEN 0.34 ng/mL Normal 0.00-4.00 [facility] Comment on above: Order Comment: Order Date: 04/28/24 Order Info: 3016-3 - TSH Order Info: 2857-1 - PSA Result Comment: This test was performed using the TPSA assay method for the Osurv chemistry system. Values obtained with different assay methods cannot be used interchangably. When changing PSA assays in the course of monitoring a patient, additional sequential testing should be carried out to confirm baseline values. Performed By: #### L 501.9520, L503.0105, L501.9910 #### [facility] Laboratory [address] [place], [address] Thyroid Stim Hormone (TSH)on 05-08-2024 TSH 0.702 uIU/mL Normal 0.358-3.740 [facility] Comment on above: Order Comment: Order Date: 04/28/24 Order Info: 3016-3 - TSH Order Info: 2857-1 - PSA Performed By: #### L 501.9520, L503.0105, L501.9910 #### [facility] Laboratory [address] [place], [address] Vitamin B12on 05-08-2024 Cobalamin (Vitamin B12) [Mass/Vol] 331 pg/mL Normal 211-911 [facility] Comment on above: Order Comment: Order Date: 04/28/24 Order Info: [id number] - B12 Performed By: #### L 501.9520, L503.0105, L501.9910 #### [facility] Laboratory [address] [place], [address] Cardiology Visit Reporton Cardiology Visit Report [facility] [address] [place], [place] [address] OFFICE VISIT Date of Service: 05/07/24 MR#: [id number] Acct: [id number] Name: MIO HART Rep #: [id number] : 1955 Provider: Dr. Lisha Miranda MD Age/Sex: 68/M Location[place] [facility] [place] Status: Signed HPI HPI History of Present [...] NIBP Intake Visit Reasons: 6 M FU [employer] Manager Required: No Accompanied by: Self Is patient [...] History Alcohol use Atherosclerotic heart disease of kas[place] coronary artery with other forms of angina [...] and miguel (more content not included)... Normal [facility] 04-17-2024 [facility] Telephone ([employer]) MIO HART ([id number]) 1955 M Date Time Provider Department 04/17/24 BRICE QUINONEZ79 [employer] During your visit today, we recorded the following information about you: Dipak Isidro 04/17/2024 3:14 PM Signed Email from Dr. High anesthesiologist - patient will be cancelled for his scopes Saturday with [facility] in [place] as he has not been cleared through anesthesia nor cardiology. Patient is to follow back up with cardiology regarding AICD. Patient has not seen [facility] to follow up on this Patient aware he is needing to see his cardiologists and complete all follow up appointments required by anesthesia and surgeon. No new date as of now until patient has been cleared to proceed. Dipak Isidro Machine Washer Allergies As of Date: 04/17/2024 Noted Allergy [...] 04/17/2024 Noted Resolved Atherosclerotic heart disease of kasaan coronar* CHF (congestive heart failure) (HCC) [I50.9] Essential hypertension [I10] Mixed hyperlipidemia [E78.2] Premature ventricular contractions [I49.3] Type 2 diabetes (HCC) [E11.9] Ischemic cardiomyopathy [I25.5] Encounter Status:[facility] [facility] ([facility]) MIO HART ([id number]) 1955 M Date Time Provider Department 04/14/24 NICKY PICKENS During your visit today, we recorded the following information about you: Nicky Pickens APRN.WATER MANAGER 04/14/2024 10:11 AM Signed Can we request most recent A1c from PCP's office? Mandy Lew LPN 04/15/2024 11:12 AM Signed Fax request sent to Dr. Escalante's office requesting most recent A1c be faxed for upcoming surgery 04/20/24. CHRISTOPHER Acevedo Jessica, LPN 04/20/2024 9:01 AM Signed Received A1c results. Sent to [facility] through [employer]. Mandy Lew LPN Allergies As of Date: 04/14/2024 Noted Allergy Reaction EZETIMIBE 10/21/2013 5 - Intolerance LISINOPRIL 01/23/2024 18 - Angioedema ROSUVASTATIN 10/21/2013 5 - Intolerance Date Reviewed: 04/14/2024 Reviewed by: Nicky Pickens APRN.WATER MANAGER - Fully Assessed Reason for Visit: Request [...] 04/14/2024 Noted Resolved Atherosclerotic heart disease of kasaan coronar* CHF (congestive heart failure) (HCC) [I50.9] Essential hypertension [I10] Mixed hyperlipidemia [E78.2] Premature ventricular contractions [I49.3] Type 2 diabetes (HCC) [E11.9] Ischemic cardiomyopathy [I25.5] Encounter Status:Closed by MANDY LEW on 04/20/24 Normal [facility] HISTORY PHYSICALon 4 HISTORY PHYSICAL HNO ID: [id number] Author: NICKY PICKENS APRN.CNP Service: ? Author Type: Nurse Practitioner Type: H&P Filed: 04/17/2024 13:48 Note Text: [facility] HISTORY AND PHYSICAL EXAMINATION SERVICE DATE: 04/10/2024 SERVICE TIME: 1:47 PM PRIMARY CARE PHYSICIAN: Jackie Escalante MD Assessment Patient has the following medical conditions which may affect aide-operative course: Ischemic cardiomyopathy Assessment: following [facility], most updated echo scanned into [facility] 11/2023, EF 15%, medical clearance letter faxed to [facility] [place] [facility] and last OV if later than the one scanned into [facility] 10/2023, asymptomatic, no defibrillator/pacema ker at this time Premature ventricular contractions Assessment: controlled on rx, recent holter monitor, following cardio Mixed hyperlipidemia Assessment: c/w statin Essential hypertension Assessment: controlled on rx Last 14 BP Last 14 Encounter BP Readings: Date: BP: 04/10/2024 138/90 01/23/2024 132/82 CHF (congestive heart failure) ([facility]) Assessment: controlled on rx and as needed 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 Denies CP, palpitations, sob, new or worsening cardiac symptoms. Clearance letter sent to [facility] Type 2 diabetes (HCC) Assessment: controlled on [...] 0 Appetite Score: 0 MST Score: 0 [id number] Score: Age: 65-74 Sex: male CHF history: Yes Hypertension history: Yes Stroke/TIA/thromboem bolism history: No Vascular disease history: Yes Diabetes history: Yes [id number] Score: 5 ARISCAT Score: Age: 51-80 Preoperative [...] and consent discussed: yes. Patient / Responsible Libertarian agrees to proceed: yes Prepared for Surgery: [...] Admin: COVID-19 vaccine, age 12+ yr, bivalent ([employer]) 05/26/2021 Imm Admin: COVID-19 original vaccine, age 12+ yr, monovalent ([employer] - [facility]) 11/07/2020 Imm Admin: COVID-19 original vaccine, age 12+ yr, monovalent ([employer]) Only the first 3 history entries have been loaded, but more history exists. CHIEF COMPLAINT: Pre-op exam HPI: Mio Hart is a 68 year old seen for PAC due to scheduled above procedure due to +colorgard . 01/23/24, D (more content not included)... Normal [facility] Surgery Visit Reporton 04-02 Surgery Visit Report [facility] 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 [facility] 02-07-2024 [facility] Telephone ([employer]) MIO HART ([id number]) 1955 M Date Time Provider Department 02/07/24 BRICE QUINONEZ During your visit today, we recorded the following information about you: Dipak Isidro 02/07/2024 11:27 AM Signed Patient denied sooner date with [facility] in [place] Scheduled 06/08/2024 asking to be on waitlist Dipak Isidro 03/10/2024 11:05 AM Signed Left voicemail for patient in regards to sooner date with Dr. Wayne this Saturday in [place] Dipak Isidro Machine Washer Dipak Isidro 03/10/2024 2:22 PM Signed Patient denied sooner date 03/13/2024 Dipak Isidro Machine Washer Allergies As of Date: 02/07/2024 Noted Allergy [...] Status:Closed by DIPAK ISIDRO on 03/10/24 Normal [facility]ignon 01-27-2024 [facility] Telephone ([employer]) MIO HART ([id number]) 1955 M Date Time Provider Department 01/27/24 BRICE QUINONEZBea During your visit today, we recorded the following information about you: Loki Sullivan RN 01/27/2024 4:56 PM Signed Medical records requested from [facility], and [facility]. Loki Sullivan RN Allergies As of Date: 01/27/2024 Noted Allergy Reaction EZETIMIBE 10/21/2013 5 - Intolerance LISINOPRIL 01/23/2024 18 - Angioedema ROSUVASTATIN 10/21/2013 5 - Intolerance Date Reviewed: 01/24/2024 Reviewed by: Brice Quinonez MD - Fully Assessed Reason for Visit: Request Outside Medical Records [[id number]] Prescriptions as of 01/30/2024 - ASPIRIN ORAL [...] Encounter Status:Closed by LOKI SULLIVAN on 01/30/24 [facility] 01-23-2024 CNOV Office Visit (GNSWAD) MIO HART ([id number]) 1955 M Date Time Provider Department 01/23/24 [...] 15%. We now have records from the cardiology/[place] [facility]. From their note his last [...] a cardiac ejection fraction of 15%. His riverine assault craft crewman is Dr. Lisha Miranda at the [facility]. 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 Normal [facility] Basophil percentageOrdered B y: Jackie Escalante on 11-20-2023 Chloride [Moles/Vol] 103 mmol/L 98-107 [facility] Glucose [Mass/Vol] 148 mg/dL 74-106 [facility] Comment on above: Fasting Glucose resu lt greater than or equal to 126 mg/dL suggests DIABETES MELLITUS per A.D.A. criteria. Potassium [Moles/Vol] 4.7 mmol/L 3.5-5.1 [facility] Sodium [Moles/Vol] 135 mmol/L 136-145 [facility] Laboratory - Chemistry and C hemistry - challengeOrdered By: Jackie Escalante on 11-20-2023 CO2 [Moles/Vol] 26.0 mmol/L 21.0-32.0 [facility] Urea nitrogen/Creatinine [Mass ratio] 20.5 mg/mg 10-20 [facility] No Panel InformationOrdered By: Jackie Escalante on 11-20-2023 Estimated GFR (MDRD) Amer 127 mL/min >60 [facility] Comment on above: GFR Calc Estimated GFR (MDRD) Non-Af Amer 105 mL/min >60 [facility] Comment on above: Non- GFR Calc Serum or plasma calcium rinku urement (mass/volume)Ordered By: Jackie Escalante on 11-20-2023 Calcium [Mass/Vol] 9.8 mg/dL 8.5-10.1 [facility] Serum or plasma creatinine m easurement (mass/volume)Ordered By: Jackie Escalante on 11-20-2023 Creatinine [Mass/Vol] 0.78 mg/dL 0.70-1.30 [facility] Comment on above: The validity of the calculated GFR & GFRAA in patients over 70 years has not been determined. Clinical correlation is essential. Serum or plasma urea nitroge n measurement (mass/volume)Ordered By: Jackie Escalante on 11-20-2023 Urea nitrogen [Mass/Vol] 16 mg/dL 7-18 [facility] Thin prep Papanicolaou smear with manual screeningOrdered By: Jackie Escalante on 11-20-2023 Thin prep Papanicolaou smear with manual screening 6 5-15 [facility] Basophil percentageOrdered B y: Jacek Escalante on 10-29-2023 Chloride [Moles/Vol] 103 mmol/L 98-107 [facility] Glucose [Mass/Vol] 167 mg/dL 74-106 [facility] Comment on above: Fasting Glucose resu lt greater than or equal to 126 mg/dL suggests DIABETES MELLITUS per A.D.A. criteria. Potassium [Moles/Vol] 5.2 mmol/L 3.5-5.1 [facility] Sodium [Moles/Vol] 139 mmol/L 136-145 [facility] Laboratory - Chemistry and C hemistry - challengeOrdered By: Jacek Escalante on 10-29-2023 CO2 [Moles/Vol] 27.0 mmol/L 21.0-32.0 [facility] Urea nitrogen/Creatinine [Mass ratio] 23.8 mg/mg 05-31 [facility] No Panel InformationOrdered By: Jacek Escalante on 10-29-2023 Estimated GFR (MDRD) Amer 123 mL/min >60 [facility] Comment on above: GFR Calc Estimated GFR (MDRD) Non-Af Amer 102 mL/min >60 [facility] Comment on above: Non- GFR Calc Serum or plasma calcium rinku urement (mass/volume)Ordered By: Jacek Escalante on 10-29-2023 Calcium [Mass/Vol] 10.7 mg/dL 8.5-10.1 [facility] Serum or plasma creatinine m easurement (mass/volume)Ordered By: Jacek Escalante on 10-29-2023 Creatinine [Mass/Vol] 0.80 mg/dL 0.70-1.30 [facility] Comment on above: The validity of the calculated GFR & GFRAA in patients over 70 years has not been determined. Clinical correlation is essential. Serum or plasma urea nitroge n measurement (mass/volume)Ordered By: Jacek Escalante on 10-29-2023 Urea nitrogen [Mass/Vol] 19 mg/dL 02-26 [facility] Thin prep Papanicolaou smear with manual screeningOrdered By: Jacek Escalante on 10-29-2023 Thin prep Papanicolaou smear with manual screening 9 5-15 [facility] Basophil percentageOrdered B y: Lisha Miranda on 10-21-2023 Bilirubin [Mass/Vol] 0.90 mg/dL 0.20-1.00 [facility] Comment on above: For patients on eltr ombopag therapy, use of Dimension [place] TBIL is not recommended. Cholesterol [Mass/Vol] 153 mg/dL <200 [facility] Comment on above: <200 mg/dL Desirable 200-240 mg/dL Borderline >240 mg/dL High Risk Protein [Mass/Vol] 7.8 g/dL 6.4-8.2 [facility] Triglyceride [Mass/Vol] 152 mg/dL <199 [facility] Comment on above: The drugs N-Acetylcy steine and Metamizole may falsely depress this assay.Serum Triglycerides Reference Interval Normal <150 mg/dL Borderline high 150 - 199 mg/dL High 200 - 499 mg/dL Very High > or = 500 mg/dL Direct bilirubinOrdered By: Lisha Miranda on 10-21-2023 Bilirubin.direct [Mass/Vol] 0.25 mg/dL 0.00-0.30 [facility] Laboratory - Chemistry and C hemistry - challengeOrdered By: Lisha Miranda on 10-21-2023 ALP [Catalytic activity/Vol] 70 U/L 45-117 [facility] ALT [Catalytic activity/Vol] 31 U/L 16-61 [facility] Cholesterol in HDL [Mass/Vol] 65 mg/dL >40 [facility] Comment on above: The drugs N-Acetylcy steine and Metamizole may falsely depress this assay. Reference Range HDL <40 mg/dL Low HDL Cholesterol HDL >or= 60 mg/dL High HDL Cholesterol Cholesterol in LDL [Mass/Vol] 58 mg/dL 0-130 [facility] Globulin (S) [Mass/Vol] 3.4 g/dL 2.2-4.2 [facility] No Panel InformationOrdered By: Lisha Miranda on 10-21-2023 VLDL Cholesterol 30 mg/dL 5-40 [facility] Thin prep Papanicolaou smear with manual screeningOrdered By: Lisha Miranda on 10-21-2023 Thin prep Papanicolaou smear with manual screening 4.4 g/dL 3.2-5.0 [facility] Thin prep Papanicolaou smear with manual screening 20 U/L 15-37 [facility] Comment on above: Slight Hemolysis, Re sult may be falsely increased. Absolute lymphocyte countOrd ered By: Cristopher Dominguez on 09-17-2023 Lymphocytes Auto (Unsp spec) [#/Vol] 0.54 10*3/uL 0.83-4.51 [facility] Automated lymphocyte count a s percentage of total leukocytesOrdered By: Cristopher Dominguez on 09-17-2023 Lymphocytes/100 WBC Auto (Unsp spec) 6.9 % 19-41 [facility] Basophil percentageOrdered B y: Cristopher Dominguez on 09-17-2023 Basophil percentage 0-5 SEEN /hpf 0-5 [facility] Basophils/100 WBC (Bld) 0.5 % 0-1 [facility] Chloride [Moles/Vol] 95 mmol/L 98-107 [facility] Eosinophils/100 WBC (Bld) 0.1 % 0-5 [facility] Glucose [Mass/Vol] 291 mg/dL 74-106 [facility] Comment on above: Glucose result great er than or equal to 200 mg/dLsuggests DIABETES MELLITUS per A.D.A. criteria. Hemoglobin (Bld) [Mass/Vol] 13.6 g/dL 13.0-16.5 [facility] Monocytes/100 WBC (Bld) 13.5 % 0-10 [facility] Neutrophils (Bld) [#/Vol] 6.2 10*3/uL 2.0-7.7 [facility] Neutrophils/100 WBC (Bld) 78.6 % 47-70 [facility] Potassium [Moles/Vol] 4.2 mmol/L 3.5-5.1 [facility] Sodium [Moles/Vol] 126 mmol/L 136-145 [facility] WBC (Bld) [#/Vol] 7.9 10*3/uL 4.4-11.0 [facility] Bilirubin Test strip Ql (U)O rdered By: Cristopher Dominguez on 09-17-2023 Bilirubin Ql (U) Negative Negative [facility] Blood manual differential co mment interpretation (narrative result)Ordered By: Cristopher Dominguez on 09-17-2023 Manual differential comment [place] (Bld) [Interp] SEE COMMENT [facility] Comment on above: LYMPHOPENIA NOTED Blood platelet adequacy dete ction by light microscopyOrdered By: Cristopher Dominguez on 09-17-2023 Platelets LM Ql (Bld) SLT DEC ADEQ [facility] Determination of erythrocyte mean corpuscular volume (MCV)Ordered By: Cristopher Dominguez on 09-17-2023 MCV (RBC) [Entitic vol] 95.4 fL 80-94 [facility] Erythrocyte distribution wid th ratioOrdered By: Cristopher Dominguez on 09-17-2023 Erythrocyte distribution width (RBC) [Ratio] 12.0 % 11.6-14.6 [facility] Erythrocyte distribution wid th standard deviationOrdered By: Cristopher Dominguez on 09-17-2023 Erythrocyte distribution width (RBC) [Entitic vol] 41.5 fL 35.1-43.9 [facility] Hematocrit Auto (Bld) [Volum e fraction]Ordered By: Cristopher Dominguez on 09-17-2023 Hematocrit (Bld) [Volume fraction] 39.6 % 40-54 [facility] Immature granulocytes/100 WB C Auto (Bld)Ordered By: Cristopher Dominguez on 09-17-2023 Immature granulocytes/100 WBC (Bld) 0.400 % 0.0-0.9 [facility] Comment on above: IG% - Immature Granu locytes (promyelocytes, myelocytes and metamyelocytes) > 1% indicates that a LEFT SHIFT is Present. Ketones Test strip Ql (U)Ord ered By: Cristopher Dominguez on 09-17-2023 Ketones Ql (U) 150 mg/dl Negative [facility] Comment on above: CRITICAL VALUE *HCRI TICAL VALUE VERIFIED. CALLED TO [id number] Viry Mancini.RESULTS READ BACK BY SAME . Laboratory - Chemistry and C hemistry - challengeOrdered By: Cristopher Dominguez on 09-17-2023 CO2 [Moles/Vol] 21.0 mmol/L 21.0-32.0 [facility] Urea nitrogen/Creatinine [Mass ratio] 14.9 mg/mg 10-20 [facility] Laboratory - Hematology and Cell countsOrdered By: Cristopher Dominguez on 09-17-2023 Anisocytosis Ql (Bld) 1+ [facility] MCH (RBC) [Entitic mass] 32.8 pg 27.0-32.0 [facility] MCHC (RBC) [Mass/Vol] 34.3 g/dL 32-36 [facility] Nucleated RBC/100 WBC (Bld) [Ratio] 0 % 0-5 [facility] Platelet mean volume (Bld) [Entitic vol] 10.4 fL 6.2-12.0 [facility] Platelets (Bld) [#/Vol] 147 10*3/uL 150-450 [facility] Laboratory - Microbiology an d Antimicrobial susceptibilityOrdered By: Cristopher Dominguez on 09-17-2023 SARS-CoV-2 (COVID-19) RNA ALEKSANDR+probe Ql (Unsp spec) Influenzae A [facility] SARS-CoV-2 (COVID-19) RNA ALEKSANDR+probe Ql (Unsp spec) Influenzae A [facility] Macrocytes detectionOrdered By: Cristopher Dominguez on 09-17-2023 Macrocytes Ql (Bld) 1+ [facility] Mucus LM Ql (Urine sed)Order ed By: Cristopher Dominguez on 09-17-2023 Mucus Ql (Urine sed) 0 SEEN /hpf [facility] Nitrite Test strip Ql (U)Ord ered By: Cristopher Dominguez on 09-17-2023 Nitrite Ql (U) Negative Negative [facility] No Panel InformationOrdered By: Cristopher Dominguez on 09-17-2023 Urine RBC 0-5 SEEN /hpf 0-5 [facility] Estimated GFR (MDRD) Amer 111 mL/min >60 [facility] Comment on above: GFR Calc Estimated GFR (MDRD) Non-Af Amer 92 mL/min >60 [facility] Comment on above: Non- GFR Calc Troponin I High Sensitivity 14 pg/mL 3.0-78.0 [facility] Comment on above: Please Note: New [place] t Units and Gender Specific Reference Ranges. For more information see Policy Stat Procedure [place] High Sensitivity Troponin (TNIH) and attachments. Protein Test strip Ql (U)Ord ered By: Cristopher Dominguez on 09-17-2023 Protein Ql (U) 500 mg/dl Negative [facility] RBC Auto (Bld) [#/Vol]Ordere d By: Cristopher Dominguez on 09-17-2023 RBC (Bld) [#/Vol] 4.15 10*6/uL 4.6-6.2 [facility] RBC morphologyOrdered By: Andreas Dominguez on 09-17-2023 RBC morphology finding Nom (Bld) N CHROM NORMAL NORM C&C [facility] Serum or plasma calcium rinku urement (mass/volume)Ordered By: Cristopher Dominguez on 09-17-2023 Calcium [Mass/Vol] 9.0 mg/dL 8.5-10.1 [facility] Serum or plasma creatinine m easurement (mass/volume)Ordered By: Cristopher Dominguez on 09-17-2023 Creatinine [Mass/Vol] 0.87 mg/dL 0.70-1.30 [facility] Comment on above: The validity of the calculated GFR & GFRAA in patients over 70 years has not been determined. Clinical correlation is essential. Serum or plasma urea nitroge n measurement (mass/volume)Ordered By: Cristopher Dominguez on 09-17-2023 Urea nitrogen [Mass/Vol] 13 mg/dL 7-18 [facility] Squamous epithelial cells de tection in urine sediment by light microscopyOrdered By: Cristopher Dominguez on 09-17-2023 Epithelial cells.squamous LM Ql (Urine sed) 0 SEEN /hpf 0-5 [facility] Thin prep Papanicolaou smear with manual screeningOrdered By: Cristopher Dominguez on 09-17-2023 Thin prep Papanicolaou smear with manual screening 10 5-15 [facility] Urine blood detectionOrdered By: Cristopher Dominguez on 09-17-2023 RBC Ql (U) 150 /ul Negative [facility] Urine clarityOrdered By: Tayler Dominguez on 09-17-2023 Clarity (U) Clear Clear [facility] Urine color determinationOrd ered By: Cristopher Dominguez on 09-17-2023 Color (U) Yellow Yellow [facility] Urine glucose detectionOrder ed By: Cristopher Dominguez on 09-17-2023 Glucose Ql (U) 1000 mg/dl Normal [facility] Urine leukocyte esterase det ection by dipstickOrdered By: Cristopher Dominguez on 09-17-2023 Leukocyte esterase Test strip Ql (U) Negative Negative [facility] Urine pHOrdered By: Cristopher meyer on 09-17-2023 pH (U) 5.0 [pH] 5.0 - 8.0 [facility] Urine sediment bacteria coun t by microscopy (number/high power field)Ordered By: Cristopher Dominguez on 09-17-2023 Bacteria LM.HPF (Urine sed) [#/Area] 0 /[HPF] None Seen [facility] Urine specific gravity measu rementOrdered By: Cristopher Dominguez on 09-17-2023 Specific gravity (U) [Rel density] 1.025 1.002-1.030 [facility] Urine urobilinogen measureme ntOrdered By: Cristopher Dominguez on 09-17-2023 Urobilinogen Ql (U) Normal mg/dl Normal [facility] [place] nut IgE serumOrdered By: Dr. Dacosta on 01-10-2023 [place] Nut IgE Qn (S) <0.10 kU/L Class 0 [facility] Huynh's yeast IgE serumOrde red By: Dr. Dacosta on 01-10-2023 Huynh's yeast IgE Qn (S) <0.10 kU/L Class 0 [facility] No Panel InformationOrdered By: Dr. Dacotsa on 01-10-2023 [place] Allergen IgE Antibody <0.10 kU/L Class 0 [facility] No Panel InformationOrdered By: Richard Dacosta on 01-10-2023 Miscellaneous Test See comment [facility] Comment on above: TEST RESULTS LIMITS IgE Pistachio Nut < 0.10 kU/L Class 0 TESTING PERFORMED AT [facility]. ORIGINAL REPORT ON FILE IN LAB CONTAINS ADDITIONAL TEST SITE INFORMATION. Serum Ustilago avenae IgE an tibody assay (units/volume)Ordered By: Dr. Dacosta on 01-10-2023 Oat smut IgE Qn (S) <0.10 kU/L Class 0 [facility] Serum almond IgE antibody as say (units/volume)Ordered By: Dr. Dacosta on 01-10-2023 [place] IgE Qn (S) <0.10 kU/L Class 0 [facility] Serum apple IgE antibody ass ay (units/volume)Ordered By: Dr. Dacosta on 01-10-2023 Apple IgE Qn (S) <0.10 kU/L Class 0 [facility] Serum banana IgE antibody as say (units/volume)Ordered By: Dr. Dacosta on 01-10-2023 Banana IgE Qn (S) <0.10 kU/L Class 0 [facility] Serum beef IgE antibody assa y (units/volume)Ordered By: Dr. Dacosta on 01-10-2023 Beef IgE Qn (S) <0.10 kU/L Class 0 [facility] Serum black walnut IgE antib jesika assay (units/volume)Ordered By: Dr. Dacosta on 01-10-2023 [place] IgE Qn (S) <0.10 kU/L Class 0 [facility] Serum carrot IgE antibody as say (units/volume)Ordered By: Dr. Dacosta on 01-10-2023 Carrot IgE Qn (S) 0.11 kU/L Class 0/I [facility] Serum cashew nut IgE antibod y assay (units/volume)Ordered By: Dr. Dacosta on 01-10-2023 Cashew nut IgE Qn (S) <0.10 kU/L Class 0 [facility] Serum chicken IgE antibody a ssay (units/volume)Ordered By: Dr. Dacosta on 01-10-2023 Chicken IgE Qn (S) <0.10 kU/L Class 0 [facility] Serum codfish IgE antibody a ssay (units/volume)Ordered By: Dr. Dacosta on 01-10-2023 Codfish IgE Qn (S) <0.10 kU/L Class 0 [facility] Serum cow milk IgE antibody assay (units/volume)Ordered By: Dr. Dacosta on 01-10-2023 Cow milk IgE Qn (S) <0.10 kU/L Class 0 [facility] Serum egg white IgE antibody assay (units/volume)Ordered By: Dr. Dacosta on 01-10-2023 Egg white IgE Qn (S) <0.10 kU/L Class [address] [facility] Serum egg yolk IgE antibody assay (units/volume)Ordered By: Dr. Dacosta on 01-10-2023 Egg yolk IgE Qn (S) <0.10 kU/L Class 0 [facility] Serum garlic IgE antibody as say (units/volume)Ordered By: Dr. Dacosta on 01-10-2023 Garlic IgE Qn (S) <0.10 kU/L Class 0 [facility] Serum gluten IgE antibody as say (units/volume)Ordered By: Dr. Dacosta on 01-10-2023 Gluten IgE Qn (S) <0.10 kU/L Class 0 [facility] Serum onion IgE antibody ass ay (units/volume)Ordered By: Dr. Dacosta on 01-10-2023 Onion IgE Qn (S) <0.10 kU/L Class 0 [facility] Serum orange IgE antibody as say (units/volume)Ordered By: Dr. Dacosta on 01-10-2023 [place] IgE Qn (S) <0.10 kU/L Class 0 [facility] Serum pea IgE antibody assay (units/volume)Ordered By: Dr. Dacosta on 01-10-2023 Pea IgE Qn (S) <0.10 kU/L Class 0 [facility] Serum peach IgE antibody ass ay (units/volume)Ordered By: Dr. Dacosta on 01-10-2023 [place] IgE Qn (S) <0.10 kU/L Class 0 [facility] Comment on above: Performed at: [address] [id number] Director: Rajan Suarez MD, Phone: [phone] Serum peanut IgE antibody as say (units/volume)Ordered By: Dr. Dacosta on 01-10-2023 Peanut IgE Qn (S) 0.12 kU/L Class 0/I [facility] Comment on above: Levels of Specific I [...] By: Dr. Dacosta on 01-10-2023 Pecan or [place] Nut IgE Qn (S) <0.10 kU/L Class 0 [facility] Serum pork IgE antibody assa y (units/volume)Ordered By: Dr. Dacosta on 01-10-2023 Pork IgE Qn (S) <0.10 kU/L Class 0 [facility] Serum rice IgE antibody assa y (units/volume)Ordered By: Dr. Dacosta on 01-10-2023 Rice IgE Qn (S) <0.10 kU/L Class 0 [facility] Serum salmon IgE antibody as say (units/volume)Ordered By: Dr. Dacosta on 01-10-2023 [place] IgE Qn (S) <0.10 kU/L Class 0 [facility] Serum strawberry IgE antibod y assay (units/volume)Ordered By: Dr. Dacosta on 01-10-2023 [place] IgE Qn (S) <0.10 kU/L Class 0 [facility] Serum tomato IgE antibody as say (units/volume)Ordered By: Dr. Dacosta on 01-10-2023 Tomato IgE Qn (S) <0.10 kU/L Class 0 [facility] Serum tuna IgE antibody assa y (units/volume)Ordered By: Dr. Dacosta on 01-10-2023 Tuna IgE Qn (S) <0.10 kU/L Class 0 [facility] Serum wheat IgE antibody ass ay (units/volume)Ordered By: Dr. Dacosta on 01-10-2023 Wheat IgE Qn (S) <0.10 kU/L Class 0 [facility] Serum white potato specific IgE antibody assayOrdered By: Dr. Dacosta on 01-10-2023 Potato IgE Qn (S) <0.10 kU/L Class 0 [facility] Thin prep Papanicolaou smear with manual screeningOrdered By: Dr. Dacosta on 01-10-2023 Thin prep Papanicolaou smear with manual screening <0.10 kU/L Class 0 [facility] Basophil percentageOrdered B y: Dr. Escalante on 11-16-2022 Bilirubin [Mass/Vol] 0.70 mg/dL 0.20-1.00 [facility] Comment on above: For patients on eltr ombopag therapy, use of Dimension [place] TBIL is not recommended. Chloride [Moles/Vol] 102 mmol/L 98-107 [facility] Cholesterol [Mass/Vol] 143 mg/dL <200 [facility] Comment on above: <200 mg/dL Desirable 200-240 mg/dL Borderline >240 mg/dL High Risk Glucose [Mass/Vol] 154 mg/dL 74-106 [facility] Comment on above: Fasting Glucose resu lt greater than or equal to 126 mg/dL suggests DIABETES MELLITUS per A.D.A. criteria. Potassium [Moles/Vol] 4.3 mmol/L 3.5-5.1 [facility] Protein [Mass/Vol] 7.4 g/dL 6.4-8.2 [facility] Sodium [Moles/Vol] 138 mmol/L 136-145 [facility] Triglyceride [Mass/Vol] 197 mg/dL <199 [facility] Comment on above: The drugs N-Acetylcy steine and Metamizole may falsely depress this assay.Serum Triglycerides Reference Interval Normal <150 mg/dL Borderline high 150 - 199 mg/dL High 200 - 499 mg/dL Very High > or = 500 mg/dL WBC (Bld) [#/Vol] 5.6 10*3/uL 4.4-11.0 [facility] Blood erythrocytes count (nu mber/volume)Ordered By: Dr. Escalante on 11-16-2022 RBC (Bld) [#/Vol] 4.50 10*6/uL 4.6-6.2 [facility] Blood hemoglobin measurement (mass/volume)Ordered By: Dr. Escalante on 11-16-2022 Hemoglobin (Bld) [Mass/Vol] 14.7 g/dL 13.0-16.5 [facility] Blood platelet mean volumeOr dered By: Dr. Escalante on 11-16-2022 Platelet mean volume (Bld) [Entitic vol] 10.7 fL 6.2-12.0 [facility] Determination of erythrocyte mean corpuscular volume (MCV)Ordered By: Dr. Escalante on 11-16-2022 MCV (RBC) [Entitic vol] 97.1 fL 80-94 [facility] Direct bilirubinOrdered By: Dr. Escalante on 11-16-2022 Bilirubin.direct [Mass/Vol] 0.22 mg/dL 0.00-0.30 [facility] Hematocrit Auto (Bld) [Volum e fraction]Ordered By: Dr. Escalante on 11-16-2022 Hematocrit (Bld) [Volume fraction] 43.7 % 40-54 [facility] Laboratory - Chemistry and C hemistry - challengeOrdered By: Dr. Escalante on 11-16-2022 ALP [Catalytic activity/Vol] 75 U/L 45-117 [facility] ALT [Catalytic activity/Vol] 34 U/L 16-61 [facility] CO2 [Moles/Vol] 28.0 mmol/L 21.0-32.0 [facility] Cobalamin (Vitamin B12) [Mass/Vol] 382 pg/mL 211-911 [facility] Globulin (S) [Mass/Vol] 3.1 g/dL 2.2-4.2 [facility] Urea nitrogen/Creatinine [Mass ratio] 16.4 mg/mg 10-20 [facility] Laboratory - Hematology and Cell countsOrdered By: Dr. Escalante on 11-16-2022 Erythrocyte distribution width (RBC) [Entitic vol] 42.5 fL 35.1-43.9 [facility] Erythrocyte distribution width (RBC) [Ratio] 11.9 % 11.6-14.6 [facility] MCH (RBC) [Entitic mass] 32.7 pg 27.0-32.0 [facility] MCHC Auto (RBC) [Mass/Vol]Or dered By: Dr. Escalante on 11-16-2022 MCHC (RBC) [Mass/Vol] 33.6 g/dL 32-36 [facility] No Panel InformationOrdered By: Dr. Escalante on 11-16-2022 Estimated GFR (MDRD) Amer 124 mL/min >60 [facility] Comment on above: GFR Calc Estimated GFR (MDRD) Non-Af Amer 103 mL/min >60 [facility] Comment on above: Non- GFR Calc Prostate Specific Antigen Screen 0.47 ng/mL 0.00-4.00 [facility] Comment on above: This test was perfor med using the TPSA assay method for [employer] chemistry system. Values obtained with differentassay methods cannot be used interchangably.When changing PSA assays in the course of monitoring apatient, additional sequential testing should be carriedout to confirm baseline values. Thyroid Stimulating Hormone (TSH) 1.24 uIU/mL 0.358-3.74 [facility] Platelets bldOrdered By: Dr. Escalante on 11-16-2022 Platelets (Bld) [#/Vol] 187 10*3/uL 150-450 [facility] Serum or plasma albumin rinku urement (mass/volume)Ordered By: Dr. Escalante on 11-16-2022 Albumin [Mass/Vol] 4.3 g/dL 3.2-5.0 [facility] Serum or plasma albumin/glob ulin mass ratioOrdered By: Dr. Escalante on 11-16-2022 Albumin/Globulin [Mass ratio] 1.4 {ratio} 0.9-2.4 [facility] Serum or plasma calcium rinku urement (mass/volume)Ordered By: Dr. Escalante on 11-16-2022 Calcium [Mass/Vol] 9.4 mg/dL 8.5-10.1 [facility] Serum or plasma cholesterol in HDL measurement (mass/volume)Ordered By: Dr. Escalante on 11-16-2022 Cholesterol in HDL [Mass/Vol] 50 mg/dL >40 [facility] Comment on above: The drugs N-Acetylcy steine and Metamizole may falsely depress this assay. Reference Range HDL <40 mg/dL Low HDL Cholesterol HDL >or= 60 mg/dL High HDL Cholesterol Serum or plasma cholesterol in VLDL measurement (mass/volume)Ordered By: Dr. Escalante on 11-16-2022 Cholesterol in VLDL [Mass/Vol] 39 mg/dL 5-40 [facility] Serum or plasma creatinine m easurement (mass/volume)Ordered By: Dr. Escalante on 11-16-2022 Creatinine [Mass/Vol] 0.80 mg/dL 0.70-1.30 [facility] Comment on above: The validity of the calculated GFR & GFRAA in patients over 70 years has not been determined. Clinical correlation is essential. Serum or plasma low density lipoprotein (LDL) cholesterol measurement (mass/volume)Ordered By: Dr. Escalante on 11-16-2022 Cholesterol in LDL [Mass/Vol] 54 mg/dL 0-130 [facility] Serum or plasma urea nitroge n measurement (mass/volume)Ordered By: Dr. Escalante on 11-16-2022 Urea nitrogen [Mass/Vol] 13 mg/dL 7-18 [facility] Thin prep Papanicolaou smear with manual screeningOrdered By: Dr. Escalante on 11-16-2022 Thin prep Papanicolaou smear with manual screening 20 U/L 15-37 [facility] Thin prep Papanicolaou smear with manual screening 8 5-15 [facility] Basophil percentageon 2021 Bilirubin [Mass/Vol] 0.40 mg/dL 0.20-1.00 [facility] Work Phone: Comment on above: For patients on eltr ombopag therapy, use of Dimension [place] TBIL is not recommended. Cholesterol [Mass/Vol] 121 mg/dL <200 [facility] Work Phone: Comment on above: <200 mg/dL Desirable 200-240 mg/dL Borderline >240 mg/dL High Risk Protein [Mass/Vol] 6.9 g/dL 6.4-8.2 [facility] Work Phone: Triglyceride [Mass/Vol] 138 mg/dL <199 [facility] Work Phone: Comment on above: The drugs N-Acetylcy steine and Metamizole may falsely depress this assay.Serum Triglycerides Reference Interval Normal <150 mg/dL Borderline high 150 - 199 mg/dL High 200 - 499 mg/dL Very High > or = 500 mg/dL Direct bilirubinon Bilirubin.direct [Mass/Vol] 0.15 mg/dL 0.00-0.30 [facility] Work Phone: Laboratory - Chemistry and C hemistry - challengeon 04-10-2022 ALP [Catalytic activity/Vol] 60 U/L 45-117 [facility] Work Phone: ALT [Catalytic activity/Vol] 30 U/L 16-61 [facility] Work Phone: Globulin (S) [Mass/Vol] 2.9 g/dL 2.2-4.2 [facility] Work Phone: No Panel Informationon 04-10 Hepatitis C Antibody Non-Reactive Nonreactive [facility] Work Phone: Comment on above: Non Reactive: < 0.8 Equivocal: >/= 0.8 to < 1.0 Reactive: >/= 1.0The CDC recommends that a reactive/equivocal HCV antibody result be followed up by the HCV Nucleic Acid Amplificationtest (588903) Serum Varicella zoster virus IgG antibody assay by immunoassay (units/volume)on 04-10-2022 VZV IgG IA Qn (S) 2227 index Immune >165 [facility] Work Phone: Comment on above: Negative <135 Equivo rosaura 135 - 165 Positive >165A positive result generally indicates exposure to thepathogen or administration of specific immunoglobulins,but it is not indication of active infection or stageof disease.Performed at: [facility] [employer] [id number] Director: Fabien Thomas PhD, Phone: [phone] Serum or plasma albumin rinku urement (mass/volume)on 04-10-2022 Albumin [Mass/Vol] 4.0 g/dL 3.2-5.0 [facility] Work Phone: Serum or plasma cholesterol in HDL measurement (mass/volume)on 04-10-2022 Cholesterol in HDL [Mass/Vol] 52 mg/dL >40 [facility] Work Phone: Comment on above: The drugs N-Acetylcy steine and Metamizole may falsely depress this assay. Reference Range HDL <40 mg/dL Low HDL Cholesterol HDL >or= 60 mg/dL High HDL Cholesterol Serum or plasma cholesterol in VLDL measurement (mass/volume)on 04-10-2022 Cholesterol in VLDL [Mass/Vol] 28 mg/dL 5-40 [facility] Work Phone: Serum or plasma low density lipoprotein (LDL) cholesterol measurement (mass/volume)on 04-10-2022 Cholesterol in LDL [Mass/Vol] 41 mg/dL 0-130 [facility] Work Phone: Thin prep Papanicolaou smear with manual screeningon 04-10-2022 Thin prep Papanicolaou smear with manual screening 19 U/L 15-37 [facility] Work Phone: Vital Signs Date Time Vital Sign Value Performing Clinician Alexeii gatito 01-25-2025 08:33-0400 Body height 177.[address] Jackie Escalante MD Work Phone: [facility] 01-25-2025 08:33-0400 Body mass index (BMI) [Ratio] 29.5 kg/m2 Dr. Jackie Escalante MD Work Phone: [facility] 01-25-2025 08:33-0400 Body weight 93.[address] Jackie Escalante MD Work Phone: [facility] 01-25-2025 08:33-0400 Diastolic blood pressure 84 mm[Hg] Dr. Jackie Escalante MD Work Phone: [facility] 01-25-2025 08:33-0400 Heart rate 74 /min Dr. Jackie Escalante MD Work Phone: [facility] 01-25-2025 08:33-0400 Respiratory rate 18 /min Dr. Jackie Escalante MD Work Phone: [facility] 01-25-2025 08:33-0400 Systolic blood pressure 134 mm[Hg] Dr. Jackie Escalante MD Work Phone: [facility] 07-14-2024 08:47-0500 Body height 177.[address] Jackie Escalante MD Work Phone: [facility] 07-14-2024 08:47-0500 Body mass index (BMI) [Ratio] 29 kg/m2 Dr. Jackie Escalante MD Work Phone: [facility] 07-14-2024 08:47-0500 Body weight 91.[address] Jackie Escalante MD Work Phone: [facility] 07-14-2024 08:47-0500 Diastolic blood pressure 85 mm[Hg] Dr. Jackie Escalante MD Work Phone: [facility] 07-14-2024 08:47-0500 Heart rate 69 /min Dr. Jackie Escalante MD Work Phone: [facility] 07-14-2024 08:47-0500 Respiratory rate 16 /min Dr. Jackie Escalante MD Work Phone: [facility] 07-14-2024 08:47-0500 Systolic blood pressure 154 mm[Hg] Dr. Jackie Escalante MD Work Phone: [facility] 04-10-2024 14:48-0400 Body height 177.8 cm Pacc 1 Work Phone: [facility] 04-10-2024 14:48-0400 Body mass index (BMI) [Ratio] 29.27 kg/m2 Pacc 1 Work Phone: [facility] 04-10-2024 14:48-0400 Body temperature 98.01 [degF] Pacc 1 Work Phone: [facility] 04-10-2024 14:48-0400 Body weight 92.53 kg Pacc 1 Work Phone: [facility] 04-10-2024 14:48-0400 Diastolic blood pressure 90 mm[Hg] Pacc 1 Work Phone: [facility] 04-10-2024 14:48-0400 Heart rate 71 /min Pacc 1 Work Phone: [facility] 04-10-2024 14:48-0400 Respiratory rate 14 /min Pacc 1 Work Phone: [facility] 04-10-2024 14:48-0400 SaO2% (BldA) [Mass fraction] 97 % Pacc 1 Work Phone: [facility] 04-10-2024 14:48-0400 Systolic blood pressure 138 mm[Hg] Pacc 1 Work Phone: [facility] 01-23-2024 11:18-0400 Body weight 93 kg Brice Quinonez MD Work Phone: [facility] 01-23-2024 11:18-0400 Diastolic blood pressure 82 mm[Hg] Brice Quinonez MD Work Phone: [facility] 01-23-2024 11:18-0400 Heart rate 74 /min Brice Quinonez MD Work Phone: [facility] 01-23-2024 11:18-0400 Systolic blood pressure 132 mm[Hg] Brice Quinonez MD Work Phone: [facility] 10-23-2023 14:41-0400 Body height 177.[address] Jacek Escalante Work Phone: [facility] 10-23-2023 14:41-0400 Body mass index (BMI) [Ratio] 29.4 kg/m2 Dr. Jacek Escalante Work Phone: [facility] 10-23-2023 14:41-0400 Body weight 92.[address] Jacek Escalante Work Phone: [facility] 10-23-2023 14:41-0400 Diastolic blood pressure 73 mm[Hg] Dr. Jacek Escalante Work Phone: [facility] 10-23-2023 14:41-0400 Heart rate 83 /min Dr. Jacek Escalante Work Phone: [facility] 10-23-2023 14:41-0400 Respiratory rate 18 /min Dr. Jacek Escalante Work Phone: [facility] 10-23-2023 14:41-0400 Systolic blood pressure 135 mm[Hg] Dr. Jacek Escalante Work Phone: [facility] 09-17-2023 22:47-0500 Body temperature 100.2 [degF] Dr. Jacek Escalante Work Phone: [facility] 09-17-2023 22:47-0500 Diastolic blood pressure 76 mm[Hg] Dr. Jacek Escalante Work Phone: [facility] 09-17-2023 22:47-0500 Heart rate 86 /min Dr. Jacek Escalante Work Phone: [facility] 09-17-2023 22:47-0500 Respiratory rate 17 /min Dr. Jacek Escalante Work Phone: [facility] 09-17-2023 22:47-0500 SaO2% (BldA) [Mass fraction] 95 % Dr. Jacek Escalante Work Phone: [facility] 09-17-2023 22:47-0500 Systolic blood pressure 125 mm[Hg] Dr. Jacek Escalante Work Phone: [facility] 09-17-2023 22:01-0500 Body mass index (BMI) [Ratio] 30.3 kg/m2 Dr. Jacek Escalante Work Phone: [facility] 09-17-2023 22:01-0500 Body weight [address] Jacek Escalante Work Phone: [facility] 09-17-2023 22:01-0500 Inhaled oxygen flow rate 2 L/min Dr. Jacek Escalante Work Phone: [facility] 09-17-2023 19:46-0500 Body height 177.[address] Jacek Escalante Work Phone: [facility] 04-18-2023 15:35-0400 Body height 177.[address] Jacek Escalante Work Phone: [facility] 04-18-2023 15:35-0400 Body mass index (BMI) [Ratio] 29.8 kg/m2 Dr. Jacek Escalante Work Phone: [facility] 04-18-2023 15:35-0400 Body weight 94.[address] Jacek Escalante Work Phone: [phone] [place] [address] 04-18-2023 15:35-0400 Diastolic blood pressure 95 mm[Hg] Dr. Jacek Escalante Work Phone: [phone])319-269937 [place] [address] 04-18-2023 15:35-0400 Heart rate 82 /min Dr. Jacek Escalante Work Phone: [facility] 04-18-2023 15:35-0400 Respiratory rate 18 /min Dr. Jacek Escalante Work Phone: [facility] 04-18-2023 15:35-0400 SaO2% (BldA) [Mass fraction] 98 % Dr. Jacek Escalante Work Phone: [facility] 04-18-2023 15:35-0400 Systolic blood pressure 134 mm[Hg] Dr. Jacek Escalante Work Phone: [facility] 11-19-2022 11:15-0400 Body height 177.[address] Jacek Escalante Work Phone: [facility] 11-19-2022 11:15-0400 Body mass index (BMI) [Ratio] 29.8 kg/m2 Dr. Jacek Escalante Work Phone: [facility] 11-19-2022 11:15-0400 Body weight 94.[address] Jacek Escalante Work Phone: [facility] 11-19-2022 11:15-0400 Diastolic blood pressure 88 mm[Hg] Dr. Jacek Escalante Work Phone: [facility] 11-19-2022 11:15-0400 Heart rate 75 /min Dr. Jacek Escalante Work Phone: [facility] 11-19-2022 11:15-0400 Respiratory rate 16 /min Dr. Jacek Escalante Work Phone: [facility] 11-19-2022 11:15-0400 Systolic blood pressure 139 mm[Hg] Dr. Jacek Escalante Work Phone: [facility] Encounters Encounter Date Encounter Type Care Provider Facility Start: 02-16-2025 Non-patient / Non-visit Kandy wynne NP-C -[facility] Work Phone: Start: 02-16-2025 ambulatory Kandy Finch NP Facili ty:[facility] Start: 02-16-2025 ambulatory Lisha Miranda Facility:[facility] Start: 02-16-2025 Non-patient / Non-visit Dr. Lisha calhoun MD -[facility] Start: 02-15-2025 End: 02-15-[address] Jackie Escalante MD Work Phone: -Cardiovascular Services Start: 02-15-2025 End: 02-15-[address] Lisha Miranda MD -Cardiovascular Services Work Phone: Start: 02-15-2025 End: 02-15-2025 ambulatory Lisha Miranda Facility:[facility] Start: 01-27-2025 End: 01-27-[address] Jackie Escalante MD Work Phone: [facility] Work Phone: Start: 01-27-2025 End: 01-27-[address] Lisha Miranda MD -Laboratory Work Phone: Start: 01-27-2025 End: 01-27-2025 ambulatory Lisha Ruben Facility:[facility] Start: 01-25-2025 End: 01-25-[address] Lisha Miranda MD -[facility] Work Phone: Start: 01-25-2025 End: 01-25-[address] Jackie Escalante MD Work Phone: [facility] Work Phone: Start: 10-20-2024 End: 10-20-[address] Jackie Escalante MD Work Phone: [facility] Work Phone: Start: 10-20-2024 End: 10-20-2024 Patient encounter procedure Rebel More NP-C -Laboratory, [place] Work Phone: Start: 10-20-2024 End: 10-20-2024 ambulatory Rebel More NP Facility:[facility] Start: 07-14-2024 End: 07-14-[address] Lisha Miranda MD -[facility] Work Phone: Start: 07-14-2024 End: 07-14-2024 ambulatory Lisha Ruben Facility[facility] Start: 05-28-2024 End: 05-28-2024 ambulatory [facility] Facility:[facility] Start: 05-07-2024 Encounter for preprocedural cardiovascular examination Lisha [facility] Start: 05-07-2024 End: 05-08-2024 ambulatory [facility] Facility:[facility] Start: 04-17-2024 End: 06-16-2024 Telephone encounter Brice Quinonez MD Work Phone: General Surgery Comment on above: Patient Update Start: 04-14-2024 End: 04-20-2024 Telephone encounter Nicky Pickens APRN.WATER MANAGER Work Phone: Pre Anesthesia Comment on above: Request Outside [facility] Records Start: 04-10-2024 End: 04-10-2024 Admission to establishment Pacc Lee 1 Work Phone: Pre Anesthesia Start: 04-10-2024 End: 04-10-2024 ambulatory BRICE QUINONEZ Facility:[facility] Start: 04-10-2024 End: 04-10-2024 Anesthesia consultation Pac Lee 1 Work Phone: Pre Anesthesia Comment on above: Pre-operative examin ation (Primary Dx); 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); Congestive heart failure, unspecified HF chronicity, unspecified heart failure type (HCC); Essential hypertension; Mixed hyperlipidemia; Premature ventricular contractions; Type 2 diabetes (HCC); Ischemic cardiomyopathy Start: 04-10-2024 End: 04-10-2024 Preprocedural examination done Pac Lee 1 Work Phone: [facility] Start: 04-02-2024 End: 04-02-2024 ambulatory Sharri Bonilla Facility:[facility] Start: 02-07-2024 Telephone encounter Brice Quinonez MD Work Phone: General Surgery Comment on above: Appointment Start: 01-27-2024 Telephone encounter Brice Quinonez MD Work Phone: General Surgery Comment on above: Request Outside [facility] Records Start: 01-23-2024 End: 01-23-2024 ambulatory BRICE QUINONEZ Facility:[facility] Start: 01-23-2024 End: 01-23-2024 Patient encounter procedure Brice Quinonez MD Work Phone: General Surgery Comment on above: Encounter for colore ctal cancer screening using Cologuard test (Primary Dx); 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 Gaurav Escalante Work Phone: [facility] Work Phone: Start: 11-22-2023 Non-patient / Non-visit Dr. Gaurav Escalante Work Phone: [facility] Start: 11-22-2023 End: 11-22-[address] Jackie Escalante Work Phone: [facility] Work Phone: Start: 11-22-2023 End: 11-22-[address] Jackie Escalante Work Phone: [facility]-Cardiovascul ar Services Work Phone: Start: 11-20-2023 End: 11-20-[address] Jackie Escalante Work Phone: [facility] Work Phone: Start: 11-20-2023 End: 11-20-[address] Jackie Esaclante Work Phone: [facility] Work Phone: Start: 10-29-2023 End: 10-29-[address] Jacek Escalante Work Phone: [facility] Work Phone: Start: 10-29-2023 End: 10-29-[address] Jacek Escalante Work Phone: [facility] Work Phone: Start: 10-23-2023 End: 10-23-[address] Jacek Escalante Work Phone: [facility] Work Phone: Start: 10-21-2023 End: 10-21-[address] Jacek Escalante Work Phone: [facility] Work Phone: Start: 10-21-2023 End: 10-21-[address] [facility] Start: 09-17-2023 End: 09-17-2023 Emergency department patient visit Dr. Jacek Escalante Work Phone: [facility]-Emergency Department Work Phone: Start: 07-23-2023 End: 07-23-[address] Jacek Escalante Work Phone: [facility] Work Phone: Start: 07-23-2023 End: 07-23-[address] Jacek Escalante Work Phone: [facility]-Radiology, [place] Work Phone: Start: 06-04-2023 Non-patient / Non-visit Dr. Gaurav Escalante Work Phone: [facility] Work Phone: Start: 06-03-2023 Non-patient / Non-visit Dr. Gaurav Escalante Work Phone: [facility] Start: 05-30-2023 End: 05-30-[address] Jacek Escalante Work Phone: [facility] Work Phone: Start: 05-30-2023 End: 05-30-[address] Jacek Escalante Work Phone: [facility]-Cardiovascul ar Services Work Phone: Start: 04-29-2023 Non-patient / Non-visit Dr. Gaurav Escalante Work Phone: [facility] Work Phone: Start: 04-25-2023 Non-patient / Non-visit Dr. Gaurav Escalante Work Phone: [facility] Work Phone: Start: 04-24-2023 Non-patient / Non-visit Dr. Gaurav Escalante Work Phone: [facility] Start: 04-24-2023 End: 04-24-[address] Jacek Escalante Work Phone: [facility] Work Phone: Start: 04-24-2023 End: 04-24-[address] Jacek Escalante Work Phone: [facility]-Cardiovascul ar Services Work Phone: Start: 04-18-2023 End: 04-18-[address] Jacek Escalante Work Phone: [facility] Work Phone: Start: 01-10-2023 End: 01-10-[address] Jacek Escalante Work Phone: [facility] Work Phone: Start: 01-10-2023 End: 01-10-[address] Jacek Escalante Work Phone: [facility] Start: 11-19-2022 End: 11-19-[address] Jacek Escalante Work Phone: [facility] Start: 11-16-2022 End: 11-16-[address] Jacek Escalante Work Phone: [facility] Work Phone: Start: 11-16-2022 End: 11-16-[address] Jacek Escalante Work Phone: [facility] Start: 04-10-2022 End: 04-10-2022 ambulatory [facility] Work Phone: Start: 04-10-2022 End: 04-10-2022 Patient encounter procedure [facility] Procedures Date Procedure Procedure Detail Performing Clinician [...] Screening for malign ant neoplasm of colon [facility] Start: 04-22-2025 ambulatory Ambulatory Facility:[facility] Start: 06-08-2024 End: 06-08-2024 Patient encounter procedure 06/08/2024 3:[address] [facility] [address] [place] [address] Brice Quinonez MD [address] [place] [address] COLON/EGD [facility] Comment on above: COLON/EGD Start: 04-20-2024 End: 04-20-2024 Patient encounter procedure 04/20/2024 2:[address] [facility] [address] [place] [address] Brice Quinonez MD [address] [address] COLON/EGD [facility] Comment on above: COLON/EGD Start: 04-12-2024 Covid-19 Vaccine () Covid-19 Vaccine () [facility] Start: 04-12-2024 Covid-19 Vaccine () Covid-19 Vaccine ( season) [facility] Start: 04-12-2024 Influenza vaccination Influenza Vacc ine (#1) [facility] Start: 10-23-2023 Patient referral [facility] Work Phone: Start: 09-17-2023 [facility] Start: 08-12-2023 Advance Directive Discussion Advance Directive Discussion [facility] Start: 08-12-2023 Behavioral Health Screening Behavioral Health Screening [facility] Start: 04-12-2023 Covid-19 Vaccine ( season) Covid-19 Vaccine ( season) [facility] Start: 01-10-2023 Procedure [facility] Start: 2018 Pneumococcal Vaccine : 65+ (2 of 2 - PPSV23 or PCV20) Pneumococcal Vaccine: 65+ (2 of 2 - PPSV23 or PCV20) [facility] Start: 12-19-2015 Pneumococcal Vaccine : 65+ (2 of 2 - PPSV23 or PCV20) Pneumococcal Vaccine: 65+ (2 of 2 - PPSV23 or PCV20) [facility] Start: 2013 RSV Vaccine (1 - 1-d ose 60+ series) RSV Vaccine (1 - 1-dose 60+ series) [facility] Start: 2013 RSV Vaccine (1 - Ris k 60-74 years 1-dose series) RSV Vaccine (1 - Risk 60-74 years 1-dose series) [facility] Start: 2003 Shingrix Vaccine (1 of 2) Shingrix Vaccine (1 of 2) [facility] Start: 1998 Diabetes Screening Diabetes Screenin g [facility] Start: 1998 Screening for malign ant neoplasm of colon [facility] Start: 1988 Lipid panel Lipid Screening [facility] Start: 1972 Urine microalbumin profile DTaP,Tdap,Td Vaccine (1 - Tdap) [facility] Start: 1971 Annual PCP Team Abalone Fisherman derick Disease Visit Annual PCP Team Chronic Disease Visit [facility] Start: 1971 Anxiety Screening Anxiety Screening [facility] Start: 1971 BP Controlled (<130/80) BP Controlle d (<130/80) [facility] Start: 1971 Depression Screening Depression Scre ening [facility] Start: 1971 Hepatitis B surface antibody level LDL Cholesterol [facility] Start: 1971 Hepatitis C screening Hepatitis C Sc eric [facility] Start: 1963 Diabetic foot examination Diabetic Foot Exam [facility] Start: 1963 Glaucoma screening Dilated Retinal E xam [facility] Start: 1963 Hepatitis B screening Urine Al bumin:Creatinine Ratio [facility] Start: 1958 Hemoglobin A1c measurement HbA1C [facility] Start: 1953 Abdominal aortic aneurysm screening Abdominal Aortic Aneurysm Screening [facility] Ambulatory ECG [facility] End: 01-30-2025 EGD DIAGNOSTIC EGD DIAGNOSTIC Endoscopy Routine Encounter for colorectal cancer screening using Cologuard test 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) Cardiomyopathy, unspecified type (HCC) 1 Occurrences starting 01/31/2024 until 01/30/2025 [facility] Work Phone: Comment on above: 1 Occurrences starti ng 01/31/2024 until 01/30/2025 End: 01-30-2025 Flexible sigmoidoscopy study COLONOSCOPY DIAGNOSTIC Endoscopy Routine Encounter for colorectal cancer screening using Cologuard test 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) Cardiomyopathy, unspecified type (HCC) 1 Occurrences starting 01/31/2024 until 01/30/2025 [facility] Comment on above: 1 Occurrences starti ng 01/31/2024 until 01/30/2025 NM Heart Views W str ess and W radionuclide IV [facility] Patient Education ED Influenza (Adult) [facility] Work Phone: Patient referral [facility] Work Phone: [facility] Immunizations Immunization Date Immunization Notes Care Provider Fa rosendo 05-10-2023 influenza, injectabl e, quadrivalent, preservative free Brice Quinonez MD Work Phone: [facility] 05-10-2023 influenza virus vacc ine, unspecified formulation Brice Quinonez MD Work Phone: [facility] 06-08-2022 influenza, injectabl e, quadrivalent, contains preservative Brice Quinonez MD Work Phone: [facility] 05-29-2019 influenza, seasonal, injectable Brice Quinonez MD Work Phone: [facility] 05-06-2018 influenza, injectabl e, quadrivalent, contains preservative Brice Quinonez MD Work Phone: [facility] 05-01-2017 influenza, seasonal, injectable Brice Quinonez MD Work Phone: [facility] 04-25-2016 influenza, seasonal, injectable Brice Quinonez MD Work Phone: [facility] 10-24-2015 pneumococcal conjuga te vaccine, 13 valent Brice Quinonez MD Work Phone: [facility] 06-10-2015 influenza, seasonal, injectable Brice Quinonez MD Work Phone: [facility] 05-21-2014 influenza, seasonal, injectable Brice Quinonez MD Work Phone: [facility] 04-20-2013 influenza, seasonal, injectable Brice Quinonez MD Work Phone: [facility] Payers Date Payer Category Payer Self-pay [id number] 2021 Unknown MMO MMO MEDICARE SUPPLEMENT [id number] 2021-Present [phone] [address] [place] [address] Indemnity [id number] 2021 Unknown [id number] 2018 Medicare MEDICARE MEDICAR E A AND B [id number] 2018-Present [phone] [address] [address] [place] [address] Medicare [id number] 2018 Medicare [id number] Unknown [id number] Unknown [id number] Unknown [id number] Unknown [id number] Unknown [id number] Unknown [id number] [id number] Unknown [id number] Unknown [id number] Unknown [id number] Unknown [id number] Unknown [id number] Unknown [id number] Social History Date Type Detail Facility Start: 06-26-2021 End: 04-18-2023 Tobacco smoking status LAIS Unknown if ever smoked [facility] Start: 1955 Sex Assigned At Male [facility] Start: 01-23-2024 End: 03-02-2024 Tobacco smoking status NHIS Ex-smoker [facility] Start: 08-12-1995 End: 08-12-1969 History of tobacco use Current smoker [facility] Start: 08-12-1995 End: 08-12-1969 History of tobacco use Cigarette Smoker [facility] Start: 01-23-2024 End: 04-10-2024 Tobacco use and exposure Smokeless tobacco non-user [facility] Start: 01-23-2024 End: 01-24-2024 History of Social function [facility] Start: 01-23-2024 End: 01-24-2024 Tobacco use panel [facility] National Score (1-100), lower number is lower risk 50 [facility] Start: 1955 Sex Assigned At Not on file [facility] Start: 01-31-2024 End: 04-14-2024 Alcohol intake Current drinker of alcohol (finding) [facility] Start: 01-30-2024 Alcohol Comment 2 drinks per day [facility] Start: 10-30-2024 Sex Male (finding) [facility] Medical Equipment Procedure Code Equipment Code Equipment Origin al Text Equipment Identifier Dates Ligation of arteriovenous fistula Plant polysaccharide haemostatic agent, bioabsorbable [id number] FDA Start: 03-10-2024 Ligation of arteriovenous fistula Ligation clip, metallic [id number] FDA Start: 03-10-2024 Ligation of arteriovenous fistula Ligation clip, metallic ()[id number] [facility] Start: 03-10-2024 Clinical Notes 01-24-2024 to 01-25-2025 [...] (arteriovenous fistula) resolved January 25, 2025 1:09pm [facility] Work Phone: 1(693) 655-740306-16-2025 [facility] [address] [place] [address] OFFICE VISIT Date of Service: 01/25/25 MR#: [id number] Acct: [id number] Name: MIO HART Rep #: [id number] : 1955 Provider: Dr. Lokesh Miranda MD Age/Sex: 69/M Location: [facility] Status: Signed HPI HPI History of Present Illness Details: This patient with history of anterior NV, chronic LV systolic dysfunction secondary to ischemic [...] NIBP Intake Visit Reasons: 6 M FU [employer] Manager Required: No Accompanied by: Self Is patient [...] mg PO QDAY 01/25/25 History magnesium) tablet cwjwdjnbyzso-luyweawv-sfiv 1 tab PO DAILY 11/19/22 History fumarate [...] History Alcohol use Atherosclerotic heart disease of kas[place] coronary artery with other forms of angina [...] 11/22/2023: Interpretation: There were a total of 942188 beats recorded over the 48 hours. Average heart rate was 79 bpm in Normal Sinus Rhythm. The minimum heart rate was 67 bpm in Normal Sinus Rhythm recorded at 1:04:15 AM, D2. The maximum heart rate was 98 bpm in Normal Sinus Rhythm recorded at 9:07:26 AM,D1. There were a total of 32723 ventricular ectopic beats comprising 12% of the [...] reports an LVEF of 38%. Cardiac Catheterization [facility] 12/11/2011: Impression: Severe three vessel coronary [...] A cardiac catheterization procedure was performed at [facility] on 12/14/2011.? Theresults are as noted below. Impression: Successful angioplasty and successful stenting of the 85% stenosis in the proximal first obtuse marginal artery. Recommendation: Optimal medical therapy of the patient?s disease. Aggressive risk factor modification. Begin an exercise program. A Holter monitor was performed on 05/05/2012.? The results are as noted below. SINUS RHYTHM WITH BORDERLINE 1ST DEGREE AV BLOCK NH. 22-.24. MINIMUM HR 60 BPM AT 7:44:46 [...] SINUS RHYTHM WITH 1ST DEGREE AV BLOCK NH .24 RATE 92 8PM WITHOUT ECTOPICS OR ST CHANGES. Assessment and Plan Assessment and Plan (1) Coronary artery disease: Status: Chronic Plan: History of anterior NV. Status post percutaneous intervention. Aspirin. Beta- blockers. [...] applicable) CC: Dr. Jackie Escalante MD ~ [facility]06-16-2025 Progress note Author Lisha Miranda [facility] Note Date/Time January 25, 2025 1:37 pm [facility] [address] [place], [place] [address] OFFICE VISIT Date of Service: 01/25/25 MR#: [id number] Acct: [id number] Name: MIO HART Rep #: [id number] : 1955 Provider: Dr. Lokesh Miranda MD Age/Sex: 69/M Location: [facility] Status: Signed HPI HPI History of Present Illness Details: This patient with history of anterior NV, chronic LV systolic dysfunction secondary to ischemic [...] NIBP Intake Visit Reasons: 6 M FU [employer] Manager Required: No Accompanied by: Self Is patient [...] mg PO QDAY 01/25/25 History magnesium) tablet yaprzmqxtxnh-nirujdor-qafn 1 tab PO DAILY 11/19/22 History fumarate [...] History Alcohol use Atherosclerotic heart disease of kas[place] coronary artery with other forms of angina [...] 11/22/2023: Interpretation: There were a total of 303744 beats recorded over the 48 hours. Average heart rate was 79 bpm in Normal Sinus Rhythm. The minimum heart rate was 67 bpm in Normal Sinus Rhythm recorded at 1:04:15 AM, D2. The maximum heart rate was 98 bpm in Normal Sinus Rhythm recorded at 9:07:26 AM,D1. There were a total of 28827 ventricular ectopic beats comprising 12% of the [...] reports an LVEF of 38%. Cardiac Catheterization [facility] 12/11/2011: Impression: Severe three vessel coronary [...] A cardiac catheterization procedure was performed at [facility] on 12/14/2011.? The results are as noted below. Impression: Successful angioplasty and successful stenting of the 85% stenosis in the proximal first obtuse marginal artery. Recommendation: Optimal medical therapy of the patient?s disease. Aggressive risk factor modification. Begin an exercise program. A Holter monitor was performed on 05/05/2012.? The results are as noted below. SINUS RHYTHM WITH BORDERLINE 1ST DEGREE AV BLOCK NH. 22-.24. MINIMUM HR 60 BPM AT 7:44:46 [...] SINUS RHYTHM WITH 1ST DEGREE AV BLOCK NH .24 RATE 92 8PM WITHOUT ECTOPICS OR ST CHANGES. Assessment and Plan Assessment and Plan (1) Coronary artery disease: Status: Chronic Plan: History of anterior NV. Status post percutaneous intervention. Aspirin. Beta-blockers. Statins. [...] applicable) CC: Dr. Jackie Escalante MD ~ [facility] Work Phone: 1(852) 712-345212-03-2024 Evaluation note* Diagnosis Onset Date Resolution Status Admit Date Coronary artery disease chronic D ec2023 1:10pm Diabetes chronic July 14, 2024 1:10pm Essential hypertension chronic De cember 2023 1:10pm Hyperlipidemia chronic July 142023 1:10pm Ischemic cardiomyopathy chronic D ecember 2023 1:10pm NSVT (nonsustained ventricul ar tachycardia) chronic July 14 1:10pm AV (arteriovenous fistula) resolved July 14, 2024 1:10pm [facility] Work Phone: 1(187) 864-132609-09-2024 Telephone encounter Note* Telephone Encounter - Mandy Lew LPN - 04/20/2024 9:00 AM EDT Received A1c results. Sent to [facility] through Onbase scanning. Mandy Lew LPN [facility]09-09-2024 Miscellaneous Notes* Telephone Encounter - Mandy Lew LPN - 04/20/2024 9:00 AM EDT Received A1c results. Sent to [facility] through Onbase scanning. Mandy Lew LPN * Telephone Encounter - Mandy Lew LPN - 04/15/2024 11:11 AM EDT Fax request sent to Dr. Escalante's office requesting most recent A1c be faxed for upcoming surgery 04/20/24. Mandy Lew LPN * Telephone Encounter - Nicky Pickens APRN.CNP - 04/14/2024 10:11 AM EDT Can we request most recent A1c from PCP's office? documented in this encounterOhio[facility] Telephone encounter Note * Telephone Encounter - Dipak Isidro - 04/17/2024 3:12 PM EDT Email from Dr. High anesthesiologist - patient will be cancelled for his scopes Saturday with [facility] in [place] as he has not been cleared through [...] been cleared to proceed. Dipak Isidro Machine Washer [facility]09-06-2024 Miscellaneous Notes* Telephone Encounter - Dipak Isidro - 04/17/2024 3:12 PM EDT Email from Dr. High anesthesiologist - patient will be cancelled for his scopes Saturday with [facility] in [place] as he has not been cleared through [...] been cleared to proceed. Dipak Isidro Machine Washer documented in this encounterOhiohealth O[facility]09-04-2024 Telephone encounter Note * Telephone Encounter - Mandy Lew LPN - 04/15/2024 11:11 AM EDT Fax request sent to Dr. Escalante's office requesting most recent A1c be faxed for upcoming surgery 04/20/24. Mandy Lew LPN [facility]09-03-2024 Telephone encounter Note* Telephone Encounter - Nicky Pickens APRN.WATER MANAGER - 04/14/2024 10:11 AM EDT Can we request most recent A1c from PCP's office? [facility]08-30-2024 Instructions* Patient Instructions* Nicky Pickens APRN.CNP - 04/10/2024 3:17 PM EDT Images from the original note were not included. [facility] PATIENT PREOPERATIVE INSTRUCTIONS Brice Quinonez MD has scheduled you for your procedure at this surgery center: [facility]: [phone] -- [address] [facility] [address]. Please read below carefully for your personalized [...] or other anticoagulants without consulting with your riverine assault craft crewman or prescribing physician. - Stop Vitamin E, [...] Procedures: - YOU MUST HAVE A RESPONSIBLE EYEGLASS ASSEMBLER TAKE YOU HOME. A SUPERVISOR LOADING OR RIVETER HAND CANNOT BE MADE A RESPONSIBLE EYEGLASS ASSEMBLER. - We recommend that a responsible person [...] Advance Directive, please fax a copy to [phone] or email to for it to be [...] day. Nicky Pickens APRN.SIN documented in this encounterOhiohealth O[facility]08-30-2024 History and physical note * Nicky Pickens APRN.CNP - 04/10/2024 3:12 PM EDT Images from the original note were not included. [facility] HISTORY AND PHYSICAL EXAMINATION SERVICE DATE: 04/10/2024 SERVICE TIME: 10:11 AM PRIMARY CARE PHYSICIAN: Jackie Escalante MD Assessment Patient has the following medical conditions which may affect aide-operative course: Ischemic cardiomyopathy Assessment: following [facility], most updated echo scanned into [facility] 11/2023, EF 15%, medical clearance letter faxed to [facility] and last OV if later than the one scanned into [facility] 10/2023, asymptomatic, on defibrillator/pacemaker at this time Premature ventricular contractions Assessment: controlled on rx, recent holter monitor, following cardio Mixed hyperlipidemia Assessment: c/w statin Essential hypertension Assessment: controlled on rx Last 14 BP Last 14 Encounter BP Readings: Date: BP: 04/10/2024 138/90 01/23/2024 132/82 CHF (congestive heart failure) (HCC) Assessment: controlled on rx and as needed 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 Denies CP, palpitations, sob, new or worsening cardiac symptoms. Clearance letter sent to [facility] Type 2 diabetes (HCC) Assessment: controlled on [...] 0 Appetite Score: 0 MST Score: 0 [id number] Score: Age: 65-74 Sex: male CHF history: Yes Hypertension history: Yes Stroke/TIA/thromboembolism history: No Vascular disease history: Yes Diabetes history: Yes [id number] Score: 5 ARISCAT Score: Age: 51-80 Preoperative [...] and consent discussed: yes. Patient / Responsible Libertarian agrees to proceed: yes Prepared for Surgery: [...] 15%. We now have records from the cardiology/[facility]. From their note his last [...] a cardiac ejection fraction of 15%. His riverine assault craft crewman is Dr. Lisha Miranda at the [facility]. REVIEW OF SYSTEMS: General: No weight loss, malaise or fevers. Neurological: No history of TIA's, stroke, BARREL TURNER tumor, impaired sensorium, hemiplegia, paraplegia orquadraplegia. 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 Instructions Given to Patient: Instructions located in the after visit summary. Patient given verbal and written preop instructions and voices comprehension and compliance. SIGNATURE: Nicky Pickens APRN.CNP PATIENT NAME: Mio Hart DATE: April 10, 2024 TIME: 3:12 PM PAGER/CONTACT #: [facility]08-30-2024 History and physical note* Nicky Pickens APRN.CNP - 04/10/2024 3:12 PM EDT Images from the original note were not included. [facility] HISTORY AND PHYSICAL EXAMINATION SERVICE DATE: 04/10/2024 SERVICE TIME: 10:11 AM PRIMARY CARE PHYSICIAN: Jackie Escalante MD Assessment Patient has the following medical conditions which may affect aide-operative course: Ischemic cardiomyopathy Assessment: following [facility], most updated echo scanned into [facility] 11/2023, EF 15%, medical clearance letter faxed to [facility] and last OV if later than the one scanned into [facility] 10/2023, asymptomatic, on defibrillator/pacemaker at this time Premature ventricular contractions Assessment: controlled on rx, recent holter monitor, following cardio Mixed hyperlipidemia Assessment: c/w statin Essential hypertension Assessment: controlled on rx Last 14 BP Last 14 Encounter BP Readings: Date: BP: 04/10/2024 138/90 01/23/2024 132/82 CHF (congestive heart failure) (HCC) Assessment: controlled on rx and as needed 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 Denies CP, palpitations, sob, new or worsening cardiac symptoms. Clearance letter sent to [facility] Type 2 diabetes (HCC) Assessment: controlled on [...] 0 Appetite Score: 0 MST Score: 0 [id number] Score: Age: 65-74 Sex: male CHF history: Yes Hypertension history: Yes Stroke/TIA/thromboembolism history: No Vascular disease history: Yes Diabetes history: Yes [id number] Score: 5 ARISCAT Score: Age: 51-80 Preoperative [...] and consent discussed: yes. Patient / Responsible Libertarian agrees to proceed: yes Prepared for Surgery: [...] 15%. We now have records from the cardiology/[facility]. From their note his last [...] a cardiac ejection fraction of 15%. His riverine assault craft crewman is Dr. Lisha Miranda at the [facility]. REVIEW OF SYSTEMS: General: No weight loss, malaise or fevers. Neurological: No history of TIA's, stroke, BARREL TURNER tumor, impaired sensorium, hemiplegia, paraplegia orquadraplegia. 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 Instructions Given to Patient: Instructions located in the after visit summary. Patient given verbal and written preop instructions and voices comprehension and compliance. SIGNATURE: Nicky Pickens APRN.CNP PATIENT NAME: Mio Hart DATE: April 10, 2024 TIME: 3:12 PM PAGER/CONTACT #: documented in this encounterOhiohealth O[facility]07-30-2024 Telephone encounter Note * Telephone Encounter - Dipak Isidro - 03/10/2024 2:22 PM EDT Patient denied sooner date 03/13/2024 Dipak Isidro Machine Washer [facility]07-30-2024 Miscellaneous Notes* Telephone Encounter - Dipak Isidro - 03/10/2024 2:22 PM EDT Patient denied sooner date 03/13/2024 Dipak Isidro Machine Washer * Telephone Encounter - Dipak Isidro - 03/10/2024 11:05 AM EDT Left voicemail for patient in regards to sooner date with Dr. Wayne this Saturday in [place] Dipak Isidro Machine Washer * Telephone Encounter - Dipak Isidro - 02/07/2024 11:26 AM EDT Patient denied sooner date with [facility]ian in [place] Scheduled 06/08/2024 asking to be on waitlist documented in this encounterOhiohealth O[facility]07-30-2024 Telephone encounter Note * Telephone Encounter - Dipak Isidro - 03/10/2024 11:05 AM EDT Left voicemail for patient in regards to sooner date with Dr. Wayne this Saturday in [place] Dipak Sanna Machine Washer [facility]06-28-2024 Telephone encounter Note* Telephone Encounter - Dipak Isidro - 02/07/2024 11:26 AM EDT Patient denied sooner date with [facility] in [place] Scheduled 06/08/2024 asking to be on waitlist [facility]06-21-2024 Note* Addendum Note - Brice Quinonez MD - 01/31/2024 11:19 AM EDTAddended by: BRICE QUINONEZ on: 01/31/2024 11:19 AM Modules accepted: Orders [facility]06-21-2024 Miscellaneous Notes* Addendum Note - Brice Quinonez MD - 01/31/2024 11:19 AM EDTAddended by: BRICE QUINONEZ on: 01/31/2024 11:19 AM Modules accepted: Orders documented in this encounterOhiohealth O'Blen[facility]06-21-2024 Instructions* Patient Instructions* Brice Quinonez MD - [...] If you do not have a responsible driver retraining instructor (family member or friend) with you to [...] preparation solution at your local pharmacy or [facility] pharmacy. 07/2019 Bowel Preparation Instructions for: [...] until midnight. 2 07/2019 documented in this encounterOhiohealth O'[facility]06-17-2024 Telephone encounter Note * Telephone Encounter - Loki Sullivan RN - 01/27/2024 4:53 PM EDT Medical records requested from [facility], and [facility]. Loki Sullivan RN [facility]06-17-2024 Miscellaneous Notes* Telephone Encounter - Loki Sullivan RN - 01/27/2024 4:53 PM EDT Medical records requested from [facility], and [facility]. Loki Sullivan RN documented in this encounterOhiohealth O'[facility]len[facility]06-14-2024 NoteHNO ID: [id number] Author: BRICE QUINONEZ MD Service: ? Author [...] 15%. We now have records from the cardiology/[facility]. From their note his last [...] a cardiac ejection fraction of 15%. His riverine assault craft crewman is Dr. Lisha Miranda at the [facility]. 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 We now have records from the cardiology/[facility]. From their note his last [...] a cardiac ejection fraction of 15%. His riverine assault craft crewman is Dr. Lisha Miranda at the [facility]. 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 fistula ([facility]) Acute myocardial infarction of lateral wall ([facility]) NV Atherosclerotic heart disease of kas[place] coronary artery with angina pectoris ([facility]) CHF (congestive heart failure) ([facility]) Essential hypertension Ischemic cardiomyopathy Kidney stones Mixed hyperlipidemia Premature ventricular contractions SOB (shortness of breath) Type 2 diabetes ([facility]) PAST SURGICAL HISTORY Procedure Laterality Date APPENDECTOMY [...] Cologuard test (primaryencounter diagnosis) (I25.119) 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) (I42.9) Cardiomyopathy, unspecified type (HCC) A letter was sent to Dr. Jackie Escalante MD indicating the above finding for this patient. Return to Clinic: The patient is instructed to follow-up with me after study has been performed. 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 Essential hypertension chron ic Hyperlipidemia chronic Ischemic cardiomyopathy [facility] Work Phone: Evaluation note* Diagnosis Encounter for colorectal cancer screening using Cologuard test- Primary 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) Cardiomyopathy, unspecified type (HCC) documented in this encounter [facility] note* Diagnosis Pre-operative examination- Primary Preoperative examination, unspecified 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) Congestive heart [...] EDT Associated Problem(s): Atherosclerotic heart disease of kas[place] coronary artery with angina pectoris(HCC) Assessment: s/p stents, c/w daily ASA, BB, and statin. Denies CP, palpitations, sob, new or worsening cardiac symptoms. Clearance letter sent to [facility] * Assessment & Plan Note - Nicky Pickens APRN.CNP - 04/14/2024 8:49 AM EDT Associated Problem(s): CHF (congestive heart failure) ([facility]) Assessment: controlled on rx and as needed [...] following [facility], most updated echo scanned into [facility] 11/2023, EF 15%, medical clearance letter faxed to [facility] and last OV if later than the one scanned into [facility] 10/2023, asymptomatic, on defibrillator/pacemaker at this time documented in this encounter [facility]* Diagnosis Onset Date Resolution Status Admit Date Coronary artery disease chronic J une 2024 1:09pm Diabetes chronic January 25 1:09pm Essential hypertension chronic Ju ne 2024 1:09pm Hyperlipidemia chronic January 25, 2025 1:09pm Ischemic cardiomyopathy chronic J une 2024 1:09pm NSVT (nonsustained ventricul ar tachycardia) chronic January 25, 2025 1:09pm AV (arteriovenous fistula) resolved January 25, 2025 1:09pm [facility] Work Phone: Hospital Discharge instructionsAmbulatory Orders* Vascular Location: None Selected [facility] Work Phone: Reason for referral (narrative)* Outpatient Procedure (Routine) - Pending Review Specialty Diagnoses / Procedures Referred By Rodrick ramos Referred To Contact [facility] Diagnoses Encounter for colorectal cancer screening using Cologuard test 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) Cardiomyopathy, unspecified type (HCC) Procedures COLONOSCOPY DIAGNOSTIC COLONOSCOPY FLX DX W/COLLJ SPEC WHEN PFBrice Rosenberg MD [address] [address] [facility] [address] [place] [id number] Referral ID Status Reason Start Date Expiration Date Visits Requested Visits Authorized [id number] Pending Review Auto-Generat ed Referral 01/31/2024 01/30/2025 1 1 * Outpatient Procedure (Routine) - Pending Review Specialty Diagnoses / Procedures Referred By Rodrick ramos Referred To Contact [facility] Diagnoses Encounter for colorectal cancer screening using Cologuard test 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) Cardiomyopathy, unspecified type (HCC) Procedures EGD DIAGNOSTIC ESOPHAGOGASTRODUODENOSC OPY TRANSORAL DIAGNOSTIC Brice Quinonez MD [address] [address] [facility] [address] [place] [id number] Referral ID Status Reason Start Date Expiration Date Visits Requested Visits Authorized [id number] Pending Review Auto-Generat ed Referral 01/31/2024 01/30/2025 1 1 [facility]No reason for referral information availableWRegional [facility] Work Phone: Chief Complaint and Reason for [...] ODISPAW 6 m fu Reason for Visit [id number] Essential hypertension Hyperlipidemia Ischemic cardiomyopathy Chief Complaint EORDERS- [place] & [place] ODISPAW 6 m fu Allergy, unspecified, initial encounter Reason for Visit [id number] Essential hypertension Hyperlipidemia Ischemic cardiomyopathy Chief Complaint Allergy, unspecified , initial encounter 1 Y FU PREV PFM CHF Amb Documentation Amb Documentation Reason for Visit [id number] Essential hypertension Hyperlipidemia Ischemic cardiomyopathy Chief Complaint 1 Y FU PREV PFM CHF Amb Documentation Amb Documentation ISCHEMIC CARDIOMYOPATHY ISCHEMIC CARDIOMYOPATHY Amb Documentation Reason for Visit [id number] Essential hypertension Hyperlipidemia Ischemic cardiomyopathy Chief Complaint [...] M FU EORDER Atherosclerotic heart disease of [place] coronary a Amb Documentation Reason for Visit AV (arteriovenous fi stula) Coronary artery disease Essential hypertension Hyperlipidemia Ischemic cardiomyopathy Chief Complaint 1 Y FU PREV PFM CHF Amb Documentation Amb Documentation ISCHEMIC CARDIOMYOPATHY ISCHEMIC CARDIOMYOPATHY Amb Documentation RIGHT KNEE PAIN Reason for Visit [id number] Essential hypertension Hyperlipidemia Ischemic cardiomyopathy Chief Complaint [...] Will Yes June 17 11:36pm Power of Preschool Substitute Teacher No June 17, 2021 11:36pm Advance Directive Response Recorded Date/ Time Name of Medical Power of Preschool Substitute Teacher September 17, 2023 8:09pm Advance Directives Yes April 9:02am Living Will Yes September 17 8:09pm Power of Preschool Substitute Teacher Yes September 17, 2023 8:09pm Advance Directive Response Recorded Date/ Time Name of Medical Power of Preschool Substitute Teacher September 17, 2023 9:09pm Advance Directives Yes April 10:02am Living Will Yes September 17 9:09pm Power of Preschool Substitute Teacher Yes September 17, 2023 9:09pm Advance Directive Response Recorded Date/ Time Advance Directives Yes April 9:02am Living Will Yes June 17 10:36pm Power of Preschool Substitute Teacher No June 17, 2021 10:36pm Advance Directive [...] Provider, Refe ing Provider Active Rebel More ART LIBRARIAN, ART LIBRARIAN-C Attending Provider Active Team Status: Inactive Member [...] Primary Care Provider Activ e Rebel More ART LIBRARIAN, ART LIBRARIAN-C Attending Provider Active Team Status: Inactive Member Role Status Dates Dr. Jacek Escalante MD Primary Care Provider Activ e Rebel More ART LIBRARIAN, ART LIBRARIAN-C Attending Provider, Referring Pro vider Active Team Status: Active Member Role Status Dates Dr. Jacek Escalante MD Primary Care Provider Activ e Rebel More ART LIBRARIAN, ART LIBRARIAN-C Referring Provider, Other Provide r Active Dr. [...] Primary Care Provider Acti ve Kandy Finch ART LIBRARIAN, ART LIBRARIAN-C Attending Provider Active Team Status: Inactive Member [...] MD Attending Provider, Referring Pr ovider Active Anesthesiology Teacher Relationship Specialty Start Date End Date Jackie Escalante MD [address] [place] [address] PCP - General Family Medicine 01/24/24 Anesthesiology Teacher Relationship Specialty Start Date End Date Jackie Escalante MD [address] [place] [address] PCP - General Family Medicine 01/24/24 Anesthesiology Teacher Relationship Specialty Start Date End Date Jackie Escalante MD [address] [place] [address] PCP - General Family Medicine 01/24/24 Anesthesiology Teacher Relationship Specialty Start Date End Date Jackie Escalante MD [address] [place] [address] PCP - General Family Medicine 01/24/24 Anesthesiology Teacher Relationship Specialty Start Date End Date Jackie Escalante MD [address] [place] [address] PCP - General Family Medicine 01/24/24 Team [...] 2024 End: October 20, 2024 Rebel More ART LIBRARIAN, ART LIBRARIAN-C Attending Provider Active S tart: October 20, 2024 End: October 20, 2024 Rebel More ART LIBRARIAN, ART LIBRARIAN-C Referring Provider Active S tart: October 20, [...] Start: February 16, 2025 Kandy Finch NP, ART LIBRARIAN-C Attending Provider Active Start: February 16, 2025 Source Comments (unrecognize d section and content) In the event this informatio n is protected by the Federal Confidentiality of Alcohol and Drug Abuse Patient Records regulations: The Federal rules restrict any use of the information to criminally investigate or prosecute any alcohol or drug abuse patient.[facility] HospitalIn the event this information is protected by the Federal Confidentiality of Alcohol and Drug Abuse Patient Records regulations: The Federal rules restrict any use of the information to criminally investigate or prosecute any alcohol or drug abuse patient.[facility]In the event this information is protected by the Federal Confidentiality of Alcohol and Drug Abuse Patient Records regulations: The Federal rules restrict any use of the information to criminally investigate or prosecute any alcohol or drug abuse patient.[facility] HospitalIn the event this information is protected by the Federal Confidentiality of Alcohol and Drug Abuse Patient Records regulations: The Federal rules restrict any use of the information to criminally investigate or prosecute any alcohol or drug abuse patient.[facility] HospitalIn the event this information is protected by the Federal Confidentiality of Alcohol and Drug Abuse Patient Records regulations: The Federal rules restrict any use of the information to criminally investigate or prosecute any alcohol or drug abuse patient.[facility] HospitalIn the event this information is protected by the Federal Confidentiality of Alcohol and Drug Abuse Patient Records regulations: The Federal rules restrict any use of the information to criminally investigate or prosecute any alcohol or drug abuse patient.[facility] Reason for Visit (unrecogniz ed section and content) Reason Comments Request Outside Medical Records Reason Comments Consult Positive cologuard r eport Reason Comments Appointment Reason Comments Consult Reason Comments Patient Update (unrecognized sect ion and content) No Status Records FoundNo Status Records Found INFORMATION SOURCE (unrecogn ized section and content) DATE CREATED AUTHOR 06/18/2024 [facility] DATE CREATED AUTHOR AUTHOR'S KENDALL ATDORY 03/13/2025 [facility] FOR RECORDS PERTAINING TO PATIENTS WHO ARE [...] BE BASED ON THE PRIMARY CLINICAL RECORDS. [employer] provides no warranty or guarantee of the accuracy or completeness of information in this document.
[2025-05-28 15:30] LABS: AST(SGOT) 27 U/L (<=37); Alanine Aminotransfer ALT/SGPT 25 U/L (<=46); Albumin, Serum 4.3 g/dL (3.4-4.8); Alkaline Phosphatase 46 U/L (40-129); Bilirubin, Direct 0.24 mg/dL (0.00-0.30); Cholesterol 121 mg/dL (<=200); Globulin 2.2 g/dL (2.2-4.2); Low Density Lipoprotein Calc. 39 mg/dL; Triglycerides 104 mg/dL; Very Low Density Lipoprotein 21 mg/dL (5-40); cholesterol:hdl ratio screen 1.93
[2025-05-28 15:58] LABS: PSA,Total - Annual Screen 0.38 ng/mL (0.02-4.00)
== END | disposition home or self-care (01) ==
LOC: MTLAB 12:42
PROVIDERS: PCP Family Medicine; Referring Provider Nurse Practitioner Family; Visit Provider Nurse Practitioner Family
DX: Z12.5 Encounter for screening for malignant neoplasm of prostate (principal); E78.00 Pure hypercholesterolemia, unspecified; I10 Essential (primary) hypertension; I25.10 Atherosclerotic heart disease of native coronary artery without angina pectoris
CPT/HCPCS: 36415; 80061; 80076; 84153; G0103

== ENCOUNTER → 2025-07-15 | Outpatient (CLI) | payer MEDICARE, OTHER, SELFPAY ==
--- NOTE | 2025-07-15 07:46 | ECHOD_ITS ---
Reason For Study Reason For Study: CAD/ASHD Procedure This was a 2D Doppler, Color Flow transthoracic echocardiogram. The study was technically difficult. PATIENT REFUSED DEFINITY DUE TO PREVIOUS REACTION. States it makes joints hurt. Exam performed in department. Left Ventricle Mildly dilated left ventricular cavity. Apical akinesis. Inferior hypokinesis. Inferior septal hypokinesis. Estimated LVEF 35%. Stage II diastolic dysfunction. Right Ventricle Normal right ventricle. Atria The left atrium is moderately enlarged. Normal right atrium. Mitral Valve Mild (1+) mitral valve insufficiency. Tricuspid Valve Mild (1+) tricuspid valve insufficiency. Normal pulmonary artery pressure. Aortic Valve Mildly calcified right coronary cusp of the aortic valve. Pulmonic Valve The pulmonic valve is not well visualized. Trivial pulmonic valve insufficiency. Great Vessels Normal sized aortic root. Pericardium/Pleural No pericardial effusion. MMode/2D Measurements & Calculations LVIDd: 5.8 cm IVSd: 0.86 cm asc Aorta Diam: 3.5 cm LVIDs: 4.9 cm LVPWd: 0.96 cm RVDd: 4.8 cm FS: 14.4 % LAV(MOD-bp): 73.3 ml LVAd ap4: 46.8 cm2 LVAd ap2: 39.4 cm2 LAV(MOD-bp) Indexed: 35.1 ml/m2 LVLd ap4: 10.5 cm LVLd ap2: 10.0 cm LAV(MOD-sp2): 79.6 ml EDV(MOD-sp4): 167.2 ml EDV(MOD-sp2): 129.0 ml LAV(MOD-sp4): 62.6 ml EDV(sp4-el): 176.7 ml EDV(sp2-el): 131.9 ml LVAs ap4: 36.8 cm2 LVAs ap2: 31.5 cm2 LVLs ap4: 9.9 cm LVLs ap2: 9.2 cm ESV(MOD-sp4): 111.5 ml ESV(MOD-sp2): 86.7 ml ESV(sp4-el): 116.6 ml ESV(sp2-el): 91.9 ml EF(MOD-sp4): 33.3 % EF(MOD-sp2): 32.8 % EF(sp4-el): 34.0 % SV(MOD-sp4): 55.7 ml SV(MOD-sp2): 42.3 ml SV(sp4-el): 60.1 ml SI(MOD-sp4): 26.7 ml/m2 SI(MOD-sp2): 20.3 ml/m2 LA A4 area: 23.5 cm2 LA dimension(2D): 4.9 cm RA A4 area: 20.8 cm2 TAPSE: 1.9 cm Time Measurements MV dec time: 0.20 sec Doppler Measurements & Calculations MV E max stevie: 109.7 cm/sec Lat Peak E' Stevie: 10.3 cm/sec Med Peak E' Stevie: 5.1 cm/sec MV A max stevie: 60.8 cm/sec E/E' lat: 10.7 E/E' med: 21.5 MV E/A: 1.8 Ao V2 max: 108.5 cm/sec LV V1 max: 76.2 cm/sec MV dec slope: 561.8 cm/sec2 Ao max P.7 mmHg LV V1 max P.3 mmHg Ao V2 mean: 78.3 cm/sec LV V1 mean P.4 mmHg Ao mean P.8 mmHg LV V1 mean: 55.7 cm/sec Ao V2 VTI: 27.2 cm LV V1 VTI: 18.4 cm AV (velocity ratio): 0.68 PA V2 max: 85.9 cm/sec TR max stevie: 301.2 cm/sec TR max P.2 mmHg ECHO/Echo Complete Interpretation Summary Mildly dilated left ventricular cavity. Apical akinesis. Inferior hypokinesis. Inferior septal hypokinesis. Estimated LVEF 35%. Stage II diastolic dysfunction. The left atrium is moderately enlarged. Mild (1+) mitral valve insufficiency. Mild (1+) tricuspid valve insufficiency. Ordering Physician: Lisha Miranda Referring Physician: Yonathan Escalante Performed By: Jose Turcios RDCS
== END | disposition home or self-care (01) ==
LOC: CVS 07:46
PROVIDERS: PCP Family Medicine; Referring Provider Internal Medicine Cardiovascular Disease; Visit Provider Internal Medicine Cardiovascular Disease
DX: I25.10 Atherosclerotic heart disease of native coronary artery without angina pectoris (principal)
CPT/HCPCS: 93306